=== PATIENT | male | born 1945 | race Caucasian/White ===

== ENCOUNTER 2020-05-11 11:33 | Emergency (ER) | payer MEDICARE, MEDICAID, SELFPAY ==
[2020-05-11] VITALS (33 sets, daily range): BP systolic 138–163; BP diastolic 66–108; PULSE 103–156; RESP 13–24; TEMP 36.8; O2SAT 92–97
--- NOTE | 2020-05-11 11:30 | RT.EKG_ITS ---
APPROVED REPORT Exam: Resting ECG Patient Location: E HR:122 bpm ECG Measurements Heart Rate 122 AXIS TX 134 P 47 QRSd 67 QRS 18 QT 289 T -27 QTc 415 Conclusion Sinus tachycardia with irregular rate...V-rate 105-181, variation>10% Borderline repol abnormality, diffuse leads...ST dep, T flat/neg, ant/lat/inf. Artifact. Less than 1mm ST depression in V2-6. No STEMI. I have reviewed and interpreted ECG and agree with software generated interpretation.
--- NOTE | 2020-05-11 11:49 | W.ED.GENAD ---
Discharge Plan Disposition Patient Disposition: HOME Condition: Stable Discharge Details Clinical Impression: Acute urinary retention Primary Care Provider: Kelley Mojica ED Provider: Chaya White Home Meds and New Rx's Prescriptions: No Action No Known Home Meds RF: 0 Discharge Instructions Instructions: Urinary Retention in Men (ED), Francois Catheter Placement and Care (ED) Additional Instructions: Follow up with primary care provider in 3-5 days. Return to ED sooner if any worsening or concerns. Increase oral fluids. Follow-up with Dr. Ugalde urology in 3 to 5 days regarding urinary retention. Please follow instructions given for Francois care and emptying as instructed. Practice good hygiene wash hands before emptying Francois bag or doing Francois care. Care management will follow up with you regarding follow-up appointments. Stand Alone Forms: Physical Therapy Referral Referrals: Dario Ugalde MD [ [facility] STAFF PHYSICIAN] - Kelley Mojica MD [Primary Care Provider] - Discharge Data Discharge Date/Time-TO BE ENTERED AT DEPARTURE: 05/11/20 15:55 Medical Decision Making 74-year-old male presents to the ED with chief complaint of left lower quadrant abdominal pain. He describes this as tightness for 2 days. He is normally nonambulatory and mostly bedbound, states that he gets around with a wheelchair. EMS reports that the home was very dirty, patient is disheveled. She denies any chest pain, shortness of breath. He does live with 7 other people. She has a history of gallbladder cancer, also endorses loose bowel movement this morning and last night. Denies any fever chills or vomiting. 1242: Informed by staff analyst that patient requires a catheter to obtain urine sample, Francois catheter placed with approximately 1 liter Dark urine output. Pre-catheter bladder scan showed 600 ml urine. 1309: Patient reevaluation, he states he feels much better after the Francois catheter placed. Reports abdominal pain has subsided. Discussed that we will still do the CT to rule out any other intra-abdominal pathology to explain symptoms. Labs show slight blood cell count of 10.08, RBCs 4.28 hemoglobin 15.2, hematocrit 43.6 sodium is 142, potassium 3.4, BUN 6, creatinine 1.0, GFR greater than 60, glucose is 149, total bilirubin is 2.1 initial troponin is less than 0.05 urine shows large blood, no urine RBCs 20-50 Differential diagnosis includes urinary retention, diverticulitis, bowel obstruction, gastroenteritis, colitis EXAM: CT ABDOMEN PELVIS W CLINICAL HISTORY: LLQ abd pain TECHNIQUE: COMPARISON: CT ABD PELVIS WITH CONTRAST from 02/06/2010 FINDINGS: CT examination of the abdomen and pelvis was performed bolus infusion 100 cc of Omnipaque 350. Images obtained through the lung bases are unremarkable. There is significant motion artifact which limits interpretation. There is a large hiatal hernia. Liver and spleen are grossly unremarkable. Gallbladder is not visualized. No biliary dilatation. No pancreatic abnormality. Adrenals and kidneys are unremarkable as visualized. Abdominal aorta is of normal diameter and major visceral branches appear intact. There is no evidence abdominal or pelvic adenopathy. There is no significant abdominal wall hernia identified. There is a Francois catheter in the urinary bladder. The bladder wall is thick. There appears to have been an ascending colectomy. No evidence of bowel obstruction. No diverticulitis. IMPRESSION: No evidence of acute intra-abdominal process. Scan is limited by motion artifact. 1412: Discussed CT result with patient who verbalizes understanding. Discussed going home with Francois leg bag in place. Patient verbalized understanding. Bladder wall thickened noted to suggest chronic outlet obstruction. Spoke with patient's daughter Lacey who is able to come and get patient but she is concerned that he won't be able to get out of car and into house. Will road test patient and have patient transfer fromwalker into wheelchair. 1514: Transfer here in department unsuccessful with 2 staff members with max assist attempting to get patient into the wheelchair. Care management contacted and will order home health care for patient for Francois care and transfer care,will call EMS for transfer back home. 1532: Discussed with care management in order for home health care and physical therapy to see patient in home regarding ability to do ADLs order placed for home health for Francois care. Discussed plan with patient who verbalizes understanding. EMS for home transport is on their way. 1553: EMS here for patient transport HPI General Mode of arrival: EMS. Date/Time Provider Initiated Documentation: 05/11/20 11:40. Limitations to Documentation: no limitations. Information obtained by: patient and EMS. HPI Narrative: 74-year-old male presents to the ED with chief complaint of left lower quadrant abdominal pain. He describes this as tightness for 2 days. He is normally nonambulatory and mostly bedbound, states that he gets around with a wheelchair. EMS reports that the home was very dirty, patient is disheveled. She denies any chest pain, shortness of breath. He does live with 7 other people. She has a history of gallbladder cancer, also endorses loose bowel movement this morning and last night. Denies any fever chills or vomiting. Related Data Home Medications Medication Instructions Recorded Confirmed Unknown [No Known Home Meds] 05/11/20 05/11/20 Allergies Allergy/AdvReac Type Severity Reaction Status Date / Time No Known Allergies Allergy Unverified 05/11/20 11:36 General Stated Complaint: Abd Prob SAM: 3 Review of Systems Narrative: Constitutional: Negative for weight loss, alert and oriented, disheveled, normal body habitus, appears comfortable. HEENT: Denies trauma, headaches, blurry vision, nasal discharge, sore throat, trouble swallowing. Chest: Denies chest pain, palpitations, irregular rhythm, hypertension. Respiratory: Denies Shortness of breath, cough, hemoptysis. GI: Denies positive left lower quadrant abdominal pain, nausea, vomiting, constipation. : Denies dysuria, hematuria, flank pain, rectal bleeding. Neuro: Denies dizziness, blurry vision, weakness, syncope, headache or facial numbness. Hematologic: Denies easy bruising, intolerance to heat or cold, hair loss. [facility] Social History Smoking/Tobacco Use Status: Never Smoking risk assessment performed?: Yes Alcohol Intake: current Alcohol Intake frequency: a few times a month Alcohol type: beer Substance use type: does not use Do you feel safe at home: Yes Do you feel safe in your relationship?: Yes Exam Narrative Exam Narrative: Constitutional: Alert and oriented x3. Appears stated age. Normal body habitus. Head: Normocephalic, no trauma. Eyes: Pupils PERRLA, Red reflex noted, EOM's intact. Eyelids symmetrical without lesions, discharge, or swelling. ENT: Bilateral TM's WNL, External ear normal to inspection, no mastoid TTP, swelling, or erythema, Nasal turbinates WNL, no nasal discharge. Normal dentition, Posterior pharynx WNL, no exudate. Chest: Sinus tachycardia, normal S1, S2, distal pulses intact. Resp: Lungs clear to auscultation bilaterally, no wheezes, rales, or rhonchi. Abdomen: Left lower quadrant abdominal tenderness with palpation. Abdomen is taut. Musculoskeletal: Unable to assess gait, Skin: No suspicious rashes or lesions. Capillary refill less than 2 sec. Neurologic: Cranial nerves II-XII intact. Alert and oriented x 3. DTR's intact. Hematologic/Lymphatic: No ecchymosis, no lymphadenopathy. Course Vital Signs Vital signs: Vital Signs Temperature 36.8 C 05/11/20 11:29 Pulse 135 H 05/11/20 11:29 Respiratory Rate 16 05/11/20 11:29 Blood Pressure 138/98 H 05/11/20 11:29 Pulse Oximetry 95 05/11/20 11:29 Temperature 36.8 C 05/11/20 11:29 Temperature Source Skin 05/11/20 11:29 Pulse 135 H 05/11/20 11:29 Respiratory Rate 16 05/11/20 11:29 Respiratory Effort 05/11/20 11:36 Blood Pressure 138/98 H 05/11/20 11:29 Pulse Oximetry 95 05/11/20 11:29 Oxygen Delivery Method Room Air 05/11/20 11:29 Oxygen Flow Rate 0 05/11/20 11:29 Pain Level 5 05/11/20 11:29
[2020-05-11 12:11] LABS: Abs Immature Grans 0.02 10^3/uL (0.0-0.06); Absolute Basophil Count 0.02 10^3/uL (0.0-0.2); Absolute Eosinophil Count 0.01 10^3/uL (0.0-0.7); Absolute Lymphocyte Count 1.16 10^3/uL (1.2-3.4); Absolute Monocyte Count 0.63 10^3/uL (0.1-0.8); Absolute Neutrophil Count 8.24 10^3/uL (1.2-6.7); Basophils % 0.2; Eosinophils % 0.1; HCT 43.6 % (40.0-50.0); HGB 15.2 g/dL (13.5-17.5); Immature Grans % 0.2; Lymphocytes % 11.5; MCH 35.5 pg (27.0-33.0); MCHC 34.9 % (32.0-36.0); MCV 101.9 fL (80-95); MPV 10.8 fL (8.0-11.0); Monocytes % 6.3; Neutrophils % 81.7; Nucleated RBC 0 %; Platelet Count 190 10^3/uL (130-400); RBC 4.28 10^6/uL (4.36-5.78); RDW 13.2 % (11.8-14.1); RDW-SD 49.5 fL; WBC 10.08 10^3/uL (4.4-10.8)
[2020-05-11] MEDS: Normal Saline 1,000 ML 1000 ML IV (12:16)
[2020-05-11 12:31] LABS: ALT 10 U/L (16-63); AST 18 U/L (15-37); Albumin 3.1 g/dL (3.4-5.0); Alkaline Phosphatase 83 U/L (46-116); BUN 6 mg/dL (7-18); Bilirubin, Total 2.1 mg/dL (0.2-1.0); CREATININE 1.06 mg/dL (0.70-1.30); Calcium 8.8 mg/dL (8.5-10.1); Chloride 107 mmol/L (98-107); Glucose 149 mg/dL (74-106); Lipase 70 U/L (73-393); Magnesium 1.8 mg/dL (1.8-2.4); Potassium 3.4 mmol/L (3.5-5.1); Sodium 142 mmol/L (136-145); Total Protein 6.8 g/dL (6.4-8.2)
[2020-05-11 12:35] LABS: Troponin I < 0.05 ng/mL (<0.06)
[2020-05-11] MEDS: Lidocaine 2% Jelly 6 ML SYR (12:39)
[2020-05-11 12:54] LABS: Bilirubin Negative (Negative); Blood Large (Negative); Clarity Clear (Clear); Glucose Negative (Negative); Ketones Negative (Negative); Leukocyte Esterase Negative (Negative); Nitrite Negative (Negative); Specific Gravity >= 1.030 (1.005-1.025); Urobilinogen 0.2 EU/dL (Up TO 0.2); pH 5.5 (5-8)
[2020-05-11 13:03] LABS: Bacteria Few HPF (Negative); C & S Indicated? No; Casts Negative LPF (Negative); Crystals Negative HPF (Negative); Epithelial Cells Negative HPF (Negative); Mucus Heavy (Negative); Other Cells Rare Renal (Negative); RBC 20-50 HPF (0-2); WBC Negative HPF (0-5)
--- NOTE | 2020-05-11 13:55 | DI.CT_ITS ---
EXAM: CT ABDOMEN PELVIS W CLINICAL HISTORY: LLQ abd pain TECHNIQUE: COMPARISON: CT ABD PELVIS WITH CONTRAST from 02/06/2010 FINDINGS: CT examination of the abdomen and pelvis was performed bolus infusion 100 cc of Omnipaque 350. Image s obtained through the lung bases are unremarkable. There is significant motion artifact which limit s interpretation. There is a large hiatal hernia. Liver and spleen are grossly unremarkable. Gallbladder is not visua lized. No biliary dilatation. No pancreatic abnormality. Adrenals and kidneys are unremarkable as visualized. Abdominal aorta is of normal diameter and major visceral branches appear intact. There is no evidence abdominal or pelvic adenopathy. There is no significant abdominal wall hernia i dentified. There is a Francois catheter in the urinary bladder. The bladder wall is thick. There appears to have been an ascending colectomy. No evidence of bowel obstruction. No diverticuli tis. IMPRESSION: No evidence of acute intra-abdominal process. Scan is limited by motion artifact. RADIATION DOSE DELIVERED: 1,059.53mGy.cm Total DLP
[2020-05-11] MEDS: Omnipaque 350 MG/ML 100 ML BTL IJ (13:57)
[2020-05-11] MEDS: Normal Saline - Diluent 50 ML VIAL IV (13:57)
--- NOTE | 2020-05-11 14:18 | NUR.NOTE ---
[facility]
--- NOTE | 2020-05-11 16:33 | CMPROGNOTE_ITS ---
- If Service Date Differs Date of service: 05/11/20 Time of Service: 16:33 Care Management Progress Note CM was paged to assist with HH orders for Jose, as he is returning home with a new morejon catheter. CM obtained signed orders from the provider and faxed them to [facility]. CM will continue to follow.
--- NOTE | 2020-05-12 16:51 | NUR.NOTE ---
Nursing Note: Pt called at provider's request to f/u about morejon care and management. Pt states his granddaughter Shannon had come over and had shown him how to operate and clean/empty catheter. Pt declined any further instruction, though was encouraged to call with any questions. Provider aware.
== END 2020-05-11 15:55 | disposition home or self-care (01) ==
PROVIDERS: Emergency Provider Registered Nurse Emergency
DX: R33.8 Other retention of urine (principal); Z46.6 Encounter for fitting and adjustment of urinary device; R10.32 Left lower quadrant pain
CPT/HCPCS: 51702; 80053; 83690; 93005; 96360; 99285; 74177; 81003; 81015; 83735; 84484; 85025; 93010; 99284; J3490

== ENCOUNTER 2020-05-13 18:57 | Emergency (ER) | payer MEDICARE, MEDICAID, SELFPAY ==
[2020-05-13 19:05] VITALS: BP 142/103; PULSE 101; RESP 17; TEMP 37.2; O2SAT 95
--- NOTE | 2020-05-13 19:52 | NUR.NOTE ---
pt had large bm. cleansed and new depends placed. no decub noted. new morejon bag placed to do ua from bag. :
[2020-05-13 20:16] LABS: Bilirubin Small (Negative); Blood Large (Negative); Clarity Sl Cloudy (Clear); Glucose Negative (Negative); Ketones 15 mg/dL (Negative); Leukocyte Esterase Negative (Negative); Nitrite Negative (Negative); Specific Gravity >= 1.030 (1.005-1.025); Urobilinogen 0.2 EU/dL (Up TO 0.2)
[2020-05-13 20:26] LABS: RBC >50 HPF (0-2)
[2020-05-13 20:31] LABS: C & S Indicated? No
[2020-05-13 20:51] VITALS: BP 149/74; PULSE 88; RESP 18; O2SAT 98
--- NOTE | 2020-05-13 20:59 | ED.GENADUL_ITS ---
Discharge Plan Disposition Patient Disposition: HOME Condition: Stable Discharge Details Clinical Impression: Francois catheter problem, Hematuria Primary Care Provider: Fran York ED Provider: Shankar Potter Home Meds and New Rx's Prescriptions: No Action No Known Home Meds RF: 0 Discharge Instructions Instructions: Francois Catheter Placement and Care (ED), Hematuria (ED) Additional Instructions: At this time your Francois catheter appears to be functioning properly. No signs of urinary tract infection. Please watch for new or worsening symptoms and return to the ER for any concerns. I would like you to contact your primary care provider on Friday to discuss your Francois catheter and ongoing outpatient medical needs Discharge Data Discharge Date/Time-TO BE ENTERED AT DEPARTURE: 05/13/20 21:20 Medical Decision Making 74-year-old gentleman had Francois catheter placed 2 days ago. Not draining appropriately today. It appears as though the tubing was flipped up over his depends and unable to train against gravity. Once the tubing was removed, it drained without difficulty. By the time I saw the patient he was asymptomatic. Will obtain urinalysis. Urinalysis reveals large blood but negative for nitrate, leuk esterase. Greater than 50 red blood cells. Patient is currently asymptomatic, extremely low suspicion for renal stone. I see no indication for emergent imaging. Patient is asymptomatic and feels as though he can go home safely in his current condition. We were able to talk with his family, they do have a wheelchair at home and feel as though they are able to care for him at home in his current condition. Both patient and family are comfortable with disposition home. They will come pick him up. We discussed the importance of watching for new or evolving symptoms and returning to the ER for any concerns otherwise follow the instructions given to them by [facility] when the Francois catheter was placed. Patient was educated regarding Francois catheter and tube placement. Lab Data Lab results reviewed: Yes I reviewed the patient's lab results. Lab results narrative: Laboratory Tests Range/Units 05/13/20 20:05 Urine Color (Yellow) Red Urine Clarity (Clear) Sl cloudy Urine pH (5-8) 7.0 Ur Specific [place] (1.005-1.025) >= 1.030 H Urine Protein (Negative) mg/dL >=300 H Urine Ketones (Negative) mg/dL 15 H Urine Blood (Negative) Large H Urine Nitrite (Negative) Negative Urine Bilirubin (Negative) Small H Urine Urobilinogen (Up TO 0.2) EU/dL 0.2 Ur Leukocyte Esterase (Negative) Negative Urine RBC (0-2) HPF >50 H Urine WBC Not Applicable Ur Epithelial Cells Not Applicable Urine Crystals Not Applicable Urine Bacteria Not Applicable Urine Mucus Not Applicable Ur Culture Indicated? No Urine Glucose (Negative) mg/dL Negative HPI General Mode of arrival: EMS . Date/Time Provider Initiated Documentation: 05/13/20 19:10 . Limitations to Documentation: no limitations . Information obtained by: patient and EMS . HPI Narrative: 74-year-old gentleman who denies significant past medical history. He states that he was seen at the [facility] days ago for worsening urinary retention and had a Francois catheter placed. The Francois catheter was functioning normally over the first 24 hours but today he states it was not functioning properly he did notice some blood in the tubing and it does not appear to be draining properly. Patient has no other concerns or complaints at this time. Patient reports that he is not usually ambulatory at baseline and he has a wheelchair at home. Patient lives at home with his family who typically cares for him. He denies any fever, nausea, vomiting, back pain. Prior to my evaluation, his RN on looped his Francois catheter tubing and urine flowed freely. Bladder scanner revealed 64 mL. Upon my presentation, patient is asymptomatic. Related Data Home Medications Medication Instructions Recorded Confirmed Unknown [No Known Home Meds] 05/13/20 05/13/20 Allergies Allergy/AdvReac Type Severity Reaction Status Date / Time No Known Allergies Allergy Unverified 05/13/20 19:12 General Stated Complaint: Urinary SAM: 3 Review of Systems Constitutional Constitutional: Denies fever(s) Cardiovascular Cardiovascular: Denies chest pain and Denies dyspnea Respiratory Respiratory: Denies cough and Denies dyspnea Gastrointestinal Gastrointestinal: Denies abdominal pain, Denies nausea and Denies vomiting Genitourinary Genitourinary: Reports hematuria Musculoskeletal Musculoskeletal: Denies back pain [facility] Social History Smoking/Tobacco Use Status: Never Smoking risk assessment performed?: Yes Alcohol Intake: current Alcohol Intake frequency: holidays/special occasions only Drug use: Never Substance use type: does not use Do you feel safe at home: Yes Do you feel safe in your relationship?: Yes Additional Social history: pt arrives very dirty and disheveled. per ems home living situation is very unsanitary. pt states baths him and feeds him. Exam Const General: cooperative, healthy appearing, comfortable, no acute distress and disheveled Orientation: alert, awake and oriented x3 HENMT Head: normal to inspection, normocephalic and atraumatic Mouth: moist mucous membranes Eyes Conjunctivae: conjunctivae normal Sclera: sclerae normal Neck Neck: normal visual inspection, full ROM, trachea midline and supple Resp Effort & Inspection: normal respiratory effort and able to speak in complete sentences Auscultation: clear to auscultation bilaterally Cardio Rate: regular rate Rhythm: regular rhythm GI Palpation: soft and nontender Auscultation: normal bowel sounds Male General Exam: Yes other (Indwelling Francois catheter in place) Penis: normal penis Meatus: meatus normal Scrotum: scrotum normal Testes: normal Back/Spine/Pelvis Back: No back tenderness Skin General skin exam: no rashes or lesions noted Neuro General: patient alert, patient awake, moves all extremities and no focal motor deficits Sensory Exam: no sensory deficits noted Psych Appearance: grossly normal Mental Status: mental status grossly normal Course Vital Signs Vital signs: Vital Signs Temperature 37.2 C 05/13/20 19:05 Pulse 101 H 05/13/20 19:05 Respiratory Rate 17 05/13/20 19:05 Blood Pressure 142/103 H 05/13/20 19:05 Pulse Oximetry 95 05/13/20 19:05 Temperature 37.2 C 05/13/20 19:05 Temperature Source Temporal Artery Scan 05/13/20 19:05 Pulse 88 05/13/20 20:51 Respiratory Rate 18 05/13/20 20:51 Respiratory Effort 05/13/20 19:09 Blood Pressure 149/74 H 05/13/20 20:51 Blood Pressure Position Sitting 05/13/20 19:05 Pulse Oximetry 98 05/13/20 20:51 Oxygen Delivery Method Room Air 05/13/20 19:05 Oxygen Flow Rate 0 05/13/20 19:05 Pain Level 0 05/13/20 19:05 Lab/Test Results Lab/Test Results: Laboratory Tests Range/Units 05/13/20 20:05 Urine Color (Yellow) Red Urine Clarity (Clear) Sl cloudy Urine pH (5-8) 7.0 Ur Specific [place] (1.005-1.025) >= 1.030 H Urine Protein (Negative) mg/dL >=300 H Urine Ketones (Negative) mg/dL 15 H Urine Blood (Negative) Large H Urine Nitrite (Negative) Negative Urine Bilirubin (Negative) Small H Urine Urobilinogen (Up TO 0.2) EU/dL 0.2 Ur Leukocyte Esterase (Negative) Negative Urine RBC (0-2) HPF >50 H Urine WBC Not Applicable Ur Epithelial Cells Not Applicable Urine Crystals Not Applicable Urine Bacteria Not Applicable Urine Mucus Not Applicable Ur Culture Indicated? No Urine Glucose (Negative) mg/dL Negative
== END 2020-05-13 21:20 | disposition home or self-care (01) ==
PROVIDERS: Emergency Provider Physician Assistant; PCP Internal Medicine
DX: T83.9XXA Unspecified complication of genitourinary prosthetic device, implant and graft, initial encounter (principal); R31.9 Hematuria, unspecified
CPT/HCPCS: 99282; 81003; 81015

== ENCOUNTER 2020-06-07 13:17 | Inpatient (IN) | payer MEDICARE, MEDICAID, SELFPAY ==
[2020-06-07] VITALS (24 sets, daily range): BP systolic 125–154; BP diastolic 71–97; PULSE 82–123; RESP 13–22; TEMP 36.7–37; O2SAT 94–100
--- NOTE | 2020-06-07 | DI.US_ITS ---
EXAM: US RENAL CLINICAL HISTORY: urinary retention, ERIKA. TECHNIQUE: Daniel scale, color and spectral Doppler were used. COMPARISON: No exams were available for comparison FINDINGS: Renal size in cm: Right: 9.4. Left: 10.2. Echogenicity: Normal. Hydronephrosis: No. Cyst or mass: No. Nephrolithiasis: No. Other findings: None. Bladder:There is a Francois catheter in the urinary bladder and the prevoid volume is 20 cc. Urinary bl adder wall appears slightly thickened but difficult to assess as it is decompressed by the Francois cath eter. Ureteral jets: Right: Not visualized Left: Not visualized Prevoid vol:20 cc Postvoid vol: cc Prostate not visualized. IMPRESSION: No significant ultrasound findings in the kidneys. Decompressed urinary bladder with Francois catheter. DATA REPOSITORY:
[2020-06-07 13:41] LABS: Abs Immature Grans 0.04 10^3/uL (0.0-0.06); Absolute Basophil Count 0.01 10^3/uL (0.0-0.2); Absolute Lymphocyte Count 1.08 10^3/uL (1.2-3.4); Absolute Monocyte Count 0.56 10^3/uL (0.1-0.8); Absolute Neutrophil Count 7.53 10^3/uL (1.2-6.7); Basophils % 0.1; HGB 13.9 g/dL (13.5-17.5); Immature Grans % 0.4; Lymphocytes % 11.7; MCH 34.5 pg (27.0-33.0); MCHC 33.9 % (32.0-36.0); MCV 101.7 fL (80-95); MPV 10.6 fL (8.0-11.0); Monocytes % 6.1; Neutrophils % 81.7; Nucleated RBC 0 %; Platelet Count 228 10^3/uL (130-400); RBC 4.03 10^6/uL (4.36-5.78); RDW 12.7 % (11.8-14.1); RDW-SD 47.9 fL; WBC 9.22 10^3/uL (4.4-10.8)
--- NOTE | 2020-06-07 13:47 | W.ED.GENAD ---
Discharge Plan Disposition Patient Disposition: [facility] INPATIENT Condition: Poor Discharge Details Clinical Impression: Acute hypokalemia, Weakness Admit Date/Time: 06/07/20 14:36 Admit Provider: Shankar Arias Attending Provider: Shankar Arias Primary Care Provider: Kelley Mojica ED Provider: Chaya White Discharge Data Discharge Date/Time-TO BE ENTERED AT DEPARTURE: 06/07/20 15:58 Medical Decision Making 73-year-old male presents to the ER via EMS with chief complaint of dysuria, having a hard time urinating. Patient was seen here in the end of April with urinary retention and had a Francois catheter placed. He has sent had a removed by home health last Friday. He reports some left lower quadrant abdominal tenderness denies any fever or vomiting. He also reports that he had home health and physical therapy come to the home. He has been bedbound and has had increasing weakness and failure to thrive over the last 2 months. 1403: hospital staff pharmacist states that bladder scan revealed the urine of 343 mils patient states he cannot pee, Francois ordered. Critical low result on potassium received from the lab, 2.8 1439: Spoke with Lois Canseco FILLING STATION LABORER is on for hospitalist team, discussed patient case in details she agrees to accept patient for admission for hypokalemia and UTI. Discussed plan with patient, verbalized understanding. 1544: Spoke with Med surg nurse Krista MURPHY. Patient to go to room 216. HPI General Mode of arrival: EMS. Date/Time Provider Initiated Documentation: 06/07/20 13:31. Limitations to Documentation: no limitations. Information obtained by: patient and EMS. HPI Narrative: 73-year-old male presents to the ER via EMS with chief complaint of dysuria, having a hard time urinating. Patient was seen here in the end of April with urinary retention and had a Francois catheter placed. He has sent had a removed by home health last Friday. He reports some left lower quadrant abdominal tenderness denies any fever or vomiting. He also reports that he had home health and physical therapy come to the home. He has been bedbound and has had increasing weakness and failure to thrive over the last 2 months. Related Data Home Medications Medication Instructions Recorded Confirmed Unknown [No Known Home Meds] 05/11/20 06/07/20 Allergies Allergy/AdvReac Type Severity Reaction Status Date / Time No Known Allergies Allergy Unverified 06/07/20 13:27 General Stated Complaint: GenMedical SAM: 3 Review of Systems Narrative: Constitutional: Patient is disheveled, normal body habitus, HEENT: Denies trauma, headaches, blurry vision, nasal discharge, sore throat, trouble swallowing. Chest: Denies chest pain, palpitations, irregular rhythm, hypertension. Respiratory: Denies Shortness of breath, cough, hemoptysis. GI: Denies nausea, vomiting, constipation. : Denies hematuria, flank pain, rectal bleeding. Positive dysuria, trouble urinating. Neuro: Denies dizziness, blurry vision, syncope, headache or facial numbness. Hematologic: Denies easy bruising, intolerance to heat or cold, hair loss. [facility] Social History Smoking/Tobacco Use Status: Never Smoking risk assessment performed?: Yes Alcohol Intake: current Alcohol Intake frequency: a few times a month Alcohol type: beer Drug use: Never Substance use type: does not use Do you feel safe at home: Yes Do you feel safe in your relationship?: Yes Additional Social history: pt arrives very dirty and disheveled. per ems home living situation is very unsanitary. pt states baths him and feeds him. Exam Narrative Exam Narrative: Constitutional: Alert and oriented x3. Appears stated age. Normal body habitus. Disheveled. Head: Normocephalic, no trauma. Eyes: Pupils PERRLA, Red reflex noted, EOM's intact. Eyelids symmetrical without lesions, discharge, or swelling. ENT: Bilateral TM's WNL, External ear normal to inspection, no mastoid TTP, swelling, or erythema, Nasal turbinates WNL, no nasal discharge. Normal dentition, Posterior pharynx WNL, no exudate. Chest: RRR, Normal S1, S2, distal pulses intact. Resp: Lungs clear to auscultation bilaterally, no wheezes, rales, or rhonchi. Musculoskeletal: He is able to move all 4 extremities without difficulty. Skin: No suspicious rashes or lesions. Capillary refill less than 2 sec. Neurologic: Cranial nerves II-XII intact. Alert and oriented x 3. Hematologic/Lymphatic: No ecchymosis, no lymphadenopathy. Course Vital Signs Vital signs: Vital Signs Temperature 37.0 C 06/07/20 13:20 Pulse 110 H 06/07/20 13:20 Blood Pressure 154/86 H 06/07/20 13:20 Pulse Oximetry 97 06/07/20 13:20 Temperature 37.0 C 06/07/20 13:20 Pulse 110 H 06/07/20 13:20 Respiratory Effort Non-Labored 06/07/20 13:26 Blood Pressure 154/86 H 06/07/20 13:20 Blood Pressure Position Sitting 06/07/20 13:20 Pulse Oximetry 97 06/07/20 13:20 Oxygen Delivery Method Room Air 06/07/20 13:20 Oxygen Flow Rate 0 06/07/20 13:20 Pain Level 0 06/07/20 13:20 Lab/Test Results Lab/Test Results: Laboratory Tests Range/Units 06/07/20 12:25 WBC (4.4-10.8) 10^3/uL 9.22 RBC (4.36-5.78) 10^6/uL 4.03 L Hgb (13.5-17.5) g/dL 13.9 Hct (40.0-50.0) % 41.0 MCV (80-95) fL 101.7 H MCH (27.0-33.0) pg 34.5 H MCHC (32.0-36.0) % 33.9 RDW (11.8-14.1) % 12.7 Plt Count (130-400) 10^3/uL 228 MPV (8.0-11.0) fL 10.6 Immature Gran % 0.4 Neutrophils % 81.7 Lymphocytes % 11.7 Monocytes % 6.1 Eosinophils % 0.0 Basophils % 0.1 Nucleated RBC % % 0 Absolute Neutrophils (1.2-6.7) 10^3/uL 7.53 H Absolute Lymphocytes (1.2-3.4) 10^3/uL 1.08 L Absolute Monocytes (0.1-0.8) 10^3/uL 0.56 Absolute Eosinophils (0.0-0.7) 10^3/uL 0.00 Absolute Basophils (0.0-0.2) 10^3/uL 0.01
[2020-06-07 13:50] LABS: ALT 12 U/L (16-63); AST 13 U/L (15-37); Albumin 2.5 g/dL (3.4-5.0); Alkaline Phosphatase 87 U/L (46-116); Anion Gap 5.4 mmol/L (3-11); BUN 8 mg/dL (7-18); Bilirubin, Total 1.5 mg/dL (0.2-1.0); CO2 29.6 mmol/L (21.0-32.0); CREATININE 1.35 mg/dL (0.70-1.30); Calcium 7.9 mg/dL (8.5-10.1); Estimated GFR 51.81 (mL/min/1.73m2); Glucose 116 mg/dL (74-106); Lipase 58 U/L (73-393); Magnesium 1.7 mg/dL (1.8-2.4); Total Protein 6.5 g/dL (6.4-8.2)
[2020-06-07 14:01] LABS: Chloride 106 mmol/L (98-107); Sodium 142 mmol/L (136-145)
[2020-06-07 14:07] LABS: Potassium 2.8 mmol/L (3.5-5.1)
--- NOTE | 2020-06-07 14:15 | RT.EKG_ITS ---
APPROVED REPORT Exam: Resting ECG Patient Location: E HR:112 bpm ECG Measurements Heart Rate 112 AXIS LA 147 P 69 QRSd 62 QRS 27 QT 314 T -15 QTc 429 Conclusion Sinus tachycardia...rate> 99 I have reviewed and interpreted ECG and agree with software generated interpretation.
[2020-06-07] MEDS: Potassium Chloride Liquid 20 MEQ PKT 40 MEQ PO (14:30)
[2020-06-07 14:32] LABS: Bilirubin Negative (Negative); Blood Moderate (Negative); Clarity Cloudy (Clear); Glucose Negative (Negative); Ketones Negative (Negative); Leukocyte Esterase Small (Negative); Nitrite Negative (Negative); Specific Gravity >= 1.030 (1.005-1.025); Urobilinogen 0.2 EU/dL (Up TO 0.2)
[2020-06-07] MEDS: POTASSIUM CHLORIDE 10 MEQ/100 ML BAG 100 MEQ IVPB (14:36)
[2020-06-07 14:42] LABS: C & S Indicated? Yes; WBC >50 HPF (0-5)
--- NOTE | 2020-06-07 14:43 | W.PM.HP.N ---
Date of service: 06/07/20 Time of Service: 14:43 Assessment and Plan Assessment and plan (1) UTI (urinary tract infection): Status: Acute Assessment and plan: admit to med/surg. Recent history of urinary retention with catheter placement. ceftriaxone 1 gm daily day 07/18 culture pending (2) Acute urinary retention: Status: Acute Assessment and plan: morejon catheter placed renal ultrasound pending tamsulosin 0.4 mg daily urology consult (3) ERIKA (acute kidney injury): Status: Resolved Assessment and plan: possibly combination of post and pre-renal. morejon has been placed, renal ultrasound pending CT scan on 05/11 with no hydro, no nephrolithiasis IV hydration with bolus then infusion avoid nephrotoxic drugs renal dosing as needed. (4) Acute hypokalemia: Status: Resolved Assessment and plan: replete and follow magnesium will be repleted also, was 1.7 (has had poor po intake for several days) (5) Loss of taste: Status: Acute Assessment and plan: reports 2 days of anorexia d/t loss of taste. no know covid contacts. PUI covid testing pending (6) Protein malnutrition: Status: Acute Assessment and plan: calcium corrects to 9.1 nutrition consult. (7) Ambulatory dysfunction: Status: Acute Assessment and plan: chronic, reports mostly utilizes wheel chair. PT consult (8) DVT prophylaxis: Status: Acute Assessment and plan: enoxaparin daily teds (9) Discharge planning issues: Status: Acute Assessment and plan: case management following. History of Present Illness History of Present Illness Chief Complaint: dysuria Narrative: presents by EMS for difficulty urinating. c/o dysuria and retaining urine. found to be hypokalemic and dehydrated. UA pending. had urinary retention and had a morejon placed 05/11 in ED which was removed by [facility] per patient report admit to hospitalist for urinary retention, hypokalemia, UTI. start ceftriaxone while cultures pending. patient also reports losing his sense of taste 2 days ago which is causing anorexia. Review of Systems Constitutional Constitutional: Reports anorexia (loss of taste), Denies fever(s), Denies headache(s), Reports lethargy, Reports malaise, Reports poor appetite and Reports weakness (generalized, chronic) Eyes Eyes: Denies change in vision ENT Ears, Nose, Mouth, and Throat: Denies headache(s) Cardiovascular Cardiovascular: Denies chest pain and Denies dyspnea Respiratory Respiratory: Denies chest congestion, Denies cough and Denies dyspnea Gastrointestinal Gastrointestinal: Reports abdominal pain, Denies constipation, Denies diarrhea, Denies nausea and Denies vomiting Genitourinary Genitourinary: Reports difficulty urinating, Reports dysuria, Reports urinary frequency and Reports urinary urgency Neurologic Neurologic: Denies headache(s) and Reports weakness (generalized, chronic) [facility] Social History Smoking/Tobacco Use Status: Never Smoking risk assessment performed?: Yes Alcohol Intake: current Alcohol Intake frequency: a few times a month Alcohol type: beer Drug use: Never Substance use type: does not use Do you feel safe at home: Yes Do you feel safe in your relationship?: Yes Additional Social history: pt arrives very dirty and disheveled. per ems home living situation is very unsanitary. pt states baths him and feeds him. Meds Home Medications and Allergies Home Medications Medication Instructions Recorded Confirmed Type Unknown [No Known Home Meds] 05/11/20 06/07/20 History Allergies Allergy/AdvReac Type Severity Reaction Status Date / Time No Known Allergies Allergy Unverified 06/07/20 13:27 Exam Const General: cooperative, comfortable, no acute distress, frail appearing and ill appearing chronically Nutritional Appearance: average body habitus Orientation: alert, awake and oriented x3 HENMT Head: normal to inspection, normocephalic and atraumatic Mouth: moist mucous membranes abnormal (dry) Resp Effort & Inspection: normal respiratory effort Auscultation: clear to auscultation bilaterally Cardio Rate: regular rate Rhythm: regular rhythm GI Inspection: normal to inspection Palpation: soft and nontender Auscultation: normal bowel sounds General: other (morejon draining cloudy urine) Neuro General: patient alert, patient awake and patient oriented x3 Cognition: normal cognition Speech: speech normal Sensory Exam: no sensory deficits noted Extrem General: normal to inspection, full ROM and no pedal edema Psych Mental Status: mental status grossly normal Speech and Movement: speech and movement normal Mood: congruent mood Affect: blunted Attitude: cooperative Results Labs Result diagrams: 06/08/20 06:42 06/09/20 07:04 Labs: Laboratory Results - last 24 hr 1106/07/20 06/07/20 12:25 12:25 14:20 WBC 9.22 RBC 4.03 L Hgb 13.9 Hct 41.0 MCV 101.7 H MCH 34.5 H MCHC 33.9 RDW 12.7 Plt Count 228 MPV 10.6 Immature Gran % 0.4 Neutrophils % 81.7 Lymphocytes % 11.7 Monocytes % 6.1 Eosinophils % 0.0 Basophils % 0.1 Nucleated RBC % 0 Absolute Neutrophils 7.53 H Absolute Lymphocytes 1.08 L Absolute Monocytes 0.56 Absolute Eosinophils 0.00 Absolute Basophils 0.01 Sodium 142 Potassium 2.8 L* Chloride 106 Carbon Dioxide 29.6 Anion Gap 5.4 BUN 8 Creatinine 1.35 H Estimated GFR/1.73 m2 51.81 Glucose 116 H Calcium 7.9 L Magnesium 1.7 L Total Bilirubin 1.5 H AST 13 L ALT 12 L Alkaline Phosphatase 87 Total Protein 6.5 Albumin 2.5 L Lipase 58 Urine Color Yellow Urine Clarity Cloudy Urine pH 6.0 Ur Specific [place] >= 1.030 H Urine Protein >=300 H Urine Ketones Negative Urine Blood Moderate H Urine Nitrite Negative Urine Bilirubin Negative Urine Urobilinogen 0.2 Ur Leukocyte Esterase Small H Urine RBC Not Applicable Urine WBC >50 H Ur Epithelial Cells Not Applicable Urine Crystals Not Applicable Urine Bacteria Not Applicable Urine Mucus Not Applicable Ur Culture Indicated? Yes Urine Glucose Negative Last Vital Signs Temp 37.0 C 06/07/20 13:20 Pulse 110 H 06/07/20 13:20 BP 154/86 H 06/07/20 13:20 Pulse Ox 97 06/07/20 13:20 COVID-19 Screening Have you, or household traveled for leisure in last 14 days?: No Had IN PERSON contact w/suspected or confirmed C-19 person: No
[2020-06-07] MEDS: cefTRIAXone 1 GM/50 ML BAG IVPB (15:46)
--- NOTE | 2020-06-07 16:51 | DI.VRAD_ITS ---
PROCEDURE INFORMATION: Exam: US Retroperitoneal; Complete; Kidneys and Bladder Exam date and time: 06/07/2020 4:31 PM Age: 74 years old Clinical indication: Other: Urinary retention; [place] TECHNIQUE: Imaging protocol: Real-time ultrasound of the retroperitoneum with image documentation. Complete exam focused on the kidneys and bladder. COMPARISON: CT ABDOMEN PELVIS W 05/11/2020 1:44 PM FINDINGS: Right kidney: The right kidney measures 9.4 x 5.2 x 5.3 cm. Left kidney: The left kidney measures 10.2 x 5.4 x 5.1 cm. No renal calculus, hydronephrosis, mass or perinephric fluid collection. Urinary bladder: Urinary bladder is decompressed with a Francois catheter balloon within the lumen. Prevoid bladder volume is 20 mL. Bladder wall is thickened although this is likely related to chronic prostate enlargement and decompression. IMPRESSION: 1. Normal bilateral kidneys without hydronephrosis. 2. Decompressed urinary bladder with Francois catheter balloon within. Dictated and Authenticated by: Ludy Ortega MD. Ordering:DORETHA Abreu MD
[2020-06-07] MEDS: Normal Saline 500 ML 1000 ML IV (16:56)
[2020-06-07] MEDS: Enoxaparin 40 MG/0.4 ML SYR SC (16:56)
--- NOTE | 2020-06-07 17:30 | IN_ITS ---
Date of service: 06/07/20 Time of Service: 17:30 PT Notes Visit Reasons: HYPOKALEMIA Physical Therapy Inpatient Initial Evaluation Date: 06/07/2020 Referring Doctor: Lois Canseco NP PT Orders: PT CONSULT: Eval/treat Precautions: Fall. Standard. Activity as tolerated. Patient Profile/Admitting Diagnosis: Jose is a 74-year-old male who presented to the ED on today with chief complaint of difficulty urinating. He was previously seen at the ED on 05/13/2020 for urinary retention with placement of morejon catheter prior to discharge from home same day. Catheter was removed last 06/02/2020 by HH nurse. referral to PT was made due to accompanying generalized weakness and difficulty with transfers. Patient is diagnosed with urinary tract infection, urinary retention, kidney injury, acute hypokalemia, loss of taste, protein malnutrition, and ambulatory dysfunction. PMHX: Hematuria Ambulatory dysfunction Social History/Home Situation: Lives with , son, and son's family. He states that he has a HH aide who comes in twice a week to help with self-care. PT comes twice a week as well for functional mobility progression. He claims that his son helps out with transferring on days PT Haim does not come to visit. He has not walked for quite a long time now. Indicates that he has a wheelchair at home that is used to move the him from one part of the house to the other. Has fallen more than 5 times in the past year. Equipment Owned/DME: [employer], wheelchair Subjective: You would need a second person to move me. Reports being very fatigued and weak. Apprehensive about moving due to back pain and leg pain but was agreeable to be sat up in bed although did not appear to be comfortable with moving. Stressed that he has not walked a distance for quite a while. Objective: General Observation: Supine in bed. IV in L UE. Morejon catheter in place. Mental Status: Alert. Able to follow simple step commands. responds appropriately to questions. Aware of where he is. Pain: Reports increase pain in his back and his legs with attempt to move and sit at edge of bed ROM: Right Upper Extremity: Shoulder Flexion allows only up to 90 degrees. Shoulder abduction WFL allows only up to 80 degrees. Elbow flexion WFL. Wrist flexion WFL. Opening and closing of hand WFL. Left Upper Extremity: Shoulder Flexion allows only up to 90 degrees. Shoulder abduction WFL allows only up to 80 degrees. Elbow flexion WFL. Wrist flexion WFL. Opening and closing of hand WFL. Right Lower Extremity: Hip flexion allows only up to 90 degrees. Hip abduction about 10 degrees in supine. Knee flexion allows about 10 to 60 degrees. Knee extension -10 degrees. Ankle dorsiflexion to neutral only. Ankle plantarflexion up to 10 degrees. Left Lower Extremity: Hip flexion allows only up to 90 degrees. Hip abduction about 10 degrees in supine. Knee flexion allows about 10 to 60 degrees. Knee extension -10 degrees. Ankle dorsiflexion to neutral only. Ankle plantarflexion up to 10 degrees. Strength: Right Upper Extremity: Shoulder flexors 3-/5. Shoulder abductors 3-/5. Elbow flexors 4-/5. Elbow extensors 4-/5. Domestic Laundry Worker strong. Left Upper Extremity: Shoulder flexors 3-/5. Shoulder abductors 3-/5. Elbow flexors 4-/5. Elbow extensors 4-/5. Domestic Laundry Worker strong. Right Lower Extremity: Hip flexors 3-/5. Hip abductors 3-/5. Knee flexors 3-/5. Knee extensors 3-/5. Ankle dorsiflexors 5/5. Ankle plantarflexors 5/5. Left Lower Extremity:Hip flexors 5/5. Hip abductors 5/5. Knee flexors 5/5. Knee extensors 5/5. Ankle dorsiflexors 5/5. Ankle plantarflexors 5/5. Sensation: Intact as to pain and pressure on bilateral lower extremities. Bed Mobility/Transfers: Rolling moderate assist of 1 Supine to sit moderate assist of 2 Sit to supine Not tested. Will attempt to assess with a second person in the COVID unit in the next session. Sit to stand Not tested. Will attempt to assess with a second person in the COVID unit in the next session. Stand to sit Not tested. Will attempt to assess with a second person in the COVID unit in the next session. Bed to chair Not tested. Will attempt to assess with a second person in the COVID unit in the next session. Chair to bed Not tested. Will attempt to assess with a second person in the COVID unit in the next session. Gait: Not tested. Will attempt to assess with a second person in the COVID unit in the next session. Balance: Static Sitting: Poor Dynamic Sitting: Poor Static Standing: Unable Dynamic Standing: Unable Special Tests: Mobility Limitations Standardized Measure [facility]-PAC 6 clicks Basic Mobility Inpatient Short Form: Raw Score: 6 CMS Score: 100% deficit Informed Consent/Education: Patient instructed in purpose of PT consult and plan of care. Assessment: Apprehensive with moving out of bed. Appears to have had spent a long time in bed prior to hospital admission. Jose demonstrates extensive assist with bed mobility skills, needs assist of two for all transfer task performance, and inability to walk at this time due to generalized weakness and admitting diagnoses. He will need SNF placement to facilitate increase independence with transfer tasks in order reduce burden of care, reduce fall risk, and maximize mobility level prior to D/C home with family. HH services may resume once he is able to reach a safe mobility status. Patient presents with clinical signs and symptoms consistent with current/admitting diagnoses that have resulted to mobility limitations, gait instability, generalized weakness, and impairment of motor control as demonstrated by the following impairment level findings: 1. Decreased strength to B UE/LE major muscle groups 2. Poor sitting balance 3. Impaired activity tolerance 4. Limitation of joint range of motion in major joints in B UE/LE 5. Reports back and leg pain with movement Impairments are contributing to the following functional limitations: 1. Dependent bed mobility skills 2. Increased dependence with transfers 3. Inability to safely ambulate without assistive device and physical assistance 4. Increase completion time for mobility ADL performance 5. Increased fall risk 6. Inability to negotiate steps alone safely Patient is assessed as a 19562 high complexity based on the following: History: 74-year-old male with impairment level findings, functional limitations, and past medical history as indicated above Examination: Demonstrable impairment in strength, balance, and mobility level with underlying impairments and functional limitations as documented above Presentation:Evolving Decision Makin high complexity Goals: Goals X1 week 1. Supine-Sit independent 2. Sit-Supine independent 3. Sit-Stand independent 4. Stand-Sit independent 5. Bed-Chair independent 6. Chair-Bed independent 7. Independent gait on level surface with use of least restrictive device for at least 300 feet without report of pain nor dyspnea 8. Independent stair negotiation while holding onto bilateral rails for at least 10 steps without report of pain nor dyspnea 9. Independent with home exercise program 10. Good static and dynamic standing balance/tolerance Plan of Care/Treatment Plan: 1-2x/day, 7 days/week x 1 week. Plan of care has been reviewed with the NANOTECHNOLOGY ENGINEERING TECHNOLOGIST providing the service under Physical Therapy direction. Initiate Physical Therapy intervention for strengthening, bed mobility, transfers, gait, stairs, balance training, use of assistive device. DISCHARGE RECOMMENDATIONS: Patient will benefit from senior living facility placement for continued skilled physical therapy services in order to progress mobility level, strength, and balance in preparation for a safe discharge to home. Resume PT once a safe transfer level is reached. TREATMENT CODE/TIME: 20000 x 37 minutes beginning at 17:30 PM. Thank you for the opportunity to participate in the care of this patient. Emma Watson PT, DPT, CLT [facility] [place], [place]
[2020-06-07] MEDS: MAGNESIUM SULFATE 1 GM/100 ML BAG IVPB (17:34)
[2020-06-07] MEDS: POTASSIUM CHLORIDE/D5-0.45NACL 1,000 ML 125 MEQ IV ×2 (18:25→22:41)
[2020-06-07] MEDS: Acetaminophen 325 MG TAB 650 MG PO (20:21)
[2020-06-07] MEDS: Potassium Chloride 20 MEQ TABCR PO (20:23)
[2020-06-08] VITALS (9 sets, daily range): BP systolic 112–137; BP diastolic 69–77; PULSE 66–102; RESP 18–19; TEMP 36.5–36.9; O2SAT 96–100
[2020-06-08 02:22] LABS: COVID-19 RT-PCR UVMMC Result Negative (Negative)
[2020-06-08] MEDS: POTASSIUM CHLORIDE/D5-0.45NACL 1,000 ML 125 MEQ IV ×3 (06:01→21:23)
[2020-06-08 07:09] LABS: Abs Immature Grans 0.01 10^3/uL (0.0-0.06); Absolute Basophil Count 0.02 10^3/uL (0.0-0.2); Absolute Eosinophil Count 0.04 10^3/uL (0.0-0.7); Absolute Lymphocyte Count 1.43 10^3/uL (1.2-3.4); Absolute Monocyte Count 0.43 10^3/uL (0.1-0.8); Absolute Neutrophil Count 4.35 10^3/uL (1.2-6.7); Basophils % 0.3; Eosinophils % 0.6; HCT 37.4 % (40.0-50.0); HGB 12.6 g/dL (13.5-17.5); Immature Grans % 0.2; Lymphocytes % 22.8; MCH 34.9 pg (27.0-33.0); MCHC 33.7 % (32.0-36.0); MCV 103.6 fL (80-95); MPV 10.9 fL (8.0-11.0); Monocytes % 6.8; Neutrophils % 69.3; Nucleated RBC 0 %; Platelet Count 181 10^3/uL (130-400); RBC 3.61 10^6/uL (4.36-5.78); RDW 12.9 % (11.8-14.1); RDW-SD 49.1 fL; WBC 6.28 10^3/uL (4.4-10.8)
[2020-06-08 07:38] LABS: ALT 10 U/L (16-63); AST 16 U/L (15-37); Albumin 2.1 g/dL (3.4-5.0); Alkaline Phosphatase 74 U/L (46-116); Anion Gap 3.1 mmol/L (3-11); BUN 6 mg/dL (7-18); CO2 27.9 mmol/L (21.0-32.0); CREATININE 0.99 mg/dL (0.70-1.30); Calcium 7.8 mg/dL (8.5-10.1); Chloride 108 mmol/L (98-107); Glucose 109 mg/dL (74-106); Sodium 139 mmol/L (136-145); Total Protein 5.7 g/dL (6.4-8.2)
[2020-06-08] MEDS: Potassium Chloride 20 MEQ TABCR PO (07:57)
[2020-06-08] MEDS: Tamsulosin 0.4 MG CAPCR PO (07:57)
--- NOTE | 2020-06-08 09:58 | PDOC.CMIN ---
- If Service Date Differs Date of service: 06/08/20 Time of Service: 13:52 Care Management Initial Assess REASON FOR HOSPITALIZATION:: Hypokalemia PAST MEDICAL HISTORY/PAST SURGICAL HISTORY:: Protein malnutrition, loss of taste, ERIKA, ambulatory dysfunction, DVT prophylaxis, UTI, acute urinary retention, acute hypokalemia, weakness, hematuria PREVIOUS FUNCTIONAL STATUS/SOCIAL/FAMILY SUPPORTS:: Jose resides in [place] with his , December. He reports being bed bound at home. He is hard of hearing and presents from [facility] after losing his sense of smell and struggling with catheter care. His catheter was removed at the PCP office and he was sent to the ED, where a new one was placed. CURRENT FUNCTIONAL STATUS:: Jose is on CV-[address] [facility], CM continues to follow and will assess when Jose is cleared and can fully participate with this communications writer. ADVANCE DIRECTIVES:: To be reviewed with patient, no HIPPA on file. Has patient been provided with info about the portal/API?: No Did the patient sign up for the portal?: No CODE STATUS:: Full Code INSURANCE COVERAGE / FINANCIAL ISSUES:: MANAS. MAG[employer]IE CURRENT HOME/COMMUNITY SERVICES/EQUIPMENT:: VNA RN: [facility] PRIMARY CARE PHYSICIAN:: Kelley Mojica POTENTIAL DISCHARGE NEEDS:: Resumption of VNA RN services for morejon catheter care. Close follow up with PCP. PATIENT/FAMILY EDUCATION NEEDS:: Review discharge instructions, discuss Ask Me Three. ANTICIPATED BARRIERS TO DISCHARGE:: None identified. TRANSPORTATION:: TBD by disposition and mobility. PLAN:: CM continues to follow. Anticipate Jose will return home, follow up with outpatients supports. Anticipate resumption of VNA supports with addition of ADVERTISING SALES AGENT. Also, new Palliative consult will be requested for outpatient follow up in the community.
--- NOTE | 2020-06-08 10:46 | W.NUTRFU ---
Date of service: 06/08/20 Time of Service: 10:47 Nutritional Follow up NOTE: Assessment: Patient is a ~ 4 lb under IBW w/ documented poor PO intake. Noted: he is on Reg diet. Recommend: Ensure 237 ml BID to max intake and help with PCM. Time Spent in Nutritional Counseling and Treatment: 0 minutes
[2020-06-08 10:59] LABS: Magnesium 2.1 mg/dL (1.8-2.4)
--- NOTE | 2020-06-08 11:16 | W.PM.PROGNOT ---
Date of Service Date of service: 06/08/20 Time of Service: 11:16 Assessment and Plan Assessment and plan (1) UTI (urinary tract infection): Status: Acute Assessment and plan: ceftriaxone 1 gm daily, day 2/5; continue current treatment but may need to modify if his urine culture grows Enterococcus. continue w/ morejon d/t urinary retention. reduce his iv fluid rate. If tolerates diet well today then dc iv fluids. (2) Acute urinary retention: Status: Acute Assessment and plan: morejon catheter placed renal ultrasound negative for stones or hydronephrosis/hydroureter tamsulosin 0.4 mg daily urology consult pending d/t holiday (3) ERIKA (acute kidney injury): Status: Resolved Assessment and plan: resolved after hydration w/ iv fluids. continue to monitor urine output and daily BMP. avoid nephrotoxins. Probably was d/t prerenal azotemia and poor oral intake. Oral intake has picked up. will decrease his iv rate. If po intake continues to improve then can dc his iv fluids. (4) Acute hypokalemia: Status: Resolved Assessment and plan: corrected w/ iv and po supplements. will decrease his po supplements. continue to monitor his bmp. magnesium now normal. (5) Loss of taste: Status: Acute Assessment and plan: reports 2 days of anorexia d/t loss of taste. SARS-CoV2 PCR was negative. (6) Protein malnutrition: Status: Acute Assessment and plan: nutrition consult. add protein supplements tid (7) Ambulatory dysfunction: Status: Acute Assessment and plan: chronic, reports mostly utilizes wheel chair. PT consult (8) DVT prophylaxis: Status: Acute Assessment and plan: enoxaparin daily teds (9) Discharge planning issues: Status: Acute Assessment and plan: case management following. Subjective Subjective Interval history since last seen: Patient is hoping to return home today. However, he remains too weak and debilitated. Per nursing he is a two person maximum assist to lift out of bed and to steady him. Mr. Vega has a UTI and urinary retention and required replacment of morejon catheter on admission. He is currently on Rocephin 1 gm iv daily. His urine culture is growing gram positive tracy. I suspect that this is going to be either Staph or Enterococcus. He remains afebrile and his WBC is within normal. I will await urine culture results before changing antibiotics. P.T, O.T., and nutritional consults have been requested. I have added protein supplements to his diet 3x per day d/t his protein malnutrition. Exam Narrative Exam Narrative: Obese, elderly male sitting up in his bed. He is alert and oriented to person and place Lungs are clear Heart is regular Abdomen is obese, soft, non-distended w/ active bowel sounds, nontender. No suprapubic tenderness morejon is draining yellow urine w/ some clots of blood and mucous. Objective Last Vital Signs Temp 36.8 C 06/08/20 11:11 Pulse 102 H 06/08/20 11:11 Resp 18 06/08/20 11:11 BP 129/76 06/08/20 11:11 Pulse Ox 97 06/08/20 11:11 Laboratory Results - last 24 hr 06/07/20 06/07/20 06/07/20 12:25 12:25 14:20 WBC 9.22 RBC 4.03 L Hgb 13.9 Hct 41.0 MCV 101.7 H MCH 34.5 H MCHC 33.9 RDW 12.7 Plt Count 228 MPV 10.6 Immature Gran % 0.4 Neutrophils % 81.7 Lymphocytes % 11.7 Monocytes % 6.1 Eosinophils % 0.0 Basophils % 0.1 Nucleated RBC % 0 Absolute Neutrophils 7.53 H Absolute Lymphocytes 1.08 L Absolute Monocytes 0.56 Absolute Eosinophils 0.00 Absolute Basophils 0.01 Sodium 142 Potassium 2.8 L* Chloride 106 Carbon Dioxide 29.6 Anion Gap 5.4 BUN 8 Creatinine 1.35 H Estimated GFR/1.73 m2 51.81 Glucose 116 H Calcium 7.9 L Magnesium 1.7 L Total Bilirubin 1.5 H AST 13 L ALT 12 L Alkaline Phosphatase 87 Total Protein 6.5 Albumin 2.5 L Lipase 58 Urine Color Yellow Urine Clarity Cloudy Urine pH 6.0 Ur Specific [place] >= 1.030 H Urine Protein >=300 H Urine Ketones Negative Urine Blood Moderate H Urine Nitrite Negative Urine Bilirubin Negative Urine Urobilinogen 0.2 Ur Leukocyte Esterase Small H Urine RBC Not Applicable Urine WBC >50 H Ur Epithelial Cells Not Applicable Urine Crystals Not Applicable Urine Bacteria Not Applicable Urine Mucus Not Applicable Ur Culture Indicated? Yes Urine Glucose Negative COVID-19 PCR Nasopharyn COVID-19 PCR Ref Test Perform Site 06/07/20 06/08/2006/08/20 15:40 06:42 06:42 WBC 6.28 D RBC 3.61 L Hgb 12.6 L Hct 37.4 L MCV 103.6 H MCH 34.9 H MCHC 33.7 RDW 12.9 Plt Count 181 MPV 10.9 Immature Gran % 0.2 Neutrophils % 69.3 Lymphocytes % 22.8 Monocytes % 6.8 Eosinophils % 0.6 Basophils % 0.3 Nucleated RBC % 0 Absolute Neutrophils 4.35 Absolute Lymphocytes 1.43 Absolute Monocytes 0.43 Absolute Eosinophils 0.04 Absolute Basophils 0.02 Sodium 139 Potassium 4.0 D Chloride 108 H Carbon Dioxide 27.9 Anion Gap 3.1 BUN 6 L Creatinine 0.99 Estimated GFR/1.73 m2 >= 60.00 Glucose 109 H Calcium 7.8 L Magnesium Total Bilirubin 1.0 AST 16 ALT 10 L Alkaline Phosphatase 74 Total Protein 5.7 L Albumin 2.1 L Lipase Urine Color Urine Clarity Urine pH Ur Specific [place] Urine Protein Urine Ketones Urine Blood Urine Nitrite Urine Bilirubin Urine Urobilinogen Ur Leukocyte Esterase Urine RBC Urine WBC Ur Epithelial Cells Urine Crystals Urine Bacteria Urine Mucus Ur Culture Indicated? Urine Glucose COVID-19 PCR Negative Nasopharyn COVID-19 PCR Not Applicable Ref Test Perform Site [facility] lab 06/08/20 06:42 WBC RBC Hgb Hct MCV MCH MCHC RDW Plt Count MPV Immature Gran % Neutrophils % Lymphocytes % Monocytes % Eosinophils % Basophils % Nucleated RBC % Absolute Neutrophils Absolute Lymphocytes Absolute Monocytes Absolute Eosinophils Absolute Basophils Sodium Potassium Chloride Carbon Dioxide Anion Gap BUN Creatinine Estimated GFR/1.73 m2 Glucose Calcium Magnesium 2.1 Total Bilirubin AST ALT Alkaline Phosphatase Total Protein Albumin Lipase Urine Color Urine Clarity Urine pH Ur Specific [place] Urine Protein Urine Ketones Urine Blood Urine Nitrite Urine Bilirubin Urine Urobilinogen Ur Leukocyte Esterase Urine RBC Urine WBC Ur Epithelial Cells Urine Crystals Urine Bacteria Urine Mucus Ur Culture Indicated? Urine Glucose COVID-19 PCR Nasopharyn COVID-19 PCR Ref Test Perform Site Reviewed Pertinent PMH: Yes Objective Narrative Objective Narrative: renal ultrasound report reviewed and he has no stones and no signs of pyelonephritis nor abscess and no hydronephrosis.
--- NOTE | 2020-06-08 13:55 | PHA.REVIEW ---
Pharmacy Admission Review - Admission Clinical Review (Last Reviewed 06/07/20 @ 13:50 by Chaya White) Protein malnutrition (Acute) Loss of taste (Acute) ERIKA (acute kidney injury) (Acute) Discharge planning issues (Acute) Ambulatory dysfunction (Acute) DVT prophylaxis (Acute) UTI (urinary tract infection) (Acute) Acute urinary retention (Acute) Acute hypokalemia (Acute) Weakness (Acute) No Known Allergies Allergy (Unverified 06/07/20 13:27) Height 6 ft Weight 79.379 kg - Renal Dosing Renal Dosing: BUN 6 mg/dL (7-18) L 06/08/20 06:42 Creatinine 0.99 mg/dL (0.70-1.30) 06/08/20 06:42 Medications needing adjustments: Reviewed (Crcl ~72 mL/min current meds okay) - Anticoagulation Anticoagulation: Hgb 12.6 g/dL (13.5-17.5) L 06/08/20 06:42 Hct 37.4 % (40.0-50.0) L 06/08/20 06:42 Plt Count 181 10^3/uL (130-400) 06/08/20 06:42 Creatinine 0.99 mg/dL (0.70-1.30) 06/08/20 06:42 DVT Prohphylaxis: Reviewed Medications: Enoxaparin Therapeutic Anticoagulation: N/A - Opiate Usage Evaluate Pain Scale/Pains Meds: N/A - Relevant Labs Sodium 139 mmol/L (136-145) 06/08/20 06:42 Potassium 4.0 mmol/L (3.5-5.1) D 06/08/20 06:42 Chloride 108 mmol/L (98-107) H 06/08/20 06:42 Magnesium 2.1 mg/dL (1.8-2.4) 06/08/20 06:42 Electrolytes, C-Reactive P, ESR: Reviewed (K+ and mag improved since yesterday, still has PO K+ ordered daily) - DM Control DM Control: Glucose 109 mg/dL (74-106) H 06/08/20 06:42 Insulin Dosing: Reviewed (BG slightly elevated, was elevated prior visits too. No A1c done here.) - Heart Failure/VT EF%, TIMMY's, B-Blockers, Diuretics: N/A - BP Control BP Control: Blood Pressure 129/76 Blood Pressure 123/74 Blood Pressure 112/69 If elevated: N/A - Qtc Review If Elevated: N/A (QTc 423 on admission) - IV to PO Switch IV Medications: Reviewed - Home Meds Home Med List reviewed: N/A (no known home meds) - Current meds Current Medication Order Review: Reviewed - Comments Comments/Follow Ups: Watch VS, BG, electrolytes, for culture results, and for med changes. Antibiotic Activity - Pharmacy Antibiotic Review Pharmacy Antibiotic Activity: C/S review (Urine culture growing gram+ tracy. Ceftriaxone continues (day 2/5) for UTI)
[2020-06-08] MEDS: Protein Nutritional Supplement 16 GM 1 OUNCE PACKET PO ×2 (13:59→20:52)
[2020-06-08] MEDS: Enoxaparin 40 MG/0.4 ML SYR SC (15:32)
[2020-06-08] MEDS: cefTRIAXone 1 GM/50 ML BAG IVPB (15:32)
[2020-06-08 19:58] LABS: C Diff PCR Negative (Negative)
[2020-06-09] VITALS (8 sets, daily range): BP systolic 144–156; BP diastolic 76–98; PULSE 88–100; RESP 16–17; TEMP 36.9–38; O2SAT 97–98
[2020-06-09] MEDS: POTASSIUM CHLORIDE/D5-0.45NACL 1,000 ML 125 MEQ IV (07:15)
[2020-06-09 07:29] LABS: Anion Gap 4.4 mmol/L (3-11); BUN 5 mg/dL (7-18); CO2 25.6 mmol/L (21.0-32.0); CREATININE 0.87 mg/dL (0.70-1.30); Chloride 108 mmol/L (98-107); Glucose 103 mg/dL (74-106); Potassium 3.7 mmol/L (3.5-5.1); Sodium 138 mmol/L (136-145)
[2020-06-09] MEDS: Protein Nutritional Supplement 16 GM 1 OUNCE PACKET PO ×3 (07:51→19:40)
[2020-06-09] MEDS: Tamsulosin 0.4 MG CAPCR PO (07:51)
[2020-06-09] MEDS: Acetaminophen 325 MG TAB 650 MG PO (07:51)
[2020-06-09] MEDS: Potassium Chloride 20 MEQ TABCR PO (07:52)
--- NOTE | 2020-06-09 08:10 | OTIE_ITS ---
Occupational Therapy Notes Inpatient Occupational Therapy Evaluation Date: 06/09/20 Referring Doctor:Lois Canseco NP OT Orders: Non-Urgent Precautions: Fall, Standard, Full PATIENT PROFILE/ADMITTING DIAGNOSIS: Pt presented to the ED and was admitted to the [facility] floor for urinary tract infection, urinary retention, kidney injury, acute hypokalemia, loss of taste, protein malnutrition, and ambulatory dysfunction. Past Medical History: Hematuria Ambulatory dysfunction Social History/Home Situation: Pt lives with his and 6 children in a trailer in [place]. He reports that he does not drive, he has a tub shower which he reports that he is supposed to be getting a walk in shower. He states that he is able to perform his ADLs/IADLs but notes that he doesn't move a lot at home and tends to stay in the recliner. He has had pain in his legs for a while and notes that his helps him a lot. SUBJECTIVE: Pt was lying in bed when OT arrived and notes that he is tired and is having pain in his (L) UE. OBJECTIVE: General Observation: Pleasant and able to answer questions appropriately, morejon in place, IV (R) UE Mental Status: A&Ox3 Pain: c/o pain in (B) LE ROM: RUE AROM WFL L UE AROM WFL STRENGTH: RUE Shoulder flexion 3-/5, bicep 3+/5, tricep 4/5, oil tank car cleaner is weak LUE Shoulder flexion 3-/5, bicep 3+/5, tricep 4/5, oil tank car cleaner is weak FUNCTIONAL MOBILITY/ADLS: BATHING sitting in bed with max (A) set up/clean up Bathing UE (I) face, min (A) (B) UE, max (A) hair, min (A) abdomen Bathing LE Min (A) (B) LE DRESSING sitting in bed Dressing UE Min (A) don and doffing hospital gown Dressing LE max (A) don and doffing (B) socks GROOMING sitting in bed (I) with brushing hair TOILETING NT EATING NT BALANCE: Static sitting Fair-Good Dynamic Sitting Fair-Good SPECIAL TESTS: Daily Activity Limitations Standardized Measure [facility] AM -PAC ?6 clicks? Daily Activity Inpatient Short Form: Raw score: 14 Standardized score: 33.39 CMS score: 59.67% INFORMED CONSENT/EDUCATION: Pt instructed in purpose of OT Consult and plan of care. ASSESSMENT: Patient is a 74-year-old male referred to occupational therapy services with diagnosis of urinary tract infection, urinary retention, kidney injury, acute hypokalemia, loss of taste, protein malnutrition, and ambulatory dysfunction. Patient presents with clinical signs and symptoms consistent with dx, as demonstrated by the following impairment level findings/ functional limitations: Impairments with ADL/IADL and leisure activities, decreased functional activity tolerance, decreased (B) UE strength, decreased functional mobility, impairments in sitting ADLs. AMPA score 14 Patient is assessed as a Moderate 12735 complexity based on the following: History: see above Examination: see functional limitations as noted above Presentation: evolving Decision Making: [facility] 14 GOALS Goals x1 week 1. Grooming- sitting on side of the bed (I) with brushing teeth 2. Dressing- sitting on side of the bed (I) UE, mod (A) LE 3. Bathing- sitting on side of the bed with max (A) Set up/clean up (I) with UE/LE 4. Toileting- on commode (I) 5. Eating- sitting on side of the bed (I) PLAN OF CARE/TREATMENT PLAN: 1x/day, 5 days/ week x 1week Initiate Occupational Therapy Services for bathing, dressing, grooming, toiletin g, eating, transfer training. DISCHARGE RECOMMENDATIONS Based on pts current level of function with decreased functional mobility, increased fatigue and decreased functional (I) in his ADL/IADL routines, OT recommends that pt go to SNF when medically cleared per MD. TREATMENT TIME/MINUTES/CODES 42566, [id number], 30 minutes (07:10) SANGE[facility]A [facility]
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
--- NOTE | 2020-06-09 09:39 | W.PM.PROGNOT ---
Date of Service Date of service: 06/09/20 Time of Service: 09:40 Assessment and Plan Assessment and plan (1) UTI (urinary tract infection): Status: Acute Assessment and plan: ceftriaxone 1 gm daily day 3/ culture pending, vanco added, day 1 (2) Acute urinary retention: Status: Acute Assessment and plan: morejon catheter placed renal ultrasound pending tamsulosin 0.4 mg daily urology consult (3) ERIKA (acute kidney injury): Status: Resolved Assessment and plan: resolved with IVF and morejon placement renal ultrasound IMPRESSION: No significant ultrasound findings in the kidneys. Decompressed urinary bladder with Morejon catheter. CT scan on 05/11 with no hydro, no nephrolithiasis can stop IV fluids avoid nephrotoxic drugs renal dosing as needed. (4) Acute hypokalemia: Status: Resolved Assessment and plan: repleted (5) Loss of taste: Status: Acute Assessment and plan: reports 2 days of anorexia d/t loss of taste. no know covid contacts. PUI covid testing negative (6) Protein malnutrition: Status: Acute Assessment and plan: calcium corrects to 9.1 nutrition consult. (7) Ambulatory dysfunction: Status: Acute Assessment and plan: chronic, reports mostly utilizes wheel chair. PT consult (8) DVT prophylaxis: Status: Acute Assessment and plan: enoxaparin daily teds (9) Discharge planning issues: Status: Acute Assessment and plan: case management following. discussed with Dr Cisneros Subjective Subjective Patient reports: tolerating liquids well, tolerating a regular diet and afebrile Interval history since last seen: confused and unable to provide a review of systems. morejon draining a cloudy light yellow urine Exam Const General: cooperative, comfortable, no acute distress, frail appearing and ill appearing chronically Nutritional Appearance: average body habitus Orientation: alert, awake, oriented to person and confused HENMT Head: normal to inspection, normocephalic and atraumatic Mouth: moist mucous membranes abnormal (dry) Resp Effort & Inspection: normal respiratory effort Auscultation: clear to auscultation bilaterally Cardio Rate: regular rate Rhythm: regular rhythm GI Inspection: normal to inspection Palpation: soft and nontender Auscultation: normal bowel sounds General: other (morejon draining light yellow cloudy urine) Neuro General: patient alert, patient awake and patient confused Cognition: abnormal cognition (confusion) Speech: speech normal Sensory Exam: no sensory deficits noted Extrem General: normal to inspection, full ROM and no pedal edema Psych Mental Status: mental status grossly normal Speech and Movement: speech and movement normal Mood: congruent mood Affect: blunted Attitude: cooperative Objective Last Vital Signs Temp 36.9 C 06/09/20 09:30 Pulse 88 06/09/20 09:30 Resp 16 06/09/20 09:30 BP 144/81 H 06/09/20 09:30 Pulse Ox 97 06/09/20 09:30 Laboratory Results - last 24 hr 06/08/20 06/08/20 06/09/20 06:42 19:06 07:04 Sodium 138 Potassium 3.7 Chloride 108 H Carbon Dioxide 25.6 Anion Gap 4.4 BUN 5 L Creatinine 0.87 Estimated GFR/1.73 m2 >= 60.00 Glucose 103 Calcium 8.0 L Magnesium 2.1 Stl C.difficile Tox PCR Negative
[2020-06-09] MEDS: VANCOMYCIN/WATER (PEG) 1.25 GM/250 ML BAG IV ×2 (10:19→19:40)
[2020-06-09] MEDS: Ondansetron 4 MG/2 ML VIAL IVP (10:30)
[2020-06-09] MEDS: Normal Saline Flush 10 ML SYR IVP (10:30)
--- NOTE | 2020-06-09 11:56 | PT.INTREAT ---
Date of service: 06/09/20 Time of Service: 10:56 PT Notes Visit Reasons: HYPOKALEMIA Inpatient Physical Therapy Treatment Note [facility] Date: 06/09/2020 PRECAUTIONS: Fall. Standard. Mechanical lift only for safety. SUBJECTIVE: Reports that if he moves a lot he gets pain in his neck and back. OBJECTIVE: Continues to appear confused and not right away able to follow simple instructions. He requires moderate to maximal cueing for correct execution of movement strategies and for overall safety. PAIN: Reports pain in neck and back with movement BED MOBILITY/TRANSFERS Supine-sit: moderate assist with HOB at 45 degrees Sit-supine: moderate assist of 2 (Nurse Duckworth assisting for safety) Sit-stand: Unable Stand-sit: Unable Bed-Chair: Unable Chair-bed: Unable THEREX: Moderate verbal cueing needed for proper execution of bridging x 10 and bilateral arm pull ups using the overhead trapeze x 10. THERA ACT: Maximal verbal cueing provided for correct technique, sequence, and stabilization duirng edge of bed sitting to work on increasing static sitting. Cues to use R hand to hold onto edge of bed and the levt hand onto L bed rail Was done. PT faciliated L elbow full extension to help stabilize trunk into a more upright position with gentle downward pressure placed on distal thigh to stimulate L quadriceps to fire. Patient was aslo instructed and asssited with scooting up in bed with bed in a trendelenburg position, NUrse Duckworth assisting ASSESSMENT: Jose was made mechanical lift for all transfers for meals for safety due to poor trunk and B UE strength. He will require at least fair trunk and B UE strength before a sit<>stand is attempted for safety. His cognitive level is aslo a limiting factor for prognosis at this time. PLAN: Continue with PT POC to achieve initially established goals. Patient will benefit from residential facility placement for continued skilled physical therapy services in order to progress mobility level, strength, and balance in preparation for a safe discharge to home. TREATMENT CODE/TIME: 45822 x 14 minutes, 33325 x 25 minutes beginning at 10:56 AM.
--- NOTE | 2020-06-09 14:52 | PT.INNT ---
Date of service: 06/09/20 Time of Service: 14:30 PT Notes Visit Reasons: HYPOKALEMIA 06/09/2020 Patient refused to participate in afternoon PT session. Will attempt to resume PT services tomorrow morning.
[2020-06-09] MEDS: cefTRIAXone 1 GM/50 ML BAG IVPB (15:48)
[2020-06-09] MEDS: Enoxaparin 40 MG/0.4 ML SYR SC (15:48)
--- NOTE | 2020-06-09 15:52 | CMPROGNOTE_ITS ---
Care Management Progress Note S/O: CM spoke with Jose's Lacey FLOWERS who reported the family missed him very much on Thanksgiving. She reported struggles with the town due to regulations when attempting to get a building permit to make the home handicap accessible. CM recommended legal secretary, or 211, which Lacey was receptive to. She reported in regard to Jose's care needs, the family feels well equipped and no additional services or supports were required at this time. Lacey stated that they could transport Jose home and felt confident they could manage transferring him to the car and into the house. She was agreeable to EMS transport if MD recommends, as well. Lacey reported that Jose is confused at baseline, and she intends on seeking POA/Guardianship through the court system. NERY Abreu reported anticipating Jose will remain at [facility] for another day or two; CODY relayed this information to Lacey as well. Palliative consult completed, see note for further information. CM continues to follow. A: 74 year old male admitted to [facility] 06/07/20 for Hypokalemia, UTI P: Jose resides in [place] with his , December, Son-Lissy and Son?s family (KRISTIE, three kids). Another son (Adolfo) resides [facility]. Bed bound x18 mths. Confused, baseline dementia. Has wheelchair. , December 684-1223, DIL Lacey: [phone]. Has [facility] RN for catheter care; will need resumption of services. Jose will F/U with Urology, his PCP and plan of care as prescribed. Palliative will continue to follow in the community as well. Transport via EMS, or via private vehicle with family, dependent on MD recommendation.
[2020-06-09] MEDS: POTASSIUM CHLORIDE/D5-0.45NACL 1,000 ML 65 MEQ IV (22:50)
[2020-06-10 00:14] VITALS: BP 116/68; PULSE 86; RESP 16; TEMP 37.1; O2SAT 99
[2020-06-10] MEDS: Acetaminophen 325 MG TAB 650 MG PO ×3 (03:52→23:53)
[2020-06-10] MEDS: VANCOMYCIN/WATER (PEG) 1.25 GM/250 ML BAG IV ×2 (06:09→17:50)
[2020-06-10 07:25] VITALS: PULSE 78
[2020-06-10 08:11] VITALS: BP 123/75; PULSE 82; RESP 18; TEMP 37; O2SAT 94
[2020-06-10] MEDS: Tamsulosin 0.4 MG CAPCR PO (09:10)
[2020-06-10] MEDS: Protein Nutritional Supplement 16 GM 1 OUNCE PACKET PO ×3 (09:10→19:22)
[2020-06-10] MEDS: Potassium Chloride 20 MEQ TABCR PO (09:10)
[2020-06-10 09:40] LABS: Abs Immature Grans 0.01 10^3/uL (0.0-0.06); Absolute Basophil Count 0.02 10^3/uL (0.0-0.2); Absolute Eosinophil Count 0.12 10^3/uL (0.0-0.7); Absolute Lymphocyte Count 1.11 10^3/uL (1.2-3.4); Absolute Monocyte Count 0.34 10^3/uL (0.1-0.8); Absolute Neutrophil Count 3.48 10^3/uL (1.2-6.7); Basophils % 0.4; Eosinophils % 2.4; HCT 41.7 % (40.0-50.0); HGB 14.3 g/dL (13.5-17.5); Immature Grans % 0.2; Lymphocytes % 21.9; MCH 34.9 pg (27.0-33.0); MCHC 34.3 % (32.0-36.0); MCV 101.7 fL (80-95); MPV 10.7 fL (8.0-11.0); Monocytes % 6.7; Neutrophils % 68.4; Nucleated RBC 0 %; Platelet Count 193 10^3/uL (130-400); RDW 12.6 % (11.8-14.1); WBC 5.08 10^3/uL (4.4-10.8)
[2020-06-10 09:48] LABS: Anion Gap 6.3 mmol/L (3-11); BUN 8 mg/dL (7-18); CO2 26.7 mmol/L (21.0-32.0); CREATININE 0.99 mg/dL (0.70-1.30); Chloride 106 mmol/L (98-107); Glucose 128 mg/dL (74-106); Magnesium 1.8 mg/dL (1.8-2.4); Sodium 139 mmol/L (136-145)
--- NOTE | 2020-06-10 11:42 | PT.INTREAT ---
PT Notes Visit Reasons: HYPOKALEMIA Inpatient Physical Therapy Treatment Note [facility] Date: 06/10/20 PRECAUTIONS:Fall SUBJECTIVE: Pt reports that he does not feel up to sitting at the edge of the bed today. OBJECTIVE: GAIT THEREX: Pt completed UE and LE strengthening ther ex as per flow sheet. Pt did require with the R LE with SLR, hip flex, and abd. ASSESSMENT: Pt seemed tired and require mod vc's and some assist with ther ex. PLAN: Cont as per PT POC. TREATMENT CODE/TIME: 10:40-11 (20) TP
--- NOTE | 2020-06-10 13:04 | W.PM.PROGNOT ---
Date of Service Date of service: 06/10/20 Time of Service: 13:04 Assessment and Plan Assessment and plan (1) UTI (urinary tract infection): Start date: 06/10/20 Start time: 13:11 Status: Acute Assessment and plan: Catheter in place ceftriaxone 1 gm daily day 4/5 urine culture with staphylococcus 50-100 colonies. Repeat ua in am, vanco added, day 1 24 hours no growth to blood cultures, will d/c vanco if negative after 48 hours. (2) Acute urinary retention: Start date: 06/10/20 Start time: 13:17 Status: Acute Assessment and plan: morejon catheter in place renal ultrasound pending tamsulosin 0.4 mg daily urology consult (3) ERIKA (acute kidney injury): Start date: 06/10/20 Start time: 13:21 Status: Resolved Assessment and plan: resolved with IVF and morejon placement renal ultrasound IMPRESSION: No significant ultrasound findings in the kidneys. Decompressed urinary bladder with Morejon catheter. CT scan on 05/11 with no hydro, no nephrolithiasis can stop IV fluids avoid nephrotoxic drugs renal dosing as needed. (4) Acute hypokalemia: Start date: 06/10/20 Start time: 13:21 Status: Resolved Assessment and plan: repleted (5) Loss of taste: Start date: 06/10/20 Start time: 13:21 Status: Acute Assessment and plan: reports 2 days of anorexia d/t loss of taste. no know covid contacts. PUI covid testing negative (6) Protein malnutrition: Start date: 06/10/20 Start time: 13:21 Status: Acute Assessment and plan: calcium corrects to 9.1 nutrition consult. (7) Ambulatory dysfunction: Start date: 06/10/20 Start time: 13:21 Status: Acute Assessment and plan: chronic, reports mostly utilizes wheel chair. PT consult (8) DVT prophylaxis: Start date: 06/10/20 Start time: 13:22 Status: Acute Assessment and plan: enoxaparin daily teds (9) Discharge planning issues: Start date: 06/10/20 Start time: 13:23 Status: Acute Assessment and plan: case management following. discussed with Dr Alcantara Subjective Subjective Patient reports: no new complaints Interval history since last seen: No complaints states he is bored. Blood culture negative after 24 hours. Catheter draining slightly cloudy urine. He is toileting and eating without difficulty. Consult urology for recurring urinary retention Exam Narrative Exam Narrative: elderly male laying in bed. He is alert and oriented to person and place Lungs are clear Heart is regular Abdomen is round, soft, non-distended w/ active bowel sounds, nontender. No suprapubic tenderness morejon is draining cloudy yellow urine Objective Last Vital Signs Temp 37.0 C 06/10/20 08:11 Pulse 82 06/10/20 08:11 Resp 18 06/10/20 08:11 BP 123/75 06/10/20 08:11 Pulse Ox 94 06/10/20 08:11 Laboratory Results - last 24 hr 06/10/20 06/10/20 09:25 09:25 WBC 5.08 RBC 4.10 L Hgb 14.3 Hct 41.7 MCV 101.7 H MCH 34.9 H MCHC 34.3 RDW 12.6 Plt Count 193 MPV 10.7 Immature Gran % 0.2 Neutrophils % 68.4 Lymphocytes % 21.9 Monocytes % 6.7 Eosinophils % 2.4 Basophils % 0.4 Nucleated RBC % 0 Absolute Neutrophils 3.48 Absolute Lymphocytes 1.11 L Absolute Monocytes 0.34 Absolute Eosinophils 0.12 Absolute Basophils 0.02 Sodium 139 Potassium 4.0 Chloride 106 Carbon Dioxide 26.7 Anion Gap 6.3 BUN 8 Creatinine 0.99 Estimated GFR/1.73 m2 >= 60.00 Glucose 128 H Calcium 8.0 L Magnesium 1.8
[2020-06-10] MEDS: Normal Saline Flush 10 ML SYR IVP ×4 (13:26→19:35)
[2020-06-10 15:31] VITALS: BP 108/69; PULSE 94; RESP 18; TEMP 37.2; O2SAT 97
[2020-06-10 15:53] LABS: Vancomycin, Trough 23.1 ug/mL (10.0-20.0)
[2020-06-10] MEDS: Normal Saline 500 ML 30 ML IV (17:16)
[2020-06-10] MEDS: Enoxaparin 40 MG/0.4 ML SYR SC (17:16)
[2020-06-10] MEDS: cefTRIAXone 1 GM/50 ML BAG IVPB (17:17)
[2020-06-10 18:22] LABS: Bilirubin Negative (Negative); Blood Small (Negative); Clarity Cloudy (Clear); Glucose Negative (Negative); Ketones Negative (Negative); Leukocyte Esterase Large (Negative); Nitrite Negative (Negative); Urobilinogen 0.2 EU/dL (Up TO 0.2); pH 5.5 (5-8)
[2020-06-10 19:04] LABS: Bacteria Few HPF (Negative); C & S Indicated? Yes; Casts Negative LPF (Negative); Crystals Negative HPF (Negative); Epithelial Cells Negative HPF (Negative); Mucus Negative (Negative); WBC >50 HPF (0-5)
--- NOTE | 2020-06-10 19:48 | PDOC.CMPRO ---
- If Service Date Differs Date of service: 06/10/20 Time of Service: 19:48 Care Management Progress Note S/O: Per report, Jose continues to be treated with abx for his UTI. Urology was consulted due to his urinary retention. He has a morejon catheter in place, and has current HH RN for his catheter care at home. Both PT and OT have recommended SNF placement. CM will discuss this with the patient and family to determine if Jose is agreeable to SNF placement. CM will continue to follow. A: 74 year old male admitted to [facility] 06/07/20 for Hypokalemia, UTI P: Jose resides in [place] with his , December, Son-Lissy and Son?s family (KRISTIE, three kids). Another son (Adolfo) resides in [facility]. Bed bound x18 mths. Confused, baseline dementia. Has wheelchair. , December 684-1223, DIL Lacey: [phone]. Has [facility]NA RN for catheter care; will need resumption of services. Jose will F/U with Urology, his PCP and plan of care as prescribed. Palliative will continue to follow in the community as well. Transport via EMS, or via private vehicle with family, dependent on MD recommendation.
[2020-06-10 23:13] VITALS: PULSE 78
[2020-06-11 00:16] VITALS: BP 142/80; PULSE 87; RESP 18; TEMP 37.1; O2SAT 97
[2020-06-11] MEDS: VANCOMYCIN/WATER (PEG) 1.25 GM/250 ML BAG IV (03:57)
[2020-06-11] MEDS: Normal Saline 500 ML 30 ML IV (03:58)
[2020-06-11] MEDS: Normal Saline Flush 10 ML SYR IVP ×2 (03:58→06:00)
[2020-06-11 07:00] VITALS: PULSE 72
[2020-06-11 07:04] LABS: Abs Immature Grans 0.01 10^3/uL (0.0-0.06); Absolute Basophil Count 0.02 10^3/uL (0.0-0.2); Absolute Eosinophil Count 0.13 10^3/uL (0.0-0.7); Absolute Lymphocyte Count 1.11 10^3/uL (1.2-3.4); Absolute Monocyte Count 0.44 10^3/uL (0.1-0.8); Basophils % 0.4; Eosinophils % 2.5; HCT 38.5 % (40.0-50.0); HGB 13.3 g/dL (13.5-17.5); Immature Grans % 0.2; Lymphocytes % 21.3; MCH 34.7 pg (27.0-33.0); MCHC 34.5 % (32.0-36.0); MCV 100.5 fL (80-95); MPV 10.9 fL (8.0-11.0); Monocytes % 8.4; Neutrophils % 67.2; Nucleated RBC 0 %; Platelet Count 185 10^3/uL (130-400); RBC 3.83 10^6/uL (4.36-5.78); RDW 12.8 % (11.8-14.1); RDW-SD 47.1 fL; WBC 5.21 10^3/uL (4.4-10.8)
[2020-06-11] MEDS: Protein Nutritional Supplement 16 GM 1 OUNCE PACKET PO ×3 (07:49→20:01)
[2020-06-11] MEDS: Acetaminophen 325 MG TAB 650 MG PO (07:50)
[2020-06-11] MEDS: Potassium Chloride 20 MEQ TABCR PO (07:50)
[2020-06-11] MEDS: Tamsulosin 0.4 MG CAPCR PO (07:50)
[2020-06-11 08:10] VITALS: BP 110/69; PULSE 89; RESP 16; TEMP 36.7; O2SAT 95
[2020-06-11 10:40] VITALS: PULSE 80
--- NOTE | 2020-06-11 10:46 | PT.INNT ---
PT Notes Visit Reasons: HYPOKALEMIA Pt refused his session today due to being too sore and not feeling up to it.
[2020-06-11] MEDS: levoFLOXacin 500 MG, levoFLOXacin 250 MG 750 MG PO (11:27)
--- NOTE | 2020-06-11 13:17 | W.PM.DS.N ---
Date of service: 06/11/20 Time of Service: 13:18 DS: Diagnosis Discharge Diagnosis (1) UTI (urinary tract infection): Start date: 06/11/20 Start time: 13:18 Status: Acute Asessment and Plan: Repeat ua with large leuk est. negative nitrates, blood, repeat urine cx with not growth. Urine cx from 06/07 with STAPHYLOCOCCUS SAPROPHYTICUS 50,000 - 100,000 COLONIES, Switched to oral levaquin Blood cultures negative after 48 hours. Will monitor for fever Remove catheter tomorrow will do voiding trial (2) Acute urinary retention: Start date: 06/11/20 Start time: 13:22 Status: Inactive Asessment and Plan: Recurring, Consulted urology On flomax, trial voiding tomorrow (3) Loss of taste: Start date: 06/11/20 Start time: 13:23 Status: Acute Asessment and Plan: Negative COVID, nutritional consult (4) Protein malnutrition: Status: Acute (5) Ambulatory dysfunction: Status: Acute (6) DVT prophylaxis: Status: Acute (7) Discharge planning issues: Status: Acute Discharge Plan Disposition Condition: Poor Discharge Details Reason For Visit: HYPOKALEMIA Admit Date/Time: 06/07/20 14:36 Admit Provider: Shankar Arias Attending Provider: Shankar Arias Primary Care Provider: Kelley Mojica Home Meds and New Rx's Prescriptions: No Action No Known Home Meds RF: 0 DS: Data Vitals/I&O Vitals and I&O: Vital Signs Temperature 36.7 C 06/11/20 08:10 Temperature Source Tympanic 06/11/20 08:10 Pulse 80 06/11/20 10:40 Pulse Rhythm Regular 06/11/20 09:19 Pulse 109 H 06/07/20 15:50 Respiratory Rate 16 06/11/20 08:10 Respiratory Effort Non-Labored 06/11/20 09:19 Respiratory Depth Normal 06/11/20 09:19 Respiratory Pattern Normal 06/11/20 09:19 Blood Pressure 110/69 06/11/20 08:10 Blood Pressure Mean 90 06/07/20 15:45 Blood Pressure Position Sitting 06/07/20 13:20 Pulse Oximetry 95 06/11/20 08:10 Oxygen Delivery Method Room Air 06/11/20 08:10 Oxygen Flow Rate 0 06/11/20 08:10 Pain Level 0 06/11/20 08:10 Comment 06/10/20 17:15 Intake & Output 06/10/20 06/11/20 06/11/20 23:59 11:59 23:59 Intake Total 1770.583 / 2260.583 311.5 / 311.5 Output Total 1049 975 / 975 Balance 720.583 / 285.583 -663.5 / -663.5 Intake: IV 1320.583 / 1570.583 311.5 / 311.5 Oral 450 / 690 Output: Urine 1049 975 / 975 Other: Urine Color Yellow Yellow Urine Appearance Clear Clear Cloudy Comment emptied at the endo of previous shift, very little drainage in bag or line, no blood or irritation noted at the meatus Stool Occult Blood Negative Negative Stool Size Moderate Large Stool Characteristics Soft Soft Formed Brown Data Completed and Pending Labs on day of discharge: Labs from last 24 hours 06/11/20 06/11/20 06/10/20 13:06 06:05 15:27 WBC 5.21 RBC 3.83 L Hgb 13.3 L Hct 38.5 L MCV 100.5 H MCH 34.7 H MCHC 34.5 RDW 12.8 Plt Count 185 MPV 10.9 Immature Gran % 0.2 Neutrophils % 67.2 Lymphocytes % 21.3 Monocytes % 8.4 Eosinophils % 2.5 Basophils % 0.4 Nucleated RBC % 0 Absolute Neutrophils 3.50 Absolute Lymphocytes 1.11 L Absolute Monocytes 0.44 Absolute Eosinophils 0.13 Absolute Basophils 0.02 Urine Color Urine Clarity Urine pH Ur Specific [place] Urine Protein Urine Ketones Urine Blood Urine Nitrite Urine Bilirubin Urine Urobilinogen Ur Leukocyte Esterase Urine RBC Urine WBC Ur Epithelial Cells Urine Crystals Urine Bacteria Urine Casts Urine Mucus Ur Culture Indicated? Urine Glucose Stl C.difficile Tox PCR Pending Vancomycin Trough 23.1 H* 06/10/20 14:10 WBC RBC Hgb Hct MCV MCH MCHC RDW Plt Count MPV Immature Gran % Neutrophils % Lymphocytes % Monocytes % Eosinophils % Basophils % Nucleated RBC % Absolute Neutrophils Absolute Lymphocytes Absolute Monocytes Absolute Eosinophils Absolute Basophils Urine Color Yellow Urine Clarity Cloudy Urine pH 5.5 Ur Specific [place] 1.020 Urine Protein Negative Urine Ketones Negative Urine Blood Small H Urine Nitrite Negative Urine Bilirubin Negative Urine Urobilinogen 0.2 Ur Leukocyte Esterase Large H Urine RBC 3-5 H Urine WBC >50 H Ur Epithelial Cells Negative Urine Crystals Negative Urine Bacteria Few Urine Casts Negative Urine Mucus Negative Ur Culture Indicated? Yes Urine Glucose Negative Stl C.difficile Tox PCR Vancomycin Trough Preliminary micro results at discharge 06/10/20 14:10 Urine Culture - Preliminary Urine - Reflex from Ua 06/09/20 08:45 Blood Culture - Preliminary Blood NO GROWTH 48 HOURS 06/09/20 08:40 Blood Culture - Preliminary Blood NO GROWTH 48 HOURS [facility] Social History Smoking/Tobacco Use Status: Never Smoking risk assessment performed?: Yes Alcohol Intake: current Alcohol Intake frequency: a few times a month Alcohol type: beer Drug use: Never Substance use type: does not use Do you feel safe at home: Yes Do you feel safe in your relationship?: Yes Additional Social history: pt arrives very dirty and disheveled. per ems home living situation is very unsanitary. pt states baths him and feeds him.
--- NOTE | 2020-06-11 13:26 | CMPROGNOTE_ITS ---
- If Service Date Differs Date of service: 06/11/20 Time of Service: 13:28 Care Management Progress Note S/O: Jose was lying in bed when CM met with him. He reported that he is very uncomfortable, but he stated that he already let his RN know. CM discussed his oral health, as his RN was concerned about his poor intake being directly affected by the condition of his teeth. He stated that he has not been to a dentist in 15 years and that he wants them to pull them all. Per report, he will have a voiding trial prior to discharge, but he is not medically cleared at this time. He would like to return home, and is not agreeable to going to a SNF at this time. CM will continue to follow. A: 74 year old male admitted to [facility] 06/07/20 for Hypokalemia, UTI P: Jose resides in [place] with his , December, Son-Lissy and Son?s family (KRISTIE, three kids). Another son (Adolfo) resides in [facility]. Bed bound x18 mths. Confused, baseline dementia. Has wheelchair. , December 684-1223, DIL Lacey: [phone]. Has VNA RN for catheter care; will need resumption of services. Jose will F/U with Urology, his PCP and plan of care as prescribed. Palliative will continue to follow in the community as well. Transport via EMS, or via private vehicle with family, dependent on MD recommendation.
--- NOTE | 2020-06-11 13:27 | W.PM.PROGNOT ---
Date of Service Date of service: 06/11/20 Time of Service: 13:30 Assessment and Plan Assessment and plan (1) UTI (urinary tract infection): Start date: 06/11/20 Start time: 13:33 Status: Acute Assessment and plan: Catheter in place Dcd vanco and ceftriaxone, placed on levaquin oral. urine culture with staphylococcus 50-100 colonies on 06/07. Repeat ua with leuk estr and blood, repeat cx with no growth at this time Blood cultures with no growth after 48 hours (2) Acute urinary retention: Start date: 06/11/20 Start time: 13:36 Status: Inactive Assessment and plan: morejon catheter in place renal no significant findings in the kidneys tamsulosin 0.4 mg daily urology consult voiding trial tomorrow (3) Loss of taste: Start date: 06/11/20 Start time: 13:37 Status: Acute Assessment and plan: reports 2 days of anorexia d/t loss of taste. no know covid contacts. He does report dental issues with intermittent pain as well. CM will give dental information covid testing negative (4) Protein malnutrition: Start date: 06/11/20 Start time: 13:39 Status: Acute Assessment and plan: calcium corrects to 9.1 nutrition consult. Magic cups (5) Ambulatory dysfunction: Start date: 06/11/20 Start time: 13:39 Status: Acute Assessment and plan: chronic, reports mostly utilizes wheel chair. PT consult He does not want to go anywhere but home. (6) DVT prophylaxis: Start date: 06/11/20 Start time: 13:39 Status: Acute Assessment and plan: enoxaparin daily teds (7) Discharge planning issues: Start date: 06/11/20 Start time: 13:39 Status: Acute Assessment and plan: case management following. He will be discharged home with services possibly tomorrow. discussed with Dr Alcantara Subjective Subjective Patient reports: other Interval history since last seen: C/o dental pain intermittently. On antibiotics, no swelling in mouth seen, will have CM give dental referrals for outpatient. Exam Narrative Exam Narrative: Exam Narrative: elderly male laying in bed. He is alert and oriented to person and place Lungs are clear Heart is regular Abdomen is round, soft, non-distended w/ active bowel sounds, nontender. No suprapubic tenderness morejon is draining cloudy yellow urine Objective Last Vital Signs Temp 36.7 C 06/11/20 08:10 Pulse 80 06/11/20 10:40 Resp 16 06/11/20 08:10 BP 110/69 06/11/20 08:10 Pulse Ox 95 06/11/20 08:10 Laboratory Results - last 24 hr 06/10/20 06/10/20 06/11/20 14:10 15:27 06:05 WBC 5.21 RBC 3.83 L Hgb 13.3 L Hct 38.5 L MCV 100.5 H MCH 34.7 H MCHC 34.5 RDW 12.8 Plt Count 185 MPV 10.9 Immature Gran % 0.2 Neutrophils % 67.2 Lymphocytes % 21.3 Monocytes % 8.4 Eosinophils % 2.5 Basophils % 0.4 Nucleated RBC % 0 Absolute Neutrophils 3.50 Absolute Lymphocytes 1.11 L Absolute Monocytes 0.44 Absolute Eosinophils 0.13 Absolute Basophils 0.02 Urine Color Yellow Urine Clarity Cloudy Urine pH 5.5 Ur Specific [place] 1.020 Urine Protein Negative Urine Ketones Negative Urine Blood Small H Urine Nitrite Negative Urine Bilirubin Negative Urine Urobilinogen 0.2 Ur Leukocyte Esterase Large H Urine RBC 3-5 H Urine WBC >50 H Ur Epithelial Cells Negative Urine Crystals Negative Urine Bacteria Few Urine Casts Negative Urine Mucus Negative Ur Culture Indicated? Yes Urine Glucose Negative Vancomycin Trough 23.1 H*
[2020-06-11 14:29] LABS: C Diff PCR Negative (Negative)
[2020-06-11 15:31] VITALS: BP 103/68; PULSE 88; RESP 17; TEMP 36.8; O2SAT 97
[2020-06-11] MEDS: Enoxaparin 40 MG/0.4 ML SYR SC (16:41)
[2020-06-11 23:10] VITALS: BP 117/71; PULSE 85; RESP 17; TEMP 37.2; O2SAT 98
[2020-06-12] MEDS: Tamsulosin 0.4 MG CAPCR PO (07:54)
[2020-06-12] MEDS: Potassium Chloride 20 MEQ TABCR PO (07:54)
[2020-06-12] MEDS: Protein Nutritional Supplement 16 GM 1 OUNCE PACKET PO (07:54)
--- NOTE | 2020-06-12 08:15 | OT.INTREAT ---
Date of service: 06/12/20 Time of Service: 07:55 Occupational Therapy Notes Occupational Therapy Inpatient Treatment Note Date: 06/12/20 PRECAUTIONS: Fall, Standard, Full SUBJECTIVE: Pt was sitting in bed when OT arrived, he was more confused this morning and states that he just wants to go home and see his family. OBJECTIVE: PAIN:no c/o pain BATHING: sitting in bed with max (A) set up/clean up Upper Body: Min (A) face, (B) UE and abdomen Lower Body: Max (A) (B) LE DRESSING: sitting in bed Upper Extremity: Mod (A) [facility] gown EATING: sitting in bed he required max (A) opening containers, he was able to hold his cup and bring cup to mouth with straw (I) with ideal technique. No issues swallowing or chewing. ASSESSMENT/PLAN: Pt was an active participant in todays session although he did seem to be more confused today asking if his breakfast was dinner. He was receptive to performance of his ADL/IADL this morning. TREATMENT CODES/TIME: 83910, 20 minutes (07:55) Valery Shultz OTR/L [facility]
[2020-06-12 08:33] VITALS: BP 113/67; PULSE 95; RESP 18; TEMP 37.4
[2020-06-12] MEDS: levoFLOXacin 500 MG, levoFLOXacin 250 MG 750 MG PO (10:51)
--- NOTE | 2020-06-12 10:51 | DSE_ITS ---
Date of service: 06/12/20 Time of Service: 10:51 DS: Diagnosis Discharge Diagnosis (1) UTI (urinary tract infection): Start date: 06/12/20 Start time: 10:51 Status: Resolved Asessment and Plan: Found on admission, he was found to have urinary retention in the ED and catheter was placed. Renal u/s revealed no hydronep hrosis, initial urine cx on 06/07 grew stap saprophyticus, he was placed on vanco in addition to ceftriaxone. He was febrile prior to addition of vanco however since he has been afebrile. Blood cultures with no growth after 72 hours. Repeat ua cx with no growth he was transitioned to Po levaquin afebrile no leukocytosis. He will finish a 5 day course of levaquin. He is being discharged home with services. HH, RN, PT/OT/MALT LIQUORS SALES SUPERVISOR (2) Acute urinary retention: Start date: 06/12/20 Start time: 11:15 Status: Resolved Asessment and Plan: As above. Resolved, Follow up with Dr. Ugalde, placed on flomax daily Able to void without catheter at this time. (3) Loss of taste: Start date: 06/12/20 Start time: 11:16 Status: Acute Asessment and Plan: COVID negative He does c/o intermittent dental pain. CM to give dental information (4) ERIKA (acute kidney injury): Start date: 06/12/20 Start time: 11:25 Status: Resolved Asessment and Plan: Due to retention resolved with hydration (5) Protein malnutrition: Start date: 06/12/20 Start time: 11:18 Status: Acute Asessment and Plan: Recommend protein drinks and nutrtition (6) Acute hypokalemia: Start date: 06/12/20 Start time: 11:25 Status: Resolved Asessment and Plan: Critical on admission repleted now baseline (7) Ambulatory dysfunction: Start date: 06/12/20 Start time: 11:23 Status: Acute Asessment and Plan: He does not want to go to rehab. He is being discharged home as above above case discussed with Dr. Alcantara who is in agreement. Discharge Plan Disposition Patient Disposition: HOME W/HOME HEALTH SERVICE Condition: Stable Discharge Details Reason For Visit: HYPOKALEMIA Admit Date/Time: 06/07/20 14:36 Admit Provider: Shankar Arias Attending Provider: Shankar Arias Primary Care Provider: Kelley Mojica Hospital Course Hospital Course: 74 y.o male with PMH of poor nutrition, wheelchair bound, ambulatory dysfunction admitted to [facility] from ED after presenting with dysuria with difficulty urinating. Seen here in April with urinary retention with Morejon catheter placed. It was removed by home health prior to admission, he returns with retention and urinary tract infection. Ceftriaxone was initiated for UTI. UA cx grew stap, he did become febrile despite antbx therefore vanco was added. Blood culture with no growth repeat Urine cx from 06/10 with no growth. He was transitioned to oral levaquin and has been afebrile without leukocytosis. He denies CP, SOB, n/v/d. He is being discharged home with home health services PT/OT nursing and MALT LIQUORS SALES SUPERVISOR. He will follow up with Dr. Ugalde as an outpatient. Morejon removed after 3 days of flomax and he is voiding without difficulty. Home Meds and New Rx's Prescriptions: New diphenoxylate-atropine [Lomotil] 2.5-0.025 mg Tablet 1 tab PO Q4H PRN PRN (Reason: Diarrhea) Qty: 30 RF: 0 tamsulosin 0.4 mg Capsule 0.4 mg PO DAILY Qty: 30 RF: 0 Phlexy-Vits Packet 1 oz PO TID Qty: 30 RF: 0 levofloxacin 750 mg Tablet 750 mg PO Q24H Qty: 4 RF: 0 Discharge Instructions Instructions: Urinary Retention in Men (GEN), Urinary Tract Infection in Men (DC) Additional Instructions: follow up with Dr. Ugalde in 1 week and PCP in 2 weeks Finish all of your antibiotic. Stand Alone Forms: Nursing Discharge Form Referrals: Dario Ugalde MD [ [facility] STAFF PHYSICIAN] - Activity:: Activity as Tolerated Equipment/Supplies:: No Equipment Needed Diet:: As Tolerated Discharge Orders Discharge Orders: Discharge Order (Routine); Ordered 06/12/20 Ordered By: Carie Valadez DS: Summary Status at Discharge Functional status at discharge: wheelchair bound Overall status at discharge: patient is back to baseline Mental Status: mental status grossly normal Speech and Movement: speech and movement normal Mood: congruent mood Affect: normal affect Exam Narrative Exam Narrative: Exam Narrative: elderly male laying in bed. He is alert and oriented to person and place Lungs are clear Heart is regular Abdomen is round, soft, non-distended w/ active bowel sounds, nontender. No suprapubic tenderness morejon is draining cloudy yellow urine Psych Mental Status: mental status grossly normal Speech and Movement: speech and movement normal Mood: congruent mood Affect: normal affect DS: Data Vitals/I&O Vitals and I&O: Vital Signs Temperature 37.4 C 06/12/20 08:33 Temperature Source Tympanic 06/12/20 08:33 Pulse 95 H 06/12/20 08:33 Pulse Rhythm Regular 06/12/20 08:32 Pulse 109 H 06/07/20 15:50 Respiratory Rate 18 06/12/20 08:33 Respiratory Effort Non-Labored 06/12/20 08:32 Respiratory Depth Normal 06/12/20 08:32 Respiratory Pattern Normal 06/12/20 08:32 Blood Pressure 113/67 06/12/20 08:33 Blood Pressure Mean 90 06/07/20 15:45 Blood Pressure Position Sitting 06/07/20 13:20 Pulse Oximetry 98 06/11/20 23:10 Oxygen Delivery Method Room Air 06/12/20 08:33 Oxygen Flow Rate 0 06/12/20 08:33 Pain Level 0 06/12/20 08:33 Comment 06/10/20 17:15 Intake & Output 06/11/20 06/11/20 06/12/20 11:59 23:59 11:59 Intake Total 311.5 / 1041.5 730 / 1041.5 350 / 350 Output Total 975 / 1375 400 / 1375 Balance -663.5 / -333.5 330 / -333.5 350 / 350 Intake: IV 311.5 / 311.5 Oral 730 / 730 350 / 350 Output: Urine 975 / 1375 400 / 1375 Other: Urine Color Yellow Yellow Yellow Urine Appearance Clear Clear Clear Comment emptied at the endo of previous shift, very little drainage in bag or line, no blood or irritation noted at the meatus soaked white jonn with stool and urine brief fully soaked Stool Occult Blood Negative Stool Size Large Small Small Stool Characteristics Soft Soft Soft Formed Brown Voiding Methods Incontinent Diaper Incontinent Data Completed and Pending Pending studies at discharge: Exam(s) PROCEDURE INFORMATION: Exam: US Retroperitoneal; Complete; Kidneys and Bladder Exam date and time: 06/07/2020 4:31 PM Age: 74 years old Clinical indication: Other: Urinary retention; Erika TECHNIQUE: Imaging protocol: Real-time ultrasound of the retroperitoneum with image documentation. Complete exam focused on the kidneys and bladder. COMPARISON: CT ABDOMEN PELVIS W 05/11/2020 1:44 PM FINDINGS: Right kidney: The right kidney measures 9.4 x 5.2 x 5.3 cm. Left kidney: The left kidney measures 10.2 x 5.4 x 5.1 cm. No renal calculus, hydronephrosis, mass or perinephric fluid collection. Urinary bladder: Urinary bladder is decompressed with a Morejon catheter balloon within the lumen. Prevoid bladder volume is 20 mL. Bladder wall is thickened although this is likely related to chronic prostate enlargement and decompression. IMPRESSION: 1. Normal bilateral kidneys without hydronephrosis. 2. Decompressed urinary bladder with Morejon catheter balloon within Labs on day of discharge: Labs from last 24 hours 06/11/20 13:10 Stl C.difficile Tox PCR Negative Preliminary micro results at discharge 06/09/20 08:45 Blood Culture - Preliminary Blood NO GROWTH 48 HOURS 06/09/20 08:40 Blood Culture - Preliminary Blood NO GROWTH 48 HOURS [facility] Social History Smoking/Tobacco Use Status: Never Smoking risk assessment performed?: Yes Alcohol Intake: current Alcohol Intake frequency: a few times a month Alcohol type: beer Drug use: Never Substance use type: does not use Do you feel safe at home: Yes Do you feel safe in your relationship?: Yes Additional Social history: pt arrives very dirty and disheveled. per ems home living situation is very unsanitary. pt states baths him and feeds him.
--- NOTE | 2020-06-12 11:45 | PT.INTREAT ---
Date of service: 06/12/20 Time of Service: 08:40 PT Notes Visit Reasons: HYPOKALEMIA Inpatient Physical Therapy Treatment Note [facility] Date: 06/12/2020 PRECAUTIONS: Fall SUBJECTIVE: Jose states that his B UE are sore today. He discusses that his preference upon discharge would be to return home, even though he feels that he is currently weaker than his baseline. He reports that his , children and grandchildren take care of him and that he is very confident in their ability to help him return to his baseline. OBJECTIVE: PAIN: Patient c/o B UE soreness, and pain at IV site on L hand, nursing notified BED MOBILITY/TRANSFERS: Declined. THEREX: Patient was instructed in several UE and LE strengthening exercises, performed in a long-sitting position, as per flow sheet. He requires verbal cueing for all exercises performed, as well as extra time to complete all exercises. ASSESSMENT: Patient appeared limited due to B UE soreness. PLAN: Continue with global strengthening as well as bed mobility in home setting upon discharge. TREATMENT CODE/TIME: 20 minutes; [id number]
--- NOTE | 2020-06-12 12:51 | CMDISCH_ITS ---
LACE Index Scoring Tool - Questions: Length of Stay (in days): 4 - 6 Acuity (Admit via E.D.?): Yes Comorbidities: Dementia E.D. Visits: 3 - Answers: Total Score: 13 Risk of Readmission: High Risk Care Management Discharge Reason for Hospitalization: Hypokalemia Discharge Plan: Jose will return home when ready per provider. He will have new orders for [facility]: RN/PT/OT/TRAFFIC RATE COMPUTER (TRAFFIC RATE COMPUTER to support navigating barriers to home improvements due to town permit regulations and support family in best caring for Jose including recommendations for increased funding options/service supports). He will follow up with his PCP and plan of care as prescribed. He will transport via private vehicle with family. CM notified family, reviewed discharge plan and notified [facility] of new orders. Patient/Family Education Needs: Review discharge instructions, community based supports, discussed patient care needs upon discharge Ask Me Three. Services Needed at Discharge: DME Agency (Resume), Home Health Care Services (RN, PT, OT, TRAFFIC RATE COMPUTER)
--- NOTE | 2020-06-13 08:55 | OT.INDS ---
Date of service: 06/13/20 Time of Service: 08:55 Occupational Therapy Notes Occupational Therapy Inpatient Discharge Summary Date: 06/13/20 Dates of Service: 06/09/20-06/12/20 Referring Doctor:Lois Canseco NP OT Orders: Non-Urgent Precautions: Fall, Standard, Full *This document serves as a summary of care, no skilled OT services were provided for this documentation* PATIENT PROFILE/ADMITTING DIAGNOSIS: Pt presented to the ED and was admitted to the [facility] S[facility] floor for urinary tract infection, urinary retention, kidney injury, acute hypokalemia, loss of taste, protein malnutrition, and ambulatory dysfunction. Past Medical History: Hematuria Ambulatory dysfunction Social History/Home Situation: Pt lives with his and 6 children in a trailer in [place]. He reports that he does not drive, he has a tub shower which he reports that he is supposed to be getting a walk in shower. He states that he is able to perform his ADLs/IADLs but notes that he doesn't move a lot at home and tends to stay in the recliner. He has had pain in his legs for a while and notes that his helps him a lot. SUBJECTIVE: NT OBJECTIVE: ROM: RUE AROM WFL L UE AROM WFL STRENGTH: RUE Shoulder flexion 3-/5, bicep 3+/5, tricep 4/5, car rental service attendant is weak LUE Shoulder flexion 3-/5, bicep 3+/5, tricep 4/5, car rental service attendant is weak FUNCTIONAL MOBILITY/ADLS: BATHING: sitting in bed with max (A) set up/clean up Upper Body: Min (A) face, (B) UE and abdomen Lower Body: Max (A) (B) LE DRESSING: sitting in bed Upper Extremity: Mod (A) [facility] gown GROOMING sitting in bed (I) with brushing hair, denies oral hygiene at each session TOILETING NT EATING seated position (I) required straw for liquids and was able to (I) bring to mouth. REquired (A) for opening containers. BALANCE: Static sitting Fair-Good Dynamic Sitting Fair-Good ASSESSMENT: Patient is a 74-year-old male referred to occupational therapy services with diagnosis of urinary tract infection, urinary retention, kidney injury, acute hypokalemia, loss of taste, protein malnutrition, and ambulatory dysfunction.Pt has been seen for 1 week of skilled OT sessions. He was able to perform his ADLs in his bed in the seated position and was receptive to education and training. He continued to report weakness in his (B) LE but states that he spends most of his time in his chair or bed at home. Pt was discharged alexa jaime 06/12/20. GOALS 1. Grooming- sitting on side of the bed (I) with brushing teeth- NT 2. Dressing- sitting on side of the bed (I) UE, mod (A) LE- (I) UE, Max (A) LE 3. Bathing- sitting on side of the bed with max (A) Set up/clean up (I) with UE/LE - met 4. Toileting- on commode (I)- NT 5. Eating- sitting on side of the bed (I)- Met PLAN OF CARE/TREATMENT PLAN: Pt was discharged home with services and medically cleared per MD on 06/12/20. DISCHARGE RECOMMENDATIONS Based on pts current level of function with decreased functional mobility, increased fatigue and decreased functional (I) in his ADL/IADL routines, OT recommends that pt go to SNF when medically cleared per MD. TREATMENT TIME/MINUTES/CODES N/A Valery Shultz OTR/L [facility]
--- NOTE | 2020-06-16 14:36 | PT.INDS ---
Date of service: 06/16/20 Time of Service: 14:36 PT Notes Visit Reasons: HYPOKALEMIA Physical Therapy Inpatient Discharge Summary Date: 06/16/2020 Dates of service: 06/07/2020 through 06/12/2020 This is a clinical summary of care provided on the duration of dates listed above. No charge was made in the completion of this documentation. Referring Doctor: Lois Canseco NP PT Orders: PT CONSULT: Eval/treat Precautions: Fall. Standard. Activity as tolerated. Patient Profile/Admitting Diagnosis: Jose is a 74-year-old male who presented to the ED on today with chief complaint of difficulty urinating. He was previously seen at the ED on 05/13/2020 for urinary retention with placement of morejon catheter prior to discharge from home same day. Catheter was removed last 06/02/2020 by HH nurse. referral to PT was made due to accompanying generalized weakness and difficulty with transfers. Patient is diagnosed with urinary tract infection, urinary retention, kidney injury, acute hypokalemia, loss of taste, protein malnutrition, and ambulatory dysfunction. PMHX: Hematuria Ambulatory dysfunction Social History/Home Situation: Lives with , son, and son's family. He states that he has a HH aide who comes in twice a week to help with self-care. PT comes twice a week as well for functional mobility progression. He claims that his son helps out with transferring on days PT Haim does not come to visit. He has not walked for quite a long time now. Indicates that he has a wheelchair at home that is used to move the him from one part of the house to the other. Has fallen more than 5 times in the past year. Equipment Owned/DME: [facility], wheelchair Subjective: NT. See most recent SOFTWARE SUPPORT ANALYST notes. Objective: General Observation: NT. See most recent SOFTWARE SUPPORT ANALYST notes. Mental Status: NT. See most recent SOFTWARE SUPPORT ANALYST notes. Pain: NT. See most recent SOFTWARE SUPPORT ANALYST notes. ROM: Right Upper Extremity: Shoulder Flexion allows only up to 90 degrees. Shoulder abduction WFL allows only up to 80 degrees. Elbow flexion WFL. Wrist flexion WFL. Opening and closing of hand WFL. Left Upper Extremity: Shoulder Flexion allows only up to 90 degrees. Shoulder abduction WFL allows only up to 80 degrees. Elbow flexion WFL. Wrist flexion WFL. Opening and closing of hand WFL. Right Lower Extremity: Hip flexion allows only up to 90 degrees. Hip abduction about 10 degrees in supine. Knee flexion allows about 10 to 60 degrees. Knee extension -10 degrees. Ankle dorsiflexion to neutral only. Ankle plantarflexion up to 10 degrees. Left Lower Extremity: Hip flexion allows only up to 90 degrees. Hip abduction about 10 degrees in supine. Knee flexion allows about 10 to 60 degrees. Knee extension -10 degrees. Ankle dorsiflexion to neutral only. Ankle plantarflexion up to 10 degrees. Strength: Right Upper Extremity: Shoulder flexors 3-/5. Shoulder abductors 3-/5. Elbow flexors 4-/5. Elbow extensors 4-/5. Knurling Machine Operator strong. Left Upper Extremity: Shoulder flexors 3-/5. Shoulder abductors 3-/5. Elbow flexors 4-/5. Elbow extensors 4-/5. Knurling Machine Operator strong. Right Lower Extremity: Hip flexors 3-/5. Hip abductors 3-/5. Knee flexors 3-/5. Knee extensors 3-/5. Ankle dorsiflexors 5/5. Ankle plantarflexors 3-/5. Left Lower Extremity:Hip flexors 3-/5. Hip abductors 3-/5. Knee flexors 3-/5. Knee extensors 3-/5. Ankle dorsiflexors 3-/5. Ankle plantarflexors 3-/5. Sensation: Intact as to pain and pressure on bilateral lower extremities. Bed Mobility/Transfers: Rolling moderate assist of 1 Supine to sit moderate assist of 2 Gait: Total assist requiring mechanical lift Balance: Static Sitting: Poor Dynamic Sitting: Poor Static Standing: Unable Dynamic Standing: Unable Assessment: Continues to be apprehensive with moving out of bed. Jose continues to demonstrate extensive assist with bed mobility skills, needs assist of two for all transfer task performance, and inability to walk at this time due to generalized weakness and admitting diagnoses. He will need SNF placement to facilitate increase independence with transfer tasks in order reduce burden of care, reduce fall risk, and maximize mobility level prior to D/C home with family. HH services may resume once he is able to reach a safe mobility status. Patient continues to present with clinical signs and symptoms consistent with current/admitting diagnoses that have resulted to mobility limitations, gait instability, generalized weakness, and impairment of motor control as demonstrated by the following impairment level findings: 1. Decreased strength to B UE/LE major muscle groups 2. Poor sitting balance 3. Impaired activity tolerance 4. Limitation of joint range of motion in major joints in B UE/LE 5. Reports back and leg pain with movement Impairments are continuing to contribute to the following functional limitations: 1. Dependent bed mobility skills 2. Increased dependence with transfers 3. Inability to safely ambulate without assistive device and physical assistance 4. Increase completion time for mobility ADL performance 5. Increased fall risk 6. Inability to negotiate steps alone safely Goals: Goals X1 week 1. Supine-Sit independent NOT MET 2. Sit-Supine independent NOT MET 3. Sit-Stand independent NOT MET 4. Stand-Sit independent NOT MET 5. Bed-Chair independent NOT MET 6. Chair-Bed independent NOT MET 7. Independent gait on level surface with use of least restrictive device for at least 300 feet without report of pain nor dyspnea NOT MET 8. Independent stair negotiation while holding onto bilateral rails for at least 10 steps without report of pain nor dyspnea NOT MET 9. Independent with home exercise program NOT MET 10. Good static and dynamic standing balance/tolerance NOT MET DISCHARGE RECOMMENDATIONS: Patient will benefit from halfway facility placement for continued skilled physical therapy services in order to progress mobility level, strength, and balance in preparation for a safe discharge to home. Resume PT once a safe transfer level is reached. TREATMENT CODE/TIME: LA Thank you for the opportunity to participate in the care of this patient. Emma Watson PT, DPT, CLT [facility] [place], [place]
== END 2020-06-12 13:05 | disposition home health service (06) | DRG 690 ==
LOC: ER 14:36 → MS 16:09
PROVIDERS: Family Medicine; Nurse Practitioner Acute Care; Nurse Practitioner Family; Admitting Provider Internal Medicine; Emergency Provider Registered Nurse Emergency; Visit Provider Internal Medicine
DX: N39.0 Urinary tract infection, site not specified (principal); N17.9 Acute kidney failure, unspecified; E46 Unspecified protein-calorie malnutrition; R33.9 Retention of urine, unspecified; E87.6 Hypokalemia; R43.9 Unspecified disturbances of smell and taste; R26.9 Unspecified abnormalities of gait and mobility; E86.0 Dehydration; K08.89 Other specified disorders of teeth and supporting structures; B95.7 Other staphylococcus as the cause of diseases classified elsewhere
CPT/HCPCS: 36410; 36415; 51702; 76770; 80048; 80053; 83690; 87040; 87077; 87493; 93005; 96365; 96368; 97110; 97163; 97166; 97530; 97535; 99223; 99233; 99239; 99255; 99285; J1650; U0003; 80202; 81003; 81015; 83735; 85025; 85049; 87086; 93010; J0696; J2405; J3475; J3480

== ENCOUNTER 2020-07-21 04:33 | Outpatient (CLI) | payer MEDICARE, MEDICAID, SELFPAY ==
--- NOTE | 2020-07-21 11:09 | DI.RAD_ITS ---
EXAM: RF BARIUM SWALLOW CLINICAL HISTORY: DIFFICULTY SWALLOWING, R13.10,CHOKING,DIFFICULTY EATING SOLID TECHNIQUE: 2D and realtime digital imaging was performed. CONTRAST MATERIAL: Oral barium Oral water soluble contrast was administered. COMPARISON: No exams were available for comparison FINDINGS: CHEST X-RAY: The heart and pulmonary vasculature are within normal limits. The lungs are clear. No pl eural effusion or pneumothorax is present. The bones are within normal limits for the patient's age. ESOPHAGRAM: Examination is limited due to decreased patient participation and marked kyphosis. The e sophagus is patent with no evidence for erosions, fold thickening, strictures, or masses. With regard s to the motility, there is a normal primary stripping wave. Tertiary contractions were noted during the examination. There does appear to be a small hiatal hernia. No gastroesophageal reflux or aspir ation was noted during the examination. IMPRESSION: 1. Suboptimal examination due to decreased patient participation and marked kyphosis. 2. There is concern for aspiration or the oral phase of swallowing, a swallow study performed in conj unction with speech pathology be considered. 3. Small hiatal hernia. No definite evidence of aspiration or gastroesophageal reflux.
[2020-07-21] MEDS: Barium Sulfate 60% W/V 355 ML BTL PO (11:11)
== END 2020-07-21 04:53 ==
PROVIDERS: PCP Nurse Practitioner Family; Visit Provider Nurse Practitioner Family
DX: K44.9 Diaphragmatic hernia without obstruction or gangrene (principal); R13.10 Dysphagia, unspecified
CPT/HCPCS: 74221; J3490

== ENCOUNTER → 2020-10-03 09:45 | Outpatient (BNVA) | payer MEDICARE, MEDICAID, SELFPAY | PROVIDERS: PCP Nurse Practitioner Family; Referring Provider Nurse Practitioner Family; Visit Provider Psychiatry & Neurology Neurology | DX: R25.8 Other abnormal involuntary movements (principal); R25.2 Cramp and spasm; R26.2 Difficulty in walking, not elsewhere classified; Z99.3 Dependence on wheelchair; R29.2 Abnormal reflex | CPT/HCPCS: 99215; G2212 ==

== ENCOUNTER 2020-10-18 01:46 | Outpatient (CLI) | payer MEDICARE, MEDICAID, SELFPAY ==
--- NOTE | 2020-10-18 06:30 | DI.MRI_ITS ---
EXAM: MR CERVICAL SPINE WO CLINICAL HISTORY: ?myelopathy,clonus,spasticity,inability to walk,r26.2,r25.2,r25.8 TECHNIQUE: Multiplanar multisequence MRI of the cervical spine was performed without intravenous con trast. COMPARISON: CR,RF RF BARIUM SWALLOW from 07/21/2020 CR,RF RF BARIUM SWALLOW from 07/21/2020 FINDINGS: The exam is limited by patient motion. BONES: Vertebral body heights are maintained. Intervertebral disc spaces are normal. Alignment is nor mal. Bone marrow signal intensity is within normal limits. CERVICAL CORD: Craniovertebral junction is unremarkable. The cervical cord is normal size and signal intensity. SOFT TISSUES: Unremarkable. C2-3: No disc herniation or bulge is identified. C3-4: Mild loss of disc height. Minimal disc osteophytes. C4-5: Mild loss of disc height. Minimal disc osteophytes. C5-6: Minimal loss of disc height. Mild disc osteophytes. C6-7: No disc herniation or bulge is identified. C7-T1: No disc herniation or bulge is identified. IMPRESSION: Mild degenerative disc changes from C3-4 through C5-6. No evidence of disc herniation. Normal cord signal. DATA REPOSITORY:
== END 2020-10-18 02:06 ==
PROVIDERS: PCP Nurse Practitioner Family; Visit Provider Psychiatry & Neurology Neurology
DX: M50.31 Other cervical disc degeneration, high cervical region (principal); M50.021 Cervical disc disorder at C4-C5 level with myelopathy; M50.022 Cervical disc disorder at C5-C6 level with myelopathy; R26.2 Difficulty in walking, not elsewhere classified; R25.8 Other abnormal involuntary movements; R25.2 Cramp and spasm
CPT/HCPCS: 72141

== ENCOUNTER 2020-11-01 16:31 | Outpatient (REF) | payer MEDICARE, MEDICAID, SELFPAY ==
[2020-11-01 14:18] LABS: ALT 23 U/L (16-63); AST 18 U/L (15-37); Calculated LDL 106 mg/dL (<100); Cholesterol 177 mg/dL (<200); HDL Cholesterol 49 mg/dL (40-60); Triglyceride 112 mg/dL (<150)
[2020-11-02 09:45] LABS: Lyme Ab w Rflx to Lyme Confirm Negative (Negative)
== END 2020-11-01 16:32 | disposition home or self-care (01) ==
LOC: NCHCN 16:31
PROVIDERS: PCP Nurse Practitioner Family; Visit Provider Nurse Practitioner Family
DX: R53.1 Weakness (principal); Z74.09 Other reduced mobility; R26.2 Difficulty in walking, not elsewhere classified; E78.89 Other lipoprotein metabolism disorders
CPT/HCPCS: 80061; 84450; 84460; 86618

== ENCOUNTER 2020-11-15 01:58 | Outpatient (CLI) | payer MEDICARE, MEDICAID, SELFPAY ==
--- NOTE | 2020-11-15 08:00 | DI.MRI_ITS ---
Exam(s) MR BRAIN WO EXAM: MR BRAIN WO CLINICAL HISTORY: ?myelopathy,BABINSKI REFLEX,CLONUS,R29.2,R25.8 TECHNIQUE: Multiplanar multisequence MRI of the brain was performed. COMPARISON: No exams were available for comparison FINDINGS: The examination is limited due to patient motion artifact. There is artifact in the anterior skull. The patient reports no history of cranial facial surgery bu t does report injury to the forehead as a child. Artifact like this can result from foreign bodies i n the soft tissues. If there is continued clinical concern an x-ray of the skull and/or face may be obtained. VENTRICLES AND EXTRA AXIAL SPACES: There is cerebral atrophy consistent with the patient's age. HEMORRHAGE: None. CEREBRAL PARENCHYMA: No focus of restricted diffusion to suggest acute infarct. No space-occupying le kurtis identified. There are hyperintense foci in the white matter on the FLAIR and T2 weighted images most consistent with chronic microvascular ischemic change. MIDLINE SHIFT: None. BRAINSTEM/CEREBELLUM: Normal. CALVARIUM: Normal. VISUALIZED PARANASAL SINUSES/MASTOIDS: Clear. OTHER FINDINGS: None. IMPRESSION: 1. Examination limited by patient motion artifact and artifact in the anterior skull. 2. No acute territorial infarct. 3. Age-appropriate cerebral atrophy and small vessel ischemic disease. DATA REPOSITORY:
--- NOTE | 2020-11-15 08:00 | DI.MRI_ITS ---
Exam(s) MR THORACIC SPINE WO EXAM: MR THORACIC SPINE WO CLINICAL HISTORY: ?myelopathy,BABINSKI REFLEX, CLONUS,R25.8,R29.2. TECHNIQUE: Multiplanar multisequence MRI of the Thoracic spine was performed. COMPARISON: No exams were available for comparison FINDINGS: The examination is limited due to patient motion artifact. Bones: The vertebral body heights are well maintained. Alignment is satisfactory. Mild degenerative e ndplate signal changes are present. Cord: The thoracic cord is normal size and signal intensity. No intrinsic cord lesion is present. Discs: No disc herniation or bulge is present. There is no significant central spinal canal or neural foraminal stenosis in the thoracic spine. Soft tissues: Normal. IMPRESSION: 1. The thoracic spinal cord is unremarkable with normal signal. 2. No focal disc herniation, central spinal canal or neural foraminal stenosis is seen in the thoraci c spine. 3. Exam is limited by patient motion artifact. DATA REPOSITORY:
== END 2020-11-15 02:18 ==
PROVIDERS: PCP Nurse Practitioner Family; Visit Provider Psychiatry & Neurology Neurology
DX: R29.2 Abnormal reflex (principal); R25.8 Other abnormal involuntary movements; G31.89 Other specified degenerative diseases of nervous system; I67.82 Cerebral ischemia
CPT/HCPCS: 70551; 72146

== ENCOUNTER → 2020-11-28 14:02 | Outpatient (BNVA) | payer MEDICARE, MEDICAID, SELFPAY | PROVIDERS: PCP Nurse Practitioner Family; Referring Provider Nurse Practitioner Family; Visit Provider Psychiatry & Neurology Neurology | DX: R53.1 Weakness (principal); G62.9 Polyneuropathy, unspecified; R25.2 Cramp and spasm; R26.2 Difficulty in walking, not elsewhere classified; R25.8 Other abnormal involuntary movements; F03.90 Unspecified dementia, unspecified severity, without behavioral disturbance, psychotic disturbance, mood disturbance, and anxiety; Z99.3 Dependence on wheelchair | CPT/HCPCS: 99215 ==

== ENCOUNTER 2020-12-07 20:54 | Outpatient (REF) | payer MEDICARE, MEDICAID, SELFPAY ==
[2020-12-07 21:41] LABS: Creatine Kinase 25 U/L (39-308); TSH (W/Ref FT4) 1.71 uIU/mL (0.36-3.74)
[2020-12-07 22:28] LABS: Vitamin B12 342 pg/mL (193-986)
[2020-12-11 10:48] LABS: Syphilis Serology (RPR) Negative (Negative)
[2020-12-11 11:21] LABS: HIV-1/2 Ag & Ab Screen Negative (Negative)
[2020-12-12 13:18] LABS: Albumin 55.8 % (55.8-66.1); Comment (See Note); Monoclonal Spike 3.3 % (None Seen); Total Protein 6.9 g/dL (6.3-8.2)
[2020-12-12 15:58] LABS: Immunotyping, Serum (See Note)
== END 2020-12-07 20:55 | disposition home or self-care (01) ==
LOC: NCHCN 20:54
PROVIDERS: Psychiatry & Neurology Neurology; PCP Nurse Practitioner Family; Visit Provider Nurse Practitioner Family
DX: F03.90 Unspecified dementia, unspecified severity, without behavioral disturbance, psychotic disturbance, mood disturbance, and anxiety (principal); R63.3 Feeding difficulties; G62.9 Polyneuropathy, unspecified; R25.2 Cramp and spasm; R25.8 Other abnormal involuntary movements; Z11.4 Encounter for screening for human immunodeficiency virus [HIV]; R53.1 Weakness; R26.9 Unspecified abnormalities of gait and mobility
CPT/HCPCS: 82550; 87389; 82525; 82607; 84165; 84443; 86320; 86592

== ENCOUNTER 2020-12-16 18:26 | Emergency (ER) | payer MEDICARE, MEDICAID, SELFPAY ==
[2020-12-16 17:56] VITALS: BP 144/70; PULSE 74; RESP 20; TEMP 36.9; O2SAT 97
--- NOTE | 2020-12-16 18:11 | ED.GENADUL_ITS ---
Discharge Plan Disposition Patient Disposition: HOME Condition: Stable Discharge Details Clinical Impression: UTI (urinary tract infection), Acute urinary retention, History of BPH Primary Care Provider: Hortencia Rayo ED Provider: Carmella Conner Home Meds and New Rx's Prescriptions: New levofloxacin 750 mg tablet 750 mg PO DAILY 5 Days Qty: 5 RF: 0 Continued psyllium Packet 1 packet PO DAILY RF: 0 Ensure Active High Protein Liquid PO TID RF: 0 (DME) diaper,brief,adult,disposable Misc See Rx Instructions .ROUTE .MEDSUPPLY Qty: 14 RF: 0 tamsulosin 0.4 mg Capsule 0.4 mg PO DAILY Qty: 30 RF: 0 Phlexy-Vits Packet 1 oz PO TID Qty: 30 RF: 0 Discharge Instructions Instructions: Urinary Retention in Men (ED), Urinary Tract Infection in Men (ED) Additional Instructions: Drink plenty of fluids and get plenty of rest. A Francois catheter was placed today. You should follow-up with urology within the next week for reevaluation and discussion on when the Francois catheter can be removed. Your antibiotic prescription has been sent electronically to your pharmacy. Call the pharmacy to make sure your prescription is ready before pickup. Take the prescription as directed. Your urine sample showed evidence of a urinary tract infection. The urine culture take several days to result and may show that the bacteria is best treated with a different antibiotic than you were given. You will be notified if you need a different antibiotic. Call the urology office on Friday morning to schedule a follow-up appointment for reevaluation. Return immediately to the emergency department if you develop any worsening or new concerning symptoms. Referrals: Dario Ugalde MD [ [facility]FF [facility]YSICIAN] - Discharge Data Discharge Date/Time-TO BE ENTERED AT DEPARTURE: 12/16/20 21:00 Discharge Physician: Carmella Conner Medical Decision Making 75-year-old male with a history of BPH who is wheelchair-bound presents for urinary retention and also dysuria today. Patient appears disheveled and clothes soiled. He is alert and oriented x3 and able to answer questions. His abdomen is soft and minimally tender in the suprapubic region. Normal exam. Bladder scan done by nurse at bedside noted more than 200 cc of urine. Will place a Francois catheter and send urinalysis. Will check screening labs. Labs reviewed. Normal white blood cell count at 8. Normal renal function. Urinalysis notes 5-10 WBCs and RBCs with negative nitrate, negative leukocyte esterase and negative bacteria. A urine culture sent. As patient has a complaint of dysuria, will treat with antibiotics. A dose of Levaquin was ordered for here and prescription sent electronically to his pharmacy. Results and plan d/w his daughter in law who is also his caregiver and she is in agreement and understands plan. Advised to f/u with the pcp for re-evaluation this week. Usual and customary return precautions given prior to discharge. Medical Records Medical records reviewed: Yes I reviewed the patient's medical records. Lab Data Lab results reviewed: Yes I reviewed the patient's lab results. Labs: 12/16/20 18:55 Urine - Reflex from Ua Urine Culture - Pending Laboratory Tests Range/Units 12/16/20 12/16/20 12/16/20 18:45 18:45 18:55 WBC (4.4-10.8) 10^3/uL 8.60 RBC (4.36-5.78) 10^6/uL 4.27 L Hgb (13.5-17.5) g/dL 15.3 Hct (40.0-50.0) % 42.8 MCV (80-95) fL 100.2 H MCH (27.0-33.0) pg 35.8 H MCHC (32.0-36.0) % 35.7 RDW (11.8-14.1) % 12.3 Plt Count (130-400) 10^3/uL 191 MPV (8.0-11.0) fL 11.1 H Immature Gran % 0.5 Neutrophils % 83.6 Lymphocytes % 11.2 Monocytes % 4.4 Eosinophils % 0.1 Basophils % 0.2 Nucleated RBC % % 0 Absolute Neutrophils (1.2-6.7) 10^3/uL 7.19 H Absolute Lymphocytes (1.2-3.4) 10^3/uL 0.96 L Absolute Monocytes (0.1-0.8) 10^3/uL 0.38 Absolute Eosinophils (0.0-0.7) 10^3/uL 0.01 Absolute Basophils (0.0-0.2) 10^3/uL 0.02 Sodium (136-145) mmol/L 143 Potassium (3.5-5.1) mmol/L 3.9 Chloride (98-107) mmol/L 108 H Carbon Dioxide (21.0-32.0) mmol/L 28.8 Anion Gap (3-11) mmol/L 6.2 BUN (7-18) mg/dL 10 Creatinine (0.70-1.30) mg/dL 1.1 Estimated GFR/1.73 m2 (mL/min/1.73m2) >= 60.00 Glucose (74-106) mg/dL 131 H Calcium (8.5-10.1) mg/dL 8.6 Total Bilirubin (0.2-1.0) mg/dL 1.6 H AST (15-37) U/L 14 L ALT (16-63) U/L 21 Alkaline Phosphatase (46-116) U/L 73 Total Protein (6.4-8.2) g/dL 7.1 Albumin (3.4-5.0) g/dL 3.5 Urine Color (Yellow) Yellow Urine Clarity (Clear) Clear Urine pH (5-8) 6.5 Ur Specific [place] (1.005-1.025) 1.020 Urine Protein (Negative) mg/dL Negative Urine Ketones (Negative) mg/dL Negative Urine Blood (Negative) Trace-intact H Urine Nitrite (Negative) Negative Urine Bilirubin (Negative) Negative Urine Urobilinogen (Up TO 0.2) EU/dL 1.0 H Ur Leukocyte Esterase (Negative) Negative Urine RBC (0-2) HPF 5-10 H Urine WBC (0-5) HPF 5-10 Ur Epithelial Cells (Negative) HPF Negative Urine Crystals (Negative) HPF Negative Urine Bacteria (Negative) HPF Negative Urine Casts (Negative) LPF Negative Urine Mucus (Negative) Negative Urine Other (Negative) Negative Ur Culture Indicated? Yes Urine Glucose (Negative) mg/dL Negative HPI General Mode of arrival: EMS . Date/Time Provider Initiated Documentation: 12/16/20 18:55 . Limitations to Documentation: physical limitation . Information obtained by: patient and EMS . HPI Narrative: Patient is a 75-year-old male with a history of BPH with a Francois catheter placed for a few months last fall who presents to the ED with complaint of difficulty urinating today. Patient states that he has been having difficulty urinating off and on for the past few months but states it was worse today. He admitted to the nurse that he had some burning with urination today. He denies any fever, abdominal pain or vomiting. Related Data Home Medications Medication Instructions Recorded Confirmed Phlexy-Vits 1 oz PO TID #30 ea 06/12/20 12/16/20 tamsulosin 0.4 mg PO DAILY #30 cap 06/12/20 12/16/20 diaper,brief,adult,disposable #14 ea 08/24/20 11/28/20 food supplemt, lactose-reduced ml PO TID ml 08/24/20 11/28/20 psyllium 1 packet PO DAILY ea 10/03/20 12/16/20 levofloxacin 750 mg PO DAILY 5 Days #5 tab 12/16/20 Previous Rx's Medication Instructions Recorded Phlexy-Vits 1 oz PO TID #30 ea 06/12/20 tamsulosin 0.4 mg PO DAILY #30 cap 06/12/20 levofloxacin 750 mg PO DAILY 5 Days #5 tab 12/16/20 Allergies Allergy/AdvReac Type Severity Reaction Status Date / Time codeine Allergy Severe Verified 12/16/20 17:57 Penicillins Allergy Severe Verified 12/16/20 17:57 General Stated Complaint: Urinary SAM: 4 Review of Systems All systems reviewed & are unremarkable except as noted in HPI and below Constitutional Constitutional: Reports as per HPI, Denies chills and Denies fever(s) Eyes Eyes: Denies blurry vision ENT Ears, Nose, Mouth, and Throat: Denies dizziness, Denies sore throat and Denies throat swelling Cardiovascular Cardiovascular: Denies chest pain and Denies dyspnea Respiratory Respiratory: Denies cough and Denies dyspnea Gastrointestinal Gastrointestinal: Denies abdominal pain, Denies diarrhea and Denies vomiting Genitourinary Genitourinary: Denies hematuria, Reports difficulty urinating and Reports dysuria Musculoskeletal Musculoskeletal: Denies back pain and Denies numbness Integumentary/Breasts Skin/Breast: Denies lesions and Denies rash Neurologic Neurologic: Denies dizziness, Denies localized weakness and Denies numbness Allergic/Immunologic Allergic/Immunologic: Denies throat swelling [facility] Medical History Avoidance coping no medical care x 10 yrs [id number] Bedbound Colon cancer Difficulty swallowing solids Francois catheter in place H/O prostate cancer History of bloody stools Hypoalbuminemia Incontinence Limited literacy Palliative care patient Poor dentition Tachycardia Urinary retention Very poor mobility Surgical History S/P colectomy 2009 for colon cancer Family History Son No problems noted. Son No problems noted. Mother , about age 80 unknown cause of , per family No problems noted. Father , about age 70 family doesn't know COD No problems noted. Social History Smoking/Tobacco Use Status: Former Tobacco Use Tobacco: How many years used: 50 Smoking risk assessment performed?: Yes Alcohol Intake: current Alcohol Intake frequency: a few times a month Alcohol type: beer Counseling provided: support program Details: used to drink and smoke heavily until about 5 years ago/2014 Drug use: Never Substance use type: does not use Caregiver/Support person: Yes Household members: spouse, family and children Housing: house Number of Children: 2 number of grandchildren: 8 Communication Needs: Hard of Hearing and Corrective Lenses Education Level: middle school Do you need help understanding health information?: Always 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, 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 per ems home living situation is very unsanitary. pt states baths him and feeds him. [id number] Lacey brought him to see new PCP, Hortencia Rayo after first ER apt. No doctoring x 10 years. Has been in bed for at least 1.5 years, according to his , Kandace. They've been over 30 years. Very simple folks. Has 2 sons, Lissy and Adolfo, who help take care of Jose. Both live on the property. Exam Const General: no acute distress and disheveled Orientation: alert, awake and oriented x3 HENMT Head: normal to inspection Face and sinus: normal facial exam Eyes General: appearance normal, both eyes and all related structures EOM: EOM intact bilaterally Neck Neck: normal visual inspection and No submandibular swelling Lymphatic: no lymphadenopathy noted Chest Chest: normal inspection of the chest and no tenderness Resp Effort & Inspection: normal respiratory effort and able to speak in complete sentences Auscultation: clear to auscultation bilaterally Cardio Rate: regular rate Rhythm: regular rhythm GI Inspection: normal to inspection Palpation: soft, not firm, not rigid and nontender Auscultation: normal bowel sounds Male General Exam: Yes normal external exam Scrotum: scrotum normal and no scrotal swelling Testes: normal and no testicular tenderness Skin General skin exam: no rashes or lesions noted Neuro General: patient alert, patient awake and patient oriented x3 Cognition: normal cognition Speech: speech normal Motor: muscle tone normal throughout Sensory Exam: no sensory deficits noted Extrem General: normal to inspection, full ROM, capillary refill normal, no calf tenderness bilaterally and no edema Psych Appearance: grossly normal Mental Status: mental status grossly normal Speech and Movement: speech and movement normal Affect: normal affect Course Vital Signs Vital signs: Vital Signs Temperature 98.4 F 12/16/20 17:56 Pulse 74 12/16/20 17:56 Respiratory Rate 20 12/16/20 17:56 Blood Pressure 144/70 H 12/16/20 17:56 Pulse Oximetry 97 12/16/20 17:56 Temperature 98.4 F 12/16/20 17:56 Temperature Source Temporal Artery Scan 12/16/20 17:56 Pulse 74 12/16/20 17:56 Respiratory Rate 20 12/16/20 17:56 Respiratory Effort Non-Labored 12/16/20 17:59 Blood Pressure 144/70 H 12/16/20 17:56 Blood Pressure Position Sitting 12/16/20 17:56 Pulse Oximetry 97 12/16/20 17:56 Oxygen Delivery Method Room Air 12/16/20 17:56 Oxygen Flow Rate 0 12/16/20 17:56 Pain Level 10 12/16/20 17:56
[2020-12-16] MEDS: Lidocaine 2% Jelly 11 ML SYR (18:55)
[2020-12-16 19:02] LABS: Abs Immature Grans 0.04 10^3/uL (0.0-0.06); Absolute Basophil Count 0.02 10^3/uL (0.0-0.2); Absolute Eosinophil Count 0.01 10^3/uL (0.0-0.7); Absolute Lymphocyte Count 0.96 10^3/uL (1.2-3.4); Absolute Monocyte Count 0.38 10^3/uL (0.1-0.8); Absolute Neutrophil Count 7.19 10^3/uL (1.2-6.7); Basophils % 0.2; Eosinophils % 0.1; HCT 42.8 % (40.0-50.0); HGB 15.3 g/dL (13.5-17.5); Immature Grans % 0.5; Lymphocytes % 11.2; MCH 35.8 pg (27.0-33.0); MCHC 35.7 % (32.0-36.0); MCV 100.2 fL (80-95); MPV 11.1 fL (8.0-11.0); Monocytes % 4.4; Neutrophils % 83.6; Nucleated RBC 0 %; Platelet Count 191 10^3/uL (130-400); RBC 4.27 10^6/uL (4.36-5.78); RDW 12.3 % (11.8-14.1); RDW-SD 45.7 fL
[2020-12-16 19:10] LABS: ALT 21 U/L (16-63); AST 14 U/L (15-37); Albumin 3.5 g/dL (3.4-5.0); Alkaline Phosphatase 73 U/L (46-116); Anion Gap 6.2 mmol/L (3-11); BUN 10 mg/dL (7-18); Bilirubin, Total 1.6 mg/dL (0.2-1.0); CO2 28.8 mmol/L (21.0-32.0); CREATININE 1.1 mg/dL (0.70-1.30); Calcium 8.6 mg/dL (8.5-10.1); Chloride 108 mmol/L (98-107); Glucose 131 mg/dL (74-106); Potassium 3.9 mmol/L (3.5-5.1); Sodium 143 mmol/L (136-145); Total Protein 7.1 g/dL (6.4-8.2)
[2020-12-16 19:54] LABS: Bilirubin Negative (Negative); Blood Trace-intact (Negative); Clarity Clear (Clear); Glucose Negative (Negative); Ketones Negative (Negative); Leukocyte Esterase Negative (Negative); Nitrite Negative (Negative); pH 6.5 (5-8)
[2020-12-16 19:57] LABS: Bacteria Negative HPF (Negative); C & S Indicated? Yes; Casts Negative LPF (Negative); Crystals Negative HPF (Negative); Epithelial Cells Negative HPF (Negative); Mucus Negative (Negative); Other Cells Negative (Negative)
[2020-12-16] MEDS: levoFLOXacin 500 MG, levoFLOXacin 250 MG 750 MG PO (20:20)
[2020-12-16 21:04] VITALS: BP 154/82; PULSE 93; RESP 16; O2SAT 97
--- NOTE | 2020-12-16 21:10 | NUR.NOTE ---
Nursing Note:Assisted patient to get dressed, daughter and here to pick patient up and brought clean , dry pants. Will get patient into W/C and bring him to the car. Patient requires 3 person assist to transfer from stretcher to the W/C r/t previous Stroke deficits. Assisted family to transfer patient from W/C into car.
== END 2020-12-16 21:00 | disposition home or self-care (01) ==
PROVIDERS: Emergency Provider Physician Assistant; PCP Nurse Practitioner Family
DX: N39.0 Urinary tract infection, site not specified (principal); N40.1 Benign prostatic hyperplasia with lower urinary tract symptoms; R33.8 Other retention of urine; Z99.3 Dependence on wheelchair
CPT/HCPCS: 36415; 51702; 80053; 99283; 81003; 81015; 85025; 87086

== ENCOUNTER → 2021-01-04 10:02 | Outpatient (BNVA) | payer MEDICARE, MEDICAID, SELFPAY | PROVIDERS: PCP Nurse Practitioner Family; Referring Provider Nurse Practitioner Family; Visit Provider Urology | DX: R39.89 Other symptoms and signs involving the genitourinary system (principal) | CPT/HCPCS: 99204; 99215 ==

== ENCOUNTER → 2021-01-25 12:58 | Outpatient (BNVA) | payer MEDICARE, MEDICAID, SELFPAY | PROVIDERS: PCP Nurse Practitioner Family; Referring Provider Nurse Practitioner Family; Visit Provider Nurse Practitioner Gerontology | DX: N40.1 Benign prostatic hyperplasia with lower urinary tract symptoms (principal); R33.8 Other retention of urine | CPT/HCPCS: 99214 ==

== ENCOUNTER 2021-06-19 17:13 | Outpatient (REF) | payer MEDICARE, MEDICAID, SELFPAY ==
[2021-06-20 14:23] LABS: COVID-19 RT-PCR UVMMC Result Negative (Negative)
== END 2021-06-19 17:14 | disposition home or self-care (01) ==
LOC: NCHCN 17:13
PROVIDERS: PCP Nurse Practitioner Family; Visit Provider Nurse Practitioner Family
DX: Z20.822 Contact with and (suspected) exposure to COVID-19 (principal)
CPT/HCPCS: U0003; U0005

== ENCOUNTER → 2021-11-20 13:09 | Outpatient (BNVA) | payer MEDICARE, MEDICAID, SELFPAY | PROVIDERS: PCP Nurse Practitioner Family; Referring Provider Nurse Practitioner Family; Visit Provider Nurse Practitioner Gerontology | DX: R33.8 Other retention of urine (principal) | CPT/HCPCS: 51798; 99214 ==

== ENCOUNTER 2021-11-25 11:41 | Emergency (ER) | payer MEDICARE, MEDICAID, SELFPAY ==
[2021-11-25] VITALS (29 sets, daily range): BP systolic 110–138; BP diastolic 67–88; PULSE 97–126; RESP 10–20; TEMP 37.1; O2SAT 79–96
--- NOTE | 2021-11-25 11:40 | ED.GENADUL_ITS ---
Discharge Plan Disposition Patient Disposition: HOME Condition: Stable Discharge Details Clinical Impression: UTI (urinary tract infection), Urinary retention Primary Care Provider: Hortencia Rayo ED Provider: Carmella Conner Home Meds and New Rx's Prescriptions: New levofloxacin 750 mg tablet 750 mg PO DAILY 4 Days Qty: 4 0RF Continued psyllium Packet 1 packet PO DAILY Rx Instructions: mix into at least 8 oz of water or juice before administering tamsulosin 0.4 mg capsule 0.8 mg PO DAILY Qty: 180 3RF Ensure Active High Protein Liquid PO TID (DME) diaper,brief,adult,disposable Misc See Rx Instructions .ROUTE .MEDSUPPLY Qty: 14 Rx Instructions: As directed Phlexy-Vits Powder In Packet 1 oz PO TID Qty: 30 0RF Discharge Instructions Instructions: Urinary Retention in Men (ED), Urinary Tract Infection in Men (ED) Additional Instructions: A Francois catheter was placed today for your urinary retention (inability to urinate). This will need to be removed by urology in the next week. Your lab work today reveals evidence of a urinary tract infection. A prescription for an antibiotic has been sent electronically to your pharmacy to start taking tomorrow. Drink plenty of fluids and get plenty of rest. You have been placed on care management's list to arrange for a follow-up appointment with urology in 1 week for evaluation and likely Francois catheter removal. Return immediately to the emergency department if you develop any worsening or new concerning symptoms. Referrals: Dario Ugalde MD [ [facility] STAFF PHYSICIAN] - Discharge Data Discharge Date/Time-TO BE ENTERED AT DEPARTURE: 11/25/21 14:54 Discharge Physician: Carmella Conner Medical Decision Making 76-year-old male who is wheelchair-bound with a history of BPH, UTI and urinary retention presents with urinary retention for 4 days. Heart rate on arrival low 100s. He is noted on the monitor to increase up to 120s. An EKG was obtained which noted a rate of 115, sinus tach with PVCs. He has no documented history of atrial fibrillation. He denies any complaint of chest pain, shortness of breath or palpitations. Francois catheter placed on arrival and patient feels much better. We will give fluids, check screening labs, urinalysis and reassess and continue to monitor heart rate. Labs reviewed. Normal white blood cell count. Normal electrolytes. Creatinine 1.4. GFR 49. Urinalysis notes small leukocyte esterase, greater than 50 WBCs, positive nitrite, moderate bacteria with rare mycelial cells. Urine culture sent. Review of previous urine cultures note staph saprophyticus. He has an allergy to penicillin. Dose of Levaquin given here. Patient reassessed and he feels much better. Heart rate improved to 90s and sinus on the monitor. He feels comfortable going home. Prescription for Levaquin sent electronically to his pharmacy. He was placed on urology follow-up list for Francois removal in 1 week. Usual and customary return precautions given prior to discharge. Medical Records Medical records reviewed: Yes I reviewed the patient's medical records. Lab Data Lab results reviewed: Yes I reviewed the patient's lab results. Labs: 11/25/21 12:28 Urine - Reflex from Ua Urine Culture - Pending Laboratory Tests Range/Units 11/25/21 11/25/21 11/25/21 12:28 12:28 12:28 WBC (4.4-10.8) 10^3/uL 9.37 RBC (4.36-5.78) 10^6/uL 4.37 Hgb (13.5-17.5) g/dL 15.2 Hct (40.0-50.0) % 44.4 MCV (80-95) fL 102 H MCH (27.0-33.0) pg 34.8 H MCHC (32.0-36.0) % 34.2 RDW (11.8-14.1) % 12.9 Plt Count (130-400) 10^3/uL 124 L MPV (8.0-11.0) fL 11.2 H Immature Gran % 0.3 Neutrophils % 85.7 Lymphocytes % 6.1 Monocytes % 7.8 Eosinophils % 0.0 Basophils % 0.1 Nucleated RBC % (0.0-0.3) % 0.0 Absolute Neutrophils (1.2-6.7) 10^3/uL 8.03 H Absolute Lymphocytes (1.2-3.4) 10^3/uL 0.57 L Absolute Monocytes (0.1-0.8) 10^3/uL 0.73 Absolute Eosinophils (0.0-0.7) 10^3/uL 0.00 Absolute Basophils (0.0-0.2) 10^3/uL 0.01 Sodium (136-145) mmol/L 142 Potassium (3.5-5.1) mmol/L 3.7 Chloride (98-107) mmol/L 107 Carbon Dioxide (21.0-32.0) mmol/L 24.7 Anion Gap (3-11) mmol/L 10.3 BUN (7-18) mg/dL 14 Creatinine (0.70-1.30) mg/dL 1.4 H Estimated GFR/1.73 m2 (mL/min/1.73m2) 49.41 Glucose (74-106) mg/dL 123 H Calcium (8.5-10.1) mg/dL 8.6 Total Bilirubin (0.2-1.0) mg/dL 1.8 H AST (15-37) U/L 24 ALT (16-63) U/L 15 L Alkaline Phosphatase (46-116) U/L 79 Total Protein (6.4-8.2) g/dL 6.7 Albumin (3.4-5.0) g/dL 3.1 L Urine Color (Yellow) Yellow Urine Clarity (Clear) Sl Cloudy Urine pH (5-8) 6.0 Ur Specific [place] (1.005-1.025) 1.025 Urine Protein (Negative) mg/dL Trace H Urine Ketones (Negative) mg/dL Negative Urine Blood (Negative) Moderate H Urine Nitrite (Negative) Positive H Urine Bilirubin (Negative) Negative Urine Urobilinogen (Up TO 0.2) EU/dL 0.2 Ur Leukocyte Esterase (Negative) Small H Urine RBC (0-2) HPF 20-50 H Urine WBC (0-5) HPF >50 H Ur Epithelial Cells (Negative) HPF Rare Urine Crystals (Negative) HPF Negative Urine Bacteria (Negative) HPF Moderate Urine Casts (Negative) LPF Negative Urine Mucus (Negative) Moderate Ur Culture Indicated? Yes Urine Glucose (Negative) mg/dL Negative ECG Data Attestation: I personally reviewed and interpreted this ECG (s) as follows: Interpretation: Rate of 115, sinus tach, PVCs, no stemi. HPI General Mode of arrival: EMS . Date/Time Provider Initiated Documentation: 11/25/21 11:56 . Limitations to Documentation: no limitations . Information obtained by: patient . HPI Narrative: Patient is a 76-year-old male who is wheelchair-bound with a history of BPH, UTIs, urinary retention who presents from home for inability to urinate for the past 4 days. Patient denies fever, nausea, vomiting or diarrhea. Related Data Home Medications Medication Instructions Recorded Confirmed nutritional supplements 1 oz PO TID #30 ea 06/12/20 01/25/21 (Phlexy-Vits) diaper,brief,adult,disposable #14 ea 08/24/20 01/25/21 food supplemt, lactose-reduced ml PO TID 08/24/20 01/25/21 (Ensure Active High Protein oral liquid) psyllium 1 packet PO DAILY 10/03/20 01/25/21 tamsulosin 0.4 mg capsule 0.8 mg PO DAILY urination #180 caps 11/20/21 11/25/21 levofloxacin 750 mg tablet 750 mg PO DAILY 4 days #4 tabs 11/25/21 Previous Rx's Medication Instructions Recorded nutritional supplements 1 oz PO TID #30 ea 06/12/20 (Phlexy-Vits) tamsulosin 0.4 mg capsule 0.8 mg PO DAILY urination #180 caps 11/20/21 levofloxacin 750 mg tablet 750 mg PO DAILY 4 days #4 tabs 11/25/21 Allergies Allergy/AdvReac Type Severity Reaction Status Date / Time codeine Allergy Severe Verified 11/25/21 11:57 Penicillins Allergy Severe Verified 11/25/21 11:57 General Stated Complaint: Urinary SAM: 4 Review of Systems All systems reviewed & are unremarkable except as noted in HPI and below Constitutional Constitutional: Denies chills, Denies excessive sweating, Denies fatigue, Denies fever(s), Denies weakness and Denies weight loss Eyes Eyes: Reports system reviewed and no additional complaints, except as documented and Denies blurry vision ENT Ears, Nose, Mouth, and Throat: Denies vertigo, Denies dizziness, Denies otalgia, Denies nasal congestion, Denies sore throat and Denies throat swelling Cardiovascular Cardiovascular: Denies chest pain, Denies syncope, Denies rapid heart rate and Denies dyspnea Respiratory Respiratory: Denies chest congestion, Denies cough, Denies pain on inspiration and Denies dyspnea Gastrointestinal Gastrointestinal: Denies abdominal pain, Denies diarrhea and Denies vomiting Genitourinary Genitourinary: Denies hematuria, Reports oliguria, Reports difficulty urinating, Denies dysuria and Denies flank pain Musculoskeletal Musculoskeletal: Denies back pain and Denies joint swelling Integumentary/Breasts Skin/Breast: Denies lesions and Denies rash Neurologic Neurologic: Denies behavioral changes, Denies confusion, Denies vertigo, Denies dizziness, Denies syncope, Denies localized weakness and Denies weakness Psychiatric Psychiatric: Denies behavioral changes, Denies confusion and Denies depression Endocrine Endocrine: Denies excessive sweating and Denies fatigue Hematologic/Lymphatic Hematologic/Lymphatic: Denies easy bruising and Denies lymphadenopathy Allergic/Immunologic Allergic/Immunologic: Denies throat swelling PFSH All Active Problems (Updated 11/25/21 @ 14:25 by Carmella Conner DO) UTI (urinary tract infection) (Acute) Urinary retention (Acute) Lower urinary tract symptoms (LUTS) (Acute) UTI (urinary tract infection) (Acute) Acute urinary retention (Acute) History of BPH (Acute) Unspecified dementia without behavioral disturbance (Acute) Babinski reflex (Acute) Clonus (Acute) Inability to walk (Acute) Wheelchair bound (Acute) Spasticity (Acute) Limited literacy (Chronic) Francois catheter in place (Acute) History of bloody stools (Acute) Avoidance coping (Chronic) no medical care x 10 yrs [id number] Disoriented (Acute) Bedbound (Acute) Hallucinations (Acute) Protein malnutrition (Chronic) Loss of taste (Acute) Discharge planning issues (Acute) Ambulatory dysfunction (Chronic) DVT prophylaxis (Acute) Weakness (Chronic) Medical History (Updated 11/25/21 @ 14:25 by Carmella Conner DO) Colon cancer Difficulty swallowing solids H/O prostate cancer Hypoalbuminemia Incontinence Palliative care patient Poor dentition Tachycardia Urinary retention Very poor mobility Surgical History S/P colectomy 2009 for colon cancer Family History Son No problems noted. Son No problems noted. Mother , about age 80 unknown cause of , per family No problems noted. Father , about age 70 family doesn't know COD No problems noted. Social History Smoking/Tobacco Use Status: Former Tobacco Use Tobacco: How many years used: 50 Smoking risk assessment performed?: Yes Alcohol Intake: current Alcohol Intake frequency: a few times a month Alcohol type: beer Counseling provided: support program Details: used to drink and smoke heavily until about 5 years ago/2014 Drug use: Never Substance use type: does not use Caregiver/Support person: Yes Household members: spouse, family and children Housing: house Number of Children: 2 number of grandchildren: 8 Communication Needs: Hard of Hearing and Corrective Lenses Education Level: middle school Do you need help understanding health information?: Always 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, 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 per ems home living situation is very unsanitary. Has 2 sons, Lissy and Adolfo, who help take care of Jose. Both live on the property. Exam Const General: cooperative Orientation: alert and awake HENME Head: normal to inspection Ears: hearing grossly normal bilaterally and external ears normal General nose exam: external nose normal Face and sinus: normal facial exam Mouth: oral mucosae normal Teeth and gingiva: dentition normal Throat: posterior oropharynx normal Eyes General: appearance normal, both eyes and all related structures Eyelids: eyelids normal Pupils: PERRL EOM: EOM intact bilaterally Neck Neck: normal visual inspection Lymphatic: no lymphadenopathy noted Chest Chest: normal inspection of the chest Resp Effort & Inspection: normal respiratory effort and able to speak in complete sentences Auscultation: clear to auscultation bilaterally Cardio Rate: tachycardic Rhythm: abnormal rhythm regularly irregular GI Inspection: normal to inspection Palpation: soft, not firm, no guarding, no hepatosplenomegaly, no masses and nontender Auscultation: normal bowel sounds Back/Spine/Pelvis Back: no CVA tenderness Skin General skin exam: no rashes or lesions noted Neuro General: patient alert and patient awake Cognition: normal cognition Speech: speech normal Gait: normal gait Motor: muscle tone normal throughout Sensory Exam: no sensory deficits noted Extrem General: normal to inspection, full ROM and capillary refill normal Psych Appearance: grossly normal Mental Status: mental status grossly normal Speech and Movement: speech and movement normal Affect: normal affect Thought Process: normal
--- NOTE | 2021-11-25 11:45 | RT.EKG_ITS ---
APPROVED REPORT Exam: Resting ECG Reason for Exam: tachycardia Patient Location: E HR:115 bpm ECG Measurements Heart Rate 115 AXIS GA 162 P 68 QRSd 59 QRS 13 QT 310 T 25 QTc 420 Conclusion Sinus tachycardia...rate> 99 Sinus. Normal axis. No STEMI. I have reviewed and interpreted ECG and agree with software generated interpretation.
[2021-11-25] MEDS: Normal Saline 500 ML IV (12:32)
[2021-11-25 12:38] LABS: Bilirubin Negative (Negative); Blood Moderate (Negative); Clarity Sl Cloudy (Clear); Glucose Negative (Negative); Ketones Negative (Negative); Leukocyte Esterase Small (Negative); Nitrite Positive (Negative); Specific Gravity 1.025 (1.005-1.025); Urobilinogen 0.2 EU/dL (Up TO 0.2)
[2021-11-25 12:39] LABS: Abs Immature Grans 0.03 10^3/uL (0.0-0.06); Absolute Basophil Count 0.01 10^3/uL (0.0-0.2); Absolute Lymphocyte Count 0.57 10^3/uL (1.2-3.4); Absolute Monocyte Count 0.73 10^3/uL (0.1-0.8); Absolute Neutrophil Count 8.03 10^3/uL (1.2-6.7); Basophils % 0.1; HCT 44.4 % (40.0-50.0); HGB 15.2 g/dL (13.5-17.5); Immature Grans % 0.3; Lymphocytes % 6.1; MCH 34.8 pg (27.0-33.0); MCHC 34.2 % (32.0-36.0); MCV 102 fL (80-95); MPV 11.2 fL (8.0-11.0); Monocytes % 7.8; Neutrophils % 85.7; Platelet Count 124 10^3/uL (130-400); RBC 4.37 10^6/uL (4.36-5.78); RDW 12.9 % (11.8-14.1); WBC 9.37 10^3/uL (4.4-10.8)
[2021-11-25 12:45] LABS: Bacteria Moderate HPF (Negative); C & S Indicated? Yes; Casts Negative LPF (Negative); Crystals Negative HPF (Negative); Epithelial Cells Rare HPF (Negative); Mucus Moderate (Negative); RBC 20-50 HPF (0-2); WBC >50 HPF (0-5)
[2021-11-25 12:51] LABS: ALT 15 U/L (16-63); AST 24 U/L (15-37); Albumin 3.1 g/dL (3.4-5.0); Alkaline Phosphatase 79 U/L (46-116); Anion Gap 10.3 mmol/L (3-11); BUN 14 mg/dL (7-18); Bilirubin, Total 1.8 mg/dL (0.2-1.0); CO2 24.7 mmol/L (21.0-32.0); CREATININE 1.4 mg/dL (0.70-1.30); Calcium 8.6 mg/dL (8.5-10.1); Chloride 107 mmol/L (98-107); Estimated GFR 49.41 (mL/min/1.73m2); Glucose 123 mg/dL (74-106); Potassium 3.7 mmol/L (3.5-5.1); Sodium 142 mmol/L (136-145); Total Protein 6.7 g/dL (6.4-8.2)
[2021-11-25] MEDS: levoFLOXacin 500 MG, levoFLOXacin 250 MG 750 MG PO (12:56)
--- NOTE | 2021-11-25 14:20 | NUR.NOTE ---
Referral faxed to [facility] Urology for UTI, urinary retention, morejon placed needs removal at their discretion of appt day and time. Kiara Pringle
== END 2021-11-25 14:54 | disposition home or self-care (01) ==
LOC: ER 14:40
PROVIDERS: Emergency Provider Physician Assistant; PCP Nurse Practitioner Family
DX: N39.0 Urinary tract infection, site not specified (principal); B96.89 Other specified bacterial agents as the cause of diseases classified elsewhere; R33.9 Retention of urine, unspecified; R00.0 Tachycardia, unspecified
CPT/HCPCS: 36415; 51702; 80053; 93005; 96360; 96361; 99284; 81003; 81015; 85025; 87086; 93010

== ENCOUNTER → 2021-12-04 15:23 | Outpatient (BNVA) | payer MEDICARE, MEDICAID, SELFPAY | PROVIDERS: PCP Nurse Practitioner Family; Referring Provider Nurse Practitioner Family; Visit Provider Urology | DX: R33.8 Other retention of urine (principal); R26.2 Difficulty in walking, not elsewhere classified; R25.2 Cramp and spasm; Z99.3 Dependence on wheelchair | CPT/HCPCS: 51798; 99213 ==

== ENCOUNTER 2021-12-05 15:02 | Emergency (ER) | payer MEDICARE, MEDICAID, SELFPAY ==
[2021-12-05] VITALS (37 sets, daily range): BP systolic 117–175; BP diastolic 55–110; PULSE 89–131; RESP 13–25; TEMP 37; O2SAT 95–98
--- NOTE | 2021-12-05 15:23 | ED.GENADUL_ITS ---
Discharge Plan Disposition Patient Disposition: HOME Condition: Improving Discharge Details Clinical Impression: Urinary retention Primary Care Provider: Hortencia Rayo ED Provider: Shankar Potter Home Meds and New Rx's Prescriptions: Continued psyllium Packet 1 packet PO DAILY Rx Instructions: mix into at least 8 oz of water or juice before administering tamsulosin 0.4 mg capsule 0.8 mg PO DAILY Qty: 180 3RF Ensure Active High Protein Liquid PO TID (DME) diaper,brief,adult,disposable Misc See Rx Instructions .ROUTE .MEDSUPPLY Qty: 14 Rx Instructions: As directed Phlexy-Vits Powder In Packet 1 oz PO TID Qty: 30 0RF Discharge Instructions Instructions: Urinary Retention in Men (ED) Additional Instructions: Francois catheter placed without difficulty. I spoke with our urology team, they recommend following up with them as an outpatient to discuss elective suprapubic catheter placement. They can also talk with you about removing your current Francois catheter. Please watch for new or worsening symptoms and return to the ER for any concerns. Urine culture is pending, if positive you will receive a phone call and an antibiotics will be initiated. Medical Decision Making 76-year-old gentleman history of urinary retention, UTI, BPH, inability to walk, spasticity, seen by urology yesterday, catheter was removed, and has had difficulty urinating ever since. Bladder scan here in the ER revealed 470 cc. Clinically he appears well, nontoxic. I reviewed the urology note from yesterday, if patient continues to have issues and suprapubic catheter will need to be placed. Given the potential need for suprapubic catheter, I did reach out to our urology team, able to speak with SUZANNE Stapleton. At this time the suprapubic catheter is elective and we can place a Francois catheter here in the ER and they will be happy to follow the patient as an outpatient. Francois catheter placed without difficulty. The patient tolerated well, approximately 450+ cc of clear-yellow urine draining without difficulty. Urinalysis reveals large blood positive nitrate, leuk esterase, greater than 50 red and white cells, moderate bacteria, culture is indicated. Patient was recently on Levaquin and upon reviewing his culture he had mixed tracy, less than 10,000 colony count. Based upon his urinalysis today, recent urinalysis and culture, I doubt acute urinary tract infection, more so likely colonization. Culture is pending. Will await culture decide whether antibiotics are required. Patient is afebrile, pulse in the 70s, no evidence of hypotension. Patient will contact his urology team tomorrow to discuss his ER visit and discuss outpatient elective suprapubic catheter Standard discharge and return precautions were provided. Patient understands, is agreeable to this plan, and has no additional questions or concerns upon discharge. This documentation was generated using [employer] system, please disregard any oddities of phrase or misspellings. Medical Records Medical records reviewed: Yes I reviewed the patient's medical records. Lab Data Lab results reviewed: Yes I reviewed the patient's lab results. Labs: 12/05/21 15:29 Urine - Reflex from Ua Urine Culture - Pending Laboratory Tests Range/Units 12/05/21 15:29 Urine Color (Yellow) Brown Urine Clarity (Clear) Cloudy Urine pH (5-8) 6.0 Ur Specific [place] (1.005-1.025) >= 1.030 H Urine Protein (Negative) mg/dL 30 H Urine Ketones (Negative) mg/dL Negative Urine Blood (Negative) Large H Urine Nitrite (Negative) Positive H Urine Bilirubin (Negative) Negative Urine Urobilinogen (Up TO 0.2) EU/dL 0.2 Ur Leukocyte Esterase (Negative) Trace H Urine RBC (0-2) HPF >50 H Urine WBC (0-5) HPF >50 H Ur Epithelial Cells (Negative) HPF Negative Urine Crystals (Negative) HPF Negative Urine Bacteria (Negative) HPF Moderate Urine Mucus (Negative) Negative Ur Culture Indicated? Yes Urine Glucose (Negative) mg/dL Negative HPI General Mode of arrival: EMS . Date/Time Provider Initiated Documentation: 12/05/21 15:02 . Limitations to Documentation: no limitations . Information obtained by: patient and EMS . History of Present Illness 76 year old M presents to the emergency department with the chief complaint of Urinary retention, described as moderate, with intensity rated at 4. Quality is described as other (Fullness), and is localized to the pelvis. Patient reports no radiation. Patient started experiencing this day(s) (1) and it has been constant. No relieving factors improve symptom(s), No exacerbating factors reported . Patient notes no other symptoms.. Patient did receive the following treatments prior to arrival, none Related Data Home Medications Medication Instructions Recorded Confirmed nutritional supplements 1 oz PO TID #30 ea 06/12/20 01/25/21 (Phlexy-Vits) diaper,brief,adult,disposable #14 ea 08/24/20 01/25/21 food supplemt, lactose-reduced ml PO TID 08/24/20 01/25/21 (Ensure Active High Protein oral liquid) psyllium 1 packet PO DAILY 10/03/20 01/25/21 tamsulosin 0.4 mg capsule 0.8 mg PO DAILY urination #180 caps 11/20/21 12/04/21 Previous Rx's Medication Instructions Recorded nutritional supplements 1 oz PO TID #30 ea 06/12/20 (Phlexy-Vits) tamsulosin 0.4 mg capsule 0.8 mg PO DAILY urination #180 caps 11/20/21 Allergies Allergy/AdvReac Type Severity Reaction Status Date / Time codeine Allergy Severe Verified 11/25/21 11:57 Penicillins Allergy Severe Verified 11/25/21 11:57 General Stated Complaint: Abd Prob SAM: 3 Review of Systems Constitutional Constitutional: Denies fever(s) Cardiovascular Cardiovascular: Denies chest pain and Denies dyspnea Respiratory Respiratory: Denies dyspnea Gastrointestinal Gastrointestinal: Denies abdominal pain, Denies nausea and Denies vomiting Genitourinary Genitourinary: Denies hematuria and Denies dysuria Musculoskeletal Musculoskeletal: Denies back pain PFS All Active Problems (Updated 12/05/21 @ 15:27 by SUZANNE Zavala) UTI (urinary tract infection) (Acute) Urinary retention (Acute) Lower urinary tract symptoms (LUTS) (Acute) UTI (urinary tract infection) (Acute) Acute urinary retention (Acute) History of BPH (Acute) Unspecified dementia without behavioral disturbance (Acute) Babinski reflex (Acute) Clonus (Acute) Inability to walk (Acute) Wheelchair bound (Acute) Spasticity (Acute) Limited literacy (Chronic) Francois catheter in place (Acute) History of bloody stools (Acute) Avoidance coping (Chronic) no medical care x 10 yrs [id number] Disoriented (Acute) Bedbound (Acute) Hallucinations (Acute) Protein malnutrition (Chronic) Loss of taste (Acute) Discharge planning issues (Acute) Ambulatory dysfunction (Chronic) DVT prophylaxis (Acute) Weakness (Chronic) Medical History (Updated 12/05/21 @ 15:27 by SUZANNE Zavala) Colon cancer Difficulty swallowing solids H/O prostate cancer Hypoalbuminemia Incontinence Palliative care patient Poor dentition Tachycardia Urinary retention Very poor mobility Surgical History S/P colectomy 2009 for colon cancer Family History Son No problems noted. Son No problems noted. Mother , about age 80 unknown cause of , per family No problems noted. Father , about age 70 family doesn't know COD No problems noted. Social History Smoking/Tobacco Use Status: Former Tobacco Use Tobacco: How many years used: 50 Smoking risk assessment performed?: Yes Alcohol Intake: current Alcohol Intake frequency: a few times a month Alcohol type: beer Counseling provided: support program Details: used to drink and smoke heavily until about 5 years ago/2014 Drug use: Never Substance use type: does not use Caregiver/Support person: Yes Household members: spouse, family and children Housing: house Number of Children: 2 number of grandchildren: 8 Communication Needs: Hard of Hearing and Corrective Lenses Education Level: middle school Do you need help understanding health information?: Always 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, 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 per ems home living situation is very unsanitary. Has 2 sons, Lissy and Adolfo, who help take care of Jose. Both live on the property. Exam Const General: cooperative, healthy appearing, comfortable and no acute distress Orientation: alert, awake and oriented x3 HENMT Head: normal to inspection, normocephalic and atraumatic Face and sinus: normal facial exam Mouth: moist mucous membranes Eyes General: appearance normal, both eyes and all related structures Conjunctivae: conjunctivae normal Neck Neck: normal visual inspection, trachea midline and supple Resp Effort & Inspection: normal respiratory effort and able to speak in complete sentences Auscultation: clear to auscultation bilaterally Cardio Rate: regular rate Rhythm: regular rhythm GI Inspection: normal to inspection Palpation: soft, not firm, no guarding, no pulsatile masses and nontender Auscultation: normal bowel sounds Male General Exam: Yes normal external exam Skin General skin exam: no rashes or lesions noted Neuro General: patient alert, patient awake, moves all extremities and no focal motor deficits Sensory Exam: no sensory deficits noted Psych Appearance: grossly normal Mental Status: mental status grossly normal Course Vital Signs Vital signs: Vital Signs Temperature 37.0 C 12/05/21 15:06 Pulse 131 H 12/05/21 15:06 Respiratory Rate 18 12/05/21 15:06 Blood Pressure 157/84 H 12/05/21 15:06 Pulse Oximetry 97 12/05/21 15:06 Temperature 37.0 C 12/05/21 15:06 Temperature Source Tympanic 12/05/21 15:06 Pulse 103 H 12/05/21 15:11 Respiratory Rate 18 12/05/21 15:06 Respiratory Effort 12/05/21 15:09 Blood Pressure 157/84 H 12/05/21 15:06 Blood Pressure Position Sitting 12/05/21 15:06 Pulse Oximetry 97 12/05/21 15:06 Oxygen Delivery Method Room Air 12/05/21 15:06 Oxygen Flow Rate 0 12/05/21 15:06 Pain Level 0 12/05/21 15:06
--- NOTE | 2021-12-05 15:32 | NUR.NOTE ---
16fr Morejon inserted with sterile technique, 2 person assist. 450ml output measured from morejon insertion. Pt reports that feels so much better. Morejon attached with leg securing device, red seal intact.
[2021-12-05 15:38] LABS: Bilirubin Negative (Negative); Blood Large (Negative); Clarity Cloudy (Clear); Glucose Negative (Negative); Ketones Negative (Negative); Leukocyte Esterase Trace (Negative); Nitrite Positive (Negative); Specific Gravity >= 1.030 (1.005-1.025); Urobilinogen 0.2 EU/dL (Up TO 0.2)
[2021-12-05 15:47] LABS: Bacteria Moderate HPF (Negative); C & S Indicated? Yes; Crystals Negative HPF (Negative); Epithelial Cells Negative HPF (Negative); Mucus Negative (Negative); RBC >50 HPF (0-2); WBC >50 HPF (0-5)
== END 2021-12-05 16:08 | disposition home or self-care (01) ==
LOC: ER 15:38
PROVIDERS: Emergency Provider Physician Assistant; PCP Nurse Practitioner Family
DX: R33.9 Retention of urine, unspecified (principal)
CPT/HCPCS: 51702; 99283; 81003; 81015; 87086

== ENCOUNTER → 2021-12-21 13:59 | Outpatient (BNVA) | payer MEDICARE, MEDICAID, SELFPAY | PROVIDERS: PCP Nurse Practitioner Family; Referring Provider Nurse Practitioner Family; Visit Provider Urology | DX: R33.8 Other retention of urine (principal) | CPT/HCPCS: 99442 ==

== ENCOUNTER → 2022-01-07 10:38 | Outpatient (BNVA) | payer MEDICARE, MEDICAID, SELFPAY | PROVIDERS: PCP Nurse Practitioner Family; Referring Provider Nurse Practitioner Family; Visit Provider Nurse Practitioner Gerontology | DX: R33.8 Other retention of urine (principal); Z97.8 Presence of other specified devices | CPT/HCPCS: 51702 ==

== ENCOUNTER 2022-01-24 00:42 | Emergency (ER) | payer MEDICARE, MEDICAID, SELFPAY ==
--- NOTE | 2022-01-24 00:45 | DI.CT_ITS ---
Exam(s) CT RENAL COLIC WO EXAM: CT RENAL COLIC WO CLINICAL HISTORY: Lower abd pain, hx of stones. TECHNIQUE: Imaging Protocol: Axial computed tomography images with coronal and sagittal reformatted images were created and reviewed. COMPARISON: CT CT ABDOMEN PELVIS W from 05/11/2020 FINDINGS: The examination is limited due to patient motion artifact. ABDOMEN: Lung Bases: Normal where visualized. There is a moderate hiatal hernia. Liver: Normal density. No measurable mass. Gallbladder and biliary tract: Status post cholecystectomy. No biliary ductal dilatation. Pancreas: There is moderate fatty atrophy. Spleen: Normal. Kidneys: Normal size, contour and axis.No radiodense stones or obstructive uropathy. No masses seen. Adrenal glands: No mass is seen. Lymph nodes: Within normal limits. Abdominal Aorta: Abdominal portion non-dilated. Atherosclerosis is present. PELVIS: Bladder:There is a Francois catheter in place. The urinary bladder wall is diffusely thickened. This may be due to underdistention. There is mild stranding around the urinary bladder and an infectious or i nflammatory in cystitis cannot be excluded. Bowel: Stable postsurgical changes are seen in the right abdomen. No evidence of bowel obstruction or bowel wall thickening. No evidence of appendicitis. Peritoneal cavity: No ascites, collection or mesenteric inflammatory response. No free air. Reproductive organs: Prostate gland is enlarged. Bones: Within normal limits. Soft Tissues: There is a small fat containing umbilical hernia. IMPRESSION: 1. Diffusely thickened urinary bladder wall. There is a Francois catheter in place and the bladder is no t well distended however, inflammatory changes are seen around the urinary bladder and infectious or inflammatory process cannot be excluded. Bladder mass should also be considered. Cystoscopy should be considered for further evaluation. 2. No evidence of nephrolithiasis or hydronephrosis. RADIATION DOSE DELIVERED: 633.05mGy.cm Total DLP DATA REPOSITORY: All CT scans at this facility are submitted to the National Radiology Data Registry (NRDR) Dose Index Registry (DIR) with the [employer] (ACR). RADIATION OPTIMIZATION: All CT scans at this facility use at least one of these dose optimization te chniques: automated exposure control; mA and/or kV adjustment per patient size (includes targeted exa ms where dose is matched to clinical indication); or iterative reconstruction.
--- NOTE | 2022-01-24 00:50 | ED.GENADUL_ITS ---
Discharge Plan Disposition Patient Disposition: HOME Condition: Improving Discharge Details Clinical Impression: Acute cystitis Primary Care Provider: Hortencia Rayo ED Provider: Larry Gomes Home Meds and New Rx's Prescriptions: New cephalexin 500 mg capsule 500 mg PO TID 7 Days Qty: 21 0RF Continued psyllium Packet 1 packet PO DAILY Rx Instructions: mix into at least 8 oz of water or juice before administering Ensure Active High Protein Liquid PO TID (DME) diaper,brief,adult,disposable Misc See Rx Instructions .ROUTE .MEDSUPPLY Qty: 14 Rx Instructions: As directed Phlexy-Vits Powder In Packet 1 oz PO TID Qty: 30 0RF Discharge Instructions Instructions: Catheter-associated Urinary Tract Infection (ED) Additional Instructions: Your work-up today revealed urinary tract infection. There was no evidence of kidney stone. Take antibiotics as prescribed. Follow-up with Dr. Ugalde as previously planned. Return to the ER for any acute concerns. Medical Decision Making 76-year-old male presents from home via EMS. He has an indwelling Francois catheter secondary to urinary retention with plans for pending suprapubic catheter placement. His family noticed some crampy lower abdominal pain and discolored urine. Given patient's history of UTI as well as renal colic they called for ambulance transfer to the ER. Patient arrives slightly tachycardic but awake alert and interactive. IV access established patient given fluid bolus. He is given a B and O suppos itory for bladder spasm. Francois catheter was changed by nursing staff. Laboratories note a white count of 13, hematocrit 44, platelets 192. Sodium 138, potassium 3.8, chloride 100, bicarb 20, BUN 10, creatinine 1.4. Urinalysis with positive nitrites, greater than 50 white blood cells. The patient's history of renal colic, he was referred for noncontrast CT scan; this reveals bladder wall thickening, which may represent cystitis. Please see the formal report. I do feel the patient's presentation is consistent with acute cystitis. Given the indwelling Francois the urinalysis is only somewhat helpful. He was given a dose of ceftriaxone and I will place him on a course of Keflex. He is significantly improved and request discharge to home. HPI General Mode of arrival: EMS . Date/Time Provider Initiated Documentation: 01/24/22 00:52 . Limitations to Documentation: no limitations . Information obtained by: patient and EMS . History of Present Illness 76 year old M presents to the emergency department with the chief complaint of Crampy lower abdominal pain and dark-colored urine in catheter, described as moderate, and is localized to the abdomen. Patient reports no radiation. Patient started experiencing this hour(s) and it has been intermittent. No relieving factors improve symptom(s), No exacerbating factors reported . Patient notes denies fever/chills and nausea/vomiting. Patient did receive the following treatments prior to arrival, none Related Data Home Medications Medication Instructions Recorded Confirmed nutritional supplements 1 oz PO TID #30 ea 06/12/20 01/25/21 (Phlexy-Vits) diaper,brief,adult,disposable #14 ea 08/24/20 01/25/21 food supplemt, lactose-reduced ml PO TID 08/24/20 01/25/21 (Ensure Active High Protein oral liquid) psyllium 1 packet PO DAILY 10/03/20 01/25/21 cephalexin 500 mg capsule 500 mg PO TID 7 days #21 caps 01/24/22 Previous Rx's Medication Instructions Recorded nutritional supplements 1 oz PO TID #30 ea 06/12/20 (Phlexy-Vits) cephalexin 500 mg capsule 500 mg PO TID 7 days #21 caps 01/24/22 Allergies Allergy/AdvReac Type Severity Reaction Status Date / Time codeine Allergy Severe Verified 11/25/21 11:57 Penicillins Allergy Severe Verified 11/25/21 11:57 General SAM: 3 Review of Systems Narrative: No fever or vomiting. History of similar presentations in the past and UTIs. 7 systems reviewed and otherwise negative. PFSH All Active Problems (Updated 01/24/22 @ 03:21 by Larry Gomes MD) Acute cystitis (Acute) Lower urinary tract symptoms (LUTS) (Acute) History of BPH (Acute) Unspecified dementia without behavioral disturbance (Acute) Babinski reflex (Acute) Clonus (Acute) Inability to walk (Acute) Wheelchair bound (Acute) Spasticity (Acute) Limited literacy (Chronic) Francois catheter in place (Acute) History of bloody stools (Acute) Avoidance coping (Chronic) no medical care x 10 yrs [id number] Disoriented (Acute) Bedbound (Acute) Hallucinations (Acute) Protein malnutrition (Chronic) Loss of taste (Acute) Discharge planning issues (Acute) Ambulatory dysfunction (Chronic) DVT prophylaxis (Acute) Weakness (Chronic) Medical History Colon cancer Difficulty swallowing solids H/O prostate cancer Hypoalbuminemia Incontinence Palliative care patient Poor dentition Tachycardia Urinary retention Very poor mobility Surgical History S/P colectomy 2010 for colon cancer Family History Son No problems noted. Son No problems noted. Mother , about age 80 unknown cause of , per family No problems noted. Father , about age 70 family doesn't know COD No problems noted. Social History Smoking/Tobacco Use Status: Former Tobacco Use Tobacco: How many years used: 50 Smoking risk assessment performed?: Yes Alcohol Intake: current Alcohol Intake frequency: a few times a month Alcohol type: beer Counseling provided: support program Details: used to drink and smoke heavily until about 5 years ago/2014 Drug use: Never Substance use type: does not use Caregiver/Support person: Yes Household members: spouse, family and children Housing: house Number of Children: 2 number of grandchildren: 8 Communication Needs: Hard of Hearing and Corrective Lenses Education Level: middle school Do you need help understanding health information?: Always 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, 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 per ems home living situation is very unsanitary. Has 2 sons, Lissy and Adolfo, who help take care of Jose. Both live on the property. Exam Narrative Exam Narrative: GEN: awake, alert, oriented 3. Pleasant, well groomed, interactive. HEAD: Normocephalic, atraumatic EYES: PERRL, EOMI NECK: Full ROM, no RAFAL, no menigismus CHEST/RESP: Nontender, clear to auscultation bilateral, no wheeze/rhonchi/rales CARDIOVASCULAR: RRR, no murmur, rub jhony. 2+ Rad pulse bilateral ABDOMEN: Soft, no focal tenderness, Francois catheter in place with leg bag, no mass. +Bowel sounds EXT: Muscular spasticity present lower extremities, no edema, no rash, small abrasion plantar surface right Neuro: Grossly normal neurologic exam, conversant, interactive. Psych: Speech fluent, thoughts congruent, affect normal
[2022-01-24 00:53] VITALS: BP 125/80; PULSE 117; RESP 16; TEMP 36.3; O2SAT 98
[2022-01-24] MEDS: Normal Saline 500 ML IV (01:27)
[2022-01-24] MEDS: ACETAMINOPHEN 1,000 MG/100 ML BTL 400 MG IVPB (01:27)
[2022-01-24 01:50] LABS: Abs Immature Grans 0.04 10^3/uL (0.0-0.06); Absolute Monocyte Count 0.33 10^3/uL (0.1-0.8); Basophils % 0.2; HCT 44.4 % (40.0-50.0); HGB 15.5 g/dL (13.5-17.5); Immature Grans % 0.3; Lymphocytes % 4.8; MCH 33.9 pg (27.0-33.0); MCHC 34.9 % (32.0-36.0); MCV 97 fL (80-95); MPV 11.4 fL (8.0-11.0); Monocytes % 2.5; Neutrophils % 92.2; Platelet Count 192 10^3/uL (130-400); RBC 4.57 10^6/uL (4.36-5.78); RDW 12.8 % (11.8-14.1); WBC 13.03 10^3/uL (4.4-10.8)
[2022-01-24 01:52] LABS: Bilirubin Negative (Negative); Blood Moderate (Negative); Clarity Turbid (Clear); Glucose Negative (Negative); Ketones 15 mg/dL (Negative); Leukocyte Esterase Small (Negative); Nitrite Positive (Negative); Specific Gravity 1.025 (1.005-1.025); Urobilinogen 0.2 EU/dL (Up TO 0.2)
[2022-01-24 01:59] LABS: Absolute Basophil Count 0.03 10^3/uL (0.0-0.2); Absolute Lymphocyte Count 0.63 10^3/uL (1.2-3.4); Absolute Neutrophil Count 12.01 10^3/uL (1.2-6.7)
[2022-01-24 02:00] LABS: Bacteria Few HPF (Negative); C & S Indicated? Yes; WBC >50 HPF (0-5)
[2022-01-24 02:01] LABS: Anion Gap 17.3 mmol/L (3-11); BUN 10 mg/dL (7-18); CO2 20.7 mmol/L (21.0-32.0); CREATININE 1.4 mg/dL (0.70-1.30); Calcium 8.7 mg/dL (8.5-10.1); Chloride 100 mmol/L (98-107); Estimated GFR 49.41 (mL/min/1.73m2); Glucose 175 mg/dL (74-106); Potassium 3.8 mmol/L (3.5-5.1); Sodium 138 mmol/L (136-145)
--- NOTE | 2022-01-24 03:16 | DI.VRAD_ITS ---
PROCEDURE INFORMATION: Exam: CT Abdomen And Pelvis Without Contrast Exam date and time: 01/24/2022 1:47 AM Age: 76 years old Clinical indication: Abdominal pain; Localized; Patient HX: Lower abd pain, HX of stones TECHNIQUE: Imaging protocol: Computed tomography of the abdomen and pelvis without contrast. Radiation optimization: All CT scans at this facility use at least one of these dose optimization techniques: automated exposure control; mA and/or kV adjustment per patient size (includes targeted exams where dose is matched to clinical indication); or iterative reconstruction. COMPARISON: CT ABDOMEN PELVIS W 05/11/2020 1:44 PM FINDINGS: Moderate hiatal hernia Liver: Normal. No mass. Gallbladder and bile ducts: Prior cholecystectomy. No ductal dilation. Pancreas: Normal. No ductal dilation. Spleen: Normal. No splenomegaly. Adrenal glands: Normal. No mass. Kidneys and ureters: Normal. No hydronephrosis. Stomach and bowel: Postsurgical changes in the distal stomach/proximal duodenum. Suture line noted in the right anterior abdomen and right lower quadrant. No obstruction. No mucosal thickening. Appendix: Not clearly visualized and may be surgically absent Intraperitoneal space: Small pelvic fluid No free air. No significant fluid collection. Vasculature: Unremarkable. No abdominal aortic aneurysm. Lymph nodes: Unremarkable. No enlarged lymph nodes. Urinary bladder: Partially decompressed by a Francois catheter. Heterogeneous appearance and surrounding infiltration with bladder wall thickening noted Reproductive: Unremarkable as visualized. Bones/joints: Degenerative changes in the spine. No acute fracture. Soft tissues: Unremarkable. IMPRESSION: Abnormal urinary bladder which may represent blood products versus cystitis. Underlying bladder lesion not excluded. Consider follow-up cystoscopy Nonspecific nonobstructed bowel gas pattern in this patient with prior bowel surgeries Dictated and Authenticated by: Harrison Weathers MD. Ordering:RIVERA Juarez MD
[2022-01-24] MEDS: cefTRIAXone 1 GM/50 ML BAG IVPB (03:35)
--- NOTE | 2022-01-29 12:59 | W.ED.FU ---
Date of service: 01/29/22 Time of Service: 13:00 Follow Up Plan: I received urine culture from ED visit 01/24/22 growing providenica rettgeri, resitant to cefazolin, ampicillin, and macrobid. I called and discussed result with Dr. Ugalde, patient's urologist. He will be following up with patient and will address antibiotic resistance.
== END 2022-01-24 09:10 | disposition home or self-care (01) ==
LOC: ER 05:17
PROVIDERS: Emergency Provider Emergency Medicine; PCP Nurse Practitioner Family
DX: N30.00 Acute cystitis without hematuria (principal); R00.0 Tachycardia, unspecified; Z87.891 Personal history of nicotine dependence
CPT/HCPCS: 80048; 87077; 96361; 96365; 96375; 99284; 74176; 81003; 81015; 85025; 87086; 87186; J0131; J0696; J3490

== ENCOUNTER → 2022-02-18 14:05 | Outpatient (BNVA) | payer MEDICARE, MEDICAID, SELFPAY | PROVIDERS: PCP Nurse Practitioner Family; Referring Provider Nurse Practitioner Family; Visit Provider Nurse Practitioner Gerontology | DX: R33.8 Other retention of urine (principal) | CPT/HCPCS: 99213 ==

== ENCOUNTER → 2022-04-02 14:03 | Outpatient (BNVA) | payer MEDICARE, MEDICAID, SELFPAY | PROVIDERS: PCP Nurse Practitioner Family; Referring Provider Nurse Practitioner Family; Visit Provider Urology | DX: Z46.6 Encounter for fitting and adjustment of urinary device (principal); R33.8 Other retention of urine | CPT/HCPCS: 51705 ==

== ENCOUNTER → 2022-05-02 14:14 | Outpatient (BNVA) | payer MEDICARE, MEDICAID, SELFPAY | PROVIDERS: PCP Nurse Practitioner Family; Referring Provider Nurse Practitioner Family; Visit Provider Nurse Practitioner Gerontology | DX: Z46.6 Encounter for fitting and adjustment of urinary device (principal); R33.8 Other retention of urine | CPT/HCPCS: 51705 ==

== ENCOUNTER 2022-07-05 14:33 | Inpatient (IN) | payer MEDICARE, MEDICAID, SELFPAY ==
[2022-07-05 14:38] VITALS: BP 111/73; PULSE 85; RESP 15; TEMP 36.8; O2SAT 92
[2022-07-05 14:58] VITALS: RESP 30
--- NOTE | 2022-07-05 15:00 | DI.RAD_ITS ---
Exam(s) XR CHEST 1V IN DI DEPT EXAM: XR CHEST 1V IN DI DEPT CLINICAL HISTORY: ams TECHNIQUE: 2D digital imaging was performed of the chest. One image was obtained. An AP view was ob tained. COMPARISON: CR CHEST 2 VIEWS PA,LAT from 02/05/2010 CR,RF RF BARIUM SWALLOW from 07/21/2020 FINDINGS: MEDIASTINUM: Normal. HEART: Normal. PULMONARY VASCULATURE: Normal. LUNGS: Clear. PLEURAL SPACE: No pleural effusion or pneumothorax. BONE:Within normal limits for the patient's age. OTHER FINDINGS:Normal. IMPRESSION: No acute pulmonary findings. DATA REPOSITORY: RADIATION DOSE DELIVERED:
--- NOTE | 2022-07-05 15:00 | DI.CT_ITS ---
Exam(s) CT HEAD WO EXAM: CT HEAD WO CLINICAL HISTORY: ams. TECHNIQUE: Imaging Protocol: Axial computed tomography images with coronal and sagittal reformatted images were created and reviewed COMPARISON: No exams were available for comparison FINDINGS: The examination is limited due to patient motion artifact. Ventricles and Extra axial spaces: Normal in size and morphology for the patient's age. Hemorrhage: None. Cerebral parenchyma: There is no evidence of an acute territorial infarct. There are areas of decrea sed attenuation in the white matter consistent with small vessel ischemic disease. Midline shift: None. Brainstem/Cerebellum: Normal. Calvarium: Normal. Visualized Paranasal sinuses/Mastoids: There is mucosal thickening in the paranasal sinuses. Soft Tissues: Unremarkable. IMPRESSION: No acute intracranial process. RADIATION DOSE DELIVERED: 855.35mGy.cm Total DLP DATA REPOSITORY: All CT scans at this facility are submitted to the National Radiology Data Registry (NRDR) Dose Index Registry (DIR) with the [employer] (ACR). RADIATION OPTIMIZATION: All CT scans at this facility use at least one of these dose optimization te chniques: automated exposure control; mA and/or kV adjustment per patient size (includes targeted exa ms where dose is matched to clinical indication); or iterative reconstruction.
--- NOTE | 2022-07-05 15:18 | ED.GENADUL_ITS ---
Discharge Plan Disposition Patient Disposition: Admit to [facility] Condition: Improving Discharge Details Chief Complaint: AMS/LOC Clinical Impression: Acute UTI, ERIKA (acute kidney injury), Acute hypernatremia, Altered mental status Primary Care Provider: Hortencia Rayo ED Provider: Juan David Rossi Home Meds and New Rx's Prescriptions: No Action psyllium Packet 1 packet PO DAILY Rx Instructions: mix into at least 8 oz of water or juice before administering Ensure Active High Protein Liquid PO TID (DME) diaper,brief,adult,disposable Misc See Rx Instructions .ROUTE .MEDSUPPLY Qty: 14 Rx Instructions: As directed sulfamethoxazole-trimethoprim [Bactrim DS] 800-160 mg tablet 1 tab PO BID Qty: 14 0RF (DME) procedural tray Tray See Rx Instructions .Route Qty: 20 12RF Rx Instructions: As directed sodium chloride [Sterile Saline] 0.9 % solution 1 irrig irrigation DAILY PRN (Reason: catheter irrigation) Qty: 6000 12RF Phlexy-Vits Powder In Packet 1 oz PO TID Qty: 30 0RF Medical Decision Making 76-year-old male history of suprapubic catheter, recurrent UTIs, presents with altered mental status over the past 3 days worsening per son, decreased p.o. intake, patient is afebrile hemodynamically stable however appears dehydrated and altered likely delirium in the setting of UTI given nilesh purulent inspissated urine in tubing and bag. No external signs of trauma. Low suspicion for intracranial process however patient did have dried emesis on his shirt collar and is altered will obtain CT head. Also obtain basic labs, urinalysis, blood cultures urine culture, empiric antibiotics will start ceftriaxone, fluid hydration and admission. 18: 33 was able to change suprapubic catheter at bedside draining cloudy urine currently. Improving mental status with fluid hydration antibiotics. ERIKA likely prerenal and urinary outflow obstruction secondary to inspissated thick urine. HPI General Date/Time Provider Initiated Documentation: 07/05/22 15:01 . HPI Narrative: 76-year-old male history of recurrent UTIs, suprapubic catheter, presents with altered mental status over the last 3 days decreased interactiveness, decreased p.o. intake, family has noticed cloudy thick urine in Francois catheter bag. Related Data Home Medications Medication Instructions Recorded Confirmed nutritional supplements 1 oz PO TID #30 ea 06/12/20 01/25/21 (Phlexy-Vits) diaper,brief,adult,disposable #14 ea 08/24/20 01/25/21 food supplemt, lactose-reduced ml PO TID 08/24/20 01/25/21 (Ensure Active High Protein oral liquid) psyllium 1 packet PO DAILY 10/03/20 01/25/21 sulfamethoxazole 800 1 tab PO BID antibiotic #14 tabs 01/29/22 mg-trimethoprim 160 mg tablet (Bactrim DS) procedural tray #20 ea 02/05/22 sodium chloride 0.9 % irrigation 1 irrig irrigation DAILY PRN 02/06/22 solution (Sterile Saline) catheter irrigation #6,000 mL Previous Rx's Medication Instructions Recorded nutritional supplements 1 oz PO TID #30 ea 06/12/20 (Phlexy-Vits) sulfamethoxazole 800 1 tab PO BID antibiotic #14 tabs 01/29/22 mg-trimethoprim 160 mg tablet (Bactrim DS) procedural tray #20 ea 02/05/22 sodium chloride 0.9 % irrigation 1 irrig irrigation DAILY PRN 02/06/22 solution (Sterile Saline) catheter irrigation #6,000 mL Allergies Allergy/AdvReac Type Severity Reaction Status Date / Time codeine Allergy Severe Verified 11/25/21 11:57 Penicillins Allergy Severe Verified 11/25/21 11:57 General Stated Complaint: AMS/LOC SAM: 2 Review of Systems Narrative: Review of Systems Constitutional: negative Eyes: negative ENT: negative Cardiovascular: negative Respiratory: negative Gastrointestinal: negative : Cloudy urine Musculoskeletal: negative Skin: negative Neurologic: Altered mental status Psych: negative PFSH All Active Problems (Updated 07/05/22 @ 18:36 by Juan David Rossi MD) Acute UTI (Acute) ERIKA (acute kidney injury) (Acute) Acute hypernatremia (Acute) Altered mental status (Acute) Lower urinary tract symptoms (LUTS) (Acute) History of BPH (Acute) Unspecified dementia without behavioral disturbance (Acute) Babinski reflex (Acute) Clonus (Acute) Inability to walk (Acute) Wheelchair bound (Acute) Spasticity (Acute) Limited literacy (Chronic) Francois catheter in place (Acute) History of bloody stools (Acute) Avoidance coping (Chronic) no medical care x 10 yrs [id number] Disoriented (Acute) Bedbound (Acute) Hallucinations (Acute) Protein malnutrition (Chronic) Loss of taste (Acute) Discharge planning issues (Acute) Ambulatory dysfunction (Chronic) DVT prophylaxis (Acute) Weakness (Chronic) Medical History Colon cancer Difficulty swallowing solids H/O prostate cancer Hypoalbuminemia Incontinence Palliative care patient Poor dentition Tachycardia Urinary retention Very poor mobility Surgical History S/P colectomy 2010 for colon cancer Family History Son No problems noted. Son No problems noted. Mother , about age 80 unknown cause of , per family No problems noted. Father , about age 70 family doesn't know COD No problems noted. Social History Smoking/Tobacco Use Status: Former Tobacco Use Tobacco: How many years used: 50 Smoking risk assessment performed?: Yes Alcohol Intake: current Alcohol Intake frequency: 0-2 drinks per day Alcohol type: beer Counseling provided: support program Details: used to drink and smoke heavily until about 5 years ago/2014 Drug use: Never Substance use type: does not use Caregiver/Support person: Yes Household members: spouse, family and children Housing: house Number of Children: 2 number of grandchildren: 8 Communication Needs: Hard of Hearing and Corrective Lenses Education Level: middle school Do you need help understanding health information?: Always 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, 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 per ems home living situation is very unsanitary. Has 2 sons, Lissy and Adolfo, who help take care of Jose. Both live on the property. Exam Narrative Exam Narrative: Physical Examination General: Ill-appearing, frail HEENT: normocephalic, atraumatic; PERRL, EOM intact, conjunctiva normal; dry oral mucosa Neck: supple, trachea midline; full ROM Chest: normal to inspection Respiratory: normal respiratory effort, speaking in full sentences, clear to auscultation, no wheezing, rales or rhonchi Cardiac: regular rate, regular rhythm, S1S2 intact, no murmurs rubs or gallops GI: abdomen soft, non-tender, non-distended; no palpable mass or hepatosplenomegaly : Suprapubic catheter in place, surrounding stoma with slight discharge, thick cloudy inspissated urine within catheter tubing and Francois catheter bag Skin: no lesions, rashes or trauma appreciated; dry Neuro: Opening eyes spontaneously, no movement to command, indistinguishable moans Extremities: No signs of trauma Course Vital Signs Vital signs: Vital Signs Temperature 36.8 C 07/05/22 14:38 Pulse 85 07/05/22 14:38 Respiratory Rate 15 07/05/22 14:38 Blood Pressure 111/73 07/05/22 14:38 Pulse Oximetry 92 07/05/22 14:38 Temperature 36.8 C 07/05/22 14:38 Temperature Source Axillary 07/05/22 14:38 Pulse 85 07/05/22 14:38 Respiratory Rate 30 H 07/05/22 14:58 Respiratory Effort 07/05/22 14:58 Respiratory Depth Deep 07/05/22 14:58 Respiratory Pattern Tachypnea 07/05/22 14:58 Blood Pressure 111/73 07/05/22 14:38 Blood Pressure Position Supine 07/05/22 14:38 Pulse Oximetry 92 07/05/22 14:38 Oxygen Delivery Method Room Air 07/05/22 14:38 Oxygen Flow Rate 0 07/05/22 14:38 Pain Level 0 07/05/22 14:38 Comment 07/05/22 14:38
[2022-07-05 15:58] LABS: Abs Immature Grans 0.03 10^3/uL (0.0-0.06); Absolute Lymphocyte Count 0.82 10^3/uL (1.2-3.4); Absolute Monocyte Count 0.88 10^3/uL (0.1-0.8); Absolute Neutrophil Count 6.74 10^3/uL (1.2-6.7); HCT 47.2 % (40.0-50.0); HGB 15.6 g/dL (13.5-17.5); Immature Grans % 0.4; Lymphocytes % 9.7; MCH 34.4 pg (27.0-33.0); MCHC 33.1 % (32.0-36.0); MCV 104 fL (80-95); MPV 12.5 fL (8.0-11.0); Monocytes % 10.4; Neutrophils % 79.5; Platelet Count 106 10^3/uL (130-400); RBC 4.53 10^6/uL (4.36-5.78); RDW 13.8 % (11.8-14.1); RDW-SD 53.2 fL; WBC 8.47 10^3/uL (4.4-10.8)
[2022-07-05 16:09] LABS: ALT 95 U/L (16-63); AST 238 U/L (15-37); Albumin 2.5 g/dL (3.4-5.0); Alkaline Phosphatase 86 U/L (46-116); Anion Gap 12.1 mmol/L (3-11); BUN 77 mg/dL (7-18); Bilirubin, Total 1.8 mg/dL (0.2-1.0); CO2 27.9 mmol/L (21.0-32.0); CREATININE 2.1 mg/dL (0.70-1.30); Calcium 8.7 mg/dL (8.5-10.1); Chloride 117 mmol/L (98-107); Estimated GFR 32.22 (mL/min/1.73m2); Glucose 143 mg/dL (74-106); Potassium 5.4 mmol/L (3.5-5.1); Total Protein 6.7 g/dL (6.4-8.2)
[2022-07-05 16:10] LABS: Bilirubin Small (Negative); Blood Moderate (Negative); Clarity Cloudy (Clear); Glucose Negative (Negative); Ketones Negative (Negative); Leukocyte Esterase Large (Negative); Nitrite Negative (Negative); pH >= 9.0 (5-8)
[2022-07-05 16:15] LABS: Sodium 157 mmol/L (136-145)
[2022-07-05] MEDS: cefTRIAXone 1 GM/50 ML BAG IVPB (16:20)
[2022-07-05] MEDS: Ondansetron 4 MG/2 ML VIAL IVP (16:21)
[2022-07-05] MEDS: Normal Saline 500 ML 1000 ML IV (16:21)
[2022-07-05 16:31] LABS: Bacteria Many HPF (Negative); C & S Indicated? Yes; Casts Negative LPF (Negative); Crystals Many Triple Phos HPF (Negative); Epithelial Cells Few HPF (Negative); Mucus Moderate (Negative); WBC >50 HPF (0-5)
--- NOTE | 2022-07-05 16:33 | DI.VRAD_ITS ---
PROCEDURE INFORMATION: Exam: CT Head Without Contrast Exam date and time: 07/05/2022 3:47 PM Age: 76 years old Clinical indication: Other: AMS TECHNIQUE: Imaging protocol: Computed tomography of the head without contrast. COMPARISON: MR BRAIN WO 11/15/2020 2:13 PM FINDINGS: Brain: Intracranial arterial calcification is present. No intracranial hemorrhage. No mass or midline shift. No extra-axial collections. Mild periventricular and subcortical white matter hypoattenuation, nonspecific but consistent with chronic microvascular ischemic disease. No cerebral edema. Normal lee-white differentiation. No large acute territorial infarct. Cerebral ventricles: The ventricles are normal in position and mildly enlarged. There is commensurate cortical sulcal prominence. The findings are consistent with age appropriate cerebral atrophy. No hydrocephalus. Paranasal sinuses: Moderate paranasal sinus inflammatory change predominantly the bilateral ethmoid and sphenoid sinuses no air-fluid levels Mastoid air cells: The tympanomastoid air cells are normally aerated as visualized. Bones/joints: No acute fracture. No focal osseous lesions. Soft tissues: The soft tissues are unremarkable. IMPRESSION: No acute intracranial findings. Stable since previous MRI of the brain. Dictated and Authenticated by: Katerina Soni MD. Ordering:ROBYN Fall MD
--- NOTE | 2022-07-05 16:34 | DI.VRAD_ITS ---
PROCEDURE INFORMATION: Exam: XR Chest Exam date and time: 07/05/2022 3:59 PM Age: 76 years old Clinical indication: Other: AMS TECHNIQUE: Imaging protocol: Radiologic exam of the chest. Views: 1 view. COMPARISON: CT RENAL COLIC WO 01/24/2022 1:47 AM FINDINGS: Lungs: There is no pulmonary consolidation or mass. Pleural spaces: There is no evidence of pleural effusion or pneumothorax. Heart/Mediastinum: The cardiomediastinal silhouette is normal. Bones/joints: No acute osseous findings. IMPRESSION: No acute cardiopulmonary disease. Dictated and Authenticated by: Katerina Soni MD. Ordering:ROBYN Fall MD
[2022-07-05 17:10] LABS: COVID-19 PCR Negative (Negative); Influenza A PCR Positive (Negative); Influenza B PCR Negative (Negative); RSV PCR Negative (Negative)
[2022-07-05 17:12] LABS: Source Nasopharynx
--- NOTE | 2022-07-05 20:32 | HPE_ITS ---
Date of service: 07/05/22 Time of Service: 20:32 Assessment and Plan Assessment and plan (1) Acute UTI: Status: Acute Assessment and plan: This appears to be the major cause of acute encephalopthy. Suprapubic catheter replaced in the ED. Previous cultures reviewed, last was sensitive to ceftriaxone, will continue this. Consult urology if any complications (2) Altered mental status: Status: Acute Assessment and plan: As above, toxic encephalopathy a/w UTI as well as hypernatremia and influenza. Treat underlying conditions. He does have some baseline dementia likely a/w his chronic neurodegenerative process as well. Given liver enzymes I have also requested EtOH levels. (3) Acute hypernatremia: Status: Acute Assessment and plan: Likely secondary to limited access to free water with neurodegenerative condition and increase losses due to acute illness and skin ulcers. As he is dehydrated, I've reqested a second liter of fluid, after which I orderd D5W at 1.35mL/kg. While his hyponatremia is new, it is most c/w subacute as there is no evidence of acute diabetes insipidus or salt poisoning. I did order urine osmolality (4) ERIKA (acute kidney injury): Status: Acute Assessment and plan: Likely mostly prerenal with dehydration as well as some post renal with his SP catheter being clogged. Both are being addressed, follow. His previous baseline Cr was 1.4 (5) Dysphagia: Status: Acute Assessment and plan: Recently noted and evaluated by home health. Modified barium swallow was requested, and I have ordered this. Pureed/thin diet was recommended, proceed once MS improves. (6) Influenza A: Status: Acute Assessment and plan: Unclear how much this is playing into his acute illness and MS changes, but I think prudent to treat with oseltamivir renally dosed. (7) Neuro-degenerative disorders: Status: Acute Assessment and plan: This was never fully worked up and diagnosed. Neurology notes reviewed. He has had brain MRI, CT today okay. This has been progressive for years, and he has seen palliative. I have requested neurology and palliative consults. (8) Protein malnutrition: Status: Chronic Assessment and plan: continue suppluments previously recommended (9) Urinary retention: Assessment and plan: chronic suprapubic (10) Elevated transaminase level: Status: Acute Assessment and plan: This is new. Unclear etiology. Could be related to acute infections. Will get Hep B/C as never screened, get full acute panel if not imrpoving. Add acetaminophen and EtOH levels. Get abdominal ultrasound. Low albumin and mark telets also raise concern for cirrhosis, though not seen on previous imaging. (11) Paroxysmal A-fib: Status: Acute Assessment and plan: This was noted by [facility] anesthesia during SP catheter placement, but never addressed. Will start with EKG as some irregularity to rate on exam now. (12) Thrombocytopenia: Status: Chronic Assessment and plan: This has been noted in past. Liver disease noted. Nutrition could also be cause. I orderd B12 as he is at risk with colectomy. Follow every other day or so on LMWH (13) Decubitus skin ulcer: Status: Acute Assessment and plan: He does not seem to be getting proper movement and skin care at home. Will request wound consult. Family will need teaching and help from home health. Placement would be another options (14) DVT prophylaxis: Status: Acute Assessment and plan: LMWH (15) Discharge planning issues: Status: Acute Assessment and plan: He has been admitted to medical floor. He is full code as I am not able to discuss it with him with MS changes and I don't have documentation otherwise. History of Present Illness History of Present Illness Chief Complaint: confusion Narrative: 76 yo M with history of spastic neurodegenerative disease of uncertain etiology, chronically bedbound and with suprapubic catheter for urinary retention, who presented to the emergency room with decreasing mental status over the past 3 days per report of the son to the emergency room physician. Per the son his oral intake progressively deminished during those 3 days and he became more confused and less responsive. By the time I saw the patient he was alone, and he was unable to give a history. In the emergency room, nilesh purulent urine was noted in the tubing and bag. The suprapubic catheter was changed at bedside. Per previous notes, he sees urology for recurrent UTIs. He had seen neurology last in 2020 but he did not follow up for the recommended testing. He as been bed bound for 3-4 years, and is dependant on family members who care for him in the home. He has has limited primary care follow up, though he has had home health recently. Of note, speech therapy saw him in the home 06/24/22 and requested a modified barium swallow for chronic dysphagia. Review of Systems Narrative: ROS limited by mental status changes, not responsive to questions Constitutional Constitutional: Reports weight loss (noted in home health record) ENT Ears, Nose, Mouth, and Throat: Reports dysphagia (noted in home health evaluation) Gastrointestinal Gastrointestinal: Reports dysphagia (noted in home health evaluation) and Repor ts vomiting (evidence of vomiting on shirt noted by ED physician) PFSH All Active Problems (Updated 07/05/22 @ 21:17 by Chaparro Holden) Decubitus skin ulcer (Acute) Influenza A (Acute) Thrombocytopenia (Chronic) Paroxysmal A-fib (Acute) Elevated transaminase level (Acute) Dysphagia (Acute) Neuro-degenerative disorders (Acute) Acute UTI (Acute) ERIKA (acute kidney injury) (Acute) Acute hypernatremia (Acute) Altered mental status (Acute) Lower urinary tract symptoms (LUTS) (Acute) History of BPH (Acute) Unspecified dementia without behavioral disturbance (Acute) Babinski reflex (Acute) Clonus (Acute) Inability to walk (Acute) Wheelchair bound (Acute) Spasticity (Acute) Limited literacy (Chronic) Francois catheter in place (Acute) History of bloody stools (Acute) Avoidance coping (Chronic) no medical care x 10 yrs [id number] Disoriented (Acute) Bedbound (Acute) Hallucinations (Acute) Protein malnutrition (Chronic) Loss of taste (Acute) Discharge planning issues (Acute) Ambulatory dysfunction (Chronic) DVT prophylaxis (Acute) Weakness (Chronic) Medical History Colon cancer Difficulty swallowing solids H/O prostate cancer Hypoalbuminemia Incontinence Palliative care patient Poor dentition Tachycardia Urinary retention Very poor mobility Surgical History S/P colectomy 2009 for colon cancer Family History Son No problems noted. Son No problems noted. Mother , about age 80 unknown cause of , per family No problems noted. Father , about age 70 family doesn't know COD No problems noted. Social History Smoking/Tobacco Use Status: Former Tobacco Use Tobacco: How many years used: 50 Smoking risk assessment performed?: Yes Alcohol Intake: current Alcohol Intake frequency: 0-2 drinks per day Alcohol t ype: beer Counseling provided: support program Details: used to drink and smoke heavily until about 5 years ago/2014 Drug use: Never Substance use type: does not use Caregiver/Support person: Yes Household members: spouse, family and children Housing: house Number of Children: 2 number of grandchildren: 8 Communication Needs: Hard of Hearing and Corrective Lenses Education Level: middle school Do you need help understanding health information?: Always 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, 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 per ems home living situation is very unsanitary. Has 2 sons, Lissy and Adolfo, who help take care of Jose. Both live on the property. Meds Allergies and Home Medications Allergies Allergy/AdvReac Type Severity Reaction Status Date / Time codeine Allergy Severe Verified 11/25/21 11:57 Penicillins Allergy Severe Verified 11/25/21 11:57 Home Medications Medication Instructions Recorded Confirmed Type nutritional supplements 1 oz PO TID #30 ea 06/12/20 01/25/21 Rx (Phlexy-Vits) diaper,brief,adult,disposable #14 ea 08/24/20 01/25/21 History food supplemt, lactose-reduced ml PO TID 08/24/20 01/25/21 History (Ensure Active High Protein oral liquid) psyllium 1 packet PO DAILY 10/03/20 01/25/21 History sulfamethoxazole 800 1 tab PO BID antibiotic #14 tabs 01/29/22 Rx mg-trimethoprim 160 mg tablet (Bactrim DS) procedural tray #20 ea 02/05/22 Rx sodium chloride 0.9 % irrigation 1 irrig irrigation DAILY PRN 02/06/22 Rx solution (Sterile Saline) catheter irrigation #6,000 mL Exam Narrative Exam Narrative: GEN: Awake, muttering, but not responsive to questions. Makes some slight movement in response to requests, but very limited. He does respond to pain stimuli. Looks ungroomed HEENT: Head atraumatic. Conjunctiva clear, no icterus. PEERL, EOMI. slight rhinorrhea. mucous membranes quite dry. I don't see any OP lesions. Neck is supple with no masses or lymphadenopathy, trachea midline LUNGS: CTAB with mild tachypenea in 20s while I was there. CV: Irregular beats. No murmurs, gallops, or rubs. ABD: +BS, soft, ND, does not respond in pain when abdominal palpation including in RUQ. No organomegaly noted. suprapubic catheter in place. EXT: no cyanosis, clubbing, or edema MSK: No joint redness or swelling NEURO: CN 2-12 grossly intact. Normal movement of 4 extremities. Normal spe ech and coordination SKIN: Many linear bruises/friction valentin in areas of garmets, yellowish patches with red borders on left leg, foot, right side. Dark ~10cm eschar skin of right hip. I was not able to roll him to fully examine sacrum. PSYCH: as above not responsive, appears confused, flat affect. Results Imaging Chest x-ray: image reviewed (no acute disease) Additional studies: HEAD CT: No acute intracranial process.? Labs Result diagrams: 07/05/22 15:30 07/05/22 15:30 Labs: Laboratory Results - last 24 hr 07/05/22 07/05/22 07/05/22 15:25 15:30 15:30 WBC 8.47 RBC 4.53 Hgb 15.6 Hct 47.2 MCV 104 H MCH 34.4 H MCHC 33.1 RDW 13.8 Plt Count 106 L MPV 12.5 H Immature Gran % 0.4 Neutrophils % 79.5 Lymphocytes % 9.7 Monocytes % 10.4 Eosinophils % 0.0 Basophils % 0.0 Nucleated RBC % 0.0 Absolute Neutrophils 6.74 H Absolute Lymphocytes 0.82 L Absolute Monocytes 0.88 H Absolute Eosinophils 0.00 Absolute Basophils 0.00 Sodium 157 H* Potassium 5.4 H Chloride 117 H Carbon Dioxide 27.9 Anion Gap 12.1 H BUN 77 H Creatinine 2.1 H Est GFR (CKD-EPI 2020) 32.22 Glucose 143 H Calcium 8.7 Total Bilirubin 1.8 H AST 238 H ALT 95 H Alkaline Phosphatase 86 Total Protein 6.7 Albumin 2.5 L Urine Color Yellow Urine Clarity Cloudy Urine pH >= 9.0 H Ur Specific Pilot 1.010 Urine Protein >=300 H Urine Ketones Negative Urine Blood Moderate H Urine Nitrite Negative Urine Bilirubin Small H Urine Urobilinogen 1.0 H Ur Leukocyte Esterase Large H Urine RBC 10-20 H Urine WBC >50 H Ur Epithelial Cells Few Urine Crystals Many Triple Phos Urine Bacteria Many Urine Casts Negative Urine Mucus Moderate Ur Culture Indicated? Yes Urine Glucose Negative COVID-19 Source SARS-CoV-2 (PCR) Influenza Type A (PCR) Influenza Type B (PCR) RSV (PCR) 07/05/22 16:26 WBC RBC Hgb Hct MCV MCH MCHC RDW Plt Count MPV Immature Gran % Neutrophils % Lymphocytes % Monocytes % Eosinophils % Basophils % Nucleated RBC % Absolute Neutrophils Absolute Lymphocytes Absolute Monocytes Absolute Eosinophils Absolute Basophils Sodium Potassium Chloride Carbon Dioxide Anion Gap BUN Creatinine Est GFR (CKD-EPI 2020) Glucose Calcium Total Bilirubin AST ALT Alkaline Phosphatase Total Protein Albumin Urine Color Urine Clarity Urine pH Ur Specific Pilot Urine Protein Urine Ketones Urine Blood Urine Nitrite Urine Bilirubin Urine Urobilinogen Ur Leukocyte Esterase Urine RBC Urine WBC Ur Epithelial Cells Urine Crystals Urine Bacteria Urine Casts Urine Mucus Ur Culture Indicated? Urine Glucose COVID-19 Source Nasopharynx SARS-CoV-2 (PCR) Negative Influenza Type A (PCR) Positive A Influenza Type B (PCR) Negative RSV (PCR) Negative Last Vital Signs Temp 36.8 C 07/05/22 14:38 Pulse 85 07/05/22 14:38 Resp 30 H 07/05/22 14:58 BP 111/73 07/05/22 14:38 Pulse Ox 92 07/05/22 14:38
[2022-07-05 21:58] VITALS: BP 117/80; PULSE 65; RESP 17; TEMP 36.9; O2SAT 95
[2022-07-05 21:59] VITALS: BP 117/80; PULSE 65; RESP 17; TEMP 36.9; O2SAT 95
[2022-07-05] MEDS: Enoxaparin 40 MG/0.4 ML SYR SC (22:33)
--- NOTE | 2022-07-05 22:41 | TELEP.MEDR_ITS ---
Date of service: 07/05/22 Time of Service: 22:41 Telepharmacy Home Med Rec Allergies Allergies: codeine Allergy (Severe, Verified 11/25/21 11:57) Penicillins Allergy (Severe, Verified 11/25/21 11:57) Interview Person Interviewed: Lacey, daughter in law Quality Quality of Interview/Accuracy of Medication List: Excellent Sources Sources used to compile medication list: [employer] Medication List and [employer] Changes made to Home Medication List: ADDITIONS: * Multivitamin 1 tab po daily DELETIONS: * Bactrim DS * Metamucil packet CHANGES: * None Additional Notes Additional Notes: Per family member, waiting on new prescription for Phlexy vit supplement. Updated medication list with information provided by family member. Per her report patient will not take the Metamucil at home. Recommended Changes Recommended Changes(reason for recommendation): None Attestation: The home medication list is now updated to the best of my knowledge and is ready to be reconciled by the provider. Please contact [facility]ist at for any questions.
--- NOTE | 2022-07-06 | DI.US_ITS ---
Exam(s) US ABDOMEN EXAM: US ABDOMEN CLINICAL HISTORY: new AST/ALT elevation, high bilirubin, MS changes TECHNIQUE: Ultrasound of complete upper abdomen performed using standard protocol. COMPARISON: US US RENAL from 06/07/[address] ABDOMEN PELVIS WO from 07/06/2022 FINDINGS: There is no ascites evident. LIVER: There are no hepatic lesions evident nor obvious dilatation of intrahepatic ducts. GALLBLADDER/BILIARY: Not seen and may be surgically absent. The common hepatic duct isnot dilated, measuring 3-4mm at the level of nabeel hepatis. PANCREAS: There is no evidence of pancreatic mass nor dilatation of the pancreatic duct. SPLEEN: The spleen is not enlarged and there are no intrasplenic lesions evident. KIDNEYS:Kidneys exhibit normal size with no evidence of solid mass, calculus, nor hydronephrosis. No cortical cysts evident. ABDOMINAL AORTA: There is no evidence of abdominal aortic aneurysm. IVC: Normal diameter where visualized. IMPRESSION: 1. Gallbladder is not seen and may be surgically absent. CBD not dilated. 2. No other significant ultrasound findings in the upper abdomen. 3. There is no ascites. DATA REPOSITORY:
--- NOTE | 2022-07-06 | DI.CT_ITS ---
Exam(s) CT ABDOMEN PELVIS WO EXAM: CT ABDOMEN PELVIS WO CLINICAL HISTORY: Transaminitis. TECHNIQUE: Imaging Protocol: Axial computed tomography images with coronal and sagittal reformatted images were created and reviewed CONTRAST MATERIAL: Intravenous: none Oral: None COMPARISON: CT CT RENAL COLIC WO from 01/24/2022 FINDINGS: VISUALIZED LUNG BASES: No nodules nor pleural effusions evident. Slight thickening of the anterior p ericardium noted measuring up to 6 millimeters, consistent with small pericardial effusion. Heart si ze is normal. Hiatal hernia again noted. There are mild subpleural increased markings in the posterior basal segment of the left lower lobe, n ot previously present. There are no pleural effusions. ABDOMEN: There is no ascites. LIVER: Mild hepatic steatosis. No obvious discrete focal hepatic lesions evident on this noninfused study. GALLBLADDER/BILIARY: Gallbladder appears to be surgically absent. CBD is not dilated. PANCREAS: No evidence of pancreatic mass nor dilatation of the pancreatic duct. SPLEEN: Spleen is not enlarged. No obvious intrasplenic lesions. ADRENALS: There are no significant adrenal masses. KIDNEYS:No cysts evident. No solid renal masses. No calculi nor hydronephrosis. . ABDOMINAL AORTA: Abdominal aorta is not enlarged. LYMPH NODES: There is no retroperitoneal nor paraaortic adenopathy. ABDOMINAL WALL: No evidence of significant anterior abdominal wall nor inguinal hernia. There is some subcutaneous air on the right side of the lower abdomen which may be from injection sit e. There is no abnormal fluid at this level. GI: There is no evidence of bowel obstruction, free air, nor abscess. PELVIS: LYMPH NODES: There is no intrapelvic nor inguinal adenopathy. GI: No evidence of appendicitis.No evidence of sigmoid diverticulitis. URINARY BLADDER: There is a suprapubic catheter. The urinary bladder wall is significantly thickened and there is some air in the bladder as well as in the bladder wall. The suprapubic catheter appear s peripherally located in the bladder and the balloon is in the anterior abdominal wall musculature. Pelvic ureters are not dilated. REPRODUCTIVE: Prostate gland is enlarged. OSSEOUS: No significant osseous lesions. IMPRESSION: 1. There is a suprapubic catheter but this does not appear to be in satisfactory position. Its dista l tip is in the thickened urinary bladder wall and the balloon is in the anterior abdominal wall musc ulature. The bladder wall itself is significantly thickened most probably from chronic cystitis. r in the bladder wall and lumen are related to the catheter. I feel this catheter requires repositio ryan/revision. It is presently at risk for coming out. Recommend repeat imaging after suprapubic cath eter revision to ensure satisfactory intraluminal position. 2. Prostate gland is enlarged. 3. Hiatal hernia. 4. Gallbladder surgically absent. The biliary tree is not dilated. Other findings as above. First read by [facility]. Final report and recommendations called by myself to hospitalist 07/06/2022 at 6:20 p.m. RADIATION DOSE DELIVERED: 655.06mGy.cm Total DLP DATA REPOSITORY: All CT scans at this facility are submitted to the National Radiology Data Registry (NRDR) Dose Index Registry (DIR) with the [employer] (ACR). RADIATION OPTIMIZATION: All CT scans at this facility use at least one of these dose optimization te chniques: automated exposure control; mA and/or kV adjustment per patient size (includes targeted exa ms where dose is matched to clinical indication); or iterative reconstruction.
[2022-07-06 00:11] LABS: INR 1.1 (0.9-1.1)
[2022-07-06 00:13] LABS: Anion Gap 8.9 mmol/L (3-11); BUN 68 mg/dL (7-18); CO2 25.1 mmol/L (21.0-32.0); CREATININE 1.5 mg/dL (0.70-1.30); Chloride 120 mmol/L (98-107); Estimated GFR 48.25 (mL/min/1.73m2); Glucose 162 mg/dL (74-106); Potassium 4.2 mmol/L (3.5-5.1); Sodium 154 mmol/L (136-145)
[2022-07-06 00:17] LABS: Acetaminophen < 2 ug/mL (10-30); ETHANOL BLOOD < 3.0 mg/dL (<10)
[2022-07-06 06:48] VITALS: BP 107/72; PULSE 92; RESP 12; TEMP 36.2; O2SAT 92
[2022-07-06] MEDS: DEXTROSE 5%-WATER 1,000 ML 95 ML IV ×2 (07:48→20:16)
[2022-07-06] MEDS: Normal Saline Flush 10 ML SYR (07:48)
[2022-07-06] MEDS: Psyllium PKT 1 EACH PO (07:49)
[2022-07-06] MEDS: Protein Nutritional Supplement 16 GM 1 OUNCE PACKET PO ×2 (07:49→20:16)
--- NOTE | 2022-07-06 08:00 | PDOC.CMIN ---
- If Service Date Differs Date of service: 07/06/22 Time of Service: 08:00 Care Management Initial Assess REASON FOR HOSPITALIZATION:: Acute UTI, AMS, influenza A, hypernatremia PAST MEDICAL HISTORY/PAST SURGICAL HISTORY:: All Active Problems (Updated 07/05/22 @ 21:17 by Chaparro Holden). Decubitus skin ulcer (Acute). Influenza A (Acute). Thrombocytopenia (Chronic). Paroxysmal A-fib (Acute). Elevated transaminase level (Acute). Dysphagia (Acute). Neuro-degenerative disorders (Acute). Acute UTI (Acute). ERIKA (acute kidney injury) (Acute). Acute hypernatremia (Acute). Altered mental status (Acute). Lower urinary tract symptoms (LUTS) (Acute). History of BPH (Acute). Unspecified dementia without behavioral disturbance (Acute). Babinski reflex (Acute). Clonus (Acute). Inability to walk (Acute). Wheelchair bound (Acute). Spasticity (Acute). Limited literacy (Chronic). Francois catheter in place (Acute). History of bloody stools (Acute). Avoidance coping (Chronic). no medical care x 10 yrs [id number]. Disoriented (Acute). Bedbound (Acute). Hallucinations (Acute). Protein malnutrition (Chronic). Loss of taste (Acute). Discharge planning issues (Acute). Ambulatory dysfunction (Chronic). DVT prophylaxis (Acute). Weakness (Chronic). Medical History . Colon cancer. Difficulty swallowing solids. H/O prostate cancer. Hypoalbuminemia. Incontinence. Palliative care patient. Poor dentition. Tachycardia. Urinary retention. Very poor mobility. Surgical History . S/P colectomy. 2009 for colon cancer PREVIOUS FUNCTIONAL STATUS/SOCIAL/FAMILY SUPPORTS:: Jose resides in [place] with his , Kandace, Son Lissy, KRISTIE Rahman and kids. Per Lacey, Jose has a wheelchair, but is mostly bed bound at home. Jose and Kandace require 24/ caregiver support, which is provided by Lacey and her 2 daughters. They recently purchased a w/c van so Jose can get to his appointments. CODY placed a referral to [facility] at Lacey's request, as she is interested in discussing options for increased home and/or community services. CM reviewed case with Cami at [facility]. Per Cami, Jose lives in a trailer with 8 household members and she feels he is well suppported. He has [facility] RN/PT/ST and BPM ANALYST services and the agency follows him closely. Cami notes their BPM ANALYST recommended increased community support at one point, but family declined. Pt will likely benefit from BPM ANALYST re-eval. CURRENT FUNCTIONAL STATUS:: Jose is lying in bed, he is awake, alert and confused. CM spoke with patients KRISTIE, Lacey via phone. Lacey identifies herself as Jose's Primary Caregiver and DPOA. She is agreeable to a referral to [facility] and discussing increased support services with [facility]. BPM ANALYST re-eval will be requested. ADVANCE DIRECTIVES:: None on file Has patient been provided with info about the portal/API?: Yes Did the patient sign up for the portal?: No CODE STATUS:: Full Code INSURANCE COVERAGE / FINANCIAL ISSUES:: Medicaid. Medicare CURRENT HOME/COMMUNITY SERVICES/EQUIPMENT:: Wheel Chair. Private W/C van. [facility] RN/PT/ST. Family provides 24/7 caregiver support PRIMARY CARE PHYSICIAN:: Hortencia Rayo POTENTIAL DISCHARGE NEEDS:: Resumption of [facility] services, [facility] referral, PCP follow up, discharge plan PATIENT/FAMILY EDUCATION NEEDS:: Review discharge instructions, limitations, medications and plan to follow up with community providers. Discuss ask me three and goals of self care. TRANSPORTATION:: via private w/c van PLAN:: Anticipate, Jose will discharge home via private w/c van when medically ready. He will follow up with community providers and discharge plan of care as prescribed. Pt will will resume 24/7 caregiver support with resumption of [facility] RN/PT/ST, add BPM ANALYST. CM continues to follow.
--- NOTE | 2022-07-06 09:25 | NUR.NOTE ---
Nursing Note: At approximately 0920 on 07/06/22, this RN answered a call from Lacey Wilson (pt.'s daughter in law - on HIP[employer]), and updated her regarding pt.'s mentation, VS, pain level, admitting diagnoses, plan of care, including orders for OT, PT, PATTERN FITTER, and wound care consults, as well as the barium swallow test, etc. Pt.'s daughter in law stated that the pt. was being seen by an PATTERN FITTER through home health. RN educated pt.'s daughter in law that it is common for pt.'s who are seen by an PATTERN FITTER in the community to be seen by an PATTERN FITTER while in the hospital for an updated evaluation based on their current state of health. Pt.'s daughter in law verbalized understanding and presented with a few questions that were answered. Pt.'s daughter in law requesting to be called and updated a couple times throughout the day. RN informed the pt.'s daughter in law that they would do their best to call and update them with any relevant information, but otherwise, if the pt.'s daughter in law had any questions or concerns throughout the day that she should call the hospital. Pt.'s daughter in law verbalized understanding.
[2022-07-06 09:29] LABS: Lab Add On Test DONE
--- NOTE | 2022-07-06 09:48 | DI.VRAD_ITS ---
Addendum created by Lulu Resendez MD on 07/06/2022 9:51:38 AM EST: Previous images now available dated 01/24/2022. Bladder is similar in appearance. Initial report created on 07/06/2022 9:48:05 AM EST: PROCEDURE INFORMATION: Exam: CT Abdomen And Pelvis Without Contrast Exam date and time: 07/06/2022 9:21 AM Age: 76 years old Clinical indication: Other: Transaminitis TECHNIQUE: Imaging protocol: Computed tomography of the abdomen and pelvis without contrast. Radiation optimization: All CT scans at this facility use at least one of these dose optimization techniques: automated exposure control; mA and/or kV adjustment per patient size (includes targeted exams where dose is matched to clinical indication); or iterative reconstruction. COMPARISON: CT ABDOMEN PELVIS W 05/11/2020 1:44 PM FINDINGS: Tubes, catheters and devices: Suprapubic bladder catheter, and gas in the urinary bladder, likely iatrogenic. Diaphragm: Small hiatal hernia. Liver: Normal. No mass. Gallbladder and bile ducts: Previous cholecystectomy. Pancreas: Normal. No ductal dilation. Spleen: Normal. No splenomegaly. Adrenal glands: Normal. No mass. Kidneys and ureters: Normal. No hydronephrosis. Stomach and bowel: Unremarkable. No obstruction. No mucosal thickening. Appendix: No evidence of appendicitis. Intraperitoneal space: Unremarkable. No free air. No significant fluid collection. Vasculature: Unremarkable. No abdominal aortic aneurysm. Lymph nodes: Unremarkable. No enlarged lymph nodes. Urinary bladder: Bladder wall markedly thickened, measuring 1.5 cm. Cystitis should be excluded clinically. Reproductive: Unremarkable as visualized. Bones/joints: Unremarkable. No acute fracture. Soft tissues: Unremarkable. IMPRESSION: Suprapubic bladder catheter, and gas in the urinary bladder, likely iatrogenic. Bladder wall markedly thickened, measuring 1.5 cm. Cystitis should be excluded clinically. Dictated and Authenticated by: Lulu Resendez MD. Ordering:ABDIAS Castro MD
--- NOTE | 2022-07-06 09:50 | DI.VRAD_ITS ---
PROCEDURE INFORMATION: Exam: US Abdomen Complete Exam date and time: 07/06/2022 8:33 AM Age: 76 years old Clinical indication: Abnormal findings; Abnormal lab test; Abnormal kidney function lab tests; Prior surgery TECHNIQUE: Imaging protocol: Real-time ultrasound of the abdomen with image documentation. Complete exam. COMPARISON: CT ABDOMEN PELVIS W 05/11/2020 1:44 PM FINDINGS: Liver: Normal. No mass. Gallbladder: Previous cholecystectomy. Biliary ducts: Normal. No stones. No dilation. Pancreas: Visualized pancreas is unremarkable. Right kidney: Normal. No mass. No hydronephrosis. Left kidney: Normal. No mass. No hydronephrosis. Spleen: Normal. No splenomegaly. Aorta: Normal. No aneurysm. Inferior vena cava: Not well visualized. IMPRESSION: No acute findings. Dictated and Authenticated by: Lulu Resendez MD. Ordering:GABRIELA Mayfield MD
[2022-07-06] MEDS: Oseltamivir 75 MG CAP PO (09:56)
[2022-07-06 10:00] LABS: ALT 72 U/L (16-63); AST 150 U/L (15-37); Albumin 2.3 g/dL (3.4-5.0); Alkaline Phosphatase 71 U/L (46-116); Anion Gap 5.4 mmol/L (3-11); BUN 62 mg/dL (7-18); Bilirubin, Total 1.1 mg/dL (0.2-1.0); CO2 28.6 mmol/L (21.0-32.0); CREATININE 1.4 mg/dL (0.70-1.30); Calcium 8.2 mg/dL (8.5-10.1); Chloride 119 mmol/L (98-107); Estimated GFR 52.41 (mL/min/1.73m2); Glucose 171 mg/dL (74-106); Potassium 3.5 mmol/L (3.5-5.1); Sodium 153 mmol/L (136-145); Total Protein 5.9 g/dL (6.4-8.2)
[2022-07-06 10:06] LABS: Creatine Kinase 1852 U/L (39-308)
[2022-07-06 10:40] LABS: Vitamin B12 369 pg/mL (193-986)
[2022-07-06] MEDS: Cyanocobalamin 1000 MCG/ML VIAL IM/SC (12:00)
[2022-07-06] MEDS: VANCOMYCIN/WATER (PEG) 1.5 GM/300 ML BAG IVPB (12:03)
--- NOTE | 2022-07-06 12:34 | PT.INIE ---
PT Notes Visit Reasons: URI w/MS changes, influenza A, hypernatremia Physical Therapy Inpatient Initial Evaluation Date: 07/06/22 Referring Doctor: Gloria Lawrence MD PT Orders: PT CONSULT: Limited Ability Precautions: Fall. Standard. Droplet. Patient Profile/Admitting Diagnosis: Jose is 76 yo male that presented to the ER on 07/05/22 for altered mental status that had been worsening over the past three days. Was found to have URI and influenza A. Several pressure ulcers on body. PMHX: See EMR Social History/Home Situation: Per chart review lives in home with spouse and sons on the property. Home conditions unsanitary and patient bed bound. Equipment Owned/DME: Unknown Subjective: Cleared by nursing to see patient. Patient is sleeping in bed at time of consult and connected to IV and has suprapubic catheter. Objective: General Observation: Arouses from sleep easily, looks around but does not follow cues or respond to questions. Mental Status: A&O to self Pain: Indicates discomfort in right hip and left shoulder with PROM ROM: Right Upper Extremity: Shoulder Flexion WFL. Shoulder abduction WFL. Elbow flexion WFL. Wrist flexion WFL. Opening and closing of hand WFL. Left Upper Extremity: Shoulder Flexion WFL. Shoulder abduction less than 90 degrees. Elbow flexion WFL. Wrist flexion WFL. Opening and closing of hand WFL. Right Lower Extremity: Hip flexion WFL. Hip abduction diminished. Knee flexion WFL. Ankle dorsiflexion diminished. Ankle plantarflexion WFL. Left Lower Extremity: Hip flexion WFL. Hip abduction diminished. Knee flexion WFL. Ankle dorsiflexion diminished. Ankle plantarflexion WFL. Strength: Patient did not participate in strength screening other than manager actuarial strength which is weak bilaterally. Sensation: Unable to respond for appropriate assessment. Bed Mobility/Transfers: Rolling: Dependent Supine to sit: Dependent Sit to supine: Dependent Sit to stand: Dependent Stand to sit: Dependent Bed to chair: Dependent Chair to bed: Dependent Gait: Unable to assess Balance: Unable to assess Special Tests: Mobility Limitations Standardized Measure [facility] AM-PAC 6 clicks Basic Mobility Inpatient Short Form: Raw Score: 24 CMS Score: 100% Informed Consent/Education: Patient instructed in purpose of PT consult and plan of care. Assessment: Patient presents with clinical signs and symptoms consistent with current/admitting diagnoses that have resulted to mobility limitations, gait instability, generalized weakness, and impairment of motor control as demonstrated by the following impairment level findings: 1. Decreased strength to all major muscle groups 2. Impaired sitting/standing balance 3. Impaired activity tolerance 4. Limitation of joint range of motion in ankle dorsiflexion, hip adduction, left shoulder Impairments are contributing to the following functional limitations: 1. Dependent bed mobility skills 2. Dependent with transfers 3. Inability to safely ambulate without assistive device and physical assistance 4. Increase completion time for mobility ADL performance 5. Increased fall risk Patient is assessed as a high complexity based on the following: History: 76 year old male with impairment level findings, functional limitations, and past medical history as indicated above Examination: Demonstrable impairment in strength, balance, and mobility level with underlying impairments and functional limitations as documented above Presentation: Evolving Decision Making: High complexity Goals: Goals x1 week 1. Supine-Sit: Mod A 2. Sit-Supine: Mod A 3. Sit-Stand: Max A 4. Stand-Sit: Max A 5. Bed-Chair: Mod A 6. Chair-Bed: Mod A Plan of Care/Treatment Plan: 1-2x/day, 7 days/week x1 week. Plan of care has been reviewed with the WEATHER FORCASTER providing the service under Physical Therapy direction. Initiate Physical Therapy intervention for strengthening, bed mobility, transfers, gait, stairs, balance training, and use of assistive device. Discharge Plan DISCHARGE RECOMMENDATIONS: SNF versus LTC based on ability to participate and progress TREATMENT CODE/TIME: 12:10-12:34 (24 minutes), [id number] Thank you for the opportunity to participate in the care of this patient. Hoda Encinas, PT, DPT, OCS [facility] [place], [place]
--- NOTE | 2022-07-06 14:16 | WOUNDCONS_ITS ---
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 At the time of admission, patient was noted to have a large number of wounds on various parts of his body. The admitting provider had asked wound nursing to consult with this patient. On interviewing this patient, it is is apparent , that he has limited cognition, he could provide his name, but was unable to pr ovide any further information as to place or date. He is also unable to provide any information as to the etiology of the wounds. It is noted that patient is not competent enough to sign the consent for himself. This wound nurse attempted to contact his family , but was not successful. While looking at the wounds to change the dressings that were currently in place, Charge nurse Marsha, is able to contact the responsible green party, and she gives verbal consent to photograph and treat over the phone. Etiology was not gathered by this green party either. Noted that patient's medications are renally dosed. medications and allergies were reviewed, as well as H&P. Todays's labs of note NA decreased to 153. KCl decreased to 3.5. BUN decreased to 62. Creatine decreased to 62. CPK 1882. All other pertinent information was reviewed. Also to note CONTENT CREATION MANAGER's have been doing a fine job of offloading pressure and keeping the patient repositioned Body Four View: 1 - superficial abrasion 2 - unstagable PI 3 - unstageable PI 4 - unstageable PI 5 - stage 2 6 - stage 2 7 - stage 2 8 - area of risk 9 - stage 2 pi - Wound sacrum Wound Type: Other Wound General Appearance: Clean/Dry, Reddened Wound Bed Greatest Portion: Pale [place] Wound Bed Lesser Portion: Red (Granulation) Wound Surrounding Tissue Appearance: [place] Wound Length: 10 cm Wound Width: 2.8 cm Wound Depth: 0 cm (at risk, superficial) Wound Drainage Amount: None Wound Drainage Odor: None/Absent Wound Drainage Description: No drainage Wound Topical Solution/Irrigant: Antibiotic Irrigant Wound Debridement Method: Gauze, Mechanical Wound Debridement Result: Healthy Tissue Revealed Wound Debridement Amount of Tissue Removed: Minimal right flank Wound Type: Pressure Ulcer Pressure Ulcer Stage: II Wound General Appearance: Reddened, Unapproximated Wound Bed Greatest Portion: Red (Granulation) Wound Bed Lesser Portion: Yellow (Slough) Wound Surrounding Tissue Appearance: Dark Red Percent of Wound Bed Granulated/Red: 60 Percent of Wound Bed Slough/Yellow: 40 Wound Length: 1.5 cm Wound Width: 5.9 cm Wound Depth: 0.1 cm Wound Drainage Amount: None Wound Drainage Odor: None/Absent Wound Drainage Description: No drainage Wound Topical Solution/Irrigant: Antibiotic Irrigant Wound Debridement Method: Gauze, Mechanical Wound Debridement Result: Healthy Tissue Revealed Wound Debridement Amount of Tissue Removed: Minimal right posterior hip Wound Type: Pressure Ulcer (was a DTI that has opened, 25% wound bed visible) Pressure Ulcer Stage: II Wound General Appearance: Reddened, Unapproximated, Other Wound Bed Greatest Portion: Red (Granulation) Wound Surrounding Tissue Appearance: Dark Red Percent of Wound Bed Granulated/Red: 25 (remaining wound bed not visible) Wound Length: 9.6 cm Wound Width: 4.9 cm Wound Depth: 0.1 cm Wound Drainage Amount: None Wound Drainage Odor: None/Absent Wound Drainage Description: No drainage Wound Topical Solution/Irrigant: Antibiotic Irrigant Wound Debridement Method: Gauze, Mechanical Wound Debridement Result: Healthy Tissue Revealed Wound Debridement Amount of Tissue Removed: None right back Wound Type: Pressure Ulcer Pressure Ulcer Stage: II Wound General Appearance: Reddened, Unapproximated Wound Bed Greatest Portion: Red (Granulation) Wound Surrounding Tissue Appearance: Bright Red Percent of Wound Bed Granulated/Red: 100 Wound Length: 2.3 cm Wound Width: 2.4 cm Wound Depth: 0.1 cm Wound Drainage Amount: None Wound Drainage Odor: None/Absent Wound Drainage Description: No drainage Wound Topical Solution/Irrigant: Antibiotic Irrigant Wound Debridement Method: Gauze, Mechanical Wound Debridement Result: Healthy Tissue Revealed Wound Debridement Amount of Tissue Removed: None right medial thigh Wound Type: Pressure Ulcer Pressure Ulcer Stage: Eschar/Unstageable Wound General Appearance: Necrotic, Unapproximated Wound Bed Greatest Portion: Yellow (Slough) Wound Surrounding Tissue Appearance: [place] Percent of Wound Bed Granulated/Red: 0 Percent of Wound Bed Slough/Yellow: 100 Wound Length: 2.9 cm Wound Width: 4.8 cm Wound Depth: 0.1 cm (greater than) Wound Drainage Amount: Minimal Wound Drainage Odor: None/Absent Wound Drainage Description: Serous Wound Topical Solution/Irrigant: Antibiotic Irrigant Wound Debridement Method: Gauze, Mechanical Wound Debridement Result: Necrotic Remains Wound Debridement Amount of Tissue Removed: Minimal left medial thigh Wound Type: Pressure Ulcer Pressure Ulcer Stage: II Wound General Appearance: Reddened, Necrotic, Unapproximated Wound Bed Lesser Portion: Yellow (Slough) Wound Surrounding Tissue Appearance: [place] Percent of Wound Bed Granulated/Red: 50 Percent of Wound Bed Slough/Yellow: 50 Wound Length: 4.9 cm Wound Width: 2.8 cm Wound Depth: 0.1 cm Wound Drainage Amount: None Wound Drainage Odor: None/Absent Wound Drainage Description: No drainage Wound Topical Solution/Irrigant: Antibiotic Irrigant Wound Debridement Method: Gauze, Mechanical Wound Debridement Result: Healthy Tissue Revealed Wound Debridement Amount of Tissue Removed: Minimal left great toe Wound Type: Pressure Ulcer Pressure Ulcer Stage: Eschar/Unstageable Wound General Appearance: Reddened, Necrotic, Unapproximated Wound Bed Greatest Portion: Yellow (Slough) Percent of Wound Bed Granulated/Red: 0 Percent of Wound Bed Slough/Yellow: 100 Wound Length: 2.5 cm Wound Width: 1.5 cm Wound Depth: 0.1 cm (cannot visualize wound bed) Wound Drainage Amount: None Wound Drainage Odor: None/Absent Wound Drainage Description: No drainage Wound Topical Solution/Irrigant: Antibiotic Irrigant Wound Debridement Method: Gauze, Mechanical Wound Debridement Result: Necrotic Remains Wound Debridement Amount of Tissue Removed: None right posterior calf Wound Type: Pressure Ulcer Pressure Ulcer Stage: Eschar/Unstageable Wound General Appearance: Reddened, Necrotic, Unapproximated Wound Bed Greatest Portion: Yellow (Slough) Wound Surrounding Tissue Appearance: [place] Percent of Wound Bed Granulated/Red: 0 Percent of Wound Bed Slough/Yellow: 100 Wound Length: 1.2 cm Wound Width: 3.5 cm Wound Depth: 0.1 cm (cannot visualize wound bed) Wound Drainage Amount: None Wound Drainage Odor: None/Absent Wound Drainage Description: No drainage Wound Topical Solution/Irrigant: Antibiotic Irrigant Wound Debridement Method: Gauze, Mechanical Wound Debridement Result: Necrotic Remains Wound Debridement Amount of Tissue Removed: None right lateral thigh Wound Type: Abrasion Wound General Appearance: Well Approximated, Clean/Dry, Healing Well Wound Bed Greatest Portion: Red (Granulation) Percent of Wound Bed Granulated/Red: 100 Wound Length: 4.2 cm Wound Width: 3.4 cm Wound Depth: 0 cm (superficial) Wound Drainage Amount: None Wound Drainage Odor: None/Absent Wound Drainage Description: No drainage Wound Topical Solution/Irrigant: Antibiotic Irrigant Wound Debridement Method: Gauze, Mechanical Wound Debridement Result: Healthy Tissue Revealed Wound Debridement Amount of Tissue Removed: None - Circulation, Sensation, Motion Edema Degree: Other (none) Peripheral Pulse Strength: Weak Capillary Refill: Greater than 3 seconds Sensation Description: Other (unable to assess D/T cognition deficits) Skin Temperature: Cool Skin Color: Pale - EDISON Comment:: 0 - Pain Pain Level: 0 Pain Scale Used: Henderson-Foreman Faces This patient has been bed ridden for an extensive period of time. Wound nursing will focus on healing the existing wounds while working with staff and educating the family or caregivers on how to protect and offload pressure to prevent reoccurence or occurence of further injury. Also noted and photographed ere several areas of scratches that were in various stages of healing - Photo Photo: - Treatment/Dressing Change Topicals/Ointments: Anasept Gel Cleanse With: Anasept Dressing Types: Mepilex w/Border - Nutrition Education Reviewed Nutrition Education: Yes Note: Patient is receiving protein supplementation from [employer] - Recomendation Recomendation:: Sacrum. Clean area with Anasept spray and gauze, then pat dry. Cover with Mepilex sacral. Change every 7 days or PRN if soiled or dislodged. Offload pressure every 2 hours as patient will tolerate. Right Lateral Thigh. Clean area with Anasept spray and gauze, then pat dry. Cover wound with Mepilex border . Change every 7 days or PRN if soiled or dislodged. Use proper devices to offload pressure. Right posterior Hip. Clean area with Anasept spray and gauze, then pat dry. Apply a nickel thick layer of Anasept gel to the wound bed. Cover with Mepilex 6X6 border. Change every 3 days or PRN if soiled or dislodged. Offload pressure as patient will tolerate. Right Posterior Calf. Cleanse with Anasept spray and gauze, then pat dry. Apply a nickel thick layer of Anasept gel to the wound bed. Cover with Mepilex border 4X4. Change every 3 days or PRN if soiled or dislodged. Offload pressure as patient will tolerate. Left Great Toe. Cleanse with Anasept spray and gauze, then pat dry. Apply a nickel thick layer of Anasept gel to the wound bed. Cover with Mepilex border 4X4. Change every 3 days or PRN if soiled or dislodged. Offload pressure as patient will tolerate. Right Medial Thigh. Cleanse with Anasept spray and gauze, then pat dry. Apply a nickel thick layer of Anasept gel to the wound bed. Cover with Mepilex border 4X4. Change every 3 days or PRN if soiled or dislodged. Offload pressure as patient will tolerate. Right Flank. Cleanse with Anasept spray and gauze, then pat dry. Apply a nickel thick layer of Anasept gel to the wound bed. Cover with Mepilex border 4X4. Change every 3 days or PRN if soiled or dislodged. Offload pressure as patient will tolerate. Left Medial Thigh. Cleanse with Anasept spray and gauze, then pat dry. Apply a nickel thick layer of Anasept gel to the wound bed. Cover with Mepilex border 4X4. Change every 3 days or PRN if soiled or dislodged. Offload pressure as patient will tolerate. Right Back. Cleanse with Anasept spray and gauze, then pat dry. Apply a nickel thick layer of Anasept gel to the wound bed. Cover with Mepilex border 4X4. Change every 3 days or PRN if soiled or dislodged. Offload pressure as patient will tolerate. Physcian/Nurse Practioner Notified: Yes (Dr. Lawrence) Treatment Time - Time Total Time Spent with Patient: 1 hour - Patient Will be Seen Weekly Treatment: daily - For: For:: 1 week
[2022-07-06] MEDS: cefTRIAXone 1 GM/50 ML BAG IVPB (14:31)
[2022-07-06 15:27] VITALS: BP 110/63; PULSE 71; RESP 18; TEMP 36.3; O2SAT 95
--- NOTE | 2022-07-06 16:21 | PGE_ITS ---
Date of Service Date of service: 07/06/22 Time of Service: 16:21 Assessment and Plan Assessment and plan (1) Acute UTI: Status: Acute Assessment and plan: Present on admission, causing toxic metabolic encephalopathy. Suprapubic tube had to be replaced again today (the original one fell out). Blood cultures positive for GPCs in clusters. Vancomycin was added to ceftriaxone. Will await culture results. Repeat blood cultures in am. CT w/o evidence of hydronephrosis/stones, etc. (2) Altered mental status: Status: Acute Assessment and plan: As above. Treat UTI. Does have documented h/o dementia and a neurodegenerative process. Neurology is consulted. (3) Acute hypernatremia: Status: Acute Assessment and plan: Improving. Continue D5W. Recheck Sodium. (4) Rhabdomyolysis: Status: Acute Assessment and plan: IVF. Trend CPK. (5) ERIKA (acute kidney injury): Status: Resolved Assessment and plan: agree that this is likely prerenal. No evidence of obstructive uropathy on CT. Continue IV hydration to correct sodium. Cr is back to baseline. (6) Dysphagia: Status: Acute Assessment and plan: C/s speech. Continue modified diet. (7) Influenza A: Status: Acute Assessment and plan: Continue renally dosed oseltamivir. (8) Neuro-degenerative disorders: Status: Acute Assessment and plan: Await neurology consult. Chronic outpatient condition that appears to not have been followed up. (9) Protein malnutrition: Status: Chronic Assessment and plan: continue supplements. Obtain nutrition consult. (10) Urinary retention: Assessment and plan: s/p suprapubic catheter. F/u as outpatient. The catheter was exchanged twice on this admission. (11) Elevated transaminase level: Status: Acute Assessment and plan: Suspect this is due to rhabdomyolysis. Await Hep B/C studies. No evidence of hepatin masses on CT. No evidence of cirrhosis on imaging. Trend LFTs. (12) Paroxysmal A-fib: Status: Chronic Assessment and plan: if desired, this can be followed up as outpatient with a cardiac event recorder. He sounded mostly regular on my exam and this is not why he is hospitalized. I do think he would be a poor candidate for anticoagluation. (13) Thrombocytopenia: Status: Chronic Assessment and plan: B12 level low. Replete. (14) Decubitus skin ulcer: Status: Acute Assessment and plan: wound care consult done. Care management consulted with home health and they do not feel that the patient is neglected at home. He lives in a trailer with 8 other people who are his support. Palliative care consulted. Consider hospice. Consider SNF. (15) DVT prophylaxis: Status: Acute Assessment and plan: LMWH (16) Discharge planning issues: Status: Acute Assessment and plan: Full code Continues to require hospitalization. Palliative care, PT, Speech consulted. Subjective Subjective Interval history since last seen: When I came to see Jose, he was watching television. He requested that I change the channel (he did not like the ice skating, settled on Home Alone). When I asked him if he was in pain, felt short of breath, or had any complaints at all, he looked at me but did not answer despite me repeating the questions. Exam Narrative Exam Narrative: General: Confused elderly male who is not answering my questions, but does verbalize when he is interested in something (such as changing his TV channels), responds to name, so A&Ox1 HEENT: EOMI, dry MM Heart: RRR with an occasional extra beat Lungs: CTAB, coughs once when I am in the room Abdomen: soft, nontender, nondistended Extremities: no edema Objective Last Vital Signs Temp 36.3 C L 07/06/22 15:27 Pulse 71 07/06/22 15:27 Resp 18 07/06/22 15:27 BP 110/63 07/06/22 15:27 Pulse Ox 95 07/06/22 15:27 Laboratory Results - last 24 hr 07/05/22 07/05/22 07/05/22 15:25 15:30 16:26 PT 11.0 INR 1.1 Sodium Potassium Chloride Carbon Dioxide Anion Gap BUN Creatinine Est GFR (CKD-EPI 2020) Glucose Calcium Phosphorus Total Bilirubin AST ALT Alkaline Phosphatase Creatine Kinase Total Protein Albumin Vitamin B12 Urine Color Yellow Urine Clarity Cloudy Urine pH >= 9.0 H Ur Specific [place] 1.010 Urine Protein >=300 H Urine Ketones Negative Urine Blood Moderate H Urine Nitrite Negative Urine Bilirubin Small H Urine Urobilinogen 1.0 H Ur Leukocyte Esterase Large H Urine RBC 10-20 H Urine WBC >50 H Ur Epithelial Cells Few Urine Crystals Many Triple Phos Urine Bacteria Many Urine Casts Negative Urine Mucus Moderate Ur Culture Indicated? Yes Urine Glucose Negative Acetaminophen Ethyl Alcohol COVID-19 Source Nasopharynx SARS-CoV-2 (PCR) Negative Influenza Type A (PCR) Positive A Influenza Type B (PCR) Negative RSV (PCR) Negative Add-On Test Request 07/05/22 07/05/22 07/06/22 23:50 23:50 08:35 PT INR Sodium 154 H 153 H Potassium 4.2 D 3.5 Chloride 120 H 119 H Carbon Dioxide 25.1 28.6 Anion Gap 8.9 5.4 BUN 68 H 62 H Creatinine 1.5 H 1.4 H Est GFR (CKD-EPI 2020) 48.25 52.41 Glucose 162 H 171 H Calcium 8.0 L 8.2 L Phosphorus 3.0 Total Bilirubin 1.1 H AST 150 H ALT 72 H Alkaline Phosphatase 71 Creatine Kinase Total Protein 5.9 L Albumin 2.3 L Vitamin B12 369 Urine Color Urine Clarity Urine pH Ur Specific [place] Urine Protein Urine Ketones Urine Blood Urine Nitrite Urine Bilirubin Urine Urobilinogen Ur Leukocyte Esterase Urine RBC Urine WBC Ur Epithelial Cells Urine Crystals Urine Bacteria Urine Casts Urine Mucus Ur Culture Indicated? Urine Glucose Acetaminophen < 2 Ethyl Alcohol < 3.0 COVID-19 Source SARS-CoV-2 (PCR) Influenza Type A (PCR) Influenza Type B (PCR) RSV (PCR) Add-On Test Request 07/06/22 07/06/22 08:35 08:35 PT INR Sodium Potassium Chloride Carbon Dioxide Anion Gap BUN Creatinine Est GFR (CKD-EPI 2020) Glucose Calcium Phosphorus Total Bilirubin AST ALT Alkaline Phosphatase Creatine Kinase 1852 H Total Protein Albumin Vitamin B12 Urine Color Urine Clarity Urine pH Ur Specific [place] Urine Protein Urine Ketones Urine Blood Urine Nitrite Urine Bilirubin Urine Urobilinogen Ur Leukocyte Esterase Urine RBC Urine WBC Ur Epithelial Cells Urine Crystals Urine Bacteria Urine Casts Urine Mucus Ur Culture Indicated? Urine Glucose Acetaminophen Ethyl Alcohol COVID-19 Source SARS-CoV-2 (PCR) Influenza Type A (PCR) Influenza Type B (PCR) RSV (PCR) Add-On Test Request DONE Objective Narrative Objective Narrative: CT abdomen/pelvis: Suprapubic bladder catheter, and gas in the urinary bladder, likely iatrogenic. Bladder wall markedly thickened, measuring 1.5 cm. Cystitis should be excluded clinically. US abdomen: No acute findings.
[2022-07-06 16:48] LABS: Sodium 152 mmol/L (136-145)
[2022-07-06] MEDS: Oseltamivir 30 MG CAP PO (20:16)
[2022-07-06] MEDS: Enoxaparin 40 MG/0.4 ML SYR SC (22:00)
[2022-07-06 23:21] VITALS: BP 94/58; PULSE 83; RESP 16; TEMP 36.3; O2SAT 92
[2022-07-07 03:19] VITALS: BP 97/60; PULSE 74; RESP 17; TEMP 36.4; O2SAT 94
[2022-07-07] MEDS: Normal Saline Flush 10 ML SYR IVP (06:48)
[2022-07-07] MEDS: VANCOMYCIN/WATER (PEG) 1 GM/200 ML BAG IV ×2 (06:48→22:32)
[2022-07-07 07:25] VITALS: BP 95/62; PULSE 80; RESP 18; TEMP 36.6; O2SAT 96
[2022-07-07] MEDS: DEXTROSE 5%-WATER 1,000 ML 95 ML IV (07:26)
[2022-07-07] MEDS: Psyllium PKT 1 EACH PO (08:13)
[2022-07-07] MEDS: Oseltamivir 30 MG CAP PO ×2 (08:13→22:31)
[2022-07-07] MEDS: Lactated Ringers 500 ML IV (08:14)
[2022-07-07] MEDS: Cyanocobalamin 500 MCG TAB 1000 MCG PO (08:14)
[2022-07-07] MEDS: Protein Nutritional Supplement 16 GM 1 OUNCE PACKET PO ×3 (08:14→22:31)
[2022-07-07 12:05] LABS: Abs Immature Grans 0.02 10^3/uL (0.0-0.06); Absolute Lymphocyte Count 1.21 10^3/uL (1.2-3.4); Absolute Monocyte Count 0.38 10^3/uL (0.1-0.8); Absolute Neutrophil Count 5.23 10^3/uL (1.2-6.7); HCT 37.5 % (40.0-50.0); HGB 12.7 g/dL (13.5-17.5); Immature Grans % 0.3; Lymphocytes % 17.7; MCH 34.8 pg (27.0-33.0); MCHC 33.9 % (32.0-36.0); MCV 103 fL (80-95); MPV 12.6 fL (8.0-11.0); Monocytes % 5.6; Neutrophils % 76.4; RBC 3.65 10^6/uL (4.36-5.78); RDW 12.9 % (11.8-14.1); RDW-SD 48.6 fL; WBC 6.84 10^3/uL (4.4-10.8)
[2022-07-07 12:19] LABS: ALT 56 U/L (16-63); AST 96 U/L (15-37); Alkaline Phosphatase 67 U/L (46-116); Anion Gap 5.2 mmol/L (3-11); BUN 38 mg/dL (7-18); Bilirubin, Direct 0.3 mg/dL (0.0-0.2); Bilirubin, Total 0.8 mg/dL (0.2-1.0); CO2 28.8 mmol/L (21.0-32.0); CREATININE 1.1 mg/dL (0.70-1.30); Calcium 7.7 mg/dL (8.5-10.1); Chloride 110 mmol/L (98-107); Creatine Kinase 902 U/L (39-308); Estimated GFR 70.01 (mL/min/1.73m2); Glucose 178 mg/dL (74-106); Sodium 144 mmol/L (136-145); Total Protein 5.1 g/dL (6.4-8.2)
[2022-07-07 12:20] LABS: Platelet Count 50 10^3/uL (130-400)
[2022-07-07 12:21] LABS: Diff Comment Diff Reviewed; RBC Morphology Normal
[2022-07-07] MEDS: POTASSIUM CHLORIDE 20 MEQ/100 ML BAG 50 MEQ IVPB ×2 (13:10→14:50)
[2022-07-07] MEDS: Lactated Ringers 1,000 ML 100 ML IV (13:10)
[2022-07-07] MEDS: Potassium Chloride Liquid 20 MEQ PKT 40 MEQ PO (13:10)
[2022-07-07] MEDS: cefTRIAXone 1 GM/50 ML BAG IVPB (14:11)
[2022-07-07 15:12] VITALS: BP 102/66; PULSE 97; RESP 18; TEMP 36.9; O2SAT 96
--- NOTE | 2022-07-07 15:24 | W.PM.PROGNOT ---
Date of Service Date of service: 07/07/22 Time of Service: 15:26 Assessment and Plan Assessment and plan (1) Acute UTI: Status: Acute Assessment and plan: Present on admission, causing toxic metabolic encephalopathy, due to a mixed culture Gram negative and gram positive tracy. Suprapubic tube had to be replaced again today (the original one fell out). MRSA bacteremia might be related to this Await urine culture. Continue empiric vanco/ceftriaxone. Repeat blood cultures pending. CT w/o evidence of hydronephrosis/stones, etc. (2) MRSA bacteremia: Status: Acute Assessment and plan: ?related to UTI. Continue vancomycin. Await repeat blood cultures. Obtain echo. Trend procalcitonin and CRP. (3) Altered mental status: Status: Acute Assessment and plan: As above. Improved. Treat UTI/bacteremia. Does have documented h/o dementia and a neurodegenerative process. Neurology is consulted. (4) Acute hypernatremia: Status: Resolved Assessment and plan: IVF changed to LR. Will monitor sodiums. If they become elevated again, we need to consider the patient not keeping up with his own nutritive/hydration needs and a PEG tube conversation might be in order. (5) Rhabdomyolysis: Status: Acute Assessment and plan: IVF. Improving. Continue Trend CPK. (6) ERIKA (acute kidney injury): Status: Resolved Assessment and plan: agree that this is likely prerenal. No evidence of obstructive uropathy on CT. Continue IV hydration to correct sodium. Cr is back to baseline. (7) Dysphagia: Status: Acute Assessment and plan: C/s speech. Continue modified diet. (8) Influenza A: Status: Acute Assessment and plan: Continue renally dosed oseltamivir. (9) Neuro-degenerative disorders: Status: Acute Assessment and plan: Await neurology consult. Chronic outpatient condition that appears to not have been followed up. (10) Protein malnutrition: Status: Chronic Assessment and plan: continue supplements. Await nutrition consult. (11) Urinary retention: Assessment and plan: s/p suprapubic catheter. F/u as outpatient. The catheter was exchanged twice on this admission. (12) Elevated transaminase level: Status: Acute Assessment and plan: Suspect this is due to rhabdomyolysis. Await Hep B/C studies. No evidence of hepatin masses on CT. No evidence of cirrhosis on imaging. Trend LFTs. (13) Paroxysmal A-fib: Status: Chronic Assessment and plan: if desired, this can be followed up as outpatient with a cardiac event recorder. He sounded mostly regular on my exam and this is not why he is hospitalized. I do think he would be a poor candidate for anticoagluation. (14) Thrombocytopenia: Status: Chronic Assessment and plan: B12 level low. Replete. (15) Decubitus skin ulcer: Status: Acute Assessment and plan: wound care consult done. Care management consulted with home health and they do not feel that the patient is neglected at home. He lives in a trailer with 8 other people who are his support. Palliative care consulted. Consider hospice. Consider SNF. (16) DVT prophylaxis: Status: Acute Assessment and plan: SCDs Hold chemical dvt ppx in light of thrombocytopenia (17) Discharge planning issues: Status: Acute Assessment and plan: Full code Continues to require hospitalization. Palliative care, PT, Speech consulted. Subjective Subjective Interval history since last seen: Mr Vega c/o pain in his lower jaw. He has a broken tooth there. Denies dizziness, chest pain, shortness of breath, nausea. Exam Narrative Exam Narrative: General: Confused elderly male who is A&ox1, more engaged and alert today, answering questions, following commands HEENT: EOMI, dry MM, has a broken incisor Heart: RRR with an occasional extra beat Lungs: CTAB Abdomen: soft, nontender, nondistended Extremities: no edema Objective Last Vital Signs Temp 36.9 C 07/07/22 15:12 Pulse 97 H 07/07/22 15:12 Resp 18 07/07/22 15:12 BP 102/66 07/07/22 15:12 Pulse Ox 96 07/07/22 15:12 Laboratory Results - last 24 hr 07/06/22 07/07/22 07/07/22 16:30 11:45 11:45 WBC 6.84 RBC 3.65 L Hgb 12.7 L D Hct 37.5 L MCV 103 H MCH 34.8 H MCHC 33.9 RDW 12.9 Plt Count 50 L D MPV 12.6 H Immature Gran % 0.3 Neutrophils % 76.4 Lymphocytes % 17.7 Monocytes % 5.6 Eosinophils % 0.0 Basophils % 0.0 Nucleated RBC % 0.0 Absolute Neutrophils 5.23 Absolute Lymphocytes 1.21 Absolute Monocytes 0.38 Absolute Eosinophils 0.00 Absolute Basophils 0.00 RBC Morphology Normal Sodium 152 H 144 Potassium 3.0 L Chloride 110 H Carbon Dioxide 28.8 Anion Gap 5.2 BUN 38 H Creatinine 1.1 Est GFR (CKD-EPI 2020) 70.01 Glucose 178 H Calcium 7.7 L Magnesium 2.0 Total Bilirubin 0.8 Conjugated Bilirubin 0.3 H AST 96 H ALT 56 Alkaline Phosphatase 67 Creatine Kinase 902 H Total Protein 5.1 L Albumin 2.0 L
[2022-07-07 16:47] LABS: Lab Add On Test DONE
[2022-07-07 16:52] LABS: C-Reactive Protein 0.91 mg/dL (0.0-0.3)
[2022-07-07 17:17] LABS: Procalcitonin 0.2 ng/mL
[2022-07-07 19:05] VITALS: BP 115/65; PULSE 70; RESP 18; TEMP 36.6; O2SAT 96
[2022-07-08] VITALS (7 sets, daily range): BP systolic 101–120; BP diastolic 62–71; PULSE 70–90; RESP 17–22; TEMP 36.8–37.6; O2SAT 95–97
[2022-07-08] MEDS: Lactated Ringers 1,000 ML 100 ML IV ×2 (00:50→10:24)
[2022-07-08 07:54] LABS: Abs Immature Grans 0.01 10^3/uL (0.0-0.06); Absolute Basophil Count 0.01 10^3/uL (0.0-0.2); Absolute Eosinophil Count 0.01 10^3/uL (0.0-0.7); Absolute Lymphocyte Count 0.96 10^3/uL (1.2-3.4); Absolute Monocyte Count 0.32 10^3/uL (0.1-0.8); Absolute Neutrophil Count 4.85 10^3/uL (1.2-6.7); Basophils % 0.2; Eosinophils % 0.2; HCT 37.8 % (40.0-50.0); HGB 12.9 g/dL (13.5-17.5); Immature Grans % 0.2; Lymphocytes % 15.6; MCH 34.6 pg (27.0-33.0); MCHC 34.1 % (32.0-36.0); MCV 101 fL (80-95); Monocytes % 5.2; Neutrophils % 78.6; RBC 3.73 10^6/uL (4.36-5.78); RDW-SD 48.7 fL; WBC 6.16 10^3/uL (4.4-10.8)
[2022-07-08 08:12] LABS: Anion Gap 7.1 mmol/L (3-11); BUN 27 mg/dL (7-18); CO2 27.9 mmol/L (21.0-32.0); CREATININE 0.9 mg/dL (0.70-1.30); Chloride 112 mmol/L (98-107); Creatine Kinase 500 U/L (39-308); Estimated GFR 89.07 (mL/min/1.73m2); Glucose 106 mg/dL (74-106); Magnesium 2.1 mg/dL (1.8-2.4); PHOSPHORUS < 2.0 mg/dL (2.6-4.7); Potassium 3.6 mmol/L (3.5-5.1); Sodium 147 mmol/L (136-145)
[2022-07-08] MEDS: Protein Nutritional Supplement 16 GM 1 OUNCE PACKET PO ×2 (08:16→13:31)
[2022-07-08] MEDS: Psyllium PKT 1 EACH PO (08:16)
[2022-07-08] MEDS: Oseltamivir 30 MG CAP PO (08:16)
[2022-07-08] MEDS: Cyanocobalamin 500 MCG TAB 1000 MCG PO (08:16)
[2022-07-08 09:01] LABS: Diff Comment RBC Morph Reviewed; Macrocytosis 1+; Platelet Count 61 10^3/uL (130-400)
--- NOTE | 2022-07-08 09:12 | NS.NUTBLAN_ITS ---
Date of service: 07/08/22 Time of Service: 09:12 Nutritional Consult ASSESSMENT: 76 year old male admitted with UTI, MRSA, pressure wounds, protein calorie malnutrition with 30 lbs weight loss in last 4 months, with hx of nuerogenerative disease, bed bound. Barium swallow ordered as with dysphagia. Ordered Puree diet with thin liquids with minimal intake since admit. Ordered liquid protein 1 oz TID providing total of 180 kcal, 45 g protein. Currently full code. 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 Once at goal rate, d/c liquid protein as no longer warranted as tube feeding with provide 1800 kcal, 75 g protein and 1860 ml fluid MONITORING AND EVALUATION: weight, labs, po intake. Time Spent in Nutritional Counseling and Treatment: 0
[2022-07-08 12:22] LABS: Lab Add On Test DONE
--- NOTE | 2022-07-08 12:38 | PT.INTREAT ---
Date of service: 07/08/22 Time of Service: 10:30 PT Notes Visit Reasons: UTI w/MS Changes, Influenza A, Hypernatremia Inpatient Physical Therapy Treatment Note [facility] Date: 07/08/2022 PRECAUTIONS: Activity as tolerated, fall, baseline mobility (? bed bound) SUBJECTIVE: Jose is pleasantly confused. He is agreeable to PROM exercises in bed. OBJECTIVE: PAIN: No c/o pain BED MOBILITY/TRANSFERS/GAIT: Not assessed THEREX: Performed PROM into ankle plantar/dorsiflexion, knee flexion, hip flexion and hip abduction, bilaterally, with stiffness and limited range in all directions. Patient completes elbow flexion/extension x3 on L. ASSESSMENT: Patient tolerated session without complaint. He was able to participate minimally today. PLAN: Continue to assess patient's response to treatment plan, and consult with supervising PT as needed. TREATMENT CODE/TIME: 12 minutes; 76228 (10:30)
[2022-07-08] MEDS: cefTRIAXone 1 GM/50 ML BAG IVPB (13:30)
[2022-07-08] MEDS: Benzocaine 20% Gel 30 GM JAR MM ×2 (13:36→17:53)
[2022-07-08] MEDS: VANCOMYCIN/WATER (PEG) 1 GM/200 ML BAG IV (14:20)
[2022-07-08 17:03] LABS: Osmolality, Urine 908 mOsm/kg (150-1150)
[2022-07-08] MEDS: SODIUM CHLORIDE 0.45% 1,000 ML 100 ML IV (17:54)
--- NOTE | 2022-07-08 17:55 | W.PM.PROGNOT ---
Date of Service Date of service: 07/08/22 Time of Service: 17:55 Assessment and Plan Assessment and plan (1) Acute UTI: Status: Acute Assessment and plan: Present on admission, causing toxic metabolic encephalopathy, due to a mixed culture Gram negative and gram positive tracy. Suprapubic tube had to be replaced again today (the original one fell out). MRSA bacteremia might be related to this Urine C&S mixed and is at this point final. Continue empiric vanco/ceftriaxone. Repeat blood cultures w/ NGTD. CT w/o evidence of hydronephrosis/stones, etc. (2) MRSA bacteremia: Status: Acute Assessment and plan: ?related to UTI. Continue vancomycin. Repeat blood cx negative. Await echo. Trend procalcitonin and CRP. (3) Altered mental status: Status: Acute Assessment and plan: As above. Improved. Treat UTI/bacteremia. Does have documented h/o dementia and a neurodegenerative process. Neurology is consulted. (4) Acute hypernatremia: Status: Resolved Assessment and plan: Not drinking on his own. Palliative care consulted to discuss, among other things, the question of feeding tube. Change fluids to 1/2 NS. Continue to monitor sodiums. (5) Rhabdomyolysis: Status: Resolved Assessment and plan: Decrease IVF rate. Continue Trend CPK. (6) ERIKA (acute kidney injury): Status: Resolved Assessment and plan: agree that this is likely prerenal. No evidence of obstructive uropathy on CT. Continue IV hydration to correct sodium. Cr is back to baseline. (7) Dysphagia: Status: Acute Assessment and plan: C/s speech. Continue modified diet. Thicken fluids (8) Influenza A: Status: Acute Assessment and plan: Continue renally dosed oseltamivir. (9) Neuro-degenerative disorders: Status: Acute Assessment and plan: Await neurology consult. Chronic outpatient condition that appears to not have been followed up. (10) Protein malnutrition: Status: Chronic Assessment and plan: continue supplements. Await nutrition consult. Conversation with palliative care re feeding tube. (11) Urinary retention: Assessment and plan: s/p suprapubic catheter. F/u as outpatient. The catheter was exchanged twice on this admission. (12) Elevated transaminase level: Status: Acute Assessment and plan: Suspect this is due to rhabdomyolysis. Await Hep B/C studies. No evidence of hepatin masses on CT. No evidence of cirrhosis on imaging. Trend LFTs. (13) Paroxysmal A-fib: Status: Chronic Assessment and plan: if desired, this can be followed up as outpatient with a cardiac event recorder. He sounded mostly regular on my exam and this is not why he is hospitalized. I do think he would be a poor candidate for anticoagluation. (14) Thrombocytopenia: Status: Chronic Assessment and plan: B12 level low. Replete. (15) Decubitus skin ulcer: Status: Acute Assessment and plan: wound care consult done. Care management consulted with home health and they do not feel that the patient is neglected at home. He lives in a trailer with 8 other people who are his support. Palliative care consulted. Consider hospice. Consider SNF. (16) DVT prophylaxis: Status: Acute Assessment and plan: SCDs Hold chemical dvt ppx in light of thrombocytopenia (17) Discharge planning issues: Status: Acute Assessment and plan: Full code Continues to require hospitalization. Palliative care, PT, Speech consulted. Subjective Subjective Interval history since last seen: Very poor PO intake today - not even drinking. Nursing is concerned that it is because of his oral pain. The patient does not feel short of breath. He has been coughing today. Nursing notes he has been coughing while trying to drink thin liquids. The patient is not answering a lot of my questions. HE does state he has no pain other than in his mouth. Exam Narrative Exam Narrative: General: Confused elderly male who is A&ox1, resistant to an oral exam, answering some questions, following commands HEENT: EOMI, MMM, has a broken incisor Heart: RRR with an occasional extra beat Lungs: CTAB but does cough more frequently today and sounds like he is gurgling on secretions Abdomen: soft, nontender, nondistended; has a suprapubic catheter Extremities: no edema Objective Last Vital Signs Temp 37.6 C H 07/08/22 15:34 Pulse 83 07/08/22 15:34 Resp 19 07/08/22 15:34 BP 108/66 07/08/22 15:34 Pulse Ox 95 07/08/22 15:34 Laboratory Results - last 24 hr 07/08/22 07/08/22 07/08/22 07:05 07:05 13:00 WBC 6.16 RBC 3.73 L Hgb 12.9 L Hct 37.8 L MCV 101 H MCH 34.6 H MCHC 34.1 RDW 13.0 Plt Count 61 L MPV Immature Gran % 0.2 Neutrophils % 78.6 Lymphocytes % 15.6 Monocytes % 5.2 Eosinophils % 0.2 Basophils % 0.2 Nucleated RBC % 0.0 Absolute Neutrophils 4.85 Absolute Lymphocytes 0.96 L Absolute Monocytes 0.32 Absolute Eosinophils 0.01 Absolute Basophils 0.01 RBC Morphology See Below Macrocytosis 1+ Sodium 147 H Potassium 3.6 Chloride 112 H Carbon Dioxide 27.9 Anion Gap 7.1 BUN 27 H Creatinine 0.9 Est GFR (CKD-EPI 2020) 89.07 Glucose 106 Calcium 8.0 L Phosphorus < 2.0 L Magnesium 2.1 Creatine Kinase 500 H Add-On Test Request DONE
[2022-07-09] MEDS: VANCOMYCIN/WATER (PEG) 1 GM/200 ML BAG IV ×2 (00:29→15:45)
[2022-07-09 03:08] VITALS: BP 138/78; PULSE 88; RESP 22; TEMP 37.1; O2SAT 95
[2022-07-09 06:05] LABS: Abs Immature Grans 0.04 10^3/uL (0.0-0.06); Absolute Basophil Count 0.01 10^3/uL (0.0-0.2); Absolute Eosinophil Count 0.01 10^3/uL (0.0-0.7); Absolute Lymphocyte Count 0.71 10^3/uL (1.2-3.4); Absolute Monocyte Count 0.64 10^3/uL (0.1-0.8); Absolute Neutrophil Count 4.11 10^3/uL (1.2-6.7); Basophils % 0.2; Eosinophils % 0.2; HCT 34.5 % (40.0-50.0); HGB 11.4 g/dL (13.5-17.5); Immature Grans % 0.7; Lymphocytes % 12.9; MCH 33.8 pg (27.0-33.0); MCV 102 fL (80-95); MPV 12.7 fL (8.0-11.0); Monocytes % 11.6; Neutrophils % 74.4; RBC 3.37 10^6/uL (4.36-5.78); RDW 12.9 % (11.8-14.1); RDW-SD 47.8 fL; WBC 5.52 10^3/uL (4.4-10.8)
[2022-07-09 06:18] LABS: Anion Gap 6.8 mmol/L (3-11); BUN 19 mg/dL (7-18); C-Reactive Protein 7.86 mg/dL (0.0-0.3); CO2 27.2 mmol/L (21.0-32.0); CREATININE 0.8 mg/dL (0.70-1.30); Calcium 7.5 mg/dL (8.5-10.1); Chloride 111 mmol/L (98-107); Estimated GFR 92.29 (mL/min/1.73m2); Glucose 97 mg/dL (74-106); Magnesium 1.9 mg/dL (1.8-2.4); Potassium 3.5 mmol/L (3.5-5.1); Sodium 145 mmol/L (136-145)
[2022-07-09 06:39] LABS: Diff Comment PLT Morph Reviewed; Platelet Count 68 10^3/uL (130-400); RBC Morphology Normal
[2022-07-09 07:51] VITALS: BP 104/55; PULSE 83; RESP 21; TEMP 37.4; O2SAT 100
[2022-07-09 07:58] LABS: Lab Add On Test DONE
[2022-07-09 08:14] LABS: Albumin 1.7 g/dL (3.4-5.0)
[2022-07-09] MEDS: Protein Nutritional Supplement 16 GM 1 OUNCE PACKET PO ×2 (08:33→13:51)
[2022-07-09] MEDS: Cyanocobalamin 500 MCG TAB 1000 MCG PO (08:33)
[2022-07-09] MEDS: Psyllium PKT 1 EACH PO (08:33)
[2022-07-09 08:34] LABS: Procalcitonin 0.1 ng/mL
[2022-07-09] MEDS: SODIUM CHLORIDE 0.45% 1,000 ML 75 ML IV (08:43)
[2022-07-09 09:38] LABS: Vancomycin, Trough 22.1 ug/mL (10.0-20.0)
[2022-07-09 09:46] LABS: Hepatitis B Surface Ag Negative (Negative)
--- NOTE | 2022-07-09 09:53 | NUR.NOTE ---
Nursing Note: Critical trough 22.1, timing on vanco changed from 10 -14
[2022-07-09 10:12] LABS: Hepatitis C Ab w Rflx HCV PCR Negative (Negative)
[2022-07-09 11:22] VITALS: BP 114/65; PULSE 92; RESP 22; TEMP 37.4; O2SAT 98
[2022-07-09] MEDS: cefTRIAXone 1 GM/50 ML BAG IVPB (13:52)
[2022-07-09 14:09] LABS: Bilirubin Negative (Negative); Blood Moderate (Negative); Clarity Sl Cloudy (Clear); Glucose Negative (Negative); Ketones 40 mg/dL (Negative); Leukocyte Esterase Negative (Negative); Nitrite Negative (Negative); Specific Gravity 1.025 (1.005-1.025); Urobilinogen 0.2 EU/dL (Up TO 0.2); pH 5.5 (5-8)
[2022-07-09 14:17] LABS: Bacteria Few HPF (Negative); C & S Indicated? C&S Done As Ordered; Casts 0-2 Hyaline LPF (Negative); Crystals Negative HPF (Negative); Epithelial Cells Rare HPF (Negative); Mucus Trace (Negative)
--- NOTE | 2022-07-09 14:24 | PDOC.CMPRO ---
- If Service Date Differs Date of service: 07/09/22 Time of Service: 14:24 Care Management Progress Note S/O: Jose remains inpatient, he continues to be confused at this time. CM continues to follow. A: 76 year old male admitted to [facility] 07/05/22 for UTI with AMS, Influenza A, Hypernatremia P: Jose will discharge home via private w/c van when medically ready. He will follow up with community providers and discharge plan of care as prescribed. 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 CM continues to follow.
[2022-07-09 15:42] VITALS: BP 111/66; PULSE 85; RESP 18; TEMP 37.1; O2SAT 96
--- NOTE | 2022-07-09 16:45 | SP_ITS ---
Date of service: 07/09/22 Time of Service: 12:00 Subjective Clinical (Bedside) Swallow Evaluation Speech Language Pathology Patient referred for Clinical Swallow Study from Dr Lawrence given limited PO intake and existing MBSS order at request of [facility] provider. Patient received lethargic, agreeable to evaluation, unable to communicate wants/needs effectively; unable to demonstrate comprehension of recommendations for safe p.o. intake upon discharge once deemed medically stable.? He is unable to provide any coherent history aside from affirming that he has pain (previously reported to MD). When asked if his pain was in his mouth, patient says Somethin'!). Precautions: Fall, Droplet, Full code ? HPI: Pt is a 76 year old M with history of unspecified spastic neurodegenerative condition (patient never followed up for outpatient testing for differential workup), urinary retention with supra-pubic catheter, dementia with psychotic component, dysphagia, malnutrition and weight loss. He is [place]. At baseline he is bedbound (for 3-4 yrs). He was brought to the ED for 3 day hx AMS, as well as progressively diminishing oral intake. Admitted to med-surg with UTI, AMS, acute hypernatremia, ERIKA, dysphagia, influenza A, protein malnutrition, and decubitus skin ulcers (sacrum and other pressure ulcers). He is followed by home health [facility] who evaluated him 06/24/22, at that time recommended puree/thin diet and requested MBSS orders to be placed. He is total assist for ADL's, including feeding, at home. PFSH All Active Problems?(Updated 07/05/22 @ 21:17 by Chaparro Holden) Decubitus skin ulcer (Acute) Influenza A (Acute) Thrombocytopenia (Chronic) Paroxysmal A-fib (Acute) Elevated transaminase level (Acute) Dysphagia (Acute) Neuro-degenerative disorders (Acute) Acute UTI (Acute) ERIKA (acute kidney injury) (Acute) Acute hypernatremia (Acute) Altered mental status (Acute) Lower urinary tract symptoms (LUTS) (Acute) History of BPH (Acute) Unspecified dementia without behavioral disturbance (Acute) Babinski reflex (Acute) Clonus (Acute) Inability to walk (Acute) Wheelchair bound (Acute) Spasticity (Acute) Limited literacy (Chronic) Francois catheter in place (Acute) History of bloody stools (Acute) Avoidance coping (Chronic) no medical care x 10 yrs 2009-2019Disoriented (Acute) Bedbound (Acute) Hallucinations (Acute) Protein malnutrition (Chronic) Loss of taste (Acute) Discharge planning issues (Acute) Ambulatory dysfunction (Chronic) DVT prophylaxis (Acute) Weakness (Chronic) Medical History? Colon cancer Difficulty swallowing solids H/O prostate cancer Hypoalbuminemia Incontinence Palliative care patient Poor dentition Tachycardia Urinary retention Very poor mobility Surgical History? S/P colectomy 2010 for colon cancer ? Social History/Home Situation: Pt lives at home with 8 family members. He requires total assist with ADL's and is bedbound at baseline. ? OBJECTIVE: Predisposing dysphagia risk factors: neurodegenerative condition, bedbound status Clinical signs of possible chronic dysphagia: Failure to thrive, weight loss Precipitating dysphagia risk factors / triggering event: AMS, weakness, atrophy, fatigue ? Respiratory: Appears to tolerate room air without s/sx dyspnea. Baseline intermittent congested cough without visible sputum production. Cranial nerve exam / Oral Motor: very limited due to limited responsiveness of patient, inability to follow instructions Limited notable findings as follows: Difficulty opening mouth more than ~7mm. Just enough excursion to visualize dry, brown coating on tongue and large white patches on roof of mouth, appearing submucosal but unable to fully assess appearance due to limited visibility. Suspect ROM impacted by oral pain. Largely edentulous with broken tooth reported by MD, unable to visualize this session. Volitional swallow: unable to elicit (AMS) Voice quality, mild wet at baseline, difficult to assess given limited verbal output during interview and exam. Patient appears attempting lingual protrusion when requested, but tongue does not protrude beyond commissure. Patient appears able to at least somewhat manipulate ice chip around mouth but appears with reduced lingual control to prevent posterior escape. Language: Limited verbal output. Largely unable to follow instructions (neurodegenerative status may complicate this as well as AMS. Able to say his last name when asked, with 10+ second delay. Hearing: [place] Mental Status: Unable to respond to What year is it? when provided 2 multiple choice (2020 vs 2021). Able to state his last name. Speech: dysarthric, very slurred speech and poor breath support, unable to further assess given minimal verbal output. largely unintelligible for this encounter. ? Laryngeal function exam: Secretions: Appears with poor secretion management in pharynx. Vocal quality: Breathy, rough Cough strength: Mild reduced strength Oral care provided: Attempting to provide oral care using swabs, patient able to tolerate several lingual sweeps with swab but ultimately limited oral care achieved due to pain and difficulty with oral excursion at this time. Benefits from additional processing time with instructions and frequent encouragement/rationale to continue with oral care. Food items tested: ?? x Ice: Oral phase: Difficulty with bolus manipulation Difficulty with a-p transport Difficulty chewing Pocketing (reported) Residue (reported) Pharyngeal phase: Delayed swallow initiation Cough after swallow IMPRESSIONS & PLAN It is difficult to fully assess swallow function at this time given patient's minimal ability to engage in oral activities including oral care, oral excursion this date and limited willingness to accept PO trials. Patient demonstrates possible s/sx aspiration with ice chips this date, but this is complicated by his baseline congested coughing noted. He does appear to demonstrate below- baseline swallow and cognitive function at this time based upon review of recent [facility] notes. Suspect his current acute AMS and medical status is playing a role. Given his nutrition status is already precarious I do not think it's rich to make the patient NPO despite significant risk of aspiration. Patient with minimal PO intake at this time regardless, focus should remain on improving oral comfort for PO intake and oral care to reduce risk of pulmonary compromise. He is already on modified puree diet per [facility]. [facility] will continue to follow while on unit to further assess swallow function, pending improvement in AMS, reduction in oral pain and willingness to participate in oral care and PO trials, and pending goals of care per Palliative consult. If he continues to decline PO trials/PO intake, or if swallow function is ultimately too poor, medical/palliative would consider discussion of PEG tube placement with patient/family per goals of care. Provided education/encouragement to increase oral care for safety and comfort, but he is unable to demonstrate full understanding. Please continue with frequent attempts at oral hydration and oral care. Appreciate additional examination of oral lesions/pain management by MD/Nursing, if able. DISCHARGE: Pending goals of care; cont with [facility] or DC to [facility]/LTC with [facility] services provided. Instrumentation: consider MBSS while inpatient if patient status improves to tolerate this and pending goals of care. Diet Texture Modification(s): (Per HH [facility] recommendations) 4-Pureed Solids 0-Thin Liquids Medication Intake: Whole or crushed with 4-Extremely Thick Liquids Alter medications only as advised by MD or Pharmacist RISK MANAGEMENT: Oral hygiene q4h/every 4 hours and before/after PO intake using friction with toothbrush on all oral structures as tolerated HOB upright as tolerated; upright for all PO intake. Encourage physical mobility as tolerated. Level of Assistance/Supervision: Assistive feeding only by trained staff/family PO intake only when awake/alert? Strategies/Adaptations/Assistive Equipment: Reduce auditory and/or visual distractions when eating, Provide verbal and/or visual cues to use recommended strategies, Small sips and bites when eating, Slow rate of intake, Swallow between bites, Alternate intake of liquids and solids, Small+frequent meals throughout day Posture/Positioning Needs: Sleep with head of bed elevated to reduce likelihood of nocturnal reflux GOALS: Re-evaluation by [facility] to monitor progress and asses for readiness to participate in therapeutic activities. Patient/family will be verbalize understanding of dysphagia education r/t normal vs disordered swallow function, impact of disease processes on swallow function, relationship between respiratory function and deglutition, importance of frequent and diligent oral care, and safe swallow strategies/risk management strategies to reduce risk of pulmonary complications of aspiration. Speech Language Pathologist ? [facility] CPT Code: 22746 Clinical Swallowing Evaluation Time spent: 35 minutes Coding
--- NOTE | 2022-07-09 17:27 | PGE_ITS ---
Date of Service Date of service: 07/09/22 Time of Service: 17:28 Assessment and Plan Assessment and plan (1) Acute UTI: Status: Acute Assessment and plan: Present on admission, causing toxic metabolic encephalopathy, due to a mixed culture Gram negative and gram positive tracy. Suprapubic tube had to be replaced (the original one fell out). MRSA bacteremia might be related to this Urine C&S mixed and is at this point final. Continue empiric vanco/ceftriaxone. Repeat blood cultures w/ NGTD. CT w/o evidence of hydronephrosis/stones, etc. (2) MRSA bacteremia: Status: Acute Assessment and plan: ?related to UTI. Continue vancomycin. Repeat blood cx negative. Await echo read. Trend procalcitonin and CRP. (3) Altered mental status: Status: Acute Assessment and plan: As above. Improved. Treat UTI/bacteremia. Does have documented h/o dementia and a neurodegenerative process. Neurology not available this week, as we just found out. (4) Acute hypernatremia: Status: Resolved Assessment and plan: Not drinking on his own. Palliative care consulted to discuss, among other things, the question of feeding tube. Continue 1/2 NS. Continue to monitor sodiums. (5) Rhabdomyolysis: Status: Resolved (6) ERIKA (acute kidney injury): Status: Resolved Assessment and plan: agree that this is likely prerenal. No evidence of obstructive uropathy on CT. Continue IV hydration to correct sodium. Cr is back to baseline. (7) Dysphagia: Status: Acute Assessment and plan: Speech consulted. Palliative care consulted: the patient is extremely resistant to PO intake. Some of this may be due to oral pain. Consider feeding tube vs hospice. (8) Influenza A: Status: Acute Assessment and plan: Continue renally dosed oseltamivir. (9) Neuro-degenerative disorders: Status: Acute Assessment and plan: Neurology is not available this week. Chronic outpatient condition that appears to not have been followed up. Consider comfort measures/hospice. (10) Protein malnutrition: Status: Chronic Assessment and plan: continue supplements. Nutrition recommends: Supplement with ensure plus TID and liquid protein 1 oz TID If tube feeding to be initiated recommend Osmolite 1.5 with goal rate of 50 cc/hour, flush 250 q 6 hours.? Once at goal rate, d/c liquid protein as no long er warranted as tube feeding with provide 1800 kcal, 75 g protein and 1860 ml fluid Conversation with palliative care re feeding tube. (11) Urinary retention: Assessment and plan: s/p suprapubic catheter. F/u as outpatient. The catheter was exchanged twice on this admission. (12) Elevated transaminase level: Status: Acute Assessment and plan: Suspect this is due to rhabdomyolysis. Hepatitis panel negative. No evidence of hepatin masses on CT. No evidence of cirrhosis on imaging. (13) Paroxysmal A-fib: Status: Chronic Assessment and plan: if desired, this can be followed up as outpatient with a cardiac event recorder. He sounded mostly regular on my exam and this is not why he is hospitalized. I do think he would be a poor candidate for anticoagluation. (14) Thrombocytopenia: Status: Chronic Assessment and plan: B12 level low. Replete. (15) Decubitus skin ulcer: Status: Acute Assessment and plan: wound care consult done. Care management consulted with home health and they do not feel that the patient is neglected at home. He lives in a trailer with 8 other people who are his support. Palliative care consulted. Consider hospice. Consider SNF. (16) DVT prophylaxis: Status: Acute Assessment and plan: SCDs Hold chemical dvt ppx in light of thrombocytopenia (17) Discharge planning issues: Status: Acute Assessment and plan: Full code Continues to require hospitalization. Palliative care, PT, Speech consulted. Subjective Subjective Interval history since last seen: Mr Espinoza is asleep when I came to see him. He does wake up, but only answers one of my questions (re shortness of breath - no). He does not open his mouth enough for me to examine it. Was evaluated today by speech therapy. Limited exam, but per speech had white plaques on his mouth which appeared submucosal. Exam Narrative Exam Narrative: General: Confused elderly male who is minimally verbal, resistant to an oral exam HEENT: EOMI, MMM, dry skin on the lips Heart: RRR with an occasional extra beat Lungs: rales anteriorly that clear with coughing Abdomen: soft, nontender, nondistended; has a suprapubic catheter Extremities: no edema Objective Last Vital Signs Temp 37.1 C 07/09/22 15:42 Pulse 85 07/09/22 15:42 Resp 18 07/09/22 15:42 BP 111/66 07/09/22 15:42 Pulse Ox 96 07/09/22 15:42 Laboratory Results - last 24 hr 07/05/22 07/06/22 07/06/22 22:05 08:35 08:35 WBC RBC Hgb Hct MCV MCH MCHC RDW Plt Count MPV Immature Gran % Neutrophils % Lymphocytes % Monocytes % Eosinophils % Basophils % Nucleated RBC % Absolute Neutrophils Absolute Lymphocytes Absolute Monocytes Absolute Eosinophils Absolute Basophils RBC Morphology Sodium Potassium Chloride Carbon Dioxide Anion Gap BUN Creatinine Est GFR (CKD-EPI 2020) Glucose Calcium Magnesium C-Reactive Protein Albumin Procalcitonin Urine Color Urine Clarity Urine pH Ur Specific [place] Urine Protein Urine Ketones Urine Blood Urine Nitrite Urine Bilirubin Urine Urobilinogen Ur Leukocyte Esterase Urine RBC Urine WBC Ur Epithelial Cells Urine Crystals Urine Bacteria Urine Casts Urine Mucus Ur Culture Indicated? Urine Osmolality 908 Urine Glucose Vancomycin Trough Hep Bs Antigen Negative Hepatitis C Antibody Negative Add-On Test Request 07/09/22 07/09/22 07/09/22 05:32 05:32 05:32 WBC 5.52 RBC 3.37 L Hgb 11.4 L Hct 34.5 L MCV 102 H MCH 33.8 H MCHC 33.0 RDW 12.9 Plt Count 68 L MPV 12.7 H Immature Gran % 0.7 Neutrophils % 74.4 Lymphocytes % 12.9 Monocytes % 11.6 Eosinophils % 0.2 Basophils % 0.2 Nucleated RBC % 0.0 Absolute Neutrophils 4.11 Absolute Lymphocytes 0.71 L Absolute Monocytes 0.64 Absolute Eosinophils 0.01 Absolute Basophils 0.01 RBC Morphology Normal Sodium 145 Potassium 3.5 Chloride 111 H Carbon Dioxide 27.2 Anion Gap 6.8 BUN 19 H Creatinine 0.8 Est GFR (CKD-EPI 2020) 92.29 Glucose 97 Calcium 7.5 L Magnesium 1.9 C-Reactive Protein 7.86 H Albumin Procalcitonin 0.1 Urine Color Urine Clarity Urine pH Ur Specific [place] Urine Protein Urine Ketones Urine Blood Urine Nitrite Urine Bilirubin Urine Urobilinogen Ur Leukocyte Esterase Urine RBC Urine WBC Ur Epithelial Cells Urine Crystals Urine Bacteria Urine Casts Urine Mucus Ur Culture Indicated? Urine Osmolality Urine Glucose Vancomycin Trough Hep Bs Antigen Hepatitis C Antibody Add-On Test Request 07/09/22 07/09/22 07/09/22 05:32 05:35 09:05 WBC RBC Hgb Hct MCV MCH MCHC RDW Plt Count MPV Immature Gran % Neutrophils % Lymphocytes % Monocytes % Eosinophils % Basophils % Nucleated RBC % Absolute Neutrophils Absolute Lymphocytes Absolute Monocytes Absolute Eosinophils Absolute Basophils RBC Morphology Sodium Potassium Chloride Carbon Dioxide Anion Gap BUN Creatinine Est GFR (CKD-EPI 2020) Glucose Calcium Magnesium C-Reactive Protein Albumin 1.7 L Procalcitonin Urine Color Urine Clarity Urine pH Ur Specific [place] Urine Protein Urine Ketones Urine Blood Urine Nitrite Urine Bilirubin Urine Urobilinogen Ur Leukocyte Esterase Urine RBC Urine WBC Ur Epithelial Cells Urine Crystals Urine Bacteria Urine Casts Urine Mucus Ur Culture Indicated? Urine Osmolality Urine Glucose Vancomycin Trough 22.1 H* Hep Bs Antigen Hepatitis C Antibody Add-On Test Request DONE 07/09/22 14:03 WBC RBC Hgb Hct MCV MCH MCHC RDW Plt Count MPV Immature Gran % Neutrophils % Lymphocytes % Monocytes % Eosinophils % Basophils % Nucleated RBC % Absolute Neutrophils Absolute Lymphocytes Absolute Monocytes Absolute Eosinophils Absolute Basophils RBC Morphology Sodium Potassium Chloride Carbon Dioxide Anion Gap BUN Creatinine Est GFR (CKD-EPI 2020) Glucose Calcium Magnesium C-Reactive Protein Albumin Procalcitonin Urine Color Yellow Urine Clarity Sl Cloudy Urine pH 5.5 Ur Specific [place] 1.025 Urine Protein 30 H Urine Ketones 40 H Urine Blood Moderate H Urine Nitrite Negative Urine Bilirubin Negative Urine Urobilinogen 0.2 Ur Leukocyte Esterase Negative Urine RBC 10-20 H Urine WBC 3-5 Ur Epithelial Cells Rare Urine Crystals Negative Urine Bacteria Few Urine Casts 0-2 Hyaline Urine Mucus Trace Ur Culture Indicated? C&S Done As Ordered Urine Osmolality Urine Glucose Negative Vancomycin Trough Hep Bs Antigen Hepatitis C Antibody Add-On Test Request
[2022-07-09 19:35] VITALS: BP 109/59; PULSE 90; RESP 19; TEMP 37.6; O2SAT 96
[2022-07-09 23:59] VITALS: BP 94/54; PULSE 76; RESP 18; TEMP 36.7; O2SAT 97
[2022-07-10] MEDS: SODIUM CHLORIDE 0.45% 1,000 ML 75 ML IV ×2 (00:25→09:14)
[2022-07-10 03:17] VITALS: BP 105/57; PULSE 80; RESP 20; TEMP 37.3; O2SAT 97
[2022-07-10] MEDS: VANCOMYCIN/WATER (PEG) 1 GM/200 ML BAG IV ×2 (03:17→14:55)
[2022-07-10 07:15] LABS: Abs Immature Grans 0.03 10^3/uL (0.0-0.06); Absolute Eosinophil Count 0.05 10^3/uL (0.0-0.7); Absolute Lymphocyte Count 0.82 10^3/uL (1.2-3.4); Absolute Monocyte Count 0.62 10^3/uL (0.1-0.8); Absolute Neutrophil Count 3.09 10^3/uL (1.2-6.7); Eosinophils % 1.1; HCT 31.2 % (40.0-50.0); HGB 10.9 g/dL (13.5-17.5); Immature Grans % 0.7; Lymphocytes % 17.8; MCH 34.9 pg (27.0-33.0); MCHC 34.9 % (32.0-36.0); MCV 100 fL (80-95); MPV 12.9 fL (8.0-11.0); Monocytes % 13.4; RBC 3.12 10^6/uL (4.36-5.78); RDW 12.7 % (11.8-14.1); RDW-SD 46.5 fL; WBC 4.61 10^3/uL (4.4-10.8)
[2022-07-10 07:42] LABS: Anion Gap 8.3 mmol/L (3-11); BUN 15 mg/dL (7-18); CO2 24.7 mmol/L (21.0-32.0); CREATININE 0.7 mg/dL (0.70-1.30); Calcium 7.2 mg/dL (8.5-10.1); Chloride 110 mmol/L (98-107); Estimated GFR 96.09 (mL/min/1.73m2); Glucose 72 mg/dL (74-106); Magnesium 1.9 mg/dL (1.8-2.4); Sodium 143 mmol/L (136-145)
[2022-07-10 08:10] VITALS: BP 100/62; PULSE 86; RESP 18; TEMP 36.8; O2SAT 97
[2022-07-10 08:25] LABS: Diff Comment Diff Reviewed; Platelet Count 83 10^3/uL (130-400); RBC Morphology Normal
[2022-07-10] MEDS: Protein Nutritional Supplement 16 GM 1 OUNCE PACKET PO ×2 (09:17→14:11)
[2022-07-10] MEDS: Oseltamivir 30 MG CAP PO ×2 (09:18→21:39)
[2022-07-10] MEDS: Cyanocobalamin 500 MCG TAB 1000 MCG PO (09:18)
[2022-07-10] MEDS: Psyllium PKT 1 EACH PO (09:18)
[2022-07-10] MEDS: POTASSIUM CHLORIDE 20 MEQ/100 ML BAG 50 MEQ IVPB ×2 (11:18→13:22)
[2022-07-10 12:23] VITALS: BP 112/60; PULSE 79; RESP 20; TEMP 37.6; O2SAT 97
[2022-07-10] MEDS: cefTRIAXone 1 GM/50 ML BAG IVPB (14:11)
[2022-07-10 14:25] LABS: Source Nasal/Nares
--- NOTE | 2022-07-10 14:32 | INDS_ITS ---
Date of service: 07/10/22 PT Notes Visit Reasons: UTI w/MS Changes, Influenza A, Hypernatremia Physical Therapy Inpatient Discharge Summary Date: 07/10/22 DAtes of Service: 07/06/2022 through 07/08/2022 Referring Doctor: Gloria Lawrence MD PT Orders: PT CONSULT: Limited Ability Precautions: Fall. Standard. Droplet. Patient Profile/Admitting Diagnosis:?Jose is 76 yo male that presented to the ER on 07/05/22 for altered mental status that had been worsening over the past three days. Was found to have URI and influenza A. Several pressure ulcers on body. PMHX: See EMR Social History/Home Situation: Per chart review lives in home with spouse and sons on the property. Home conditions unsanitary and patient has been bed bound. Equipment Owned/DME: Unknown Subjective:? NT. See most recent SENIOR [employer]IMAL TRAINER notes. Objective:? General Observation: NT. See most recent SENIOR ANIMAL TRAINER notes. Mental Status: NT. See most recent SENIOR ANIMAL TRAINER notes. Pain: NT. See most recent SENIOR ANIMAL TRAINER notes. ROM: Right Upper Extremity: Shoulder Flexion WFL. Shoulder abduction WFL. Elbow flexion WFL. Wrist flexion WFL. Opening and closing of hand WFL. Left Upper Extremity: Shoulder Flexion WFL. Shoulder abduction less than 90 degrees. Elbow flexion WFL. Wrist flexion WFL. Opening and closing of hand WFL. Right Lower Extremity: Hip flexion WFL. Hip abduction diminished. Knee flexion WFL. Ankle dorsiflexion diminished. Ankle plantarflexion WFL. Left Lower Extremity: Hip flexion WFL. Hip abduction diminished. Knee flexion WFL. Ankle dorsiflexion diminished. Ankle plantarflexion WFL. Strength: Patient did not participate in strength screening other than conference specialist strength which is weak bilaterally. Sensation:? Unable to respond for appropriate assessment. Bed Mobility/Transfers: Rolling: Dependent Supine to sit: Dependent Sit to supine: Dependent Sit to stand: Dependent Stand to sit: Dependent Bed to chair: Dependent Chair to bed: Dependent Gait:?Unable to assess Balance:?Unable to assess Special Tests: Mobility Limitations Standardized Measure [facility] 6 clicks Basic Mobility Inpatient Short Form: Raw Score: 24 ? CMS Score: 100% Informed Consent/Education:?Patient instructed in purpose of PT consult and plan of care. Assessment: Patient has been chronically bed-bound and is at pre-admission bed mobility level at this time requiring assist of 1 to 2. Current cognitive level is precluding any further attempts at mobility progression. Continue with assist of 1-2 people for all bed mobility tasks. Will discontinue services once care management is notified of plan. Goals: Goals x1 week 1. Supine-Sit: Mod A. DISCONTINUE. Patient is at highest/pre-admission bed mobility level at this time requiring assist of 2 2. Sit-Supine: Mod A. DISCONTINUE. Patient is at highest/pre-admission bed mobility level at this time requiring assist of 2 3. Sit-Stand: Max A. DISCONTINUE. Patient is at highest/pre-admission bed mobility level at this time requiring assist of 2 4. Stand-Sit: Max A. DISCONTINUE. Patient is at highest/pre-admission bed mobility level at this time requiring assist of 2 5. Bed-Chair: Mod A. DISCONTINUE. Patient is at highest/pre-admission bed mobi lity level at this time requiring assist of 2 6. Chair-Bed: Mod A. DISCONTINUE. Patient is at highest/pre-admission bed mobility level at this time requiring assist of 2 Discharge Plan DISCHARGE RECOMMENDATIONS: SNF versus LTC based on ability to participate and progress TREATMENT CODE/TIME: NC Thank you for the opportunity to participate in the care of this patient. Emma Watson PT, DPT, CLT [facility] [place], [place]
[2022-07-10 15:01] LABS: COVID-19 PCR Negative (Negative)
[2022-07-10 15:13] VITALS: BP 108/59; PULSE 88; RESP 18; TEMP 37.5; O2SAT 97
--- NOTE | 2022-07-10 15:49 | PCNE_ITS ---
Date of service: 07/10/22 Time of Service: 14:00 History of Present Illness Narrative: Mr. Garcia is a 76 y/o M currently inpatient at [facility] 2/2 UTI, AMS and dehydration; visit w/ daughter MINOO Vaughnya, Lissy unavailable Jose agrees to short visit, states he does not trust many people, lists son Lissy as person for health care decisions. denies pain, mouth hurts occasionally. feeling better today. aware that he is not eating well, unsure of preferences on FT vs inadequate oral intake, aware that prolonged period would lead to ; preference to hold conversation. per Lacey: Jose had a fall w/knee injury x6 years ago which he did not want to get worked up and l/t sedentary lifestyle; has been bed bound x4ish years, a few months ago he started having some non-distressing visual hallucinations. He has been receiving total ADL assist for several months, up until this hospitaliz ation was able to feed self; steady decline in memory/confusion; x3 wks ago he became significantly worse w/decreased oral intake, decreased urine, decreased verbal communication, and drop in weight. significant oral pain, w/presumed dentition involvement. He does not like to have HOB elevated, is resistant to repositioning and hygiene care. for years he has refused presenting to doctors/providers/health care visits, of all kinds, has cancelled several in the past and states to family I don't want to go, including a dentist since onset of oral pain. He has no paperwork documenting advance care planning or Advanced Directive or identified HCA; Lacey states that Lissy and her both share a verbal DPOA. She states that he does not want to be on machines, would want his pain treated. His top priority would be returning home. 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 per inpatient team: he has been more verbal today, intake increased to 25% at breakfast, from next to nothing days prior; he is moving his bowels, total care assist; wounds consult active, 9 wounds w/some unstageable some stage 2; labs worsening, CRP jumped today, C/S report confirms correct abx per HINGING MACHINE OPERATOR visit w/Lacey s/p eval: swallowing concerns w/quality of life, safety, decreased intake; risk of aspiration; one option to do MBSS on Friday to r/o structural anomalies, if this aligned w/his care goals; recommend elevate HOB pre/post meals, increased oral hygiene Assessment and Plan Assessment and plan (1) MRSA bacteremia: Status: Acute Assessment and plan: continue abx at this time (2) Decubitus skin ulcer: Status: Acute Assessment and plan: continue wound care, frequent repositioning monitor for pain, consider premedication if needed (3) Influenza A: Status: Acute (4) Dysphagia: Status: Acute Assessment and plan: HINGING MACHINE OPERATOR following, MBSS on Fri if decision for swallow study reviewed w/Lacey options to review w/Lissy (5) Neuro-degenerative disorders: Status: Acute Assessment and plan: never had work up Lacey reports [facility] did memory test, unsure of results (6) Inability to walk: Status: Acute (7) Avoidance coping: Status: Chronic Assessment and plan: does not like doctors, avoided for several years, h/o cancelling appointments (8) Bedbound: Status: Acute (9) Hallucinations: Status: Acute Assessment and plan: non-distressing (10) Protein malnutrition: Status: Chronic Assessment and plan: reviewed options of feeding tube vs supportive care on hospice, Lacey and Lissy to review f/u tomorrow to review w/Jose and above (11) Discharge planning issues: Status: Acute Assessment and plan: pending POC, to be determined consider hospice on discharge regardless (12) UTI (urinary tract infection): Status: Resolved Assessment and plan: suprapubic cath in place, [facility] following continue abx at this time (13) Weakness: Status: Chronic (14) Poor dentition: Assessment and plan: dental consult to be placed (15) Palliative care patient: Assessment and plan: PC to continue to follow, family meeting tomorrow at 2:30 (16) Encounter for hospice care discussion: Status: Acute Assessment and plan: reviewed hospice eligibility, may go home on hospice as early as tomorrow based on care preferences add to hospice watch list, eligible DME needed: hospital bed, potentially anushka; continue to assess (17) Advance directive status unknown: Status: Acute Assessment and plan: Jose lists [facility]CA as son Lissy, form completed recommended Lacey bring in paperwork at home for review, as it pertains to medical care to continue to review preferences for CODE status, feeding tube, antibiotics and hydration family meeting tomorrow at 2:30p Review of Systems Constitutional Constitutional: Reports as per HPI PFSH All Active Problems (Updated 07/10/22 @ 16:42 by Alia Rees NP) Advance directive status unknown (Acute) Encounter for hospice care discussion (Acute) MRSA bacteremia (Acute) Decubitus skin ulcer (Acute) Influenza A (Acute) Thrombocytopenia (Chronic) Paroxysmal A-fib (Chronic) Elevated transaminase level (Acute) Dysphagia (Acute) Neuro-degenerative disorders (Acute) Acute UTI (Acute) Altered mental status (Acute) Lower urinary tract symptoms (LUTS) (Acute) History of BPH (Acute) Unspecified dementia without behavioral disturbance (Acute) Babinski reflex (Acute) Clonus (Acute) Inability to walk (Acute) Wheelchair bound (Acute) Spasticity (Acute) Limited literacy (Chronic) Francois catheter in place (Acute) History of bloody stools (Acute) Avoidance coping (Chronic) no medical care x 10 yrs [id number] Disoriented (Acute) Bedbound (Acute) Hallucinations (Acute) Protein malnutrition (Chronic) Loss of taste (Acute) Discharge planning issues (Acute) Ambulatory dysfunction (Chronic) DVT prophylaxis (Acute) Weakness (Chronic) Medical History Colon cancer Difficulty swallowing solids H/O prostate cancer Hypoalbuminemia Incontinence Palliative care patient Poor dentition Tachycardia Urinary retention Very poor mobility Surgical History S/P colectomy 2009 for colon cancer Family History Son No problems noted. Son No problems noted. Mother , about age 80 unknown cause of , per family No problems noted. Father , about age 70 family doesn't know COD No problems noted. Social History Smoking/Tobacco Use Status: Former Tobacco Use Tobacco: How many years used: 50 Smoking risk assessment performed?: Yes Alcohol Intake: current Alcohol Intake frequency: 0-2 drinks per day Alcohol type: beer Counseling provided: support program Details: used to drink and smoke heavily until about 5 years ago/2014 Drug use: Never Substance use type: does not use Caregiver/Support person: Yes Household members: spouse, family and children Housing: house Number of Children: 2 number of grandchildren: 8 Communication Needs: Hard of Hearing and Corrective Lenses Education Level: middle school Do you need help understanding health information?: Always 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, 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 per ems home living situation is very unsanitary. Has 2 sons, Lissy and Adolfo, who help take care of Jose. Both live on the property. Exam Const General: cooperative, no acute distress, frail appearing and ill appearing Orientation: alert, awake, not oriented to place and oriented to time (snow season) [facility] Head: normocephalic, atraumatic and no acral cyanosis Ears: hearing grossly impaired Resp Effort & Inspection: normal respiratory effort and cough Quality of cough: wet Other: audible rattled breathing Psych Speech and Movement: delayed speech Affect: indifferent Attitude: cooperative and guarded Thought Process: impoverished Other: fatigued able to answer closed ended questions Results Last Vital Signs Temp 99.5 F 07/10/22 15:13 Pulse 88 07/10/22 15:13 Resp 18 07/10/22 15:13 BP 108/59 L 07/10/22 15:13 Pulse Ox 97 07/10/22 15:13 Labs Result diagrams: 07/10/22 06:28 07/10/22 06:28 Labs: Laboratory Results - last 24 hr 07/10/22 07/10/22 07/10/22 06:28 06:28 12:28 WBC 4.61 RBC 3.12 L Hgb 10.9 L Hct 31.2 L MCV 100 H MCH 34.9 H MCHC 34.9 RDW 12.7 Plt Count 83 L MPV 12.9 H Immature Gran % 0.7 Neutrophils % 67.0 Lymphocytes % 17.8 Monocytes % 13.4 Eosinophils % 1.1 Basophils % 0.0 Nucleated RBC % 0.0 Absolute Neutrophils 3.09 Absolute Lymphocytes 0.82 L Absolute Monocytes 0.62 Absolute Eosinophils 0.05 Absolute Basophils 0.00 RBC Morphology Normal Sodium 143 Potassium 3.0 L Chloride 110 H Carbon Dioxide 24.7 Anion Gap 8.3 BUN 15 Creatinine 0.7 Est GFR (CKD-EPI 2020) 96.09 Glucose 72 L Calcium 7.2 L Magnesium 1.9 C-Reactive Protein 10.50 H COVID-19 Source Nasal/Nares SARS-CoV-2 (PCR) Negative
--- NOTE | 2022-07-10 15:52 | SPP_ITS ---
Date of service: 07/10/22 Time of Service: 14:00 Subjective Subjective and Interim Updates: Jose was contacted at bedside this date. His [id number], Lacey was present for majority of this session. Family was to have meeting with Palliative care this afternoon. Lacey reports he has had a lot of trouble with his throat lately but with vague description of what that entailed. She also reports history of a hole in his throat that was fixed. Not a tracheostomy. Not congenital. Seeming to think it was surgically repaired at [facility], but chart review reveals only colon issues. During today's session, patient endorses 9/10 tooth pain. Patient is able to endorse difficulties with swallowing during session this date such as confirming he thinks something didn't go down the right tube, but does not appear to retain insight into his level of impairment. Second ROUTE SALES DELIVERY DRIVERS SUPERVISOR in training also present for this session. Mental status improved today, patient speaking full utterances and sentences. Continues with intermittent unintelligible utterances but more verbally responsive, less lethargic, and improved ability to follow instructions this date. Continues with difficulty performing many oral-motor tasks on assessment this date. Oral care reportedly performed multiple times per nursing. Improved tongue appearance this date, reduced film/buildup, though tongue remains dry/red in appearance. Continue to note pale patches on roof of mouth, unsure if abnormal. Per Nursing, patient regurgitates with PO intake this date, very inefficient. Improved over previous (almost no intake) to about 25% so far this date. Objective/Assessment/Plan Objective Treatment Techniques & Outcomes: Examination: Mental status improved today, patient speaking full utterances and sentences. Continues with intermittent unintelligible utterances but more verbally responsive, less lethargic, and improved ability to follow instructions this date. Continues with difficulty performing many oral-motor tasks on assessment this date. Per Lacey's report, he is close to baseline mentation this session. GOALS: 1. Re-evaluation by ROUTE SALES DELIVERY DRIVERS SUPERVISOR to monitor progress and asses for readiness to participate in therapeutic activities. Completed this date, will continuously re-assess, possibility for MBSS pending patient/family goals of care. Oral care provided:? Attempting to provide oral care using swabs, patient able to tolerate several lingual sweeps with swab but ultimately limited oral care achieved due to pain and oral behaviors/fixations. Benefits from additional processing time with instructions and frequent encouragement/rationale to continue with oral care. Food items tested: ?? x Ice:x2 x Thin liquids x 4 tsp x Mildly Thick Liquids x8 tsp + 1 cup sip Oral phase: Difficulty with bolus manipulation (improved) ? Difficulty with a-p transport (improved) ? Difficulty chewing Pharyngeal phase: ? Delayed swallow initiation ? Cough after swallow with thin liquids>ice and mildly thick, mild throat clears with thickened liquid. Of note patient endorses sensation of aspiration with thin liquids and refuses further trials, but denies sensation of aspiration with thickened liquids. Regurgitation with Expectoration of solids after swallow attempts Other: Belching observed after liquid/puree trials, regurgitation of solid bolus after swallow attempts. 2. Patient/family will be verbalize understanding of dysphagia education r/t normal vs disordered swallow function, impact of disease processes on swallow function, relationship between respiratory function and deglutition, importance of frequent and diligent oral care, and safe swallow strategies/risk management strategies to reduce risk of pulmonary complications of aspiration. R[employer] SALES DELIVERY [employer]IV[employer] SUPERVISOR joined Palliative conversation with Lacey, at end of session this date and provided education r/t patient's level of function vs normal swallow function, importance of oral care & patient positioning for meals and after meals, discussed difficulty of balancing patient's QOL vs swallow safety vs adequate nutrition at this time and importance of discussing priorities with palliative. Discussed role of swallowing function/efficiency in getting adequate nutrition as well as in maintaining pulmonary status. Role of MBSS to inform prognosis and decisions r/t feeding tube as well as determine safest/least restrictive diet. Lacey verbalizes understanding. Assessment Patient shows improved participation in PO trials this date, and improved tolera nce over previous. He has reportedly also shown some more interest in PO intake but remains with very poor efficiency. Swallow impairment is likely to continue to impact his ability to take adequate nutrition especially given existing protein malnutrition. Also question if level of oral pain is contributing to his reduced PO intake, as well as possible esophageal impairments given observations this date. Palliative discussed feeding tube with family this day, they will discuss and decide on supportive/hospice care vs feedign tube. Education was provided to family regarding risk management strategies and concerns regarding difficulty balancing safety, efficiency, and quality of life given his current swallow function and PO intake. Pending outcome of family discussion and goals of care, continue to consider if patient would benefit from MBSS while inpatient. Possibility for this Friday (in 2 days). Appreciate MD examination of oral structures and consideration of oral pain management, dental extraction. Currently patient not a good candidate for freewater protocol between meals due to poor oral hygeine and suspected neuro-degenerative status. Pending goals of care, this may be reconsidered. Plan Plan: ROU[employer] SALES DELIVERY [employer]IVERS SUPERVISOR to follow while on unit. Recommendations Recommendations: DISCHARGE:?Pending goals of care; cont with ROUTE SALES DELIVERY DRIVERS SUPERVISOR or DC to Care Home/LTC with ROUTE SALES DELIVERY DRIVERS SUPERVISOR services provided. Instrumentation:?consider MBSS while inpatient if patient status improves to tolerate this and pending goals of care. Diet Texture Modification(s):?(Per ROU[employer] SALES DELIVERY DRIVERS SUPERVISOR recommendations) 4-Pureed Solids 2-Mildly Thick Liquids Medication Intake: Whole or crushed (if able) with 2-Mildly Thick Liquids Liquid formulations thickened to level 2 Mildly Thick may be beneficial if available. Alter medications only as advised by MD or Pharmacist RISK MANAGEMENT: Oral hygiene q4h/every 4 hours and before/after PO intake using friction with toothbrush on all oral structures as tolerated HOB upright as tolerated; upright for all PO intake. Encourage physical mobility as tolerated. Level of Assistance/Supervision: Assistive feeding only by trained staff/family PO intake only when awake/alert? Strategies/Adaptations/Assistive Equipment: Reduce auditory and/or visual distractions when eating, Provide verbal and/or visual cues to use recommended strategies, Small sips and bites when eating, Slow rate of intake, Swallow between bites, Alternate intake of liquids and solids, Small+frequent meals throughout day Posture/Positioning Needs: Sleep with head of bed elevated to reduce likelihood of nocturnal reflux CODIN Swallow treat Time spent: 50 minutes Coding
--- NOTE | 2022-07-10 16:41 | PDOC.CMPRO ---
- If Service Date Differs Date of service: 07/10/22 Time of Service: 16:41 Care Management Progress Note S/O: Jose remains inpatient, he was clearer today and met with Palliative Care; verbalizing his wishes for Lissy to be his healthcare agent; CM witnessed form with Alia of Palliative Care. CM spoke with Lacey, his DIL who met with Alia for Palliative consult as well, per Alia, repeat consult anticipated for tomorrow with son, and new HCA Lissy, present. Jose was lying in bed, pleasant in interaction. Per Dr. Lawrence, dentist consult will be ordered as well. CM continues to follow. A: 76 year old male admitted to [facility] 07/05/22 for UTI with AMS, Influenza A, Hypernatremia P: Anticipate Jose will discharge home via private w/c van when medically ready. He will follow up with community providers and discharge plan of care as prescribed. Pt will will resume 24/ caregiver support with resumption of [facility] RN/PT/ST, add FRACTIONATING STILL OPERATOR. Anticipate Alia will discuss Hospice services in more detail tomorrow as Lacey is advocating for hospital bed, to support Jose in sitting up (ST recommendation as well). CM continues to follow.
[2022-07-10] MEDS: POTASSIUM CHLORIDE/D5-0.45NACL 1,000 ML 125 MEQ IV (17:29)
[2022-07-10] MEDS: ACETAMINOPHEN 1,000 MG/100 ML BTL 400 MG IVPB (17:30)
[2022-07-10 19:34] VITALS: BP 100/64; PULSE 81; RESP 18; TEMP 36.6; O2SAT 96
--- NOTE | 2022-07-10 20:02 | W.PM.PROGNOT ---
Date of Service Date of service: 07/10/22 Time of Service: 17:40 Assessment and Plan Assessment and plan (1) Acute UTI: Status: Acute Assessment and plan: Present on admission, causing toxic metabolic encephalopathy, due to a mixed culture Gram negative and gram positive tracy. Suprapubic tube had to be replaced (the original one fell out). MRSA bacteremia might be related to this Urine C&S mixed and is at this point final. Continue empiric vanco/ceftriaxone. Would finish 7 days of ceftriaxone (today is day 5 of abx). Repeat blood cultures w/ NGTD. CT w/o evidence of hydronephrosis/stones, etc. (2) MRSA bacteremia: Status: Acute Assessment and plan: ?related to UTI. Continue vancomycin. Repeat blood cx negative. No valvular lesions seen on echo. Trend procalcitonin and CRP. CRP is going up but clinically improving. (3) Altered mental status: Status: Acute Assessment and plan: As above. Improved. Treat UTI/bacteremia and continue to monitor mental status. Does have documented h/o dementia and a neurodegenerative process. Neurology not available this week. (4) Acute hypernatremia: Status: Resolved Assessment and plan: Not drinking on his own. Palliative care consulted to discuss, among other things, the question of feeding tube. Continue 1/2 NS with potassium. Continue to monitor sodiums. (5) Rhabdomyolysis: Status: Resolved (6) ERIKA (acute kidney injury): Status: Resolved Assessment and plan: agree that this is likely prerenal. No evidence of obstructive uropathy on CT. Cr is back to baseline. (7) Dysphagia: Status: Acute Assessment and plan: Speech consulted. Palliative care consulted: the patient is extremely resistant to PO intake. Some of this may be due to oral pain. Obtain a dentist consult for a tooth extraction. Consider feeding tube vs hospice. (8) Influenza A: Status: Acute Assessment and plan: Continue renally dosed oseltamivir. (9) Neuro-degenerative disorders: Status: Acute Assessment and plan: Neurology is not available this week. Chronic outpatient condition that appears to not have been followed up. Consider comfort measures/hospice. (10) Protein malnutrition: Status: Chronic Assessment and plan: continue supplements. Nutrition recommends: Supplement with ensure plus TID and liquid protein 1 oz TID If tube feeding to be initiated recommend Osmolite 1.5 with goal rate of 50 cc/hour, flush 250 q 6 hours.? Once at goal rate, d/c liquid protein as no longer warranted as tube feeding with provide 1800 kcal, 75 g protein and 1860 ml fluid Conversation with palliative care re feeding tube. (11) Urinary retention: Assessment and plan: s/p suprapubic catheter. F/u as outpatient. The catheter was exchanged twice on this admission. (12) Elevated transaminase level: Status: Acute Assessment and plan: Suspect this is due to rhabdomyolysis. Hepatitis panel negative. No evidence of hepatin masses on CT. No evidence of cirrhosis on imaging. (13) Paroxysmal A-fib: Status: Chronic Assessment and plan: if desired, this can be followed up as outpatient with a cardiac event recorder. He sounded mostly regular on my exam and this is not why he is hospitalized. I do think he would be a poor candidate for anticoagluation. (14) Thrombocytopenia: Status: Chronic Assessment and plan: B12 level low. Replete. (15) Decubitus skin ulcer: Status: Acute Assessment and plan: wound care consult done. Care management consulted with home health and they do not feel that the patient is neglected at home. He lives in a trailer with 8 other people who are his support. Palliative care consulted. Consider hospice. Consider SNF. (16) DVT prophylaxis: Status: Acute Assessment and plan: SCDs Hold chemical dvt ppx in light of thrombocytopenia (17) Discharge planning issues: Status: Acute Assessment and plan: Full code Continues to require hospitalization. Palliative care, PT, Speech consulted. Subjective Subjective Interval history since last seen: Jose is verbalizing more today and having a good day. HE continues to report tooth pain. He says whatever when I ask him if he would be interested in having the tooth pulled. He denies chest pain, shortness of breath, nausea. He knows he is in the hospital, but does not know where the hospital is. Met with palliative care - assigned a DPOA. Exam Narrative Exam Narrative: General: Elderly male who is awake and interactive, A&Ox2, following commands HEENT: EOMI, MMM, Permits a limited exam of his mouth, but I am not able to visualize the roof of his mouth Heart: RRR with an occasional extra beat Lungs: CTAB, coughs occasionally Abdomen: soft, nontender, nondistended; has a suprapubic catheter Extremities: no edema Objective Last Vital Signs Temp 36.6 C 07/10/22 19:34 Pulse 81 07/10/22 19:34 Resp 18 07/10/22 19:34 BP 100/64 07/10/22 19:34 Pulse Ox 96 07/10/22 19:34 Laboratory Results - last 24 hr 07/10/22 07/10/22 07/10/22 06:28 06:28 12:28 WBC 4.61 RBC 3.12 L Hgb 10.9 L Hct 31.2 L MCV 100 H MCH 34.9 H MCHC 34.9 RDW 12.7 Plt Count 83 L MPV 12.9 H Immature Gran % 0.7 Neutrophils % 67.0 Lymphocytes % 17.8 Monocytes % 13.4 Eosinophils % 1.1 Basophils % 0.0 Nucleated RBC % 0.0 Absolute Neutrophils 3.09 Absolute Lymphocytes 0.82 L Absolute Monocytes 0.62 Absolute Eosinophils 0.05 Absolute Basophils 0.00 RBC Morphology Normal Sodium 143 Potassium 3.0 L Chloride 110 H Carbon Dioxide 24.7 Anion Gap 8.3 BUN 15 Creatinine 0.7 Est GFR (CKD-EPI 2020) 96.09 Glucose 72 L Calcium 7.2 L Magnesium 1.9 C-Reactive Protein 10.50 H COVID-19 Source Nasal/Nares SARS-CoV-2 (PCR) Negative
[2022-07-10 20:27] LABS: HIT ELISA 0.068 OD (<0.400); HIT Interpretation Negative (Negative)
[2022-07-10 22:48] VITALS: BP 102/59; PULSE 76; RESP 18; TEMP 36.5; O2SAT 96
[2022-07-11] VITALS (7 sets, daily range): BP systolic 96–131; BP diastolic 49–70; PULSE 68–82; RESP 16–18; TEMP 36–36.7; O2SAT 93–98
[2022-07-11] MEDS: VANCOMYCIN/WATER (PEG) 1 GM/200 ML BAG IV (02:12)
[2022-07-11] MEDS: POTASSIUM CHLORIDE/D5-0.45NACL 1,000 ML 125 MEQ IV ×2 (02:12→21:00)
[2022-07-11] MEDS: ACETAMINOPHEN 1,000 MG/100 ML BTL 400 MG IVPB ×3 (02:12→18:12)
[2022-07-11 07:23] LABS: Abs Immature Grans 0.03 10^3/uL (0.0-0.06); Absolute Eosinophil Count 0.08 10^3/uL (0.0-0.7); Absolute Lymphocyte Count 0.75 10^3/uL (1.2-3.4); Absolute Monocyte Count 0.56 10^3/uL (0.1-0.8); Eosinophils % 1.9; HCT 34.6 % (40.0-50.0); HGB 12.2 g/dL (13.5-17.5); Immature Grans % 0.7; Lymphocytes % 18.2; MCH 34.6 pg (27.0-33.0); MCHC 35.3 % (32.0-36.0); MCV 98 fL (80-95); MPV 12.8 fL (8.0-11.0); Monocytes % 13.6; Neutrophils % 65.6; RBC 3.53 10^6/uL (4.36-5.78); RDW-SD 45.8 fL; WBC 4.11 10^3/uL (4.4-10.8)
[2022-07-11 07:30] LABS: Anion Gap 8.7 mmol/L (3-11); BUN 12 mg/dL (7-18); C-Reactive Protein 4.92 mg/dL (0.0-0.3); CO2 23.3 mmol/L (21.0-32.0); CREATININE 0.8 mg/dL (0.70-1.30); Chloride 111 mmol/L (98-107); Estimated GFR 92.29 (mL/min/1.73m2); Glucose 111 mg/dL (74-106); Magnesium 1.8 mg/dL (1.8-2.4); Potassium 3.2 mmol/L (3.5-5.1); Sodium 143 mmol/L (136-145)
[2022-07-11] MEDS: Cyanocobalamin 500 MCG TAB 1000 MCG PO (07:45)
[2022-07-11 07:51] LABS: Platelet Count 87 10^3/uL (130-400)
[2022-07-11] MEDS: POTASSIUM CHLORIDE 20 MEQ/100 ML BAG 50 MEQ IVPB ×2 (09:00→12:10)
[2022-07-11] MEDS: Normal Saline Flush 10 ML SYR IVP (09:00)
--- NOTE | 2022-07-11 09:21 | PDOC.CMPRO ---
- If Service Date Differs Date of service: 07/11/22 Time of Service: 09:21 Care Management Progress Note S/O: Jose remains acutely ill and is being closely monitored and treated. He has some underlying dementia and several providers have determined that he does not have capacity to make healthcare decisions. A family meeting was held today with his son Lissy and [id number] Lacey. After the meeting with Alia Rees and a meeting with Dr. Arias, the family decided to continue with aggressive antibiotic therapy but no change in code status or decisions about feeding tubes etc, were made. Jose remains a full code. A followup Palliative Care meeting with Dr. Hartley is scheduled for tomorrow morning at 8:30am. A: 76 year old male admitted to [facility] 07/05/22 for UTI with AMS, Influenza A, Hypernatremia P: Anticipate Jose will discharge home via private w/c van when medically ready. He will follow up with community providers and discharge plan of care as prescribed. 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 Lacey is advocating for hospital bed, to support Jose in sitting up (ST recommendation as well). CM continues to follow.
[2022-07-11 14:20] LABS: Potassium 3.8 mmol/L (3.5-5.1)
[2022-07-11 14:30] LABS: Vancomycin, Trough 24.4 ug/mL (10.0-20.0)
[2022-07-11] MEDS: cefTRIAXone 1 GM/50 ML BAG IVPB (14:31)
--- NOTE | 2022-07-11 15:27 | W.PM.PROGNOT ---
Date of Service Date of service: 07/11/22 Time of Service: 15:27 Assessment and Plan Assessment and plan (1) Acute UTI: Status: Acute Assessment and plan: Urine culture grew Pseudomonas aeruginosa. Patient is currently on ceftriaxone while may be adequate not optimal cephalosporin for Pseudomonas coverage. I switch his antibiotics to Fortaz. He has a suprapubic catheter and has a history of recurrent UTIs. Repeat blood cultures from 07/07/2022 showed no growth. Original blood cultures from 07/05/2022 demonstrated MRSA for which she is currently on vancomycin. However given that the family is insistent that he will return home it will be difficult to adequately dosed him on vancomycin and give him multiple dosing throughout the day even with the assistance of visiting nurse. Therefore I will switch him to daptomycin. Transthoracic echocardiogram from 07/05/2022 showed no obvious valvular lesions. He has normal LV and RV function. Abdominal CT and pelvic CT demonstrated thickening of the bladder wall consistent with chronic cystitis. The suprapubic catheter tip was in the thickened urinary bladder wall with the balloon in the anterior abdominal wall musculature. Presumably this was repositioned after this was found. Rest the abdominal study was unremarkable. He is absent gallbladder kidney showed no cysts and no solid masses no calculi or hydronephrosis. Professional time spent interviewing and examining patient, discussion of goals of care with hospital team (care management, nursing and consulting professionals) was 45 minutes. (2) MRSA bacteremia: Status: Acute Assessment and plan: Most likely related to either his infected teeth or possibly due to his bedsores. (3) Altered mental status: Status: Acute Assessment and plan: Metabolic encephalopathy superimposed on undiagnosed chronic dementia. Mental status has been improving since has been on antibiotics however I do not feel that he has capacity to make decisions regarding his medical care therefore we are relying on his son and [id number] as surrogate decision-makers. Palliative care is assisting with goals of care determination as well as guiding family on making decisions regarding life-sustaining measures in the event of cardiopulmonary arrest. Currently he is a full code. (4) Acute hypernatremia: Status: Resolved Assessment and plan: Not drinking on his own. Palliative care consulted to discuss, among other things, the question of feeding tube. Continue 1/2 NS with potassium. Continue to monitor sodiums. (5) ERIKA (acute kidney injury): Status: Resolved Assessment and plan: agree that this is likely prerenal. No evidence of obstructive uropathy on CT. Cr is back to baseline. (6) Dysphagia: Status: Acute Assessment and plan: Speech consulted. Palliative care consulted: the patient is extremely resistant to PO intake. Some of this may be due to oral pain. Obtain a dentist consult for a tooth extraction. Dr. Graves provided a list of 3 dentist in the area who have privileges at [facility] including the following: Dr. Hurst, Dr. Lozano, Dr. Arnold Consider feeding tube vs hospice vs attempt at oral feedings w/ pureed/liquids (7) Influenza A: Status: Acute Assessment and plan: Continue renally dosed oseltamivir. (8) Neuro-degenerative disorders: Status: Acute Assessment and plan: Neurology is not available this week. Chronic outpatient condition that appears to not have been followed up. Consider comfort measures/hospice. (9) Protein malnutrition: Status: Chronic Assessment and plan: continue supplements. Nutrition recommends: Supplement with ensure plus TID and liquid protein 1 oz TID If tube feeding to be initiated recommend Osmolite 1.5 with goal rate of 50 cc/hour, flush 250 q 6 hours.? Once at goal rate, d/c liquid protein as no longer warranted as tube feeding with provide 1800 kcal, 75 g protein and 1860 ml fluid Conversation with palliative care re feeding tube. (10) Urinary retention: Assessment and plan: s/p suprapubic catheter. F/u as outpatient. The catheter was exchanged twice on this admission. (11) Elevated transaminase level: Status: Acute Assessment and plan: Suspect this is due to rhabdomyolysis. Hepatitis panel negative. No evidence of hepatin masses on CT. No evidence of cirrhosis on imaging. (12) Paroxysmal A-fib: Status: Chronic Assessment and plan: if desired, this can be followed up as outpatient with a cardiac event recorder. He sounded mostly regular on my exam and this is not why he is hospitalized. I do think he would be a poor candidate for anticoagluation. (13) Thrombocytopenia: Status: Chronic Assessment and plan: B12 level low. Replete. (14) Decubitus skin ulcer: Status: Acute Assessment and plan: wound care consult done. Care management consulted with home health and they do not feel that the patient is neglected at home. He lives in a trailer with 8 other people who are his support. Palliative care consulted. Consider hospice. family declines any SNF (15) DVT prophylaxis: Status: Acute Assessment and plan: SCDs Hold chemical dvt ppx in light of thrombocytopenia (16) Discharge planning issues: Status: Acute Assessment and plan: Full code Continues to require hospitalization. Palliative care, PT, Speech consulted. Subjective Subjective Interval history since last seen: I met w/ the patient and his family, son and [id number]. The patient has been confused for at least the last couple of months. His family is adamant that he will not go to SNF to complete his antibiotics for his MRSA bacteremia. I explained to him that he needs 6 wks of antibiotics. He was born and raised on his family's land on [address] in [place] and will not go anywhere. His family would like to continue w/ aggressive antibiotic treatement but they are indecisive about his code status. I do not feel that Jose has capacity to make decisions regarding his code status. Exam Narrative Exam Narrative: Jose is alert, he knows that he is in the hospital in [facility] but does not fully understand why he is here and he definitely has no concept of time. he thought that it was 1987. HEENT: oropharynx w/out pus but lower gums are reddened and he has remnants of incisors in his lower jaw that are brown, broken and w/ redness of the gums Lungs: some coarse rhonchi that clears w/ cough and deep breathing Heart: RRR Abdomen: some mildly tenderness over his SPC. NO distension or guarding Skin: multiple bed sores over his legs, dorsum of his left foot Objective Last Vital Signs Temp 36.7 C 07/11/22 11:15 Pulse 75 07/11/22 11:15 Resp 18 07/11/22 11:15 BP 102/63 07/11/22 11:15 Pulse Ox 98 07/11/22 11:15 Laboratory Results - last 24 hr 07/08/22 07/11/22 07/11/22 13:00 06:35 06:35 WBC 4.11 L RBC 3.53 L Hgb 12.2 L Hct 34.6 L MCV 98 H MCH 34.6 H MCHC 35.3 RDW 13.0 Plt Count 87 L MPV 12.8 H Immature Gran % 0.7 Neutrophils % 65.6 Lymphocytes % 18.2 Monocytes % 13.6 Eosinophils % 1.9 Basophils % 0.0 Nucleated RBC % 0.0 Absolute Neutrophils 2.70 Absolute Lymphocytes 0.75 L Absolute Monocytes 0.56 Absolute Eosinophils 0.08 Absolute Basophils 0.00 Sodium 143 Potassium 3.2 L Chloride 111 H Carbon Dioxide 23.3 Anion Gap 8.7 BUN 12 Creatinine 0.8 Est GFR (CKD-EPI 2020) 92.29 Glucose 111 H Calcium 7.0 L Magnesium 1.8 C-Reactive Protein 4.92 H Vancomycin Trough Hep-Induced Plt Ab Theresa 0.068 Heparin-PF4 Ab Inhibit Not Applicable Heparin-PF4 Ab Interp Negative Heparin-PF4 Ab Comment See Comment 07/11/22 07/11/22 14:00 14:00 WBC RBC Hgb Hct MCV MCH MCHC RDW Plt Count MPV Immature Gran % Neutrophils % Lymphocytes % Monocytes % Eosinophils % Basophils % Nucleated RBC % Absolute Neutrophils Absolute Lymphocytes Absolute Monocytes Absolute Eosinophils Absolute Basophils Sodium Potassium 3.8 Chloride Carbon Dioxide Anion Gap BUN Creatinine Est GFR (CKD-EPI 2020) Glucose Calcium Magnesium C-Reactive Protein Vancomycin Trough 24.4 H* Hep-Induced Plt Ab Theresa Heparin-PF4 Ab Inhibit Heparin-PF4 Ab Interp Heparin-PF4 Ab Comment
--- NOTE | 2022-07-11 15:34 | PCNE_ITS ---
Date of service: 07/11/22 Time of Service: 14:00 History of Present Illness Narrative: Mr. Garcia is a 76 y/o M currently inpatient at [facility] 2/2 UTI, AMS and dehydration; visit w/HCA/son Lissy and daughter MINOO Garcia is complaining of shoulder pain and buttock pain today. He wants his pain managed, but is concerned he previously didn't tolerate morphine well, unable to elaborate. He trusts Lissy and Lacey. per Lissy: his dad 10 years ago would not want to have tubes and machines, he would want to be home or in the courtney. Lissy would want his dad's pain managed. He has never had a conversation with him about what he would like his life to look like, they never discussed CODE status, feeding tubes, etc. they have an excellent care team at home w/Lacey and her two daughters Vin (MILLICENT) and Marva. per staff: he ate 0% of breakfast, 4 bites of pudding for lunch; sleeping well, BMs appropriate. more talkative today. he has been c/o more shoulder and buttock pain, grimacing and groaning. he has received apap 1g twice today, last dose 12:10. He has participated in oral care. per hospitalist/chart review: repeat blood cultures showed no growth. on day 6 of 7 ceftriaxone, could consider alt abx if needed, ECHO yesterday r/o concerns for endocarditis, however study would benefit from repeat, recommend MAGED. for infection would recommend 4-6wks of abx continuation, may consider transition to once daily for goals of returning home. CM and hospitalist working on obtaining dental consult vs general surgery to pursue teeth extraction as able. Assessment and Plan Assessment and plan (1) Protein malnutrition: Status: Chronic Assessment and plan: Options previewed related to his decreased oral intake: 1. dental extraction, see if improvement; 2. feeding tube placement; 3. supportive care, including ho pr on hospice (2) MRSA bacteremia: Status: Acute Assessment and plan: Options reviewed related to his infection: 1. Complete ceftriaxone and continue to trend labs; 2. Continue antibiotics, w/recommendation for 6 weeks (a. in hospital; b. home if possible); 3. Supportive care, including home on hospice. Per hospitalist, whom visited after this visit, they have selected to continue antibiotics for 6 wks, with goals of returning home for completion of therapy. (3) Palliative care patient: Assessment and plan: Palliative to continue to follow, w/follow up scheduled tomorrow morning around 8:30 w/my colleague Dr. Hartley. To continue to address: code status, feeding tube placement, MBSS test, MAGED procedure., (4) Decubitus skin ulcer: Status: Acute Assessment and plan: recommend PO morphine PRN, first dose liquid morphine 10mg PO given during visit, q4h PRN continue wound care, frequent repositioning include education on wound care/repositioning on discharge for family (5) Dysphagia: Status: Acute Assessment and plan: continue total feed assist, pureed/thickened [employer] following, MBSS on hold, may reschedule next week if aligns w/POC family would like to see more flavor added to food to match his preferences (6) Avoidance coping: Status: Chronic Assessment and plan: unable to engage in conversations regarding care preferences or CODE status does not like doctors, avoided for several years, h/o cancelling appointments (7) Neuro-degenerative disorders: Status: Acute Assessment and plan: never had work up Lacey reports [facility] did memory test, unsure of results (8) Inability to walk: Status: Acute (9) Bedbound: Status: Acute (10) Hallucinations: Status: Acute Assessment and plan: non-distressing (11) Discharge planning issues: Status: Acute Assessment and plan: pending POC, to be determined (12) UTI (urinary tract infection): Status: Resolved Assessment and plan: suprapubic cath in place, [facility] following continue abx at this time (13) Weakness: Status: Chronic (14) Poor dentition: Assessment and plan: dental consult to be placed (15) Encounter for hospice care discussion: Status: Acute Assessment and plan: reviewed hospice eligibility, may go home on hospice as early as tomorrow based on care preferences add to hospice watch list, eligible DME needed: hospital bed, potentially anushka; continue to assess (16) Advance directive status unknown: Status: Acute Assessment and plan: I do not feel Jose has capacity to make a decision regarding his CODE status, feeding tube or antibiotics. Lissy and Lacey did not have any clear decisions regarding his current direction of care or CODE status. (17) Influenza A: Status: Acute Review of Systems Narrative: as per HPI PFSH All Active Problems Advance directive status unknown (Acute) Encounter for hospice care discussion (Acute) MRSA bacteremia (Acute) Decubitus skin ulcer (Acute) Influenza A (Acute) Thrombocytopenia (Chronic) Paroxysmal A-fib (Chronic) Elevated transaminase level (Acute) Dysphagia (Acute) Neuro-degenerative disorders (Acute) Acute UTI (Acute) Altered mental status (Acute) Lower urinary tract symptoms (LUTS) (Acute) History of BPH (Acute) Unspecified dementia without behavioral disturbance (Acute) Babinski reflex (Acute) Clonus (Acute) Inability to walk (Acute) Wheelchair bound (Acute) Spasticity (Acute) Limited literacy (Chronic) Francois catheter in place (Acute) History of bloody stools (Acute) Avoidance coping (Chronic) no medical care x 10 yrs [id number] Disoriented (Acute) Bedbound (Acute) Hallucinations (Acute) Protein malnutrition (Chronic) Loss of taste (Acute) Discharge planning issues (Acute) Ambulatory dysfunction (Chronic) DVT prophylaxis (Acute) Weakness (Chronic) Medical History Colon cancer Difficulty swallowing solids H/O prostate cancer Hypoalbuminemia Incontinence Palliative care patient Poor dentition Tachycardia Urinary retention Very poor mobility Surgical History S/P colectomy 2009 for colon cancer Family History Son No problems noted. Son No problems noted. Mother , about age 80 unknown cause of , per family No problems noted. Father , about age 70 family doesn't know COD No problems noted. Social History Smoking/Tobacco Use Status: Former Tobacco Use Tobacco: How many years used: 50 Smoking risk assessment performed?: Yes Alcohol Intake: current Alcohol Intake frequency: 0-2 drinks per day Alcohol type: beer Counseling provided: support program Details: used to drink and smoke heavily until about 5 years ago/2014 Drug use: Never Substance use type: does not use Caregiver/Support person: Yes Household members: spouse, family and children Housing: house Number of Children: 2 number of grandchildren: 8 Communication Needs: Hard of Hearing and Corrective Lenses Education Level: middle school Do you need help understanding health information?: Always 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, 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 per ems home living situation is very unsanitary. Has 2 sons, Lissy and Adolfo, who help take care of Jose. Both live on the property. Exam Const General: no acute distress (grimace and groan throughout), frail appearing and ill appearing Orientation: alert, awake, not oriented to place and oriented to time ( season) HENMT Head: normocephalic, atraumatic and no acral cyanosis Ears: hearing grossly impaired Resp Effort & Inspection: normal respiratory effort and cough Quality of cough: wet (decreased frequency compared to yesterday) Skin Other: scattered bruising, predominately over BUE, worse over L forearm Psych Mental Status: mental status grossly abnormal Speech and Movement: delayed speech and slurred speech Affect: indifferent Attitude: guarded Thought Process: illogical, impoverished and loose association Insight: poor Judgment: poor Other: fatigued only able to answer closed ended questions Results Last Vital Signs Temp 98.1 F 07/11/22 11:15 Pulse 75 07/11/22 11:15 Resp 18 07/11/22 11:15 BP 102/63 07/11/22 11:15 Pulse Ox 98 07/11/22 11:15 Labs Result diagrams: 07/11/22 06:35 07/11/22 14:00 Labs: Laboratory Results - last 24 hr 07/08/22 07/11/22 07/11/22 13:00 06:35 06:35 WBC 4.11 L RBC 3.53 L Hgb 12.2 L Hct 34.6 L MCV 98 H MCH 34.6 H MCHC 35.3 RDW 13.0 Plt Count 87 L MPV 12.8 H Immature Gran % 0.7 Neutrophils % 65.6 Lymphocytes % 18.2 Monocytes % 13.6 Eosinophils % 1.9 Basophils % 0.0 Nucleated RBC % 0.0 Absolute Neutrophils 2.70 Absolute Lymphocytes 0.75 L Absolute Monocytes 0.56 Absolute Eosinophils 0.08 Absolute Basophils 0.00 Sodium 143 Potassium 3.2 L Chloride 111 H Carbon Dioxide 23.3 Anion Gap 8.7 BUN 12 Creatinine 0.8 Est GFR (CKD-EPI 2020) 92.29 Glucose 111 H Calcium 7.0 L Magnesium 1.8 C-Reactive Protein 4.92 H Vancomycin Trough Hep-Induced Plt Ab Theresa 0.068 Heparin-PF4 Ab Inhibit Not Applicable Heparin-PF4 Ab Interp Negative Heparin-PF4 Ab Comment See Comment 07/11/22 07/11/22 14:00 14:00 WBC RBC Hgb Hct MCV MCH MCHC RDW Plt Count MPV Immature Gran % Neutrophils % Lymphocytes % Monocytes % Eosinophils % Basophils % Nucleated RBC % Absolute Neutrophils Absolute Lymphocytes Absolute Monocytes Absolute Eosinophils Absolute Basophils Sodium Potassium 3.8 Chloride Carbon Dioxide Anion Gap BUN Creatinine Est GFR (CKD-EPI 2020) Glucose Calcium Magnesium C-Reactive Protein Vancomycin Trough 24.4 H* Hep-Induced Plt Ab Theresa Heparin-PF4 Ab Inhibit Heparin-PF4 Ab Interp Heparin-PF4 Ab Comment
[2022-07-11] MEDS: cefTAZidime 2,000 MG in Normal Saline 100 ML 200 MG IVPB (17:43)
--- NOTE | 2022-07-11 18:55 | W.ANESVAS ---
Midline Placement Date Performed: 07/11/22 Procedure Time: 18:30 Requesting Provider: Shankar Arias Procedure Location: Med/Surg Sedation Given (Indicate Dose Given): No Sedation given Patient Mental Status: Awake Sterility: Hand Hygiene Laterality: Left Insertion Site: Brachial Midline Device: PowerGlide Pro 20G Catheter Length: 10 cm Midline Procedure Procedure: 1% Lidocaine to skin and subcutaneous tissue with 25g needle and Catheter placed without resistance Dressing: Tegaderm Applied and Statlock Applied Blood Return: Present Flushes: Easily Ultrasound: Sterile probe cover and gel used (button was hit to save image, but no image captured. ) Ultrasound Image Saved?: No Number of Attempts (See previous attempts in note section): 1 Procedure Tolerated: No Complications Procedure Outcome: Successful Performed By: Asael Castro
[2022-07-11] MEDS: VANCOMYCIN/WATER (PEG) 750 MG/150 ML BAG 150 MG IV (19:02)
[2022-07-12] MEDS: cefTAZidime 2,000 MG in Normal Saline 100 ML 100 MG IVPB (00:13)
[2022-07-12] MEDS: ACETAMINOPHEN 1,000 MG/100 ML BTL 400 MG IVPB ×3 (02:00→18:13)
[2022-07-12 02:19] VITALS: BP 101/61; PULSE 69; RESP 17; TEMP 36.1; O2SAT 99
[2022-07-12] MEDS: POTASSIUM CHLORIDE/D5-0.45NACL 1,000 ML 125 MEQ IV ×2 (05:16→14:52)
[2022-07-12] MEDS: VANCOMYCIN/WATER (PEG) 750 MG/150 ML BAG 150 MG IV ×2 (06:10→18:31)
[2022-07-12 07:13] LABS: Abs Immature Grans 0.03 10^3/uL (0.0-0.06); Absolute Basophil Count 0.01 10^3/uL (0.0-0.2); Absolute Monocyte Count 0.49 10^3/uL (0.1-0.8); Absolute Neutrophil Count 3.04 10^3/uL (1.2-6.7); Basophils % 0.2; Eosinophils % 2.2; HCT 29.9 % (40.0-50.0); HGB 10.2 g/dL (13.5-17.5); Immature Grans % 0.7; Lymphocytes % 19.7; MCH 34.7 pg (27.0-33.0); MCHC 34.1 % (32.0-36.0); MCV 102 fL (80-95); MPV 12.2 fL (8.0-11.0); Monocytes % 10.7; Neutrophils % 66.5; Platelet Count 150 10^3/uL (130-400); RBC 2.94 10^6/uL (4.36-5.78); RDW 13.2 % (11.8-14.1); RDW-SD 49.3 fL; WBC 4.57 10^3/uL (4.4-10.8)
[2022-07-12 07:18] VITALS: BP 92/45; PULSE 64; RESP 18; TEMP 36.6; O2SAT 99
[2022-07-12 07:44] LABS: ALT 68 U/L (16-63); AST 66 U/L (15-37); Albumin 1.5 g/dL (3.4-5.0); Alkaline Phosphatase 99 U/L (46-116); Anion Gap 3.9 mmol/L (3-11); BUN 9 mg/dL (7-18); Bilirubin, Total 0.4 mg/dL (0.2-1.0); C-Reactive Protein 2.36 mg/dL (0.0-0.3); CO2 25.1 mmol/L (21.0-32.0); CREATININE 0.9 mg/dL (0.70-1.30); Calcium 7.1 mg/dL (8.5-10.1); Chloride 113 mmol/L (98-107); Creatine Kinase 69 U/L (39-308); Estimated GFR 89.07 (mL/min/1.73m2); Glucose 112 mg/dL (74-106); Potassium 4.1 mmol/L (3.5-5.1); Sodium 142 mmol/L (136-145); Total Protein 4.6 g/dL (6.4-8.2)
[2022-07-12] MEDS: cefTAZidime 2,000 MG in Normal Saline 100 ML 200 MG IVPB ×2 (08:24→16:44)
--- NOTE | 2022-07-12 08:28 | W.PALPGNOTE ---
Date of service: 07/12/22 Time of Service: 08:28 Assessment and Plan Assessment and plan (1) MRSA bacteremia: Status: Acute (2) Influenza A: Status: Acute (3) Neuro-degenerative disorders: Status: Acute (4) Encounter for hospice care discussion: Status: Acute Assessment and plan: Long discussion with Destiny and Lissy. Yesterday during Jose's discussion with Alia Rees, she did not feel that he had capacity as he was not able to understand what was going on with him and what the implications were. After much thought Lissy stated that Jose would want to be a DO NOT RESUSCITATE. He would not want CPR. He did not like doctors and pretty much preferred to handle things on his own even if it was done poorly. He did not feel that Jose would want a feeding tube as it would only prolong his dying. Also it would agitate him having a tube coming out of his stomach. He already has a suprapubic cath that they have to taper down so that he does not pull it out. They thought another 2 would only add to his agitation but not to his comfort. I did let Carmelita from Speech therapy know about their decisions. She had contacted me earlier about doing a swallowing eval. She will stop by to see if they have any questions. Regarding the antibiotics, he does have a midline in. The plan was to do 6 weeks of antibiotics for MRSA bacteremia.Lissy was uncertain if he wanted to pursue the 6 weeks of antibiotics or to stop them. He wanted to wait until tomorrow before they did anything regarding the antibiotics They also do not want hospice. I did explain that hospice eligibility is based on 2 doctors feeling that he has less than 6 months to live. They also understand that they would call hospice first if he had symptoms and that generally he would be treated in the home rather than being transported to a hospital. Destiny, [id number]-sby would be the main caregiver. Diagnosis would be neurodegenerative disease, failure to thrive with little to no p.o. intake, bacteremia, flu I did discuss with Destiny after plans. She and Lisys Thought that they would transport Jose [facility]. I did relay this information to Tabitha Faust, and care management Subjective Subjective Interval history since last seen: I met with Jose earlier today. He was able to tell me that he was in the hospital in [facility]. He said he did not feel like eating. He states that his pain was okay. About an hour and a half later I met with his [id number]-bmp Destiny and his son Lissy on speaker phone. They had thought about it a lot at night and felt that it was in Jose's wishes that he become a DNR/DNI. Due to his agitation he would not want a feeding tube. He would not want IV hydration. They were uncertain about antibiotics. Exam Narrative Exam Narrative: Jose was lying there peacefully while we discussed his wishes. He did not wake up. He was breathing comfortably. Objective Last Vital Signs Temp 97.9 F 07/12/22 07:18 Pulse 64 07/12/22 07:18 Resp 18 07/12/22 07:18 BP 92/45 L 07/12/22 07:18 Pulse Ox 99 07/12/22 07:18 Laboratory Results - last 24 hr 07/08/22 07/11/22 07/11/22 13:00 14:00 14:00 WBC RBC Hgb Hct MCV MCH MCHC RDW Plt Count MPV Immature Gran % Neutrophils % Lymphocytes % Monocytes % Eosinophils % Basophils % Nucleated RBC % Absolute Neutrophils Absolute Lymphocytes Absolute Monocytes Absolute Eosinophils Absolute Basophils Sodium Potassium 3.8 Chloride Carbon Dioxide Anion Gap BUN Creatinine Est GFR (CKD-EPI 2020) Glucose Calcium Total Bilirubin AST ALT Alkaline Phosphatase Creatine Kinase C-Reactive Protein Total Protein Albumin Vancomycin Trough 24.4 H* Hep-Induced Plt Ab Theresa 0.068 Heparin-PF4 Ab Inhibit Not Applicable Heparin-PF4 Ab Interp Negative Heparin-PF4 Ab Comment See Comment 07/12/22 07/12/22 06:55 06:55 WBC 4.57 RBC 2.94 L Hgb 10.2 L D Hct 29.9 L MCV 102 H D MCH 34.7 H MCHC 34.1 RDW 13.2 Plt Count 150 D MPV 12.2 H Immature Gran % 0.7 Neutrophils % 66.5 Lymphocytes % 19.7 Monocytes % 10.7 Eosinophils % 2.2 Basophils % 0.2 Nucleated RBC % 0.0 Absolute Neutrophils 3.04 Absolute Lymphocytes 0.90 L Absolute Monocytes 0.49 Absolute Eosinophils 0.10 Absolute Basophils 0.01 Sodium 142 Potassium 4.1 Chloride 113 H Carbon Dioxide 25.1 Anion Gap 3.9 BUN 9 Creatinine 0.9 Est GFR (CKD-EPI 2020) 89.07 Glucose 112 H Calcium 7.1 L Total Bilirubin 0.4 AST 66 H ALT 68 H Alkaline Phosphatase 99 Creatine Kinase 69 C-Reactive Protein 2.36 H Total Protein 4.6 L Albumin 1.5 L Vancomycin Trough Hep-Induced Plt Ab Theresa Heparin-PF4 Ab Inhibit Heparin-PF4 Ab Interp Heparin-PF4 Ab Comment
--- NOTE | 2022-07-12 08:39 | PDOC.CMPRO ---
- If Service Date Differs Date of service: 07/12/22 Time of Service: 08:39 Care Management Progress Note S/O: Jose remains acutely ill and is being closely monitored and treated. Dr. Hartley met with Jose and his family today; COLST completed and processed to chart-he will not have a feeding tube. No change to overall plan at this time. Palliative Care and CM continue to follow. A: 76 year old male admitted to [facility] 07/05/22 for UTI with AMS, Influenza A, Hypernatremia P: Anticipate Jose will discharge home via private w/c van when medically ready. He will follow up with community providers and discharge plan of care as prescribed. Pt will resume 03/02 caregiver support with resumption of H RN/PT/ST, add SECURITIES COMPLIANCE EXAMINER. Lacey is advocating for hospital bed, to support Jose in sitting up (ST recommendation as well); possible discharge home with consideration for Hospice; ongoing discussion. CM continues to follow.
--- NOTE | 2022-07-12 08:42 | OT.INIE ---
Occupational Therapy Notes Inpatient Occupational Therapy Evaluation Date: 07/12/22 Referring Doctor: Esther Betancourt NP OT Orders: Non Urgent Precautions: Fall, standard, full PATIENT PROFILE/ADMITTING DIAGNOSIS: Pt is a 76 year old male who was brought to the ED by EMS and admitted for the following dx, for altered mental status that had been worsening over the past three days prior to admission. Was found to have URI and influenza A. Several pressure ulcers on body were noted. Past Medical History: All Active Problems?(Updated 07/05/22 @ 21:17 by Chaparro Holden) Decubitus skin ulcer (Acute) Influenza A (Acute) Thrombocytopenia (Chronic) Paroxysmal A-fib (Acute) Elevated transaminase level (Acute) Dysphagia (Acute) Neuro-degenerative disorders (Acute) Acute UTI (Acute) ERIKA (acute kidney injury) (Acute) Acute hypernatremia (Acute) Altered mental status (Acute) Lower urinary tract symptoms (LUTS) (Acute) History of BPH (Acute) Unspecified dementia without behavioral disturbance (Acute) Babinski reflex (Acute) Clonus (Acute) Inability to walk (Acute) Wheelchair bound (Acute) Spasticity (Acute) Limited literacy (Chronic) Morejon catheter in place (Acute) History of bloody stools (Acute) Avoidance coping (Chronic) no medical care x 10 yrs 2009-2019Disoriented (Acute) Bedbound (Acute) Hallucinations (Acute) Protein malnutrition (Chronic) Loss of taste (Acute) Discharge planning issues (Acute) Ambulatory dysfunction (Chronic) DVT prophylaxis (Acute) Weakness (Chronic) Medical History? Colon cancer Difficulty swallowing solids H/O prostate cancer Hypoalbuminemia Incontinence Palliative care patient Poor dentition Tachycardia Urinary retention Very poor mobility Social History/Home Situation: Pt lives in a private home with multiple family members. He states at least 9 other people live with or near him. He has multiple dogs and reports that he is bed bound and his family (A) him with his ADLs throughout the day. He reports that he tries to do as much as he can but admits that he lives a sedentary lifestyle and does not leave his home often or really ever. Pt does not drive and has not in years. He has poor living conditions per his EMR and medical chart. SUBJECTIVE:??Pt was lying in bed when OT arrived and notes that he is tired and that he just wants to go home. OBJECTIVE: General Observation: Pleasant and able to answer questions appropriately, morejon in place, IV (R) UE Mental Status: A&Ox3 Pain: c/o pain in (B) LE ROM: RUE AROM WFL L UE AROM WFL STRENGTH: RUE Shoulder flexion 3-/5, bicep 3+/5, tricep 3/5, advertising traffic manager is weak LUE Shoulder flexion 3-/5, bicep 3+/5, tricep 3/5, advertising traffic manager is weak FUNCTIONAL MOBILITY/ADLS:? BATHING sitting in bed with max (A) set up/clean up Bathing UE (I) face, min (A) (B) UE Bathing LE Min (A) (B) LE but pt only able to perform with min vc throughout DRESSING sitting in bed Dressing UE Min (A) [facility] gown TOILETING NT EATING NT pt is one special diet order BALANCE: Static sitting Fair-Good Dynamic Sitting Fair-Good SPECIAL TESTS:? Daily Activity Limitations Standardized Measure [facility] ? AM -PAC ? ?6 clicks? Daily Activity Inpatient Short Form: Raw score: 11 ? Standardized score: 29.04? CMS score: 70.42% ? INFORMED CONSENT/EDUCATION: Pt instructed in purpose of OT Consult and plan of care. ASSESSMENT:?? Patient is a? 76-year-old male referred to occupational therapy services with diagnosis for altered mental status that had been worsening over the past three days prior to admission. Was found to have URI and influenza A. Several pressure ulcers on body were noted. . Patient presents with clinical signs and symptoms consistent with dx, as demonstrated by the following impairment level findings/ functional limitations: Impairments with ADL/IADL and leisure activities, decreased functional activity tolerance, decreased (B) UE strength, decreased functional mobility, impairments in sitting ADLs. AMPA score 11 Patient is assessed as a Moderate 21551 complexity based on the following: History: see above Examination: see functional limitations as noted above Presentation: evolving Decision Making: [facility] 11 GOALS Goals x1 week 1.? Grooming- sitting on side of the bed (I) with brushing teeth 2.? Dressing- sitting on side of the bed (I) UE, mod (A) LE 3.? Bathing- sitting on side of the bed with max (A) Set up/clean up (I) with UE/LE 4.? Toileting- on commode (I) 5.? Eating- sitting on side of the bed (I) PLAN OF CARE/TREATMENT PLAN: 1x/day, 5 days/ week x 1week Initiate Occupational Therapy Services for bathing, dressing, grooming, toileting, eating, transfer training. DISCHARGE RECOMMENDATIONS Based on pts current level of function with decreased functional mobility, increased fatigue and decreased functional (I) in his ADL/IADL routines, OT recommends that pt go to SNF when medically cleared per MD. TREATMENT TIME/MINUTES/CODES 45886, [id number], 20 minutes Valery Shultz OTR/[facility]
[2022-07-12 11:16] VITALS: BP 109/62; PULSE 63; RESP 16; TEMP 36.6; O2SAT 96
[2022-07-12] MEDS: MORPHine 2 MG/ML SYR IVP (13:18)
--- NOTE | 2022-07-12 14:50 | CHAPLAIN ---
Jose was sitting up in bed when I visited. I had some trouble understanding him. I introduced myself and explained me role. Jose said his my butt is sore and really hurts, and said he was uncomfortable. I offered to get his nurse for him and pushed the call button. Ernst told me he has family, but said they won't likely be in today. His son and daughter in law were here yesterday to talk with Jose and Dr. Hartley for a PC consult. Ernst status was changed DNR/DNI.
[2022-07-12 15:31] VITALS: BP 100/63; PULSE 70; RESP 18; TEMP 36.2; O2SAT 95
--- NOTE | 2022-07-12 15:38 | PGE_ITS ---
Date of Service Date of service: 07/12/22 Time of Service: 15:39 Assessment and Plan Assessment and plan (1) MRSA bacteremia: Status: Acute Assessment and plan: patient currently on vancomycin and repeat blood cultures from 07/07 demonstrated no growth. His family (son Lissy and daughter in law, Destiny) have given me mixed goals of care. While they want him to be comfortable and they are interested in hospice, they also want him to continue antibiotics although Lissy is sure that his father would not want any life support measures and as such a DNR has been placed. They also are adamant on taking him home to care for him. I think that they feel that hospice would provide them the maximal support but I have explained to them that when patient's go on hospice it is with the understanding that their life expectancy is less than 6 months and that all treatment is geared towards comfort measures and antibiotics would not be a part of this. They would like to take him home on antibiotics but want to take him home tomorrow. I told them that is not going to happen as it takes time to set up home antibiotics infusion. He now has a midline in his left arm and this is be ing used. he is on Vancomycin and requires at least twice a day dosing, this is not practical for home nursing. HOwever, I feel that he can go on Daptomycin once a day dosing at 8 mg/kg iv daily; w/ weekly monitoring of renal function and CK levels Professional time spent interviewing and examining patient, discussion of goals of care with hospital team (care management, nursing and consulting professionals) was 30 minutes. (2) Acute UTI: Status: Acute Assessment and plan: currently on Fortaz. Will recheck urine prior to dc home (3) Altered mental status: Status: Acute Assessment and plan: metabolic encephalopathy from infection superimposed on probable dementia (4) Dysphagia: Status: Acute Assessment and plan: ST consulted and will be here to observe supervised feedings of pureed foods tonight; oral pain treated w/ morphine (5) Influenza A: Status: Acute Assessment and plan: oseltamivir was completed on 07/10. (6) Neuro-degenerative disorders: Status: Acute Assessment and plan: Neurology is not available this week. Chronic outpatient condition that appears to not have been followed up. family is considering hospice but wants antibiotics for his MRSA bacteremia. see discussion above (7) Protein malnutrition: Status: Chronic Assessment and plan: continue protein supplements. per family patient would not want a feeding tube as this would add to his agitation and he would likely pull at it and possible pull this out (8) Urinary retention: Assessment and plan: s/p suprapubic catheter. F/u as outpatient. The catheter was exchanged twice on this admission. (9) Decubitus skin ulcer: Status: Acute Assessment and plan: cont. wound care per nursing; off loading of pressure points (10) DVT prophylaxis: Status: Acute Assessment and plan: SCDs Hold chemical dvt ppx in light of thrombocytopenia (11) Discharge planning issues: Status: Acute Assessment and plan: dc home w/ home health services once home antibiotics can be set up. Subjective Subjective Interval history since last seen: No new complaints or concerns from patient. Mouth pain controlled w/ morphine. Family present for dinner feeding. Await S.T. to arrive who wanted to observe supervised feeings. Exam Narrative Exam Narrative: Jose is alert but oriented only to person and place, he knows that he is in the hospital but unclear as to why and is not oriented to time/date Lungs: a few coarse adventitious breath sounds that clears w/ cough and deep breathing Heart: regular Abdomen: soft, nondistended Legs/feet: multiple superficial skin ulcerations, legs and feet being kept elevated to take pressure off his heels Objective Last Vital Signs Temp 36.2 C L 07/12/22 15:31 Pulse 70 07/12/22 15:31 Resp 18 07/12/22 15:31 BP 100/63 07/12/22 15:31 Pulse Ox 95 07/12/22 15:31 Laboratory Results - last 24 hr 07/12/22 07/12/22 06:55 06:55 WBC 4.57 RBC 2.94 L Hgb 10.2 L D Hct 29.9 L MCV 102 H D MCH 34.7 H MCHC 34.1 RDW 13.2 Plt Count 150 D MPV 12.2 H Immature Gran % 0.7 Neutrophils % 66.5 Lymphocytes % 19.7 Monocytes % 10.7 Eosinophils % 2.2 Basophils % 0.2 Nucleated RBC % 0.0 Absolute Neutrophils 3.04 Absolute Lymphocytes 0.90 L Absolute Monocytes 0.49 Absolute Eosinophils 0.10 Absolute Basophils 0.01 Sodium 142 Potassium 4.1 Chloride 113 H Carbon Dioxide 25.1 Anion Gap 3.9 BUN 9 Creatinine 0.9 Est GFR (CKD-EPI 2020) 89.07 Glucose 112 H Calcium 7.1 L Total Bilirubin 0.4 AST 66 H ALT 68 H Alkaline Phosphatase 99 Creatine Kinase 69 C-Reactive Protein 2.36 H Total Protein 4.6 L Albumin 1.5 L
--- NOTE | 2022-07-12 17:40 | STREC_ITS ---
Date of service: 07/12/22 Time of Service: 17:40 Speech Therapy Recommendations Report ST Recommendations: Interim Updates: Spoke with Palliative, patient's family spoke with Palliative Care MD this date and would like to move toward comfort care/hospice at home as soon as possible, they believe this would be per patient's wishes, however would like to be able to have him still take antibiotics to treat current infection status. Some question of whether he can return home with hospice or if current abx treatment is reasonable for home care, may change to new abx and may finish abx at home and then move to hospice level of care. Per Nursing this date, patient only taking a few bites of puree foods and not tolerating this well this date. Continues to regurgitate even small amounts of food. MAIN GALLEY SCULLION unable to see patient at bedside this date due to request to wait until after Palliative's conversation and then dealing with schedule restraints and time constraints. Did speak with family on phone this date to review MAIN GALLEY SCULLION findings and recommendations given current/expected goals of care. Lacey, patient's [id number]-[id number], was agreeable to acquire thickened liquids to trial at home, given most recent PO trials he appeared more comfortable and to tolerate these better than thin liquids (which he refuses after 1-2 sips). Between oral pain and regurgitation of solids, continue to recommend offering pureed foods, this is what patient has accepted/tolerated most per MAIN GALLEY SCULLION observation this hospitalization. Ultimately, PO trials and diet should be as tolerated/requested by patient given current stated goals of care. Question possible impact of esophageal impairment vs nausea in addition to oral- pharyngeal impairment and pain. Reviewed risk management strategies such as upright posture during/after meals to reduce risk of aspiration and reflux. Hospital bed has been requested in order to enable this as patient does not tolerate wedge pillow. Reviewed importance of completing oral hygeine as much as tolerated for comfort, oral hydration, and reduce bacterial load in the event of aspiration. PLAN: MAIN GALLEY SCULLION to follow patient next week if still admitted at that time. DISCHARGE: If patient is eligible, he would benefit from continued Home Health MAIN GALLEY SCULLION services. RECOMMENDATIONS: Diet Texture Modification(s):? 4-Pureed Solids 2-Mildly Thick Liquids, or as tolerated/per patient preference. Medication Intake: Whole or crushed (if able) with 2-Mildly Thick Liquids Liquid formulations thickened to level 2 Mildly Thick may be beneficial if available. Alter medications only as advised by MD or Pharmacist RISK MANAGEMENT: Oral hygiene q4h/every 4 hours and before/after PO intake using friction with toothbrush on all oral structures as tolerated HOB upright as tolerated; upright for all PO intake. Encourage physical mobility as tolerated. Level of Assistance/Supervision: Assistive feeding only by trained staff/family PO intake only when awake/alert? Strategies/Adaptations/Assistive Equipment: Reduce auditory and/or visual distractions when eating, Provide verbal and/or visual cues to use recommended strategies, Small sips and bites when eating, Slow rate of intake, Swallow between bites, Alternate intake of liquids and solids, Small+frequent meals throughout day Posture/Positioning Needs: Sleep with head of bed elevated to reduce likelihood of nocturnal reflux Coding
[2022-07-12 19:35] VITALS: BP 110/65; PULSE 65; RESP 16; TEMP 36.8; O2SAT 96
[2022-07-13 00:11] VITALS: BP 134/74; PULSE 71; RESP 16; TEMP 36.1; O2SAT 99
[2022-07-13] MEDS: cefTAZidime 2,000 MG in Normal Saline 100 ML 200 MG IVPB ×3 (00:19→16:25)
[2022-07-13] MEDS: ACETAMINOPHEN 1,000 MG/100 ML BTL 400 MG IVPB ×3 (01:50→18:08)
[2022-07-13] MEDS: POTASSIUM CHLORIDE/D5-0.45NACL 1,000 ML 125 MEQ IV ×2 (02:14→11:02)
[2022-07-13 06:24] LABS: Vancomycin, Trough 22.9 ug/mL (10.0-20.0)
[2022-07-13 07:43] VITALS: BP 115/67; PULSE 75; RESP 16; TEMP 36.9; O2SAT 98
[2022-07-13] MEDS: VANCOMYCIN/WATER (PEG) 750 MG/150 ML BAG 100 MG IV (11:10)
[2022-07-13 11:46] VITALS: BP 103/65; PULSE 73; RESP 18; TEMP 36.9; O2SAT 97
--- NOTE | 2022-07-13 13:09 | PGE_ITS ---
Date of Service Date of service: 07/13/22 Time of Service: 13:09 Assessment and Plan Assessment and plan (1) MRSA bacteremia: Status: Acute Assessment and plan: dc vancomycin after today and begin Daptomycin w/ careful monitoring of renal function, electrolytes and CK levels. Needs 6 weeks of antibiotics from clearance of his MRSA bacteremia (through Aug 18, 2022). family wants to complete therapy at home. Switching to daptomycin will facilitate once daily treatment. Professional time spent interviewing and examining patient, discussion of goals of care with hospital team (care management, nursing and consulting professionals) was 20 minutes. (2) Neuro-degenerative disorders: Status: Acute (3) Dysphagia: Status: Acute Assessment and plan: family declines feeding tube. Patient has not been able to adequately swallow without coughing or choking spells. ADJUNCT ART HISTORY INSTRUCTOR did not return last night to observe feedings. Feeding has been on hold. It is unclear to me as to whether the oral pain from his dental caries is limiting his swallowing or his neurodegenerative process. (4) Pseudomonas urinary tract infection: Status: Acute Assessment and plan: patient completed 7 days of Ceftriaxone however this is not the optimal cephalosporin for Pseudomonas. I switched him to Fortaz on 07/11 so I will treat him through 07/13 then stop if his urinalysis does not show persistent infection. His suprpubic catheter appears to drain clear yellow urine (5) Urinary retention: Assessment and plan: nursing informs me that his SPC was replaced after the CT findings from 07/06 in which his catheter balloon was found to be blown up in the abdominal wall mus culature. (6) Influenza A: Status: Resolved Assessment and plan: completed treatment on 07/10 (7) Unspecified dementia without behavioral disturbance: Status: Acute Assessment and plan: initially patient presented w/ acute encephalopathy but now he is at his baseline of dementia. He is aware of being in the hospital and knows the location but is unclear as to the details of why he was brought to the hospital. He defers to his family for decision making. (8) Decubitus skin ulcer: Status: Acute Assessment and plan: local wound care per nursing (9) Protein malnutrition: Status: Chronic Assessment and plan: limited ability to treat given family decision against feeding tube and patient's dysphagia (10) Rhabdomyolysis: Status: Resolved Assessment and plan: resolved after initial admission treatment w/ fluids. repeat CK now normal. will monitor CK levels while on daptomycin (11) DVT prophylaxis: Status: Acute Assessment and plan: SCD (12) Discharge planning issues: Status: Acute Assessment and plan: dc home w/ home health and palliative care next week after home daptomycin can be ordered. if family desires hospice then he can be dc sooner but w/out antibiotics Subjective Subjective Interval history since last seen: Patient offers no complaints. Per his nurse, he had trouble w/ choking after dinner last night. S.L.P. did not present last night to observe dinner feedings. Exam Narrative Exam Narrative: Jose is alert he is oriented to person and place but not to time or circumstance. He offers no complaints. Denies any pain. Lungs are clear to auscultation Heart is regular rate and rhythm Abdomen soft nondistended nontender Extremities with superficial skin ulcerations which are covered with dressings. Objective Last Vital Signs Temp 36.9 C 07/13/22 11:46 Pulse 73 07/13/22 11:46 Resp 18 07/13/22 11:46 BP 103/65 07/13/22 11:46 Pulse Ox 97 07/13/22 11:46 Laboratory Results - last 24 hr 07/13/22 05:20 Vancomycin Trough 22.9 H*
[2022-07-13 14:22] LABS: Bilirubin Negative (Negative); Blood Trace-intact (Negative); Clarity Clear (Clear); Glucose Negative (Negative); Ketones Negative (Negative); Leukocyte Esterase Negative (Negative); Nitrite Negative (Negative); Urobilinogen 0.2 EU/dL (Up TO 0.2); pH 5.5 (5-8)
[2022-07-13] MEDS: DEXTROSE 5%-LACTATED RINGERS 1,000 ML 85 ML IV (14:26)
[2022-07-13 14:30] LABS: Bacteria Negative HPF (Negative); C & S Indicated? No; Casts Negative LPF (Negative); Crystals Negative HPF (Negative); Epithelial Cells Rare HPF (Negative); Mucus Negative (Negative); RBC 0-2 HPF (0-2); WBC 0-2 HPF (0-5)
[2022-07-13 15:12] LABS: C Diff PCR Negative (Negative)
[2022-07-13 16:00] VITALS: BP 117/71; PULSE 83; RESP 17; TEMP 36.7; O2SAT 96
[2022-07-13 18:35] VITALS: BP 133/74; PULSE 87; RESP 18; TEMP 36.8; O2SAT 97
[2022-07-13 23:04] VITALS: BP 116/70; PULSE 76; RESP 19; TEMP 36.7; O2SAT 98
[2022-07-14] MEDS: cefTAZidime 2,000 MG in Normal Saline 100 ML 200 MG IVPB ×3 (00:24→15:23)
[2022-07-14] MEDS: VANCOMYCIN/WATER (PEG) 750 MG/150 ML BAG 100 MG IV (01:10)
[2022-07-14] MEDS: ACETAMINOPHEN 1,000 MG/100 ML BTL 400 MG IVPB ×3 (02:30→18:02)
[2022-07-14] MEDS: DEXTROSE 5%-LACTATED RINGERS 1,000 ML 85 ML IV ×2 (02:45→16:29)
[2022-07-14 03:09] VITALS: BP 127/73; PULSE 80; RESP 19; TEMP 36.9; O2SAT 98
[2022-07-14] MEDS: Psyllium PKT 1 EACH PO (08:38)
[2022-07-14] MEDS: Protein Nutritional Supplement 16 GM 1 OUNCE PACKET PO (08:38)
[2022-07-14 08:40] VITALS: BP 135/81; PULSE 93; RESP 17; TEMP 36.6; O2SAT 99
[2022-07-14] MEDS: DAPTOmycin 500 MG in Normal Saline 50 ML 100 MG IVPB (09:56)
[2022-07-14 11:19] VITALS: BP 115/69; PULSE 79; RESP 17; TEMP 36.3; O2SAT 96
--- NOTE | 2022-07-14 11:49 | W.PM.PROGNOT ---
Date of Service Date of service: 07/14/22 Time of Service: 11:49 Assessment and Plan Assessment and plan (1) MRSA bacteremia: Status: Acute Assessment and plan: Vancomycin was discontinued. Daptomycin w/ careful monitoring of renal function, electrolytes and CK levels. Needs 6 weeks of antibiotics from clearance of his MRSA bacteremia (through Aug 18, 2022). family wants to complete therapy at home. Switching to daptomycin will facilitate once daily treatment. D (2) Neuro-degenerative disorders: Status: Acute (3) Dysphagia: Status: Acute Assessment and plan: family declines feeding tube. Patient has not been able to adequately swallow without coughing or choking spells. Feeding has been on hold. Dental caries pain might be limiting his intake, v. swallowing or his neurodegenerative process. (4) Pseudomonas urinary tract infection: Status: Acute Assessment and plan: patient completed 7 days of Ceftriaxone, then changed to Fortaz on 07/11 His suprpubic catheter appears to drain clear yellow urine (5) Influenza A: Status: Resolved Assessment and plan: completed treatment on 07/10 Afebrile, no current sx (6) Unspecified dementia without behavioral disturbance: Status: Acute Assessment and plan: initially patient presented w/ acute encephalopathy but now he is at his baseline of dementia. He is aware of being in the hospital and knows the location but is unclear as to the details of why he was brought to the hospital. He defers to his family for decision making. (7) Decubitus skin ulcer: Status: Acute Assessment and plan: local wound care per nursing (8) Protein malnutrition: Status: Chronic Assessment and plan: limited ability to treat given family decision against feeding tube and patient's dysphagia (9) Rhabdomyolysis: Status: Resolved Assessment and plan: resolved after initial admission treatment w/ fluids. repeat CK now normal. will monitor CK levels while on daptomycin (10) DVT prophylaxis: Status: Acute Assessment and plan: SCD (11) Discharge planning issues: Status: Acute Assessment and plan: dc home w/ home health and palliative care next week after home daptomycin can be ordered. if family desires hospice then he can be dc sooner but w/out antibiotics Discussed with Dr Arias Subjective Subjective Patient reports: no new complaints Interval history since last seen: poor oral intake Exam Const General: no acute distress (grimace and groan throughout), frail appearing and ill appearing Orientation: alert, awake, not oriented to place and oriented to time () [facility] Head: normocephalic, atraumatic and no acral cyanosis Ears: hearing grossly impaired Resp Effort & Inspection: normal respiratory effort and cough Quality of cough: wet (decreased frequency compared to yesterday) Skin Other: scattered bruising, predominately over BUE, worse over L forearm Psych Mental Status: mental status grossly abnormal Speech and Movement: delayed speech and slurred speech Affect: indifferent Attitude: guarded Thought Process: illogical, impoverished and loose association Insight: poor Judgment: poor Other: fatigued only able to answer closed ended questions Objective Last Vital Signs Temp 36.3 C L 07/14/22 11:19 Pulse 79 07/14/22 11:19 Resp 17 07/14/22 11:19 BP 115/69 07/14/22 11:19 Pulse Ox 96 07/14/22 11:19 Laboratory Results - last 24 hr 07/13/22 07/13/22 13:58 13:58 Urine Color Yellow Urine Clarity Clear Urine pH 5.5 Ur Specific Josephine 1.020 Urine Protein Negative Urine Ketones Negative Urine Blood Trace-intact H Urine Nitrite Negative Urine Bilirubin Negative Urine Urobilinogen 0.2 Ur Leukocyte Esterase Negative Urine RBC 0-2 Urine WBC 0-2 Ur Epithelial Cells Rare Urine Crystals Negative Urine Bacteria Negative Urine Casts Negative Urine Mucus Negative Ur Culture Indicated? No Urine Glucose Negative Stl C.difficile Tox PCR Negative
[2022-07-14 15:30] VITALS: BP 102/62; PULSE 76; RESP 17; TEMP 36.5; O2SAT 97
--- NOTE | 2022-07-14 15:44 | WOUNDCONS ---
- If Service Date Differs Date of service: 07/14/22 Time of Service: 15:44 Wound Initial Evaluation Narrative: Follow up to last weeks wound consult. Patient is refusing oral medications and food. Some more of the wound bed is visible on the unstageables to clearly see the wound bed to stage. At this point it would be rich to continue the current tx. - Wound Lumbar/Sacral Wound Type: Other (area of risk) Wound General Appearance: Well Approximated Wound Bed Greatest Portion: Red (Granulation) Percent of Wound Bed Granulated/Red: 100 Wound Length: 10 cm Wound Width: 2.8 cm Wound Depth: 0 cm Wound Drainage Amount: None Wound Drainage Odor: None/Absent Wound Drainage Description: No drainage Wound Topical Solution/Irrigant: Antibiotic Irrigant Wound Debridement Method: Gauze Wound Debridement Result: Healthy Tissue Revealed Wound Debridement Amount of Tissue Removed: None flank Wound Type: Pressure Ulcer Pressure Ulcer Stage: Eschar/Unstageable Wound General Appearance: Reddened, Blackened, Unapproximated Wound Bed Greatest Portion: Black (Eschar) Wound Bed Lesser Portion: Red (Granulation) Wound Surrounding Tissue Appearance: [place] Percent of Wound Bed Granulated/Red: 20 Percent of Wound Bed Eschar/Black: 80 Wound Length: 1.5 cm Wound Width: 5.9 cm Wound Depth: 0.1 cm Wound Drainage Amount: Minimal Wound Drainage Odor: None/Absent Wound Drainage Description: Bloody Wound Topical Solution/Irrigant: Antibiotic Irrigant Wound Debridement Method: Gauze Wound Debridement Result: Healthy Tissue Revealed Wound Debridement Amount of Tissue Removed: Minimal Right Hip Wound Type: Pressure Ulcer Pressure Ulcer Stage: II Wound General Appearance: Reddened, Blackened, Unapproximated Wound Bed Greatest Portion: Black (Eschar) Wound Bed Lesser Portion: Red (Granulation) Wound Surrounding Tissue Appearance: [place] Percent of Wound Bed Granulated/Red: 40 Percent of Wound Bed Eschar/Black: 60 Wound Length: 9.6 cm Wound Width: 4.9 cm Wound Depth: 0.1 cm Wound Drainage Amount: Minimal Wound Drainage Odor: None/Absent Wound Drainage Description: Bloody Wound Topical Solution/Irrigant: Antibiotic Irrigant Wound Debridement Method: Gauze Wound Debridement Result: Healthy Tissue Revealed Wound Debridement Amount of Tissue Removed: Minimal Right Medial Thigh Wound Type: Pressure Ulcer Pressure Ulcer Stage: Eschar/Unstageable Wound General Appearance: Reddened, Blackened, Unapproximated Wound Bed Greatest Portion: Black (Eschar) Wound Bed Lesser Portion: Red (Granulation) Percent of Wound Bed Granulated/Red: 20 Percent of Wound Bed Eschar/Black: 80 Wound Length: 2.9 cm Wound Width: 4.8 cm Wound Depth: 0.1 cm Wound Drainage Amount: Minimal Wound Drainage Odor: None/Absent Wound Drainage Description: Brown Wound Topical Solution/Irrigant: Antibiotic Irrigant Wound Debridement Method: Gauze Wound Debridement Result: Healthy Tissue Revealed Wound Debridement Amount of Tissue Removed: Minimal Left Great toe Wound Type: Pressure Ulcer Pressure Ulcer Stage: Eschar/Unstageable Wound General Appearance: Reddened, Blackened, Unapproximated Wound Bed Greatest Portion: Black (Eschar) Wound Bed Lesser Portion: Red (Granulation) Wound Surrounding Tissue Appearance: [place] Percent of Wound Bed Granulated/Red: 20 Percent of Wound Bed Eschar/Black: 80 Wound Length: 2.5 cm Wound Width: 1.5 cm Wound Depth: 0.1 cm Wound Drainage Amount: Minimal Wound Drainage Odor: None/Absent Wound Drainage Description: Bloody Wound Topical Solution/Irrigant: Antibiotic Irrigant Wound Debridement Method: Gauze Wound Debridement Result: Healthy Tissue Revealed Wound Debridement Amount of Tissue Removed: Minimal Right Posterior Calf Wound Type: Pressure Ulcer Pressure Ulcer Stage: Eschar/Unstageable Wound General Appearance: Reddened, Blackened, Unapproximated Wound Bed Greatest Portion: Black (Eschar) Wound Bed Lesser Portion: Red (Granulation) Wound Surrounding Tissue Appearance: [place] Percent of Wound Bed Granulated/Red: 20 Percent of Wound Bed Eschar/Black: 80 Wound Length: 1.2 cm Wound Width: 3.5 cm Wound Depth: 0.1 cm Wound Drainage Odor: None/Absent Wound Drainage Description: Bloody Wound Topical Solution/Irrigant: Antibiotic Irrigant Wound Debridement Method: Gauze Wound Debridement Result: Healthy Tissue Revealed Wound Debridement Amount of Tissue Removed: Minimal Left Medial Thigh Wound Type: Pressure Ulcer Pressure Ulcer Stage: II Wound General Appearance: Reddened, Blackened, Unapproximated Wound Bed Greatest Portion: Black (Eschar) Wound Bed Lesser Portion: Red (Granulation) Wound Surrounding Tissue Appearance: [place] Percent of Wound Bed Granulated/Red: 40 Percent of Wound Bed Eschar/Black: 60 Wound Length: 4.9 cm Wound Width: 2.8 cm Wound Depth: 0.1 cm Wound Drainage Amount: Minimal Wound Drainage Odor: None/Absent Wound Drainage Description: Bloody Wound Topical Solution/Irrigant: Antibiotic Irrigant Wound Debridement Method: Gauze Wound Debridement Result: Healthy Tissue Revealed Wound Debridement Amount of Tissue Removed: Minimal back Wound Type: Pressure Ulcer Pressure Ulcer Stage: II Wound General Appearance: Reddened, Blackened, Unapproximated Wound Bed Greatest Portion: Black (Eschar) Wound Bed Lesser Portion: Red (Granulation) Wound Surrounding Tissue Appearance: [place] Percent of Wound Bed Eschar/Black: 60 Wound Length: 2.3 cm Wound Width: 2.4 cm Wound Depth: 0.1 cm Wound Drainage Amount: Minimal Wound Drainage Odor: None/Absent Wound Drainage Description: Bloody Wound Topical Solution/Irrigant: Antibiotic Irrigant Wound Debridement Method: Gauze Wound Debridement Result: Healthy Tissue Revealed Wound Debridement Amount of Tissue Removed: Minimal - Circulation, Sensation, Motion Edema Degree: Other Peripheral Pulse Strength: Normal Capillary Refill: Less than 3 seconds Sensation Description: Within Normal Limits Skin Temperature: Warm Skin Color: Normal - EDISON Comment:: na - Pain Pain Level: 0 Slight bit more of wound bed visible this week versus last week. Staff has been very thorough in the off loading of pressure. Continue current tx for another week - Photo Photo: photos could not be obtained - Treatment/Dressing Change Topicals/Ointments: Anasept Gel Cleanse With: Anasept Dressing Types: Mepilex w/Border - Nutrition Education Reviewed Nutrition Education: No Note: unable to comprehend - Recomendation Recomendation:: Continue current tx for one more week. Physcian/Nurse Practioner Notified: Yes (Dr Arias)
[2022-07-14 19:22] VITALS: BP 113/72; PULSE 83; RESP 15; TEMP 36.1; O2SAT 95
[2022-07-14 22:31] VITALS: BP 104/62; PULSE 73; RESP 16; TEMP 36.1; O2SAT 96
[2022-07-15] MEDS: cefTAZidime 2,000 MG in Normal Saline 100 ML 200 MG IVPB ×3 (00:34→17:12)
[2022-07-15] MEDS: ACETAMINOPHEN 1,000 MG/100 ML BTL 400 MG IVPB ×2 (01:35→18:52)
[2022-07-15 02:28] VITALS: BP 118/75; PULSE 77; RESP 18; TEMP 36.1; O2SAT 98
[2022-07-15] MEDS: DEXTROSE 5%-LACTATED RINGERS 1,000 ML 85 ML IV ×2 (04:52→20:40)
[2022-07-15 06:36] LABS: Abs Immature Grans 0.02 10^3/uL (0.0-0.06); Absolute Basophil Count 0.01 10^3/uL (0.0-0.2); Absolute Eosinophil Count 0.09 10^3/uL (0.0-0.7); Absolute Lymphocyte Count 1.34 10^3/uL (1.2-3.4); Absolute Monocyte Count 0.35 10^3/uL (0.1-0.8); Absolute Neutrophil Count 2.63 10^3/uL (1.2-6.7); Basophils % 0.2; HCT 36.5 % (40.0-50.0); HGB 12.4 g/dL (13.5-17.5); Immature Grans % 0.5; Lymphocytes % 30.2; MCH 34.3 pg (27.0-33.0); MCV 101 fL (80-95); MPV 11.3 fL (8.0-11.0); Monocytes % 7.9; Neutrophils % 59.2; Platelet Count 241 10^3/uL (130-400); RBC 3.61 10^6/uL (4.36-5.78); RDW 13.7 % (11.8-14.1); RDW-SD 50.1 fL; WBC 4.44 10^3/uL (4.4-10.8)
[2022-07-15 07:00] LABS: ALT 68 U/L (16-63); AST 59 U/L (15-37); Albumin 1.7 g/dL (3.4-5.0); Alkaline Phosphatase 183 U/L (46-116); Anion Gap 6.1 mmol/L (3-11); BUN 5 mg/dL (7-18); Bilirubin, Total 0.6 mg/dL (0.2-1.0); CO2 26.9 mmol/L (21.0-32.0); CREATININE 0.8 mg/dL (0.70-1.30); Calcium 7.8 mg/dL (8.5-10.1); Chloride 114 mmol/L (98-107); Creatine Kinase 34 U/L (39-308); Estimated GFR 92.29 (mL/min/1.73m2); Glucose 98 mg/dL (74-106); Potassium 3.4 mmol/L (3.5-5.1); Sodium 147 mmol/L (136-145); Total Protein 5.1 g/dL (6.4-8.2)
[2022-07-15] MEDS: DAPTOmycin 500 MG in Normal Saline 50 ML 100 MG IVPB (08:52)
[2022-07-15 09:05] VITALS: BP 117/72; PULSE 76; RESP 18; TEMP 36.4; O2SAT 96
[2022-07-15 12:00] VITALS: BP 108/65; PULSE 82; RESP 16; TEMP 36.4; O2SAT 97
--- NOTE | 2022-07-15 13:05 | W.PM.PROGNOT ---
Date of Service Date of service: 07/15/22 Time of Service: 13:05 Assessment and Plan Assessment and plan (1) MRSA bacteremia: Status: Acute Assessment and plan: Continue Daptomycin w/ careful monitoring of renal function, electrolytes and CK levels. Needs 6 weeks of antibiotics from clearance of his MRSA bacteremia (through Aug 18, 2022). family wants to complete therapy at home. Switching to daptomycin will facilitate once daily treatment. (2) Neuro-degenerative disorders: Status: Acute Assessment and plan: stable and at baseline (3) Dysphagia: Status: Acute Assessment and plan: family declines feeding tube. Patient has not been able to adequately swallow without coughing or choking spells. Feeding has been on hold. Dental caries pain might be limiting his intake, v. swallowing or his neurodegenerative process. (4) Pseudomonas urinary tract infection: Status: Acute Assessment and plan: on Fortaz starting 07/11 will repeat ua (5) Influenza A: Status: Resolved Assessment and plan: completed treatment on 07/10 Afebrile, no current sx (6) Unspecified dementia without behavioral disturbance: Status: Acute Assessment and plan: initially patient presented w/ acute encephalopathy but now he is at his baseline of dementia. He is aware of being in the hospital and knows the location but is unclear as to the details of why he was brought to the hospital. He defers to his family for decision making. (7) Decubitus skin ulcer: Status: Acute Assessment and plan: local wound care per nursing (8) Protein malnutrition: Status: Chronic Assessment and plan: limited ability to treat given family decision against feeding tube and patient's dysphagia (9) Rhabdomyolysis: Status: Resolved Assessment and plan: resolved after initial admission treatment w/ fluids. repeat CK now normal. will monitor CK levels while on daptomycin (10) DVT prophylaxis: Status: Acute Assessment and plan: SCD (11) Discharge planning issues: Status: Acute Assessment and plan: dc home w/ home health and palliative care next week after home daptomycin can be ordered. if family desires hospice then he can be dc sooner but w/out antibiotics Discussed with Dr Arias Subjective Subjective Patient reports: no new complaints and afebrile; denies tolerating liquids well, tolerating a regular diet, nausea or shortness of breath Exam Const General: frail appearing and ill appearing chronically Nutritional Appearance: thin HENMT Head: normal to inspection, normocephalic and atraumatic Mouth: moist mucous membranes abnormal (dry) Resp Effort & Inspection: normal respiratory effort Cardio Rate: regular rate Rhythm: regular rhythm GI Inspection: normal to inspection Palpation: soft Skin Lesions: lesion noted (multiple, see nurses skin assessment) and other Rashes: no rashes Neuro General: patient alert, patient awake and patient confused Extrem General: no edema and muscle atrophy of the right lower extremity and of the left lower extremity Objective Last Vital Signs Temp 36.4 C L 07/15/22 12:00 Pulse 82 07/15/22 12:00 Resp 16 07/15/22 12:00 BP 108/65 07/15/22 12:00 Pulse Ox 97 07/15/22 12:00 Laboratory Results - last 24 hr 07/15/22 07/15/22 06:16 06:16 WBC 4.44 RBC 3.61 L Hgb 12.4 L D Hct 36.5 L MCV 101 H MCH 34.3 H MCHC 34.0 RDW 13.7 Plt Count 241 D MPV 11.3 H Immature Gran % 0.5 Neutrophils % 59.2 Lymphocytes % 30.2 Monocytes % 7.9 Eosinophils % 2.0 Basophils % 0.2 Nucleated RBC % 0.0 Absolute Neutrophils 2.63 Absolute Lymphocytes 1.34 Absolute Monocytes 0.35 Absolute Eosinophils 0.09 Absolute Basophils 0.01 Sodium 147 H Potassium 3.4 L Chloride 114 H Carbon Dioxide 26.9 Anion Gap 6.1 BUN 5 L Creatinine 0.8 Est GFR (CKD-EPI 2020) 92.29 Glucose 98 Calcium 7.8 L Total Bilirubin 0.6 AST 59 H ALT 68 H Alkaline Phosphatase 183 H Creatine Kinase 34 L C-Reactive Protein 0.80 H Total Protein 5.1 L Albumin 1.7 L
[2022-07-15 13:49] LABS: PHOSPHORUS 3.9 mg/dL (2.6-4.7)
[2022-07-15 13:53] LABS: Bilirubin Negative (Negative); Blood Trace-lysed (Negative); Clarity Clear (Clear); Glucose Negative (Negative); Ketones Negative (Negative); Leukocyte Esterase Negative (Negative); Nitrite Negative (Negative); Specific Gravity >= 1.030 (1.005-1.025); Urobilinogen 0.2 EU/dL (Up TO 0.2); pH 5.5 (5-8)
[2022-07-15 14:03] LABS: Bacteria Negative HPF (Negative); C & S Indicated? No; Casts Negative LPF (Negative); Crystals Negative HPF (Negative); Epithelial Cells Rare HPF (Negative); Mucus Negative (Negative); RBC 0-2 HPF (0-2); WBC 0-2 HPF (0-5)
[2022-07-15 15:27] VITALS: BP 117/72; PULSE 87; RESP 17; TEMP 36.5; O2SAT 97
[2022-07-15] MEDS: Normal Saline Flush 10 ML SYR IVP (17:14)
[2022-07-15 18:08] VITALS: BP 107/67; PULSE 87; RESP 16; TEMP 36.5; O2SAT 97
[2022-07-15 22:18] VITALS: BP 110/66; PULSE 76; RESP 16; TEMP 36.2; O2SAT 96
[2022-07-16] MEDS: cefTAZidime 2,000 MG in Normal Saline 100 ML 200 MG IVPB ×3 (00:30→16:26)
[2022-07-16] MEDS: Normal Saline Flush 10 ML SYR IVP ×5 (00:34→10:29)
[2022-07-16] MEDS: ACETAMINOPHEN 1,000 MG/100 ML BTL 400 MG IVPB ×3 (02:10→17:47)
[2022-07-16 02:40] VITALS: BP 105/62; PULSE 82; RESP 16; TEMP 36.1; O2SAT 96
[2022-07-16 07:13] VITALS: BP 128/72; PULSE 82; RESP 16; TEMP 36.7; O2SAT 98
--- NOTE | 2022-07-16 08:49 | PDOC.CMPRO ---
- If Service Date Differs Date of service: 07/16/22 Time of Service: 08:49 Care Management Progress Note S/O: Jose remains acutely ill and is being closely monitored and treated with IV ABX. Pt will require daily IV ABX through 08/19/21 and can be discharged home w/ home health and palliative care after home daptomycin can be ordered. Per provider, prognosis is poor, as pt is not eating, nutrition is consulted. If family desires hospice then he can be discharged home sooner but w/out antibiotics. Dr. Hartley met with Jose and his family last week; COLST completed. CM reviewed discharge considerations with pts DIL this morning, as she requested to have Jose home on Hospice by tomorrow evening. CM contacted [facility], and requested Hospice Coordination. Family is available at 3:30p today. CM is awaiting a call back from Sara at [facility]. Palliative Care and CM continue to follow. A: 76 year old male admitted to [facility] 07/05/22 for UTI with AMS, Influenza A, Hypernatremia P: Anticipate Jose will discharge home via private w/c van when medically ready. He will follow up with community providers and discharge plan of care as prescribed. Pt will resume 03/02 caregiver support with resumption of [facility] RN/PT/ST, add MERCHANDISING ASSISTANT. Lacey is advocating for hospital bed, to support Jose in sitting up (ST recommendation as well); possible discharge home with consideration for Hospice; ongoing discussion. CM continues to follow.
[2022-07-16] MEDS: DAPTOmycin 500 MG in Normal Saline 50 ML 100 MG IVPB (09:48)
--- NOTE | 2022-07-16 11:24 | TELEFU_ITS ---
Date of service: 07/16/22 Time of Service: 11:24 Nutrition Note NOTE: Per MD, tube feeding not considered at this time despite inability to take in adequate nutrition. Not taking diet or oral supplements such as ensure clear, liquid protein. Family considering hospice and CLINICAL CASE MANAGER at this time. Time Spent in Nutritional Counseling and Treatment: 0
[2022-07-16 11:50] VITALS: BP 125/78; PULSE 81; RESP 17; TEMP 36.8; O2SAT 97
--- NOTE | 2022-07-16 12:00 | W.SPSTP ---
Date of service: 07/16/22 Time of Service: 12:00 Subjective Patient was contacted at bedside. Nursing present initially during session to take vitals and assist with repositioning to upright via reverse trendelenburg. Patient is agreeable to take some PO trials with clinician. Per BAKER PIE, he continues with poor tolerance or refusal of most PO trials, but she was able to provide him with about ~100ml of Ensure (thickened) recently. BAKER PIE Regi reports she has been performing oral care every 2-3 hours, with improved tolerance from patient. Patient denies mouth pain this date. Patient endorses posterior neck pain this date 12/21. Objective/Assessment/Plan Objective Treatment Techniques & Outcomes: 1. Re-evaluation by PULPING MACHINE OPERATOR to monitor progress and asses for readiness to participate in therapeutic activities. Completed this date, will continuously re-assess, possibility for MBSS pending patient/family goals of care. Oral care provided:?By BAKER PIE prior to PULPING MACHINE OPERATOR arrival. Food items tested: ?? x Thin liquids x 2 tsp ? x Mildly Thick Liquids x3 tsp x Puree x1 tsp Oral phase: ? Difficulty with bolus manipulation (improved) ? Difficulty with a-p transport (improved) ? Pharyngeal phase: ?? Delayed swallow initiation but improved over previous ? Severe/persistent cough after swallow with thin liquids, mild throat clears with thickened liquid. ? No regurgitation this date but patient spontaneously swallows 2-3x per liquid bolus, and 5-6x per puree bolus 2. Patient/family will be verbalize understanding of dysphagia education r/t normal vs disordered swallow function, impact of disease processes on swallow function, relationship between respiratory function and deglutition, importance of frequent and diligent oral care, and safe swallow strategies/risk management strategies to reduce risk of pulmonary complications of aspiration. Not addressed this date, family not present. Patient unable to demonstrate adequate insight into deficits. Assessment Patient with mildly improved tolerance of mildly thickened liquids this date (patient consumed about 50-60% of an ensure). Continues to show s/sx aspiration with thin liquids, and with poor tolerance of thick puree (though minimal coughing, suspect pharyngeal residue due to voice changes, patient refuses more than 1-2 bites pudding). Continue to offer Mildly Thickened liquids often throughout the day, patient tolerates well using a straw with consistent positive encouragement. Continue to follow palliative care's recommendations regarding no MBSS at this time; this could become an option again if the patient is with more consistent PO intake and if in line with family goals of care. Plan Plan: PULPING MACHINE OPERATOR to continue to follow while on unit. Recommend PULPING MACHINE OPERATOR at SNF, or HH PULPING MACHINE OPERATOR if pt d/c home. Recommendations Recommendations: DISCHARGE:?Pending goals of care; cont with HH PULPING MACHINE OPERATOR or DC to Alf/LTC with PULPING MACHINE OPERATOR services provided. Diet Texture Modification(s):? 4-Pureed Solids 2-Mildly Thick Liquids Medication Intake: Crushed (if able) with 2-Mildly Thick Liquids Liquid formulations thickened to level 2 Mildly Thick may be beneficial if available. Alter medications only as advised by MD or Pharmacist RISK MANAGEMENT: Oral hygiene every 2-3 hours and before/after PO intake using friction with toothbrush on all oral structures as tolerated HOB upright as tolerated; upright for all PO intake. Encourage physical mobility as tolerated. Level of Assistance/Supervision: Assistive feeding only by trained staff/family PO intake only when awake/alert? Strategies/Adaptations/Assistive Equipment: OFFER THICKENED LIQUIDS VIA STRAW SWALLOW HARD AND FAST (provide verbal cues when pt is eating/drinking) Reduce auditory and/or visual distractions when eating Small sips and bites when eating, Slow rate of intake, Swallow between bites, Alternate intake of liquids and solids, Small+frequent meals throughout day Posture/Positioning Needs: Sleep with head of bed elevated to reduce likelihood of nocturnal reflux CODIN Swallow treat Time spent: 40 minutes Coding
[2022-07-16] MEDS: DEXTROSE 5%-LACTATED RINGERS 1,000 ML 85 ML IV (12:44)
[2022-07-16 15:21] VITALS: BP 101/60; PULSE 79; RESP 16; TEMP 36.8; O2SAT 98
[2022-07-16] MEDS: Lidocaine 1% Pres-Free 5 ML VIAL (16:51)
--- NOTE | 2022-07-16 17:59 | PGE_ITS ---
Date of Service Date of service: 07/16/22 Time of Service: 17:59 Assessment and Plan Assessment and plan (1) MRSA bacteremia: Status: Acute Assessment and plan: Continue Daptomycin w/ careful monitoring of renal function, electrolytes and CK levels. Needs 6 weeks of antibiotics from clearance of his MRSA bacteremia (through Aug 18, 2022). family wants to complete therapy at home. Switching to daptomycin will facilitate once daily treatment. (2) Neuro-degenerative disorders: Status: Acute Assessment and plan: stable and at baseline (3) Dysphagia: Status: Acute Assessment and plan: family declines feeding tube. Patient has not been able to adequately swallow without coughing or choking spells. Feeding has been on hold. Dental caries pain might be limiting his intake, v. swallowing or his neurodegenerative process. (4) Pseudomonas urinary tract infection: Status: Acute Assessment and plan: on Fortaz starting 07/11 will repeat ua (5) Influenza A: Status: Resolved Assessment and plan: completed treatment on 07/10 Afebrile, no current sx (6) Unspecified dementia without behavioral disturbance: Status: Acute Assessment and plan: initially patient presented w/ acute encephalopathy but now he is at his baseline of dementia. He is aware of being in the hospital and knows the location but is unclear as to the details of why he was brought to the hospital. He defers to his family for decision making. (7) Decubitus skin ulcer: Status: Acute Assessment and plan: local wound care per nursing (8) Protein malnutrition: Status: Chronic Assessment and plan: limited ability to treat given family decision against feeding tube and patient's dysphagia (9) Rhabdomyolysis: Status: Resolved Assessment and plan: resolved after initial admission treatment w/ fluids. repeat CK now normal. will monitor CK levels while on daptomycin (10) DVT prophylaxis: Status: Acute Assessment and plan: SCD (11) Discharge planning issues: Status: Acute Assessment and plan: dc home w/ home health and palliative care next week after home daptomycin can be ordered. if family desires hospice then he can be dc sooner but w/out antibiotics Discussed with Dr Alcantara Subjective Subjective Patient reports: no new complaints and afebrile; denies tolerating a regular diet Exam Const General: frail appearing and ill appearing chronically Nutritional Appearance: thin HENMT Head: normal to inspection, normocephalic and atraumatic Mouth: moist mucous membranes abnormal (dry) Resp Effort & Inspection: normal respiratory effort Cardio Rate: regular rate Rhythm: regular rhythm GI Inspection: normal to inspection Palpation: soft Skin Lesions: lesion noted (multiple, see nurses skin assessment) and other Rashes: no rashes Neuro General: patient alert, patient awake and patient confused Extrem General: no edema and muscle atrophy of the right lower extremity and of the left lower extremity Objective Last Vital Signs Temp 36.8 C 07/16/22 15:21 Pulse 79 07/16/22 15:21 Resp 16 07/16/22 15:21 BP 101/60 07/16/22 15:21 Pulse Ox 98 07/16/22 15:21 Time Spent with Patient Time Spent with Patient: 25-34 minutes Time was spent: preparing to see the patient(eg.review tests), referring, communicating with other health healthcare liaison, counseling the patient and care coordination
[2022-07-16 20:00] VITALS: BP 119/67; PULSE 74; RESP 16; TEMP 36.3; O2SAT 98
[2022-07-16 23:09] VITALS: BP 122/72; PULSE 82; RESP 16; TEMP 37.9; O2SAT 97
[2022-07-17] MEDS: cefTAZidime 2,000 MG in Normal Saline 100 ML 200 MG IVPB ×3 (01:33→16:11)
[2022-07-17] MEDS: Normal Saline Flush 10 ML SYR IVP (01:34)
[2022-07-17] MEDS: ACETAMINOPHEN 1,000 MG/100 ML BTL 400 MG IVPB ×3 (02:29→17:25)
[2022-07-17] MEDS: DEXTROSE 5%-LACTATED RINGERS 1,000 ML 85 ML IV ×2 (03:02→15:57)
[2022-07-17 05:18] VITALS: BP 119/76; PULSE 81; RESP 19; TEMP 36.3; O2SAT 97
[2022-07-17 07:45] VITALS: BP 116/64; PULSE 75; RESP 16; TEMP 36.6; O2SAT 98
--- NOTE | 2022-07-17 08:15 | CMPROGNOTE_ITS ---
- If Service Date Differs Date of service: 07/17/22 Time of Service: 08:15 Care Management Progress Note S/O: Jose is lying in bed when CM met with him. He is awake, alert and engages in conversation. His goal is to discharge home, but also be able to remain on abx to see if he can get better. Estefania from Palliative Care spoke with Jose and his son Lissy (via phone). A plan is established for Jose to discharge home tomorrow on PO Cipro, instead of IV ABX. Estefania reviewed plan with Dr. Ramirez, and Jose should discharge home with his mid-line, in the event that IV ABX are needed after discharge, CM notified hospitalist. In addition, CODY notified Sara at [facility] of plan, DME to be arranged. A: 76 year old male admitted to [facility] 07/05/22 for UTI with AMS, Influenza A, Hypernatremia P: Anticipate, Jose will discharge home with PO ABX tomorrow with same day admission to Hospice services. He will be transported by EMS, coordinated by CM. DME to be arranged, as discussed with family. Jose will be followed by Hospice Services and follow discharge plan of care as prescribed. CM continues to follow.
[2022-07-17] MEDS: DAPTOmycin 500 MG in Normal Saline 50 ML 100 MG IVPB (08:59)
[2022-07-17 11:14] VITALS: BP 115/64; PULSE 72; RESP 16; TEMP 36.1; O2SAT 97
--- NOTE | 2022-07-17 13:31 | W.PALPGNOTE ---
Date of service: 07/17/22 Time of Service: 12:30 Assessment and Plan Assessment and plan (1) Encounter for hospice care discussion: Status: Acute Assessment and plan: Jose will be discharged home tomorrow on hospice Hospice aware Hospital bed needed, to be delivered tomorrow Lissy agrees to plan, would like to review w/Lacey, he is to call hospital back IF they do not want him discharged home on hospice tomorrow PPS 20%, bed bound, total care assist, unintentional weight loss, dysphagia, high aspiration risk (2) Protein malnutrition: Status: Chronic Assessment and plan: hospice diagnosis protein calorie malnutrition caused by decreased oral intake, related to: neuro-degenerative disorder? poor dentition? failure to thrive? (3) Unspecified dementia without behavioral disturbance: Status: Acute Assessment and plan: FAST Scale 7a (4) Decubitus skin ulcer: Status: Acute Assessment and plan: continue wound care [facility] RN to continue wound care (5) Dysphagia: Status: Acute Assessment and plan: continue offers for sips and bites, do not force liquid medications as able high aspiration risk continue [employer] recommendations (6) MRSA bacteremia: Status: Acute Assessment and plan: blood cultures w/no growth x2; sensitive to ciprofloxacin, liquid cipro available; plan to switch from daptomycin to ciprofloxacin, available in oral liquid form which reduces risk of injection site infection (7) Avoidance coping: Status: Chronic Assessment and plan: personal history of avoiding health care and opting for no medical care (8) Bedbound: Status: Acute (9) Poor dentition: (10) Deficit in activities of daily living (ADL): Status: Acute (11) Unintentional weight loss: Status: Acute (12) Influenza A: Status: Resolved Assessment and plan: resolved Subjective Subjective Interval history since last seen: per Lissy: family wishes to continue with antibiotics to give Jose his best shot at curing his infection. continue w/preference for getting him home GUILLERMO some confusion regarding antibiotics d/t multiple different/changing plans Jose is now a DNR/I, no FT/IVF, continue antibiotics; family is agreeable to home on hospice, need a hospital bed, may consider a anushka lift in future Jose is lying comfortably in bed at time of visit. He does not respond to questions, makes brief eye contact per staff: Jose is denying pain, he is refusing oral meds and food intermittently, he is saying it tastes like shit. continues w/repositioning q2h, due for wound changes today Exam Const General: frail appearing and ill appearing chronically Nutritional Appearance: thin Other: appears comfortable, no grimace or groan HENMT Head: normal to inspection, normocephalic and atraumatic Resp Effort & Inspection: normal respiratory effort Skin Lesions: lesion noted (multiple, see nurses skin assessment) and other Rashes: no rashes Neuro General: patient alert, patient awake and patient confused Extrem General: no edema and muscle atrophy of the right lower extremity and of the left lower extremity Psych Speech and Movement: mute Affect: blunted Attitude: avoids eye contact Other: does not answer questions, makes eye contact x1 otherwise avoids Objective Last Vital Signs Temp 97.0 F L 07/17/22 11:14 Pulse 72 07/17/22 11:14 Resp 16 07/17/22 11:14 BP 115/64 07/17/22 11:14 Pulse Ox 97 07/17/22 11:14
[2022-07-17 14:42] VITALS: BP 123/69; PULSE 75; RESP 16; TEMP 36.3; O2SAT 98
--- NOTE | 2022-07-17 16:41 | PGE_ITS ---
Date of Service Date of service: 07/17/22 Time of Service: 16:41 Assessment and Plan Assessment and plan (1) MRSA bacteremia: Status: Acute Assessment and plan: Continue Daptomycin w/ careful monitoring of renal function, electrolytes and CK levels. Needs 6 weeks of antibiotics from clearance of his MRSA bacteremia (through Aug 18, 2022). family wants to complete therapy at home. discussed antibiotic choice with hospice team. want to consider downstep to cipro based on sensitivities. we acknowledge this is not 1 st line or typical but in hospice patient who wishes to be home and does want to continue antibiotics will trial. we will leave midline in place incase of treatment failure and decision to complete course with dapto (2) Neuro-degenerative disorders: Status: Acute Assessment and plan: stable and at baseline (3) Dysphagia: Status: Acute Assessment and plan: family declines feeding tube. Patient has not been able to adequately swallow without coughing or choking spells. Feeding has been on hold. Dental caries pain might be limiting his intake, v. swallowing or his neurodegenerative process. (4) Pseudomonas urinary tract infection: Status: Acute Assessment and plan: on Fortaz starting 07/11 repeat ua shows insignificant growth. will complete treatment (5) Influenza A: Status: Resolved Assessment and plan: completed treatment on 07/10 Afebrile, no current sx (6) Unspecified dementia without behavioral disturbance: Status: Acute Assessment and plan: initially patient presented w/ acute encephalopathy but now he is at his baseline of dementia. He is aware of being in the hospital and knows the location but is unclear as to the details of why he was brought to the hospital. He defers to his family for decision making. (7) Decubitus skin ulcer: Status: Acute Assessment and plan: local wound care per nursing (8) Protein malnutrition: Status: Chronic Assessment and plan: limited ability to treat given family decision against feeding tube and patient's dysphagia encourage ensure which is extent of what he tolerates (9) DVT prophylaxis: Status: Acute Assessment and plan: SCD (10) Discharge planning issues: Status: Acute Assessment and plan: dc home w/ home health and palliative care tomorrow, will downstep to cipro Discussed with Dr Alcantara Subjective Subjective Patient reports: no new complaints, voiding w/o difficulty (suprapubic catheter) and afebrile; denies tolerating a regular diet or shortness of breath Exam Const General: frail appearing and ill appearing chronically Nutritional Appearance: thin Other: appears comfortable, no grimace or groan HENMT Head: normal to inspection, normocephalic and atraumatic Resp Effort & Inspection: normal respiratory effort Skin Lesions: lesion noted (multiple, see nurses skin assessment) and other Rashes: no rashes Neuro General: patient alert, patient awake and patient confused Extrem General: no edema and muscle atrophy of the right lower extremity and of the left lower extremity Psych Speech and Movement: mute Affect: blunted Attitude: avoids eye contact Other: does not answer questions, makes eye contact x1 otherwise avoids Objective Last Vital Signs Temp 36.3 C L 07/17/22 14:42 Pulse 75 07/17/22 14:42 Resp 16 07/17/22 14:42 BP 123/69 07/17/22 14:42 Pulse Ox 98 07/17/22 14:42 Time Spent with Patient Time Spent with Patient: 35-49 minutes Time was spent: preparing to see the patient(eg.review tests), ordering medications,tests, procedures, referring, communicating with other health manager intensive care unit and care coordination
[2022-07-17 19:37] VITALS: BP 119/68; PULSE 76; RESP 16; TEMP 36.4; O2SAT 98
[2022-07-17 23:39] VITALS: BP 125/72; PULSE 86; RESP 20; TEMP 36.6; O2SAT 98
[2022-07-18 02:56] VITALS: BP 111/66; PULSE 78; RESP 20; TEMP 37.1; O2SAT 97
[2022-07-18] MEDS: ACETAMINOPHEN 1,000 MG/100 ML BTL 400 MG IVPB ×2 (03:02→11:13)
[2022-07-18] MEDS: DEXTROSE 5%-LACTATED RINGERS 1,000 ML 85 ML IV (04:47)
[2022-07-18 06:39] VITALS: BP 112/71; PULSE 65; RESP 15; TEMP 36; O2SAT 97
[2022-07-18] MEDS: DAPTOmycin 500 MG in Normal Saline 50 ML 100 MG IVPB (08:54)
--- NOTE | 2022-07-18 09:45 | PDOC.CMDIS ---
- If Service Date Differs Date of service: 07/18/22 Time of Service: 12:00 LACE Index Scoring Tool - Questions: Length of Stay (in days): 7 - 13 Acuity (Admit via E.D.?): Yes Comorbidities: Metastatic Solid Tumor (HX of Colon CA) E.D. Visits: 4 - Answers: Total Score: 17 Risk of Readmission: High Risk Care Management Discharge Reason for Hospitalization: Acute UTI, AMS, influenza A, hypernatremia Discharge Plan: Jose is discharged home via EMS with next day admission to Hospice Services planned. DME delivered by [facility] to pts home prior to discharge. Jose's family will continue to provide / caregiver support. Jose will follow up with community and hospice providers and discharge plan of care as prescribed. Patient/Family Education Needs: Review discharge instructions, limitations, medications and plan to follow up with community providers. Discuss ask me three and goals of self care. Services Needed at Discharge: DME Agency (Hospital Bed/ Mobile Medical), Home Health Care Services ([facility]ospice coordinated, planned admission to Hospice Friday.), Transportation (EMS (Madhu), coordinated by CM)
[2022-07-18 11:40] VITALS: BP 122/72; PULSE 75; RESP 16; TEMP 36; O2SAT 95
--- NOTE | 2022-07-18 12:32 | DSE_ITS ---
Date of service: 07/18/22 Time of Service: 12:33 DS: Diagnosis Discharge Diagnosis (1) MRSA bacteremia: Status: Acute Asessment and Plan: Cipro orally - per discussion w Dr Ramirez and Dr Alcantara (2) Neuro-degenerative disorders: Status: Chronic (3) Dysphagia: Status: Chronic (4) Unspecified dementia without behavioral disturbance: Status: Chronic (5) Decubitus skin ulcer: Status: Chronic (6) Protein malnutrition: Status: Chronic Asessment and Plan: Offer protein drinks as corinne (7) Ambulatory dysfunction: Status: Chronic Asessment and Plan: discussed with Dr. Alcantara Discharge Plan Disposition Patient Disposition: Hospice Home Condition: Deteriorating Discharge Details Reason For Visit: UTI w/MS Changes, Influenza A, Hypernatremia Admit Date/Time: 07/05/22 20:10 Admit Provider: Chaparro Holden Attending Provider: Chaparro Holden Primary Care Provider: Hortencia Rayo [facility] Course Hospital Course: This is a 76 yo male patient with a past medical history of spastic neurodegenerative disease of uncertain etiology, chronically bedbound and with suprapubic catheter for urinary retention, who presented to the [facility] emergency room with decreasing mental status over 3 days prior to admission per report of the son to the emergency room physician.? Per the son his oral intake progressively diminished during those 3 days and he became more confused and less responsive.? In the emergency room, nilesh purulent urine was noted in the tubing and bag.? The suprapubic catheter was changed. Per previous notes, he sees urology for recurrent UTIs.? He had seen neurology last in 2020 but he did not follow up for the recommended testing.? He has been bed bound for 3-4 years, and is dependent on family members who care for him in the home.? He has limited primary care follow up, though he has had home health recently.? He has multiple pressure wounds on most brook prominences described and documented well in the chart as well as many places that are excoriated from repetitive scratching. He has lost > 15 kg in the past four months. ?He was treated for UTI causing metabolic encephalopathy, with vancomycin and ceftriaxone.? His CT had no evidence of hydronephrosis or stones.? Neurology and Palliative care were consulted.? He was seen by speech therapy for dysphagia and was put on a modified diet. He has not eaten very much during this admission.? Jose lives in a trailer with 8 family members and does have 24/7 care givers.? He was seen by Palliative Care on 07/11/22. Discussion with Jose, family, the Palliative Care team and the Hospitalist team, the patient wishes to be discharged to home on home hospice care.? Hospice was consulted and he was accepted to their care. ?The bed was delivered today.? The family agrees with the plan and states they are able and willing to care for him at home.?? He was discharged to home today with oral liquid Cipro, oral liquid morphine, oral liquid Lorazepam, stable, comfortable via EMS. Discussed with Dr Alcantara Home Meds and New Rx's Prescriptions: New ciprofloxacin [Cipro] 500 mg/5 mL suspension,microcapsule recon 500 mg PO BID Qty: 100 0RF lorazepam 2 mg/mL concentrate See Rx Instructions .ROUTE .COMPLEX PRNQty: 30 0RF Rx Instructions: 0.5 mg - 1 mg buccal every 6 hours as needed for anxiety Continued Ensure Active High Protein Liquid 120 ml PO TID acetaminophen 650 mg suppository [address] Q6H PRN (Reason: fever, mild pain) Qty: 6 0RF Rx Instructions: Hospice Patient hyoscyamine sulfate 0.125 mg tablet,disintegrating 0.125 - 0.25 mg PO Q4H PRN (Reason: secretions) Qty: 24 0RF Rx Instructions: Hospice Patient haloperidol lactate 2 mg/mL concentrate 1 mg PO Q6H PRN (Reason: agitation) Qty: 15 0RF Rx Instructions: Hospice Patient morphine concentrate 100 mg/5 mL (20 mg/mL) solution 5 - 20 mg PO Q1-4H MDD 5 mL PRN (Reason: moderate to severe pain or shortness of breath) Qty: 30 0RF Rx Instructions: Hospice Patient prochlorperazine maleate 10 mg tablet 10 mg PO Q6H PRN (Reason: nausea and vomiting) Qty: 6 0RF Rx Instructions: Hospice Patient bisacodyl [Dulcolax (bisacodyl)] 10 mg suppository [address] daily PRN (Reason: constipation) Qty: 2 0RF Rx Instructions: Hospice Patient Insert [address] Daily PRN constipation (no BM in 3 days) Discontinued lorazepam 1 mg tablet 1 mg PO Q4H PRN (Reason: anxiety, HOANG or nausea) Qty: 6 5RF Rx Instructions: Hospice Patient multivitamin Tablet 1 tab PO DAILY No Action (DME) diaper,brief,adult,disposable Misc See Rx Instructions .ROUTE .MEDSUPPLY Qty: 14 Rx Instructions: As directed (DME) procedural tray Tray See Rx Instructions .Route Qty: 20 12RF Rx Instructions: As directed sodium chloride [Sterile Saline] 0.9 % solution 1 irrig irrigation DAILY PRN (Reason: catheter irrigation) Qty: 6000 12RF Phlexy-Vits Powder In Packet 1 oz PO TID Qty: 30 0RF Discharge Instructions Instructions: Ciprofloxacin (By mouth), Hospice Care (GEN) Stand Alone Forms: Nursing Discharge Form Activity:: Activity as Tolerated Equipment/Supplies:: No Equipment Needed Diet:: As Tolerated Discharge Orders Discharge Orders: Discharge Order (Routine); Ordered 07/18/22 Ordered By: Esther Betancourt Discharge Data Discharge Date/Time-TO BE ENTERED AT DEPARTURE: 07/18/22 13:15 DS: Summary Time Spent with Patient providing and/or coordinating discharge services: Greater than 30 minutes Status at Discharge Functional status at discharge: bed bound Overall status at discharge: patient is not back to baseline Mental Status: other Speech and Movement: mute Mood: other Affect: blunted Exam Const General: frail appearing and ill appearing chronically Nutritional Appearance: thin Other: appears comfortable, no grimace or groan HENMT Head: normal to inspection, normocephalic and atraumatic Resp Effort & Inspection: normal respiratory effort Skin Lesions: lesion noted (multiple, see nurses skin assessment) and other Rashes: no rashes Neuro General: patient alert, patient awake and patient confused Extrem General: no edema and muscle atrophy of the right lower extremity and of the left lower extremity Psych Mental Status: other Speech and Movement: mute Mood: other Affect: blunted Attitude: avoids eye contact Other: does not answer questions, makes eye contact x1 otherwise avoids DS: Data Vitals/I&O Vitals and I&O: Vital Signs Temperature 36 C L 07/18/22 11:40 Temperature Source Tympanic 07/18/22 11:40 Pulse 75 07/18/22 11:40 Pulse Rhythm Regular 07/18/22 08:58 Respiratory Rate 16 07/18/22 11:40 Respiratory Effort Non-Labored 07/18/22 08:58 Respiratory Depth Normal 07/18/22 08:58 Respiratory Pattern Normal 07/18/22 08:58 Blood Pressure 122/72 07/18/22 11:40 Blood Pressure Position Supine 07/05/22 14:38 Pulse Oximetry 95 07/18/22 11:40 Oxygen Delivery Method Room Air 07/18/22 11:40 Oxygen Flow Rate 0 07/18/22 11:40 Fraction of Inspired Oxygen (FIO2) 97 07/07/22 02:30 Pain Level 0 07/18/22 11:40 Comment 07/15/22 10:48 Intake & Output 07/17/22 07/18/22 07/18/22 23:59 11:59 23:59 Intake Total 1210 / 2660 1100 / 1250 150 / 1250 Output Total 250 / 1100 1000 / 1000 Balance 960 / 1560 100 / 250 150 / 250 Weight 68 kg Intake: IV 1210 / 2660 1100 / 1250 150 / 1250 Output: Urine 250 / 1100 1000 / 1000 Other: Urine Color Yellow Straw Urine Appearance Clear Clear Stool Size Moderate Stool Characteristics Brown PFSH All Active Problems (Updated 07/19/22 @ 00:03 by JOHNATHON AQUINO) Deficit in activities of daily living (ADL) (Acute) MRSA bacteremia (Acute) Decubitus skin ulcer (Chronic) Thrombocytopenia (Chronic) Paroxysmal A-fib (Chronic) Dysphagia (Chronic) Neuro-degenerative disorders (Chronic) Lower urinary tract symptoms (LUTS) (Acute) History of BPH (Acute) Unspecified dementia without behavioral disturbance (Chronic) Babinski reflex (Acute) Clonus (Acute) Inability to walk (Acute) Wheelchair bound (Acute) Spasticity (Acute) Limited literacy (Chronic) Francois catheter in place (Acute) History of bloody stools (Acute) Disoriented (Acute) Hallucinations (Acute) Protein malnutrition (Chronic) Loss of taste (Acute) Ambulatory dysfunction (Chronic) Weakness (Chronic) Medical History Colon cancer Difficulty swallowing solids H/O prostate cancer Hypoalbuminemia Incontinence Palliative care patient Poor dentition Tachycardia Urinary retention Very poor mobility Surgical History S/P colectomy 2009 for colon cancer Family History Son No problems noted. Son No problems noted. Mother , about age 80 unknown cause of , per family No problems noted. Father , about age 70 family doesn't know COD No problems noted. Social History Smoking/Tobacco Use Status: Former Tobacco Use Tobacco: How many years used: 50 Smoking risk assessment performed?: Yes Alcohol Intake: current Alcohol Intake frequency: 0-2 drinks per day Alcohol type: beer Counseling provided: support program Details: used to drink and smoke heavily until about 5 years ago/2014 Drug use: Never Substance use type: does not use Caregiver/Support person: Yes Household members: spouse, family and children Housing: house Number of Children: 2 number of grandchildren: 8 Communication Needs: Hard of Hearing and Corrective Lenses Education Level: middle school Do you need help understanding health information?: Always 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, 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 per ems home living situation is very unsanitary. Has 2 sons, Lissy and Adolfo, who help take care of Jose. Both live on the property. Time Spent with Patient Time Spent with Patient: 45-69 minutes Time was spent: preparing to see the patient(eg.review tests), obtaining and/or reviewing separately otained hiistory, ordering medications,tests, procedures, referring, communicating with other health manager medicare, counseling the patient and care coordination
[2022-07-18] MEDS: Bacitracin 1 PACKET TP (12:49)
== END 2022-07-18 13:15 | disposition hospice, inpatient (51) | DRG 682 ==
LOC: ER 20:35 → MS 21:54
PROVIDERS: Internal Medicine; Nurse Practitioner Acute Care; Admitting Provider Family Medicine; Emergency Provider Emergency Medicine; PCP Nurse Practitioner Family; Visit Provider Family Medicine
DX: N17.9 Acute kidney failure, unspecified (principal); G92.8 Other toxic encephalopathy; E46 Unspecified protein-calorie malnutrition; E87.0 Hyperosmolality and hypernatremia; N39.0 Urinary tract infection, site not specified; R78.81 Bacteremia; M62.82 Rhabdomyolysis; E86.0 Dehydration; Z93.51 Cutaneous-vesicostomy status; F03.90 Unspecified dementia, unspecified severity, without behavioral disturbance, psychotic disturbance, mood disturbance, and anxiety; Z55.0 Illiteracy and low-level literacy; Z68.22 Body mass index [BMI] 22.0-22.9, adult; R53.1 Weakness; Z85.038 Personal history of other malignant neoplasm of large intestine; Z85.46 Personal history of malignant neoplasm of prostate; R32 Unspecified urinary incontinence; R13.10 Dysphagia, unspecified; J10.1 Influenza due to other identified influenza virus with other respiratory manifestations; G31.9 Degenerative disease of nervous system, unspecified; R33.9 Retention of urine, unspecified; I48.0 Paroxysmal atrial fibrillation; R74.01 Elevation of levels of liver transaminase levels; D69.6 Thrombocytopenia, unspecified; Z74.01 Bed confinement status; Z87.440 Personal history of urinary (tract) infections; L89.892 Pressure ulcer of other site, stage 2; L89.212 Pressure ulcer of right hip, stage 2; L89.112 Pressure ulcer of right upper back, stage 2; L89.890 Pressure ulcer of other site, unstageable; Z22.322 Carrier or suspected carrier of Methicillin resistant Staphylococcus aureus; K04.7 Periapical abscess without sinus; Z66 Do not resuscitate; B96.5 Pseudomonas (aeruginosa) (mallei) (pseudomallei) as the cause of diseases classified elsewhere
CPT/HCPCS: 36415; 80048; 80053; 80076; 82550; 83935; 84145; 86022; 86803; 87040; 87077; 87340; 87493; 87635; 87637; 92526; 92610; 96361; 96365; 96375; 97110; 97163; 99285; J1650; 70450; 71045; 74176; 76700; 80202; 80320; 80329; 81003; 81015; 82040; 82607; 83735; 84100; 84132; 84295; 85025; 85610; 86140; 87086; 87186; 93306; 99231; 99232; 99233; 99239; J0131; J0696; J0713; J0878; J2270; J2405; J3420; J3480; J3490; J7060

== ENCOUNTER → 2022-09-20 16:28 | Outpatient (BNVA) | payer MEDICARE, MEDICAID, SELFPAY | PROVIDERS: PCP Nurse Practitioner Family; Referring Provider Nurse Practitioner Family; Visit Provider Urology | DX: Z43.5 Encounter for attention to cystostomy (principal); R39.89 Other symptoms and signs involving the genitourinary system | CPT/HCPCS: 51705 ==

== ENCOUNTER 2022-09-24 14:42 | Outpatient (REF) | payer MEDICARE, MEDICAID, SELFPAY ==
[2022-09-24 16:46] LABS: HCT 41.3 % (40.0-50.0); HGB 14.1 g/dL (13.5-17.5); MCH 35.6 pg (27.0-33.0); MCHC 34.1 % (32.0-36.0); MCV 104 fL (80-95); MPV 11.9 fL (8.0-11.0); Platelet Count 163 10^3/uL (130-400); RBC 3.96 10^6/uL (4.36-5.78); RDW 12.7 % (11.8-14.1); RDW-SD 48.9 fL; WBC 4.42 10^3/uL (4.4-10.8)
[2022-09-24 17:18] LABS: C-Reactive Protein 1.07 mg/dL (0.0-0.3)
== END 2022-09-24 14:43 | disposition home or self-care (01) ==
LOC: LBN 14:42
PROVIDERS: PCP Nurse Practitioner Family; Visit Provider Urology
DX: N17.9 Acute kidney failure, unspecified (principal); B95.62 Methicillin resistant Staphylococcus aureus infection as the cause of diseases classified elsewhere; R78.81 Bacteremia; R33.9 Retention of urine, unspecified
CPT/HCPCS: 85027; 86140

== ENCOUNTER → 2022-10-17 13:53 | Outpatient (BNVA) | payer MEDICARE, MEDICAID, SELFPAY | PROVIDERS: PCP Nurse Practitioner Family; Referring Provider Nurse Practitioner Family; Visit Provider Nurse Practitioner Gerontology | DX: Z43.5 Encounter for attention to cystostomy (principal); R33.9 Retention of urine, unspecified | CPT/HCPCS: 99211 ==

== ENCOUNTER → 2022-11-14 14:02 | Outpatient (BNVA) | payer MEDICARE, MEDICAID, SELFPAY | PROVIDERS: PCP Nurse Practitioner Family; Referring Provider Nurse Practitioner Family; Visit Provider Nurse Practitioner Gerontology | DX: Z43.5 Encounter for attention to cystostomy (principal); R33.9 Retention of urine, unspecified | CPT/HCPCS: 51705 ==

== ENCOUNTER → 2022-12-12 14:24 | Outpatient (BNVA) | payer MEDICARE, MEDICAID, SELFPAY | PROVIDERS: PCP Nurse Practitioner Family; Referring Provider Nurse Practitioner Family; Visit Provider Nurse Practitioner Gerontology | DX: Z43.5 Encounter for attention to cystostomy (principal); R33.9 Retention of urine, unspecified | CPT/HCPCS: 51705 ==

== ENCOUNTER → 2023-01-16 10:14 | Outpatient (BNVA) | payer MEDICARE, MEDICAID, SELFPAY | PROVIDERS: PCP Nurse Practitioner Family; Referring Provider Nurse Practitioner Family; Visit Provider Urology | DX: Z43.5 Encounter for attention to cystostomy (principal) | CPT/HCPCS: 99211 ==

== ENCOUNTER → 2023-02-06 15:25 | Outpatient (BNVA) | payer MEDICARE, MEDICAID, SELFPAY | PROVIDERS: PCP Nurse Practitioner Family; Referring Provider Nurse Practitioner Family; Visit Provider Nurse Practitioner Gerontology | DX: Z43.5 Encounter for attention to cystostomy (principal); R33.9 Retention of urine, unspecified | CPT/HCPCS: 51705 ==

== ENCOUNTER → 2023-03-07 14:27 | Outpatient (BNVA) | payer MEDICARE, MEDICAID, SELFPAY | PROVIDERS: PCP Nurse Practitioner Family; Referring Provider Nurse Practitioner Family; Visit Provider Urology | DX: Z46.6 Encounter for fitting and adjustment of urinary device (principal); R33.8 Other retention of urine | CPT/HCPCS: 51702; 51705 ==

== ENCOUNTER 2023-03-26 21:19 | Outpatient (REF) | payer MEDICARE, MEDICAID, SELFPAY ==
[2023-03-26 21:38] LABS: HCT 42.7 % (40.0-50.0); HGB 14.6 g/dL (13.5-17.5); MCH 34.9 pg (27.0-33.0); MCHC 34.2 % (32.0-36.0); MCV 102 fL (80-95); MPV 12.5 fL (8.0-11.0); Platelet Count 150 10^3/uL (130-400); RBC 4.18 10^6/uL (4.36-5.78); RDW 13.2 % (11.8-14.1); RDW-SD 49.6 fL; WBC 5.12 10^3/uL (4.4-10.8)
[2023-03-26 22:01] LABS: ALT 12 U/L (16-63); AST 16 U/L (15-37); Albumin 3.3 g/dL (3.4-5.0); Alkaline Phosphatase 81 U/L (46-116); Anion Gap 7.4 mmol/L (3-11); BUN 11 mg/dL (7-18); Bilirubin, Total 1.4 mg/dL (0.2-1.0); CO2 28.6 mmol/L (21.0-32.0); Calcium 8.9 mg/dL (8.5-10.1); Chloride 105 mmol/L (98-107); Glucose 104 mg/dL (74-106); Potassium 4.5 mmol/L (3.5-5.1); Sodium 141 mmol/L (136-145); Total Protein 6.7 g/dL (6.4-8.2)
[2023-03-27 18:26] LABS: Folate 9.6 ng/mL (8.6-20.0); Vitamin B12 266 pg/mL (193-986)
== END 2023-03-26 21:20 | disposition home or self-care (01) ==
LOC: NCHCN 21:19
PROVIDERS: PCP Nurse Practitioner Family; Visit Provider Nurse Practitioner Family
DX: E88.09 Other disorders of plasma-protein metabolism, not elsewhere classified (principal); D75.89 Other specified diseases of blood and blood-forming organs; R26.89 Other abnormalities of gait and mobility
CPT/HCPCS: 80053; 85027; 82607; 82746

== ENCOUNTER → 2023-04-04 13:51 | Outpatient (BNVA) | payer MEDICARE, MEDICAID, SELFPAY | PROVIDERS: PCP Nurse Practitioner Family; Visit Provider Urology | DX: Z43.1 Encounter for attention to gastrostomy (principal); R33.9 Retention of urine, unspecified | CPT/HCPCS: 99211 ==

== ENCOUNTER 2023-04-29 13:34 | Emergency (ER) | payer MEDICARE, MEDICAID, SELFPAY ==
[2023-04-29 13:33] VITALS: BP 112/67; PULSE 98; RESP 16; TEMP 36.8; O2SAT 98
--- NOTE | 2023-04-29 14:20 | ED.GENADUL_ITS ---
Discharge Plan Disposition Patient Disposition: Home Condition: Improving Discharge Details Clinical Impression: Acute UTI, Blocked suprapubic catheter Primary Care Provider: Hortencia Rayo ED Provider: Rochelle Gonzalez Home Meds and New Rx's Prescriptions: New ciprofloxacin [Cipro] 500 mg/5 mL suspension,microcapsule recon 500 mg PO BID 7 Days Qty: 70 0RF No Action Ensure Active High Protein Liquid 120 ml PO TID (DME) diaper,brief,adult,disposable Misc See Rx Instructions .ROUTE .MEDSUPPLY Qty: 14 Rx Instructions: As directed (DME) procedural tray Tray See Rx Instructions .Route Qty: 20 12RF Rx Instructions: As directed sodium chloride [Sterile Saline] 0.9 % solution 1 irrig irrigation DAILY PRN (Reason: catheter irrigation) Qty: 6000 12RF acetaminophen 650 mg suppository 650 mg IA Q6H PRN (Reason: fever, mild pain) Qty: 6 0RF Rx Instructions: Hospice Patient hyoscyamine sulfate 0.125 mg tablet,disintegrating 0.125 - 0.25 mg PO Q4H PRN (Reason: secretions) Qty: 24 0RF Rx Instructions: Hospice Patient haloperidol lactate 2 mg/mL concentrate 1 mg PO Q6H PRN (Reason: agitation) Qty: 15 0RF Rx Instructions: Hospice Patient morphine concentrate 100 mg/5 mL (20 mg/mL) solution 5 - 20 mg PO Q1-4H MDD 5 mL PRN (Reason: moderate to severe pain or shortness of breath) Qty: 30 0RF Rx Instructions: Hospice Patient prochlorperazine maleate 10 mg tablet 10 mg PO Q6H PRN (Reason: nausea and vomiting) Qty: 6 0RF Rx Instructions: Hospice Patient bisacodyl [Dulcolax (bisacodyl)] 10 mg suppository 10 mg IA daily PRN (Reason: constipation) Qty: 2 0RF Rx Instructions: Hospice Patient Insert 1 supp IA Daily PRN constipation (no BM in 3 days) meclizine 25 mg tablet 25 mg PO QID PRN (Reason: dizziness) Qty: 20 3RF Rx Instructions: hospice lorazepam 2 mg/mL concentrate See Rx Instructions .ROUTE .COMPLEX PRNQty: 30 0RF Rx Instructions: 0.5 mg - 1 mg buccal every 6 hours as needed for anxiety Phlexy-Vits Powder In Packet 1 oz PO TID Qty: 30 0RF Discharge Instructions Instructions: Urinary Tract Infection in Men (ED) Referrals: Hortencia Rayo [Primary Care Provider] - Discharge Data Discharge Physician: Rochelle Gonzalez Medical Decision Making 77-year-old male with history of chronic indwelling suprapubic catheter and dementia presents for nonfunctioning catheter. According to [id number] patient has been behaving normally without any infection symptoms. Will treat out Francois catheter and check UA. Suprapubic catheter was changed. Patient with very dark cloudy urine. UA consistent with infection. Laboratory studies otherwise unremarkable. Blood cultures are pending. I did review patient's prior urine microscopy which was positive for Pseudomonas. Patient has a penicillin and Cipro allergy listed. Unfortunately with history of Pseudomonas there are limited antibiotics that patient would be able to receive. I discussed this with patient's [id number]. She states that he was discharged home on Cipro last time and he was able to tolerate it without any reactions. She is unclear why there is an allergy to Cipro listed. I did offer admission for IV antibiotics however they declined. He will be started on Cipro awaiting culture results. HPI General Date/Time Provider Initiated Documentation: 04/29/23 13:37 . HPI Narrative: 77-year-old male with history of dementia and chronic indwelling suprapubic catheter presents for evaluation of of nondraining Francois catheter. According to family the catheter has not been working since around midnight. Over the last couple of days they have noted some dark urine with debris. He does have a history of frequent UTI. They deny any fevers or chills. No nausea or vomiting. No abdominal pain. Normally moving bowels. At time my evaluation patient without any complaints. Patient's Francois catheter was last placed 1 month ago and is due to be changed this Friday. Related Data Home Medications Medication Instructions Recorded Confirmed nutritional supplements 1 oz PO TID #30 ea 06/12/20 04/25/23 (Phlexy-Vits) diaper,brief,adult,disposable #14 ea 08/24/20 04/25/23 food supplemt, lactose-reduced 120 ml PO TID 08/24/20 04/25/23 (Ensure Active High Protein oral liquid) procedural tray #20 ea 02/05/22 04/25/23 sodium chloride 0.9 % irrigation 1 irrig irrigation DAILY PRN 02/06/22 04/25/23 solution (Sterile Saline) catheter irrigation #6,000 mL acetaminophen 650 mg rectal 650 mg IA Q6H PRN fever, mild pain 07/16/22 04/25/23 suppository #6 supp bisacodyl 10 mg rectal suppository 10 mg IA daily PRN constipation #2 07/16/22 04/25/23 (Dulcolax (bisacodyl)) supp haloperidol lactate 2 mg/mL oral 1 mg (0.5 mL) PO Q6H PRN agitation 07/16/22 04/25/23 concentrate #15 mL hyoscyamine sulfate 0.125 mg 0.125 - 0.25 mg (1 - 2 x 0.125 mg) 07/16/22 04/25/23 disintegrating tablet PO Q4H PRN secretions #24 tabs morphine concentrate 100 mg/5 mL 5 - 20 mg (0.25 - 1 mL) PO Q1-4H 07/16/22 04/25/23 (20 mg/mL) oral solution PRN moderate to severe pain or shortness of breath #30 mL prochlorperazine maleate 10 mg 10 mg PO Q6H PRN nausea and 07/16/22 04/25/23 tablet vomiting #6 tabs lorazepam 2 mg/mL oral concentrate See Rx Instructions .Route 07/18/22 04/25/23 .COMPLEX PRN #30 mL meclizine 25 mg tablet 25 mg PO QID PRN dizziness #20 tabs 09/04/22 04/25/23 ciprofloxacin 500 mg/5 mL oral 500 mg (5 mL) PO BID 7 days #70 mL 04/29/23 suspension (Cipro) Previous Rx's Medication Instructions Recorded nutritional supplements 1 oz PO TID #30 ea 06/12/20 (Phlexy-Vits) procedural tray #20 ea 02/05/22 sodium chloride 0.9 % irrigation 1 irrig irrigation DAILY PRN 02/06/22 solution (Sterile Saline) catheter irrigation #6,000 mL acetaminophen 650 mg rectal 650 mg IA Q6H PRN fever, mild pain 07/16/22 suppository #6 supp bisacodyl 10 mg rectal suppository 10 mg IA daily PRN constipation #2 07/16/22 (Dulcolax (bisacodyl)) supp haloperidol lactate 2 mg/mL oral 1 mg (0.5 mL) PO Q6H PRN agitation 07/16/22 concentrate #15 mL hyoscyamine sulfate 0.125 mg 0.125 - 0.25 mg (1 - 2 x 0.125 mg) 07/16/22 disintegrating tablet PO Q4H PRN secretions #24 tabs morphine concentrate 100 mg/5 mL 5 - 20 mg (0.25 - 1 mL) PO Q1-4H 07/16/22 (20 mg/mL) oral solution PRN moderate to severe pain or shortness of breath #30 mL prochlorperazine maleate 10 mg 10 mg PO Q6H PRN nausea and 07/16/22 tablet vomiting #6 tabs lorazepam 2 mg/mL oral concentrate See Rx Instructions .Route 07/18/22 .COMPLEX PRN #30 mL meclizine 25 mg tablet 25 mg PO QID PRN dizziness #20 tabs 09/04/22 ciprofloxacin 500 mg/5 mL oral 500 mg (5 mL) PO BID 7 days #70 mL 04/29/23 suspension (Cipro) Allergies Allergy/AdvReac Type Severity Reaction Status Date / Time codeine Allergy Severe Verified 04/29/23 13:42 Penicillins Allergy Severe Verified 04/29/23 13:42 ciprofloxacin Allergy Unverified 04/29/23 13:58 General Stated Complaint: Urinary SAM: 3 Review of Systems Narrative: Remainder of review of systems otherwise unobtainable due to patient's history of dementia. PFSH All Active Problems (Updated 04/29/23 @ 15:59 by Rochelle Gonzalez MD) Blocked suprapubic catheter (Acute) Acute UTI (Acute) Pressure sore of hip, right, unstageable (Acute) Bedbound (Acute) Deficit in activities of daily living (ADL) (Acute) MRSA bacteremia (Acute) Decubitus skin ulcer (Chronic) Thrombocytopenia (Chronic) Paroxysmal A-fib (Chronic) Dysphagia (Chronic) Neuro-degenerative disorders (Chronic) Lower urinary tract symptoms (LUTS) (Acute) History of BPH (Acute) Unspecified dementia without behavioral disturbance (Chronic) Babinski reflex (Acute) Clonus (Acute) Inability to walk (Acute) Wheelchair bound (Acute) Spasticity (Acute) Limited literacy (Chronic) Frnacois catheter in place (Acute) History of bloody stools (Acute) Disoriented (Acute) Hallucinations (Acute) Protein malnutrition (Chronic) Loss of taste (Acute) Ambulatory dysfunction (Chronic) Weakness (Chronic) Medical History Altered mental status H/O prostate cancer Colon cancer Urinary retention Very poor mobility Difficulty swallowing solids Poor dentition Hypoalbuminemia Incontinence Tachycardia Avoidance coping no medical care x 10 yrs [id number] Palliative care patient Surgical History S/P colectomy 2009 for colon cancer Family History Son No problems noted. Son No problems noted. Mother , about age 80 unknown cause of , per family No problems noted. Father , about age 70 family doesn't know COD No problems noted. Social History Smoking/Tobacco Use Status: Former Tobacco Use Tobacco: How many years used: 50 Smoking risk assessment performed?: Yes Alcohol Intake: current Alcohol Intake frequency: 0-2 drinks per day Alcohol type: beer Counseling provided: support program Details: used to drink and smoke heavily until about 5 years ago/2014 Drug use: Never Substance use type: does not use Caregiver/Support person: Yes Household members: spouse, family and children Housing: house Number of Children: 2 number of grandchildren: 8 Communication Needs: Hard of Hearing and Corrective Lenses Education Level: middle school Do you need help understanding health information?: Always 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, 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 per ems home living situation is very unsanitary. Has 2 sons, Lissy and Adolfo, who help take care of Jose. Both live on the property. Exam Narrative Exam Narrative: General: non-toxic, no respiratory distress, comfortable HEENT: normocephalic, atraumatic, lids and lashes normal, PERRL, EOMI, anicteric sclera, no conjunctival injection, moist oral mucosa Card: regular rate and rhythm, S1S2, no murmurs, rubs, or gallops Lungs: good air entry, clear to auscultation bilaterally. no wheezes, rales, rhonchi, or retractions Abd: soft, suprapubic catheter in place with minimal amount of dark urine in tubing, mildly tender, non-distended, normal bowel sounds, no rebound or guarding, no peritoneal signs, no CVAT Musculoskeletal: full range of motion of arms and legs, no tenderness to palpation. no clubbing, cyanosis, or edema Neurologic: appropriate for age, strength normal Psych: alert and oriented to person only Skin: no petechiae, no lesions, warm and dry Course Vital Signs Vital signs: Vital Signs Temperature 36.8 C 04/29/23 13:33 Pulse 98 H 04/29/23 13:33 Respiratory Rate 16 04/29/23 13:33 Blood Pressure 112/67 04/29/23 13:33 Pulse Oximetry 98 04/29/23 13:33 Temperature 36.8 C 04/29/23 13:33 Temperature Source Tympanic 04/29/23 13:33 Pulse 98 H 04/29/23 13:33 Respiratory Rate 16 04/29/23 13:33 Respiratory Effort Normal 04/29/23 13:50 Blood Pressure 112/67 04/29/23 13:33 Pulse Oximetry 98 04/29/23 13:33 Oxygen Delivery Method Room Air 04/29/23 13:33 Oxygen Flow Rate 0 04/29/23 13:33 Pain Level 10 04/29/23 13:33 Comment Left upper quadrant 04/29/23 13:33 Procedures Other Description: Suprapubic catheter removal Suprapubic catheter placement -sterile procedure was used. Area washed with Betadine x3. 18 [place] Francois catheter placed. 10 cc balloon filled.
[2023-04-29 15:02] LABS: Bilirubin Negative (Negative); Blood Large (Negative); Clarity Cloudy (Clear); Glucose Negative (Negative); Ketones Negative (Negative); Leukocyte Esterase Large (Negative); Nitrite Positive (Negative); Specific Gravity >= 1.030 (1.005-1.025); Urobilinogen 0.2 mg/dL (Up to 0.2); pH 5.5 (5-8)
[2023-04-29 15:03] LABS: Bacteria Many HPF (Negative); C & S Indicated? Yes; Casts Negative LPF (Negative); Crystals Negative HPF (Negative); Mucus Moderate (Negative); RBC >50 HPF (0-2); WBC >50 HPF (0-5)
[2023-04-29 15:13] LABS: Lactate 1.5 mmol/L (0.6-1.4)
[2023-04-29 15:16] LABS: Abs Immature Grans 0.04 10^3/uL (0.0-0.06); Absolute Basophil Count 0.01 10^3/uL (0.0-0.2); Absolute Lymphocyte Count 0.44 10^3/uL (1.2-3.4); Absolute Monocyte Count 0.54 10^3/uL (0.1-0.8); Absolute Neutrophil Count 10.15 10^3/uL (1.2-6.7); Basophils % 0.1; HGB 13.7 g/dL (13.5-17.5); Immature Grans % 0.4; Lymphocytes % 3.9; MCH 34.9 pg (27.0-33.0); MCHC 35.1 % (32.0-36.0); MCV 100 fL (80-95); MPV 11.6 fL (8.0-11.0); Monocytes % 4.8; Neutrophils % 90.8; Platelet Count 129 10^3/uL (130-400); RBC 3.92 10^6/uL (4.36-5.78); RDW 13.2 % (11.8-14.1); RDW-SD 48.5 fL; WBC 11.18 10^3/uL (4.4-10.8)
[2023-04-29 15:38] LABS: ALT 12 U/L (16-63); AST 14 U/L (15-37); Albumin 3.2 g/dL (3.4-5.0); Alkaline Phosphatase 75 U/L (46-116); Anion Gap 6.3 mmol/L (3-11); BUN 17 mg/dL (7-18); Bilirubin, Total 1.4 mg/dL (0.2-1.0); CO2 25.7 mmol/L (21.0-32.0); Chloride 107 mmol/L (98-107); Glucose 136 mg/dL (74-106); Potassium 3.8 mmol/L (3.5-5.1); Sodium 139 mmol/L (136-145); Total Protein 6.7 g/dL (6.4-8.2)
[2023-04-29 16:56] VITALS: BP 109/60; PULSE 75; TEMP 36.8; O2SAT 98
== END 2023-04-29 18:13 | disposition home or self-care (01) ==
PROVIDERS: Emergency Provider Emergency Medicine Emergency Medical Services; PCP Nurse Practitioner Family
DX: N39.0 Urinary tract infection, site not specified (principal); T83.090A Other mechanical complication of cystostomy catheter, initial encounter
CPT/HCPCS: 51702; 51798; 80053; 87040; 87077; 81003; 81015; 83605; 85025; 87086; 87186; 99284

== ENCOUNTER 2023-05-15 17:04 | Outpatient (REF) | payer MEDICARE, MEDICAID, SELFPAY ==
[2023-05-15 17:40] LABS: Bilirubin Negative (Negative); Blood Negative (Negative); Clarity Clear (Clear); Glucose Negative (Negative); Ketones Negative (Negative); Leukocyte Esterase Trace (Negative); Nitrite Negative (Negative); Specific Gravity 1.015 (1.005-1.025); pH 5.5 (5-8)
[2023-05-15 17:46] LABS: Bacteria Rare HPF (Negative); C & S Indicated? C&S Done As Ordered; Casts Negative LPF (Negative); Crystals Negative HPF (Negative); Epithelial Cells Rare HPF (Negative); Mucus Trace (Negative); RBC 0-2 HPF (0-2)
== END 2023-05-15 17:05 | disposition home or self-care (01) ==
LOC: LBN 17:04
PROVIDERS: PCP Nurse Practitioner Family; Visit Provider Urology
DX: N39.0 Urinary tract infection, site not specified (principal); R31.9 Hematuria, unspecified; R33.8 Other retention of urine
CPT/HCPCS: 81003; 81015; 87086

== ENCOUNTER → 2023-05-30 14:25 | Outpatient (BNVA) | payer MEDICARE, MEDICAID, SELFPAY | PROVIDERS: PCP Nurse Practitioner Family; Visit Provider Urology | DX: Z46.6 Encounter for fitting and adjustment of urinary device (principal); R39.89 Other symptoms and signs involving the genitourinary system; R26.2 Difficulty in walking, not elsewhere classified | CPT/HCPCS: 51705 ==

== ENCOUNTER → 2023-06-27 14:37 | Outpatient (BNVA) | payer MEDICARE, MEDICAID, SELFPAY | PROVIDERS: PCP Nurse Practitioner Family; Visit Provider Urology | DX: Z46.6 Encounter for fitting and adjustment of urinary device (principal); R33.8 Other retention of urine; R26.2 Difficulty in walking, not elsewhere classified | CPT/HCPCS: 51705 ==

== ENCOUNTER 2023-07-31 17:35 | Outpatient (REF) | payer MEDICARE, MEDICAID, SELFPAY ==
[2023-07-31 18:28] LABS: Bilirubin Negative (Negative); Blood Large (Negative); Clarity Cloudy (Clear); Glucose Negative (Negative); Ketones Negative (Negative); Leukocyte Esterase Moderate (Negative); Nitrite Negative (Negative); Specific Gravity 1.015 (1.005-1.025)
[2023-07-31 18:49] LABS: Bacteria Many HPF (Negative); Crystals Negative HPF (Negative); Epithelial Cells Rare HPF (Negative); Mucus Trace (Negative); RBC 20-50 HPF (0-2); WBC 20-50 HPF (0-5)
[2023-07-31 18:50] LABS: C & S Indicated? C&S Done As Ordered
== END 2023-07-31 17:36 | disposition home or self-care (01) ==
LOC: LBN 17:35
PROVIDERS: PCP Nurse Practitioner Family; Visit Provider Urology
DX: N39.0 Urinary tract infection, site not specified (principal)
CPT/HCPCS: 87077; 81003; 81015; 87086; 87186

== ENCOUNTER 2023-08-27 18:50 | Outpatient (REF) | payer MEDICARE, MEDICAID, SELFPAY ==
[2023-08-27 15:55] LABS: Bilirubin Negative (Negative); Blood Moderate (Negative); Glucose Negative (Negative); Ketones Negative (Negative); Leukocyte Esterase Large (Negative); Nitrite Negative (Negative); Specific Gravity 1.025 (1.005-1.025); Urobilinogen 0.2 mg/dL (Up to 0.2)
[2023-08-27 16:02] LABS: Bacteria Many HPF (Negative); C & S Indicated? Yes; WBC >50 HPF (0-5)
[2023-08-27 18:32] LABS: Clarity Turbid (Clear)
== END 2023-08-27 18:51 | disposition home or self-care (01) ==
LOC: LBN 18:50
PROVIDERS: PCP Nurse Practitioner Family; Referring Provider Nurse Practitioner Family; Visit Provider Nurse Practitioner Family
DX: R33.8 Other retention of urine (principal); R82.998 Other abnormal findings in urine; N40.1 Benign prostatic hyperplasia with lower urinary tract symptoms
CPT/HCPCS: 87077; 81003; 81015; 87086; 87186

== ENCOUNTER → 2024-07-02 14:29 | Outpatient (BNVA) | payer MEDICARE, MEDICAID, SELFPAY | PROVIDERS: PCP Nurse Practitioner Family; Referring Provider Nurse Practitioner Family; Visit Provider Urology | DX: R33.9 Retention of urine, unspecified (principal) | CPT/HCPCS: 99213 ==

== ENCOUNTER 2024-09-28 15:55 | Outpatient (REF) | payer MEDICARE, MEDICAID, SELFPAY ==
[2024-09-28 21:17] LABS: Absolute Basophil Count 0.02 10^3/uL (0.0-0.2); Absolute Eosinophil Count 0.04 10^3/uL (0.0-0.7); Absolute Lymphocyte Count 1.38 10^3/uL (1.2-3.4); Absolute Monocyte Count 0.27 10^3/uL (0.1-0.8); Absolute Neutrophil Count 2.77 10^3/uL (1.2-6.7); Basophils % 0.4 %; Eosinophils % 0.9 %; HCT 41.4 % (40.0-50.0); HGB 14.1 g/dL (13.5-17.5); Lymphocytes % 30.8 %; MCH 34.7 pg (27.0-33.0); MCHC 34.1 % (32.0-36.0); MCV 102 fL (80-95); MPV 12.2 fL (8.0-11.0); Neutrophils % 61.9 %; Platelet Count 133 10^3/uL (130-400); RBC 4.06 10^6/uL (4.36-5.78); RDW 13.6 % (11.8-14.1); RDW-SD 51.9 fL; WBC 4.48 10^3/uL (4.4-10.8)
[2024-09-28 21:54] LABS: ALT 17 U/L (16-63); AST 16 U/L (15-37); Albumin 3.4 g/dL (3.4-5.0); Alkaline Phosphatase 316 U/L (46-116); Anion Gap 7.8 mmol/L (3-11); BUN 16 mg/dL (7-18); Bilirubin, Total 1.5 mg/dL (0.2-1.0); CO2 29.2 mmol/L (21.0-32.0); CREATININE 0.8 mg/dL (0.70-1.30); Calcium 8.6 mg/dL (8.5-10.1); Chloride 107 mmol/L (98-107); Estimated GFR 90.58 (mL/min/1.73m2); Folate 16.8 ng/mL (8.6-20.0); Glucose 95 mg/dL (74-106); Potassium 4.6 mmol/L (3.5-5.1); Sodium 144 mmol/L (136-145); Total Protein 6.6 g/dL (6.4-8.2); Vitamin B12 337 pg/mL (193-986)
== END 2024-09-28 15:56 | disposition home or self-care (01) ==
LOC: NCHCN 15:55
PROVIDERS: PCP Nurse Practitioner Family; Visit Provider Nurse Practitioner Family
DX: D75.89 Other specified diseases of blood and blood-forming organs (principal)
CPT/HCPCS: 80053; 82607; 82746; 85025

== ENCOUNTER 2024-11-01 15:56 | Outpatient (REF) | payer MEDICARE, MEDICAID, SELFPAY ==
[2024-11-01 21:36] LABS: Bilirubin Negative (Negative); Blood Trace-intact (Negative); Clarity Sl Cloudy (Clear); Glucose Negative (Negative); Ketones Negative (Negative); Leukocyte Esterase Large (Negative); Nitrite Negative (Negative); Urobilinogen 0.2 mg/dL (Up to 0.2)
[2024-11-01 21:47] LABS: Bacteria Many HPF (Negative); C & S Indicated? No/Sq. Contamination; Crystals Many Amorphous HPF (Negative); Epithelial Cells Moderate HPF (Negative); Mucus Negative (Negative); WBC >50 HPF (0-5)
[2024-11-01 21:51] LABS: Iron 95 ug/dL (65-175); Total Iron Binding Capacity 309 ug/dL (250-450); Transferrin Sat 31 % (20-55)
[2024-11-01 22:20] LABS: Alkaline Phosphatase 322 U/L (46-116); Ferritin 209 ng/mL (26-388); TSH (W/Ref FT4) 1.89 uIU/mL (0.36-3.74); Vitamin D 25 Total 11 ng/mL (30-100)
[2024-11-01 22:32] LABS: GGT 27 U/L (15-85)
[2024-11-02 18:02] LABS: Parathyroid Hormone,Intact 76 pg/mL (19-88)
[2024-11-05 12:53] LABS: Mitochondrial Ab, M2 <0.1 U
== END 2024-11-01 15:57 | disposition home or self-care (01) ==
LOC: NCHCN 15:56
PROVIDERS: PCP Nurse Practitioner Family; Visit Provider Nurse Practitioner Family
DX: R74.8 Abnormal levels of other serum enzymes (principal)
CPT/HCPCS: 82306; 83516; 81003; 81015; 82728; 82977; 83540; 83550; 83970; 84075; 84443

== ENCOUNTER 2024-11-09 10:35 | Outpatient (CLI) | payer MEDICARE, MEDICAID, SELFPAY | END 2024-11-09 10:36 | disposition home or self-care (01) | LOC: CARDOPNVT 10:35 | PROVIDERS: PCP Nurse Practitioner Family; Visit Provider Nurse Practitioner Family | DX: I48.91 Unspecified atrial fibrillation (principal) | CPT/HCPCS: 93246 ==

== ENCOUNTER 2024-12-07 09:41 | Outpatient (CLI) | payer MEDICARE, MEDICAID, SELFPAY ==
--- NOTE | 2024-12-07 12:31 | W.CARDEVENT ---
Date of service: 12/07/24 Time of Service: 12:31 Cardiac Event Recorder Referring Provider:: Hortencia Rayo Indications:: Paroxysmal atrial fibrillation Cardiac Event Note: This is a cardiac event monitor. Patient was monitored for 13 days and 6 hours Predominant rhythm was sinus. Average heart rate was 61, minimum was 42, maximum 121 There were occasional ventricular ectopic beats. There was 1 ventricular triplet There were frequent atrial premature beats comprising 12% of total. There was several self-limited atrial runs There was no atrial fibrillation, no high-grade AV block, no pauses greater than 3 seconds Reported symptoms correlated to sinus bradycardia
== END 2024-12-07 09:42 | disposition home or self-care (01) ==
LOC: CARDOPNVT 09:41
PROVIDERS: PCP Nurse Practitioner Family; Visit Provider Internal Medicine Cardiovascular Disease
DX: I48.0 Paroxysmal atrial fibrillation (principal); I49.1 Atrial premature depolarization
CPT/HCPCS: 93248

== ENCOUNTER 2024-12-09 21:56 | Outpatient (REF) | payer MEDICARE, MEDICAID, SELFPAY ==
[2024-12-09 20:10] LABS: Bilirubin Negative (Negative); Blood Moderate (Negative); Clarity Clear (Clear); Glucose Negative (Negative); Ketones Negative (Negative); Leukocyte Esterase Large (Negative); Nitrite Positive (Negative); Specific Gravity 1.015 (1.005-1.025)
[2024-12-09 20:28] LABS: Bacteria Packed HPF (Negative); C & S Indicated? C&S Done As Ordered; Casts Negative LPF (Negative); Crystals Negative HPF (Negative); Epithelial Cells Rare HPF (Negative); Mucus Negative (Negative); WBC >50 HPF (0-5)
== END 2024-12-09 21:57 | disposition home or self-care (01) ==
LOC: NCHCN 21:56
PROVIDERS: PCP Nurse Practitioner Family; Visit Provider Nurse Practitioner Family
DX: R31.9 Hematuria, unspecified (principal)
CPT/HCPCS: 87077; 81003; 81015; 87086; 87186

== ENCOUNTER 2025-01-17 21:22 | Outpatient (REF) | payer MEDICARE, MEDICAID, SELFPAY ==
[2025-01-17 20:32] LABS: Glucose Negative (Negative)
[2025-01-17 20:40] LABS: WBC >50 HPF (0-5)
== END 2025-01-17 21:23 | disposition home or self-care (01) ==
LOC: NCHCN 21:22
PROVIDERS: PCP Nurse Practitioner Family; Visit Provider Nurse Practitioner Family
DX: N40.1 Benign prostatic hyperplasia with lower urinary tract symptoms (principal); R33.8 Other retention of urine; Z43.5 Encounter for attention to cystostomy
CPT/HCPCS: 87077; 87186; 81003; 81015; 87086

== ENCOUNTER → 2025-03-21 10:37 | Outpatient (BNVA) | payer MEDICARE, MEDICAID, SELFPAY | PROVIDERS: PCP Nurse Practitioner Family; Referring Provider Nurse Practitioner Family; Visit Provider Podiatrist | DX: L60.3 Nail dystrophy (principal); L60.2 Onychogryphosis; B35.1 Tinea unguium; M79.674 Pain in right toe(s); M79.675 Pain in left toe(s); L65.9 Nonscarring hair loss, unspecified; L60.8 Other nail disorders | CPT/HCPCS: 11719; 11720 ==

== ENCOUNTER 2025-04-05 21:05 | Outpatient (REF) | payer MEDICARE, MEDICAID, SELFPAY ==
[2025-04-05 21:55] LABS: Abs Immature Grans 0.01 10^3/uL (0.0-0.06); HCT 34.9 % (40.0-50.0); HGB 11.9 g/dL (13.5-17.5); Immature Grans % 0.2 %; MCH 35.0 pg (27.0-33.0); MCHC 34.1 % (32.0-36.0); MCV 103 fL (80-95); MPV 12.0 fL (8.0-11.0); Platelet Count 146 10^3/uL (130-400); RBC 3.40 10^6/uL (4.36-5.78); RDW 13.2 % (11.8-14.1); RDW-SD 49.9 fL; WBC 4.93 10^3/uL (4.4-10.8)
[2025-04-05 22:27] LABS: ALT 10 U/L (16-63); AST 15 U/L (15-37); Albumin 3.0 g/dL (3.4-5.0); Alkaline Phosphatase 361 U/L (46-116); Anion Gap 7.6 mmol/L (3-11); BUN 17 mg/dL (7-18); Bilirubin, Total 0.9 mg/dL (0.2-1.0); CO2 30.4 mmol/L (21.0-32.0); Calcium 8.6 mg/dL (8.5-10.1); Chloride 104 mmol/L (98-107); Estimated GFR 87.42 (mL/min/1.73m2); Glucose 84 mg/dL (74-106); Potassium 4.2 mmol/L (3.5-5.1); Sodium 142 mmol/L (136-145); Total Protein 6.1 g/dL (6.4-8.2); Vitamin D 25 Total 38 ng/mL (30-100)
== END 2025-04-05 21:06 | disposition home or self-care (01) ==
LOC: NCHCN 21:05
PROVIDERS: PCP Nurse Practitioner Family; Visit Provider Nurse Practitioner Family
DX: E55.9 Vitamin D deficiency, unspecified (principal); R74.8 Abnormal levels of other serum enzymes; D75.89 Other specified diseases of blood and blood-forming organs
CPT/HCPCS: 80053; 82306; 85025

== ENCOUNTER 2025-06-01 15:43 | Outpatient (REF) | payer MEDICARE, MEDICAID, SELFPAY ==
[2025-06-01 15:52] LABS: Glucose Negative (Negative); WBC >50 HPF (0-5)
== END 2025-06-01 15:44 | disposition home or self-care (01) ==
LOC: NCHCN 15:43
PROVIDERS: PCP Nurse Practitioner Family; Visit Provider Nurse Practitioner Family
DX: R33.8 Other retention of urine (principal); Z46.6 Encounter for fitting and adjustment of urinary device
CPT/HCPCS: 81003; 81015; 87086

== ENCOUNTER → 2025-06-28 14:38 | Outpatient (BNVA) | payer MEDICARE, MEDICAID, SELFPAY | PROVIDERS: PCP Nurse Practitioner Family; Referring Provider Nurse Practitioner Family; Visit Provider Urology | DX: R33.9 Retention of urine, unspecified (principal); Z43.5 Encounter for attention to cystostomy | CPT/HCPCS: 51705 ==

== ENCOUNTER 2025-07-01 16:02 | Outpatient (REF) | payer MEDICARE, MEDICAID, SELFPAY ==
[2025-07-01 18:14] LABS: WBC >50 HPF (0-5)
== END 2025-07-01 16:03 | disposition home or self-care (01) ==
LOC: NCHCN 16:02
PROVIDERS: PCP Nurse Practitioner Family; Visit Provider Nurse Practitioner Family
DX: Z93.59 Other cystostomy status (principal)
CPT/HCPCS: 87077; 81015; 87086; 87186